=== PATIENT | female | born 1980 | race Caucasian/White ===

== ENCOUNTER 2017-03-31 16:13 | Inpatient (IN) | payer MEDICAID ==
[~2017-03-31] VITALS: Ht 167.6 cm; Wt 108.4 kg
[~2017-03-31 16:13] MED LIST: ATEN25TA PO; BENZ2TAB10 PO; DOCU250C91 PO; GABA-533 PO; HYDR25TA PO; MULT1CAP32 PO; OLAN10TA3 PO; QUET50XR PO; RISP3 PO; SERT50TA12 PO; TRAZ-147 PO; VITAD1000 PO
[2017-03-31] MEDS ORDERED: ZOLPIDEM TARTRATE 10 MG TABLET PO PRN (21:15)
[2017-03-31] MEDS ORDERED: LORazepam 2 MG TABLET PO PRN (21:15)
[2017-03-31 21:52] VITALS: BP 128/73
[2017-04-01 06:20] VITALS: BP 143/75
[2017-04-01 08:33] LABS: BASOPHILS % (AUTO) 0.4 % (0.0-2.0); EOSINOPHILS % (AUTO) 6.4 % (1.0-6.0); HEMATOCRIT 39.1 % (36-46); HEMOGLOBIN 13.3 g/dL (12.0-16.0); LYMPHOCYTES # (AUTO) 1.4 K/uL (1.0-4.8); LYMPHOCYTES % (AUTO) 28.3 % (22.0-44.0); MEAN CORPUSCULAR HEMOGLOBIN 29.4 pg (26.0-34.0); MEAN CORPUSCULAR HGB CONC 34.1 G/dL (31.0-37.0); MEAN CORPUSCULAR VOLUME 86 fL (80-100); MONOCYTES # (AUTO) 0.7 K/uL (0.1-1.0); MONOCYTES % (AUTO) 14.9 % (2.0-9.0); NEUTROPHILS # (AUTO) 2.5 K/uL (1.8-7.7); PLATELET COUNT (AUTO) 269 K/uL (150-450); RED BLOOD CELL COUNT(AUTO) 4.52 MIL/uL (4.00-5.20); RED CELL DISTRIBUTION WIDTH 13.2 % (11.5-14.5)
[2017-04-01 08:46] VITALS: BP 146/91
[2017-04-01 09:02] LABS: ALANINE AMINOTRANSFERASE 26 U/L (12-78); ALBUMIN 2.6 g/dL (3.4-5.0); ANION GAP 8 mmol/L (8-16); ASPARTATE AMINOTRANSFERASE 14 U/L (15-37); BILIRUBIN,TOTAL 0.1 mg/dL (0.1-1.0); CALCIUM, TOTAL 8.4 mg/dL (8.8-10.5); CARBON DIOXIDE 24 mmol/L (22-29); CHLORIDE 110 mmol/L (98-107); CHOL/HDL RATIO 2.5 (3.9-5.7); CREATININE 0.63 mg/dL (0.60-1.30); GLOMERULAR FILTR. RATE CALC > 60 mL/min (>60); SODIUM SERUM 142 mmol/L (136-145); TOTAL PROTEIN, SERUM 6.1 g/dL (6.4-8.2); UREA NITROGEN, BLOOD 10 mg/dL (7-18)
[2017-04-01] MEDS: DOCUSATE SODIUM 250 MG CAPSULE PO SCH ×2 (09:38→16:40)
[2017-04-01] MEDS: MULTIVITAMINS, THERAPEUTIC TABLET PO SCH (09:38)
[2017-04-01] MEDS: ATENOLOL 25 MG TABLET PO SCH (09:38)
[2017-04-01] MEDS: HYDROCHLOROTHIAZIDE 25 MG TABLET PO SCH (09:38)
[2017-04-01] MEDS: CHOLECALCIFEROL (VIT D3) 1,000 UNITS TABLET PO SCH (09:38)
[2017-04-01] MEDS: NICOTINE 21 MG/24 HOUR PATCH TD SCH (09:42)
[2017-04-01 09:44] LABS: THYROID STIMULATING HORMONE < 0.01 uIU/mL (0.36-3.74)
[2017-04-01 16:00] VITALS: BP 121/72
[2017-04-01] MEDS: DIVALPROEX SODIUM 500 MG ER TABLET PO SCH (16:41)
[2017-04-01] MEDS: BENZTROPINE MESYLATE 2 MG TABLET PO SCH (16:41)
[2017-04-01] MEDS: GABAPENTIN 300 MG CAPSULE PO SCH (16:41)
[2017-04-01] MEDS: RisperiDONE 3 MG TABLET PO SCH (16:41)
[2017-04-01] MEDS ORDERED: DOCUSATE SODIUM 250 MG CAPSULE PO SCH (17:00)
[2017-04-01] MEDS: TraZODone HCL 100 MG TABLET PO SCH (20:23)
[2017-04-01] MEDS ORDERED: DiphenhydrAMINE HCL 50 MG/ML VIAL ONE (20:28)
[2017-04-01] MEDS ORDERED: HALOPERIDOL LACTATE 5 MG/ML VIAL ONE (20:28)
[2017-04-01] MEDS ORDERED: LORazepam 2 MG/ML VIAL ONE (20:28)
[2017-04-01] MEDS ORDERED: LORazepam 2 MG/ML VIAL IM ONE (20:30)
[2017-04-01] MEDS ORDERED: DiphenhydrAMINE HCL 50 MG/ML VIAL IM ONE (20:30)
[2017-04-01] MEDS ORDERED: HALOPERIDOL LACTATE 5 MG/ML VIAL IM ONE (20:30)
[2017-04-02 05:47] VITALS: BP 112/73
[2017-04-02] MEDS: CHOLECALCIFEROL (VIT D3) 1,000 UNITS TABLET PO SCH (08:40)
[2017-04-02] MEDS: GABAPENTIN 300 MG CAPSULE PO SCH ×3 (08:40→16:40)
[2017-04-02] MEDS: BENZTROPINE MESYLATE 2 MG TABLET PO SCH ×2 (08:41→16:40)
[2017-04-02] MEDS: ATENOLOL 25 MG TABLET PO SCH (08:41)
[2017-04-02] MEDS: DIVALPROEX SODIUM 500 MG ER TABLET PO SCH ×2 (08:41→16:40)
[2017-04-02] MEDS: DOCUSATE SODIUM 250 MG CAPSULE PO SCH ×2 (08:41→16:40)
[2017-04-02] MEDS: HYDROCHLOROTHIAZIDE 25 MG TABLET PO SCH (08:41)
[2017-04-02] MEDS: MULTIVITAMINS, THERAPEUTIC TABLET PO SCH (08:41)
[2017-04-02] MEDS: RisperiDONE 3 MG TABLET PO SCH ×2 (08:41→16:40)
[2017-04-02] MEDS: NICOTINE 21 MG/24 HOUR PATCH TD SCH (08:42)
[2017-04-02] MEDS ORDERED: CHOLECALCIFEROL (VIT D3) 1,000 UNITS TABLET PO SCH (09:00)
[2017-04-02] MEDS ORDERED: HYDROCHLOROTHIAZIDE 25 MG TABLET PO SCH (09:00)
[2017-04-02 09:14] VITALS: BP 141/85
[2017-04-02 16:35] VITALS: BP 135/72
[2017-04-02] MEDS: LORazepam 2 MG TABLET PO PRN ×2 (16:40→20:41)
[2017-04-02] MEDS: TraZODone HCL 100 MG TABLET PO SCH (20:41)
[2017-04-02] MEDS: ZOLPIDEM TARTRATE 10 MG TABLET PO PRN (21:02)
[2017-04-03 06:48] VITALS: BP 139/78
[2017-04-03] MEDS: HYDROCHLOROTHIAZIDE 25 MG TABLET PO SCH (08:44)
[2017-04-03] MEDS: RisperiDONE 3 MG TABLET PO SCH ×2 (08:44→16:58)
[2017-04-03] MEDS: MULTIVITAMINS, THERAPEUTIC TABLET PO SCH (08:44)
[2017-04-03] MEDS: BENZTROPINE MESYLATE 2 MG TABLET PO SCH ×2 (08:44→16:58)
[2017-04-03] MEDS: GABAPENTIN 300 MG CAPSULE PO SCH ×3 (08:44→16:57)
[2017-04-03] MEDS: ATENOLOL 25 MG TABLET PO SCH (08:44)
[2017-04-03] MEDS: DIVALPROEX SODIUM 500 MG ER TABLET PO SCH ×2 (08:44→16:57)
[2017-04-03] MEDS: LORazepam 2 MG TABLET PO PRN ×3 (08:45→20:29)
[2017-04-03] MEDS: CHOLECALCIFEROL (VIT D3) 1,000 UNITS TABLET PO SCH (08:45)
[2017-04-03] MEDS: DOCUSATE SODIUM 250 MG CAPSULE PO SCH ×2 (08:45→16:57)
[2017-04-03 08:50] VITALS: BP 119/89
[2017-04-03] MEDS: NICOTINE 21 MG/24 HOUR PATCH TD SCH (09:00)
[2017-04-03] MEDS ORDERED: DiphenhydrAMINE HCL 50 MG/ML VIAL ONE (09:10)
[2017-04-03] MEDS ORDERED: HALOPERIDOL LACTATE 5 MG/ML VIAL ONE (09:10)
[2017-04-03] MEDS ORDERED: LORazepam 2 MG/ML VIAL ONE (09:10)
[2017-04-03] MEDS ORDERED: HALOPERIDOL LACTATE 5 MG/ML VIAL IM ONE (09:15)
[2017-04-03] MEDS ORDERED: DiphenhydrAMINE HCL 50 MG/ML VIAL IM ONE (09:15)
[2017-04-03] MEDS ORDERED: LORazepam 2 MG/ML VIAL IM ONE (09:15)
[2017-04-03 09:45] VITALS: BP 123/73
[2017-04-03 16:00] VITALS: BP 132/81
[2017-04-03] MEDS: TraZODone HCL 100 MG TABLET PO SCH (20:29)
[2017-04-03] MEDS: ZOLPIDEM TARTRATE 10 MG TABLET PO PRN (21:01)
[2017-04-04] MEDS ORDERED: -PHARMACY VACCINE NOTE- MISC ONE ×2 (00:45)
[2017-04-04 07:14] VITALS: BP 130/75
[2017-04-04 08:44] VITALS: BP 118/69
[2017-04-04] MEDS: GABAPENTIN 300 MG CAPSULE PO SCH ×3 (08:48→16:26)
[2017-04-04] MEDS: MULTIVITAMINS, THERAPEUTIC TABLET PO SCH (08:49)
[2017-04-04] MEDS: NICOTINE 21 MG/24 HOUR PATCH TD SCH (08:49)
[2017-04-04] MEDS: BENZTROPINE MESYLATE 2 MG TABLET PO SCH ×2 (08:49→16:26)
[2017-04-04] MEDS: HYDROCHLOROTHIAZIDE 25 MG TABLET PO SCH (08:49)
[2017-04-04] MEDS: CHOLECALCIFEROL (VIT D3) 1,000 UNITS TABLET PO SCH (08:49)
[2017-04-04] MEDS: RisperiDONE 3 MG TABLET PO SCH ×2 (08:49→16:26)
[2017-04-04] MEDS: ATENOLOL 25 MG TABLET PO SCH (08:49)
[2017-04-04] MEDS: DOCUSATE SODIUM 250 MG CAPSULE PO SCH ×2 (08:49→16:26)
[2017-04-04] MEDS: DIVALPROEX SODIUM 500 MG ER TABLET PO SCH ×2 (08:49→16:26)
[2017-04-04] MEDS: LORazepam 2 MG TABLET PO PRN ×2 (08:49→12:50)
[2017-04-04 16:22] VITALS: BP 143/78
[2017-04-04] MEDS ORDERED: DiphenhydrAMINE HCL 50 MG/ML VIAL IM ONE ×2 (16:30→18:15)
[2017-04-04] MEDS ORDERED: LORazepam 2 MG/ML VIAL IM ONE ×2 (16:30→18:15)
[2017-04-04] MEDS ORDERED: HALOPERIDOL LACTATE 5 MG/ML VIAL IM ONE (16:30)
[2017-04-04] MEDS ORDERED: ZIPRASIDONE MESYLATE 20 MG/VIAL IM ONE ×2 (18:06→18:15)
[2017-04-04 18:45] VITALS: BP 130/74
[2017-04-04] MEDS: TraZODone HCL 100 MG TABLET PO SCH (20:20)
[2017-04-05 06:08] VITALS: BP 119/66
[2017-04-05 06:55] LABS: BASOPHILS % (AUTO) 0.3 % (0.0-2.0); EOSINOPHILS % (AUTO) 2.6 % (1.0-6.0); HEMATOCRIT 43.1 % (36-46); HEMOGLOBIN 14.7 g/dL (12.0-16.0); LYMPHOCYTES # (AUTO) 1.5 K/uL (1.0-4.8); LYMPHOCYTES % (AUTO) 20.7 % (22.0-44.0); MEAN CORPUSCULAR HEMOGLOBIN 29.6 pg (26.0-34.0); MEAN CORPUSCULAR HGB CONC 34.1 G/dL (31.0-37.0); MEAN CORPUSCULAR VOLUME 87 fL (80-100); MONOCYTES # (AUTO) 0.7 K/uL (0.1-1.0); MONOCYTES % (AUTO) 9.8 % (2.0-9.0); NEUTROPHILS # (AUTO) 4.9 K/uL (1.8-7.7); NEUTROPHILS % (AUTO) 66.6 % (40.0-70.0); PLATELET COUNT (AUTO) 290 K/uL (150-450); RED BLOOD CELL COUNT(AUTO) 4.96 MIL/uL (4.00-5.20); RED CELL DISTRIBUTION WIDTH 13.3 % (11.5-14.5); WHITE BLOOD COUNT (AUTO) 7.4 K/uL (4.5-11.0)
[2017-04-05 07:16] LABS: ALANINE AMINOTRANSFERASE 33 U/L (12-78); ANION GAP 10 mmol/L (8-16); ASPARTATE AMINOTRANSFERASE 17 U/L (15-37); BILIRUBIN,TOTAL 0.2 mg/dL (0.1-1.0); CALCIUM, TOTAL 9.2 mg/dL (8.8-10.5); CARBON DIOXIDE 27 mmol/L (22-29); CHLORIDE 106 mmol/L (98-107); CREATININE 0.84 mg/dL (0.60-1.30); GLOMERULAR FILTR. RATE CALC > 60 mL/min (>60); POTASSIUM 3.6 mmol/L (3.5-5.1); SODIUM SERUM 143 mmol/L (136-145); TOTAL PROTEIN, SERUM 6.7 g/dL (6.4-8.2); UREA NITROGEN, BLOOD 11 mg/dL (7-18); VALPROIC ACID 42 mcg/mL (50-100)
[2017-04-05 08:28] VITALS: BP 137/86
[2017-04-05] MEDS: GABAPENTIN 300 MG CAPSULE PO SCH ×3 (08:53→16:31)
[2017-04-05] MEDS: BENZTROPINE MESYLATE 2 MG TABLET PO SCH ×2 (08:54→16:31)
[2017-04-05] MEDS: CHOLECALCIFEROL (VIT D3) 1,000 UNITS TABLET PO SCH (08:54)
[2017-04-05] MEDS: RisperiDONE 3 MG TABLET PO SCH ×2 (08:54→16:31)
[2017-04-05] MEDS: ATENOLOL 25 MG TABLET PO SCH (08:54)
[2017-04-05] MEDS: MULTIVITAMINS, THERAPEUTIC TABLET PO SCH (08:54)
[2017-04-05] MEDS: HYDROCHLOROTHIAZIDE 25 MG TABLET PO SCH (08:54)
[2017-04-05] MEDS: DOCUSATE SODIUM 250 MG CAPSULE PO SCH ×2 (08:54→16:31)
[2017-04-05] MEDS: DIVALPROEX SODIUM 500 MG ER TABLET PO SCH ×2 (08:55→16:31)
[2017-04-05] MEDS: LORazepam 2 MG TABLET PO PRN ×3 (08:55→21:07)
[2017-04-05] MEDS: NICOTINE 21 MG/24 HOUR PATCH TD SCH (08:55)
[2017-04-05] MEDS: BENZOCAINE/MENTHOL LOZENGE PO PRN ×3 (11:43→21:07)
[2017-04-05 16:33] VITALS: BP 137/86
[2017-04-05] MEDS ORDERED: HALOPERIDOL LACTATE 5 MG/ML VIAL ONE (20:00)
[2017-04-05] MEDS ORDERED: LORazepam 2 MG/ML VIAL IM ONE (20:00)
[2017-04-05] MEDS ORDERED: DiphenhydrAMINE HCL 50 MG/ML VIAL IM ONE (20:00)
[2017-04-05] MEDS ORDERED: DiphenhydrAMINE HCL 50 MG/ML VIAL ONE (20:00)
[2017-04-05] MEDS ORDERED: LORazepam 2 MG/ML VIAL ONE (20:00)
[2017-04-05] MEDS ORDERED: HALOPERIDOL LACTATE 5 MG/ML VIAL IM ONE (20:00)
[2017-04-05] MEDS: TraZODone HCL 100 MG TABLET PO SCH (20:45)
[2017-04-05] MEDS: ZOLPIDEM TARTRATE 10 MG TABLET PO PRN (21:06)
[2017-04-06 06:40] VITALS: BP 134/88
[2017-04-06] MEDS: NICOTINE 21 MG/24 HOUR PATCH TD SCH (09:00)
[2017-04-06 09:18] VITALS: BP 149/92
[2017-04-06] MEDS: BENZTROPINE MESYLATE 2 MG TABLET PO SCH ×2 (10:00→16:23)
[2017-04-06] MEDS: HYDROCHLOROTHIAZIDE 25 MG TABLET PO SCH (10:23)
[2017-04-06] MEDS: CHOLECALCIFEROL (VIT D3) 1,000 UNITS TABLET PO SCH (10:23)
[2017-04-06] MEDS: MULTIVITAMINS, THERAPEUTIC TABLET PO SCH (10:24)
[2017-04-06] MEDS: RisperiDONE 3 MG TABLET PO SCH ×2 (10:24→16:24)
[2017-04-06] MEDS: DOCUSATE SODIUM 250 MG CAPSULE PO SCH ×2 (10:24→16:23)
[2017-04-06] MEDS: GABAPENTIN 300 MG CAPSULE PO SCH ×3 (10:24→16:24)
[2017-04-06] MEDS: DIVALPROEX SODIUM 500 MG ER TABLET PO SCH ×2 (10:24→16:23)
[2017-04-06] MEDS: ATENOLOL 25 MG TABLET PO SCH (10:24)
[2017-04-06 16:22] VITALS: BP 118/80
[2017-04-06] MEDS: BENZOCAINE/MENTHOL LOZENGE PO PRN (18:27)
[2017-04-06] MEDS: TraZODone HCL 100 MG TABLET PO SCH (20:20)
[2017-04-06] MEDS: LORazepam 2 MG TABLET PO PRN (20:20)
[2017-04-06] MEDS: ZOLPIDEM TARTRATE 10 MG TABLET PO PRN (21:54)
[2017-04-07 07:08] VITALS: BP 114/75
[2017-04-07 08:29] VITALS: BP 125/81
[2017-04-07] MEDS: DOCUSATE SODIUM 250 MG CAPSULE PO SCH ×2 (08:48→17:05)
[2017-04-07] MEDS: DIVALPROEX SODIUM 500 MG ER TABLET PO SCH ×2 (08:48→17:05)
[2017-04-07] MEDS: RisperiDONE 3 MG TABLET PO SCH ×2 (08:49→17:15)
[2017-04-07] MEDS: HYDROCHLOROTHIAZIDE 25 MG TABLET PO SCH (08:49)
[2017-04-07] MEDS: GABAPENTIN 300 MG CAPSULE PO SCH ×3 (08:49→17:05)
[2017-04-07] MEDS: BENZTROPINE MESYLATE 2 MG TABLET PO SCH ×2 (08:50→17:05)
[2017-04-07] MEDS: CHOLECALCIFEROL (VIT D3) 1,000 UNITS TABLET PO SCH (08:51)
[2017-04-07] MEDS: NICOTINE 21 MG/24 HOUR PATCH TD SCH (08:54)
[2017-04-07] MEDS: ATENOLOL 25 MG TABLET PO SCH (09:23)
[2017-04-07] MEDS: MULTIVITAMINS, THERAPEUTIC TABLET PO SCH (09:23)
[2017-04-07] MEDS: BENZOCAINE/MENTHOL LOZENGE PO PRN ×2 (11:50→16:40)
[2017-04-07] MEDS: LORazepam 2 MG TABLET PO PRN ×2 (12:14→16:39)
[2017-04-07 16:17] VITALS: BP 115/74
[2017-04-07] MEDS ORDERED: LORazepam 2 MG/ML VIAL ONE (17:24)
[2017-04-07] MEDS ORDERED: LORazepam 2 MG/ML VIAL IM ONE (17:30)
[2017-04-07] MEDS: TraZODone HCL 100 MG TABLET PO SCH (20:34)
[2017-04-08] MEDS: BENZOCAINE/MENTHOL LOZENGE PO PRN ×2 (01:06→12:25)
[2017-04-08 06:40] VITALS: BP 124/71
[2017-04-08 08:58] VITALS: BP 139/73
[2017-04-08] MEDS: NICOTINE 21 MG/24 HOUR PATCH TD SCH (09:00)
[2017-04-08 09:30] VITALS: BP 139/73
[2017-04-08] MEDS: ATENOLOL 25 MG TABLET PO SCH (09:58)
[2017-04-08] MEDS: MULTIVITAMINS, THERAPEUTIC TABLET PO SCH (09:58)
[2017-04-08] MEDS: GABAPENTIN 300 MG CAPSULE PO SCH ×3 (09:58→16:49)
[2017-04-08] MEDS: CHOLECALCIFEROL (VIT D3) 1,000 UNITS TABLET PO SCH (09:58)
[2017-04-08] MEDS: LORazepam 2 MG TABLET PO PRN ×2 (09:58→16:13)
[2017-04-08] MEDS: BENZTROPINE MESYLATE 2 MG TABLET PO SCH ×2 (09:59→16:49)
[2017-04-08] MEDS: HYDROCHLOROTHIAZIDE 25 MG TABLET PO SCH (09:59)
[2017-04-08] MEDS: DOCUSATE SODIUM 250 MG CAPSULE PO SCH ×2 (09:59→16:49)
[2017-04-08] MEDS: DIVALPROEX SODIUM 500 MG ER TABLET PO SCH ×2 (09:59→16:49)
[2017-04-08] MEDS: RisperiDONE 3 MG TABLET PO SCH ×2 (09:59→16:49)
[2017-04-08 18:06] VITALS: BP 119/89
[2017-04-08] MEDS: TraZODone HCL 100 MG TABLET PO SCH (20:05)
[2017-04-09 06:43] VITALS: BP 121/85
[2017-04-09] MEDS: HYDROCHLOROTHIAZIDE 25 MG TABLET PO SCH (08:53)
[2017-04-09] MEDS: RisperiDONE 3 MG TABLET PO SCH (08:53)
[2017-04-09] MEDS: DIVALPROEX SODIUM 500 MG ER TABLET PO SCH (08:53)
[2017-04-09] MEDS: BENZTROPINE MESYLATE 2 MG TABLET PO SCH (08:54)
[2017-04-09] MEDS: ATENOLOL 25 MG TABLET PO SCH (08:54)
[2017-04-09] MEDS: DOCUSATE SODIUM 250 MG CAPSULE PO SCH (08:54)
[2017-04-09] MEDS: MULTIVITAMINS, THERAPEUTIC TABLET PO SCH (08:54)
[2017-04-09] MEDS: GABAPENTIN 300 MG CAPSULE PO SCH ×2 (08:54→12:57)
[2017-04-09] MEDS: CHOLECALCIFEROL (VIT D3) 1,000 UNITS TABLET PO SCH (08:54)
[2017-04-09] MEDS: NICOTINE 21 MG/24 HOUR PATCH TD SCH (09:00)
[2017-04-09 10:02] VITALS: BP 127/77
[2017-04-09] MEDS ORDERED: DIVA500T52 PO (10:05)
[2017-04-09] MEDS ORDERED: TRAZ-147 PO (10:06)
[2017-04-09] MEDS ORDERED: BENZ2TAB10 PO (10:06)
[2017-04-09] MEDS ORDERED: RISP3 PO (10:06)
[2017-04-09] MEDS ORDERED: GABA-531 PO (10:19)
== END 2017-04-09 14:25 | disposition home or self-care (01) | DRG 750 ==
LOC: B3A 21:36
PROVIDERS: ADMIT Psychiatry & Neurology Child & Adolescent Psychiatry; ATTEND Psychiatry & Neurology Child & Adolescent Psychiatry
DX: F25.0 Schizoaffective disorder, bipolar type (principal); F79 Unspecified intellectual disabilities; I10 Essential (primary) hypertension; E55.9 Vitamin D deficiency, unspecified; K59.00 Constipation, unspecified; Z91.5 Personal history of self-harm; R25.9 Unspecified abnormal involuntary movements; R45.4 Irritability and anger; F17.200 Nicotine dependence, unspecified, uncomplicated
CPT/HCPCS: 84439; 84443; 87081; J1200; J1630; J2060; J3230; J3486

== ENCOUNTER 2017-04-15 18:14 | Inpatient (IN) | payer MEDICAID ==
[~2017-04-15] VITALS: Ht 167.6 cm; Wt 98.4 kg
[~2017-04-15 18:14] MED LIST changes: +DIVA500T52 PO; +GABA-531 PO; -GABA-533 PO; -MULT1CAP32 PO; -OLAN10TA3 PO; -QUET50XR PO; -SERT50TA12 PO
[2017-04-15 19:00] VITALS: BP 156/81
[2017-04-15] MEDS ORDERED: HALOPERIDOL LACTATE 5 MG/ML VIAL ONE (19:00)
[2017-04-15] MEDS ORDERED: LORazepam 2 MG/ML VIAL ONE (19:00)
[2017-04-15] MEDS ORDERED: HALOPERIDOL LACTATE 5 MG/ML VIAL IM ONE (19:00)
[2017-04-15] MEDS ORDERED: DiphenhydrAMINE HCL 50 MG/ML VIAL ONE (19:00)
[2017-04-15] MEDS ORDERED: LORazepam 2 MG/ML VIAL IM ONE (19:00)
[2017-04-15] MEDS ORDERED: DiphenhydrAMINE HCL 50 MG/ML VIAL IM ONE (19:00)
[2017-04-15] MEDS ORDERED: INFLUENZA VIRUS VACCINE QVS 2017-18 (3YR+)/PF 60 MCG/0.5 ML SYRINGE IM ONE (19:30)
[2017-04-15 19:40] VITALS: BP 143/91
[2017-04-15] MEDS: ATENOLOL 25 MG TABLET PO SCH (20:00)
[2017-04-15] MEDS: HYDROCHLOROTHIAZIDE 25 MG TABLET PO SCH (20:46)
[2017-04-15] MEDS: ZOLPIDEM TARTRATE 10 MG TABLET PO PRN (20:46)
[2017-04-15] MEDS: DOCUSATE SODIUM 250 MG CAPSULE PO SCH (21:25)
[2017-04-16 06:41] VITALS: BP 140/89
[2017-04-16] MEDS: DOCUSATE SODIUM 250 MG CAPSULE PO SCH ×2 (08:15→16:10)
[2017-04-16] MEDS: ATENOLOL 25 MG TABLET PO SCH (08:15)
[2017-04-16] MEDS: CHOLECALCIFEROL (VIT D3) 1,000 UNITS TABLET PO SCH (08:15)
[2017-04-16] MEDS: HYDROCHLOROTHIAZIDE 25 MG TABLET PO SCH (08:15)
[2017-04-16 08:19] LABS: BASOPHILS % (AUTO) 0.3 % (0.0-2.0); HEMATOCRIT 41.4 % (36-46); HEMOGLOBIN 14.1 g/dL (12.0-16.0); LYMPHOCYTES # (AUTO) 1.3 K/uL (1.0-4.8); LYMPHOCYTES % (AUTO) 32.4 % (22.0-44.0); MEAN CORPUSCULAR HEMOGLOBIN 29.5 pg (26.0-34.0); MEAN CORPUSCULAR HGB CONC 34.1 G/dL (31.0-37.0); MEAN CORPUSCULAR VOLUME 86 fL (80-100); MONOCYTES # (AUTO) 0.8 K/uL (0.1-1.0); MONOCYTES % (AUTO) 19.9 % (2.0-9.0); NEUTROPHILS # (AUTO) 1.7 K/uL (1.8-7.7); NEUTROPHILS % (AUTO) 42.4 % (40.0-70.0); PLATELET COUNT (AUTO) 234 K/uL (150-450); RED BLOOD CELL COUNT(AUTO) 4.79 MIL/uL (4.00-5.20); RED CELL DISTRIBUTION WIDTH 12.7 % (11.5-14.5)
[2017-04-16 08:54] VITALS: BP 153/105
[2017-04-16 08:55] LABS: HEMOGLOBIN A1C 5.4 % (4.5-6.2)
[2017-04-16 09:00] LABS: ALANINE AMINOTRANSFERASE 38 U/L (12-78); ALBUMIN 2.7 g/dL (3.4-5.0); ALKALINE PHOSPHATASE 81 U/L (46-116); ANION GAP 7 mmol/L (8-16); ASPARTATE AMINOTRANSFERASE 21 U/L (15-37); BILIRUBIN,TOTAL 0.3 mg/dL (0.1-1.0); CALCIUM, TOTAL 8.8 mg/dL (8.8-10.5); CARBON DIOXIDE 29 mmol/L (22-29); CHLORIDE 105 mmol/L (98-107); CHOL/HDL RATIO 3.3 (3.9-5.7); CHOLESTEROL 124 mg/dL (131-200); CREATININE 0.67 mg/dL (0.60-1.30); GLOMERULAR FILTR. RATE CALC > 60 mL/min (>60); GLUCOSE,RANDOM 80 mg/dL (70-110); HCG,QUANTITATIVE < 1 mIU/mL (0-6); HDL CHOLESTEROL 38 mg/dL (40-60); LDL CHOL (CALC.) 63 mg/dL (0-130); POTASSIUM 3.3 mmol/L (3.5-5.1); SODIUM SERUM 141 mmol/L (136-145); TOTAL PROTEIN, SERUM 6.6 g/dL (6.4-8.2); TRIGLYCERIDES 117 mg/dL (15-150); UREA NITROGEN, BLOOD 12 mg/dL (7-18)
[2017-04-16 09:06] LABS: THYROID STIMULATING HORMONE < 0.01 uIU/mL (0.36-3.74)
[2017-04-16] MEDS ORDERED: CloNIDine HCL 0.1 MG TABLET PO PRN (11:30)
[2017-04-16] MEDS ORDERED: POTASSIUM CHLORIDE 20 MEQ ER TABLET PO ONE (13:15)
[2017-04-16] MEDS: GABAPENTIN 300 MG CAPSULE PO SCH ×2 (14:22→16:10)
[2017-04-16 16:02] VITALS: BP 114/74
[2017-04-16] MEDS: RisperiDONE 3 MG TABLET PO SCH (16:10)
[2017-04-16] MEDS: DIVALPROEX SODIUM 500 MG ER TABLET PO SCH (16:10)
[2017-04-16] MEDS: LORazepam 2 MG TABLET PO PRN (16:10)
[2017-04-16] MEDS: BENZTROPINE MESYLATE 2 MG TABLET PO SCH (16:10)
[2017-04-16] MEDS: ZOLPIDEM TARTRATE 10 MG TABLET PO PRN (20:28)
[2017-04-16] MEDS: TraZODone HCL 100 MG TABLET PO SCH (20:28)
[2017-04-17 06:27] VITALS: BP 137/70
[2017-04-17 08:24] VITALS: BP 139/60
[2017-04-17] MEDS: BENZTROPINE MESYLATE 2 MG TABLET PO SCH ×2 (10:12→16:10)
[2017-04-17] MEDS: HYDROCHLOROTHIAZIDE 25 MG TABLET PO SCH (10:12)
[2017-04-17] MEDS: CHOLECALCIFEROL (VIT D3) 1,000 UNITS TABLET PO SCH (10:12)
[2017-04-17] MEDS: GABAPENTIN 300 MG CAPSULE PO SCH ×3 (10:13→16:10)
[2017-04-17] MEDS: DIVALPROEX SODIUM 500 MG ER TABLET PO SCH ×2 (10:13→16:10)
[2017-04-17] MEDS: AmLODIPine BESYLATE 2.5 MG TABLET PO SCH (10:13)
[2017-04-17] MEDS: ATENOLOL 25 MG TABLET PO SCH (10:13)
[2017-04-17] MEDS: RisperiDONE 3 MG TABLET PO SCH ×2 (10:13→16:10)
[2017-04-17] MEDS: DOCUSATE SODIUM 250 MG CAPSULE PO SCH ×2 (10:22→16:10)
[2017-04-17] MEDS: LORazepam 2 MG TABLET PO PRN ×2 (14:06→22:17)
[2017-04-17 16:06] VITALS: BP 122/74
[2017-04-17] MEDS ORDERED: LORazepam 2 MG/ML VIAL ONE (18:23)
[2017-04-17] MEDS ORDERED: DiphenhydrAMINE HCL 50 MG/ML VIAL ONE (18:23)
[2017-04-17] MEDS ORDERED: HALOPERIDOL LACTATE 5 MG/ML VIAL ONE (18:23)
[2017-04-17] MEDS ORDERED: HALOPERIDOL LACTATE 5 MG/ML VIAL IM ONE (18:30)
[2017-04-17] MEDS ORDERED: LORazepam 2 MG/ML VIAL IM ONE (18:30)
[2017-04-17] MEDS ORDERED: DiphenhydrAMINE HCL 50 MG/ML VIAL IM ONE (18:30)
[2017-04-17] MEDS: TraZODone HCL 100 MG TABLET PO SCH (20:02)
[2017-04-17] MEDS: ZOLPIDEM TARTRATE 10 MG TABLET PO PRN (20:15)
[2017-04-18] MEDS: BENZTROPINE MESYLATE 2 MG TABLET PO SCH ×2 (08:59→16:08)
[2017-04-18] MEDS: CHOLECALCIFEROL (VIT D3) 1,000 UNITS TABLET PO SCH (08:59)
[2017-04-18] MEDS: DIVALPROEX SODIUM 500 MG ER TABLET PO SCH ×2 (09:00→16:08)
[2017-04-18] MEDS: DOCUSATE SODIUM 250 MG CAPSULE PO SCH ×2 (09:00→16:08)
[2017-04-18] MEDS: AmLODIPine BESYLATE 2.5 MG TABLET PO SCH (09:00)
[2017-04-18] MEDS: ATENOLOL 25 MG TABLET PO SCH (09:00)
[2017-04-18] MEDS: GABAPENTIN 300 MG CAPSULE PO SCH ×3 (09:00→16:07)
[2017-04-18] MEDS: RisperiDONE 3 MG TABLET PO SCH ×2 (09:00→16:08)
[2017-04-18] MEDS: HYDROCHLOROTHIAZIDE 25 MG TABLET PO SCH (09:00)
[2017-04-18 09:58] VITALS: BP 132/67
[2017-04-18] MEDS: LORazepam 2 MG TABLET PO PRN ×2 (16:08→20:08)
[2017-04-18 16:23] VITALS: BP 136/81
[2017-04-18] MEDS: ZOLPIDEM TARTRATE 10 MG TABLET PO PRN (20:08)
[2017-04-18] MEDS: TraZODone HCL 100 MG TABLET PO SCH (20:08)
[2017-04-19] MEDS ORDERED: HALOPERIDOL LACTATE 5 MG/ML VIAL IM ONE (00:15)
[2017-04-19] MEDS ORDERED: DiphenhydrAMINE HCL 50 MG/ML VIAL IM ONE (00:15)
[2017-04-19] MEDS ORDERED: LORazepam 2 MG/ML VIAL IM ONE (00:15)
[2017-04-19 08:11] VITALS: BP 132/81
[2017-04-19] MEDS: AmLODIPine BESYLATE 2.5 MG TABLET PO SCH (08:29)
[2017-04-19] MEDS: HYDROCHLOROTHIAZIDE 25 MG TABLET PO SCH (08:29)
[2017-04-19] MEDS: GABAPENTIN 300 MG CAPSULE PO SCH ×3 (08:29→16:01)
[2017-04-19] MEDS: DOCUSATE SODIUM 250 MG CAPSULE PO SCH ×2 (08:29→16:01)
[2017-04-19] MEDS: CHOLECALCIFEROL (VIT D3) 1,000 UNITS TABLET PO SCH (08:29)
[2017-04-19] MEDS: RisperiDONE 3 MG TABLET PO SCH ×2 (08:29→16:01)
[2017-04-19] MEDS: ATENOLOL 25 MG TABLET PO SCH (08:30)
[2017-04-19] MEDS: DIVALPROEX SODIUM 500 MG ER TABLET PO SCH ×2 (08:30→16:01)
[2017-04-19] MEDS: BENZTROPINE MESYLATE 2 MG TABLET PO SCH ×2 (08:30→16:01)
[2017-04-19] MEDS: LORazepam 2 MG TABLET PO PRN ×2 (16:01→20:12)
[2017-04-19 16:10] VITALS: BP 135/68
[2017-04-19] MEDS: TraZODone HCL 100 MG TABLET PO SCH (20:12)
[2017-04-19] MEDS: ZOLPIDEM TARTRATE 10 MG TABLET PO PRN (21:17)
[2017-04-20 00:15] VITALS: BP 131/72
[2017-04-20] MEDS: IBUPROFEN 600 MG TABLET PO PRN (00:15)
[2017-04-20] MEDS: LORazepam 2 MG TABLET PO PRN ×2 (00:15→16:20)
[2017-04-20 08:27] VITALS: BP 126/79
[2017-04-20] MEDS: BENZTROPINE MESYLATE 2 MG TABLET PO SCH ×2 (08:41→16:20)
[2017-04-20] MEDS: ATENOLOL 50 MG TABLET PO SCH (08:41)
[2017-04-20] MEDS: DOCUSATE SODIUM 250 MG CAPSULE PO SCH ×2 (08:43→16:20)
[2017-04-20] MEDS: HYDROCHLOROTHIAZIDE 25 MG TABLET PO SCH (08:43)
[2017-04-20] MEDS: CHOLECALCIFEROL (VIT D3) 1,000 UNITS TABLET PO SCH (08:43)
[2017-04-20] MEDS: AmLODIPine BESYLATE 2.5 MG TABLET PO SCH (08:43)
[2017-04-20] MEDS: RisperiDONE 3 MG TABLET PO SCH ×2 (08:44→16:20)
[2017-04-20] MEDS: GABAPENTIN 300 MG CAPSULE PO SCH ×3 (08:44→16:20)
[2017-04-20] MEDS: DIVALPROEX SODIUM 500 MG ER TABLET PO SCH ×2 (08:44→16:20)
[2017-04-20 15:57] VITALS: BP 146/77
[2017-04-20 16:22] VITALS: BP 111/68
[2017-04-20] MEDS: ACETAMINOPHEN 325 MG TABLET PO PRN (19:01)
[2017-04-20] MEDS ORDERED: DiphenhydrAMINE HCL 50 MG/ML VIAL IM ONE (20:15)
[2017-04-20] MEDS ORDERED: LORazepam 2 MG/ML VIAL IM ONE (20:15)
[2017-04-20] MEDS ORDERED: HALOPERIDOL LACTATE 5 MG/ML VIAL IM ONE (20:15)
[2017-04-20 20:45] VITALS: BP 132/63
[2017-04-20] MEDS: ZOLPIDEM TARTRATE 10 MG TABLET PO PRN (21:04)
[2017-04-20] MEDS: TraZODone HCL 100 MG TABLET PO SCH (21:04)
[2017-04-21 06:07] VITALS: BP 127/63
[2017-04-21 08:26] VITALS: BP 139/63
[2017-04-21] MEDS: GABAPENTIN 300 MG CAPSULE PO SCH ×3 (09:43→17:02)
[2017-04-21] MEDS: CHOLECALCIFEROL (VIT D3) 1,000 UNITS TABLET PO SCH (09:43)
[2017-04-21] MEDS: RisperiDONE 3 MG TABLET PO SCH ×2 (09:43→17:02)
[2017-04-21] MEDS: HYDROCHLOROTHIAZIDE 25 MG TABLET PO SCH (09:43)
[2017-04-21] MEDS: BENZTROPINE MESYLATE 2 MG TABLET PO SCH ×2 (09:43→17:02)
[2017-04-21] MEDS: DIVALPROEX SODIUM 500 MG ER TABLET PO SCH ×2 (09:43→17:02)
[2017-04-21] MEDS: AmLODIPine BESYLATE 2.5 MG TABLET PO SCH (09:43)
[2017-04-21] MEDS: ATENOLOL 50 MG TABLET PO SCH (09:43)
[2017-04-21] MEDS: DOCUSATE SODIUM 250 MG CAPSULE PO SCH ×2 (09:44→16:22)
[2017-04-21 16:10] VITALS: BP 128/75
[2017-04-21] MEDS: LORazepam 2 MG TABLET PO PRN (16:21)
[2017-04-21] MEDS: TraZODone HCL 100 MG TABLET PO SCH (20:06)
[2017-04-21] MEDS: ZOLPIDEM TARTRATE 10 MG TABLET PO PRN (21:19)
[2017-04-22 02:20] VITALS: BP 122/70
[2017-04-22] MEDS: IBUPROFEN 600 MG TABLET PO PRN (02:24)
[2017-04-22] MEDS: LORazepam 2 MG TABLET PO PRN ×3 (02:24→20:07)
[2017-04-22 08:16] VITALS: BP 126/71
[2017-04-22] MEDS: HYDROCHLOROTHIAZIDE 25 MG TABLET PO SCH (09:04)
[2017-04-22] MEDS: RisperiDONE 3 MG TABLET PO SCH ×2 (09:04→16:52)
[2017-04-22] MEDS: GABAPENTIN 300 MG CAPSULE PO SCH ×3 (09:04→16:05)
[2017-04-22] MEDS: CHOLECALCIFEROL (VIT D3) 1,000 UNITS TABLET PO SCH (09:04)
[2017-04-22] MEDS: BENZTROPINE MESYLATE 2 MG TABLET PO SCH ×2 (09:05→16:04)
[2017-04-22] MEDS: DIVALPROEX SODIUM 500 MG ER TABLET PO SCH ×2 (09:05→16:05)
[2017-04-22] MEDS: DOCUSATE SODIUM 250 MG CAPSULE PO SCH ×2 (09:05→16:04)
[2017-04-22] MEDS: ATENOLOL 50 MG TABLET PO SCH (11:43)
[2017-04-22] MEDS: AmLODIPine BESYLATE 2.5 MG TABLET PO SCH (11:43)
[2017-04-22 16:20] VITALS: BP 116/65
[2017-04-22] MEDS: TraZODone HCL 100 MG TABLET PO SCH (20:07)
[2017-04-22] MEDS: ZOLPIDEM TARTRATE 10 MG TABLET PO PRN (21:00)
[2017-04-23 00:46] VITALS: BP 132/80
[2017-04-23] MEDS: GABAPENTIN 300 MG CAPSULE PO SCH ×3 (09:25→16:09)
[2017-04-23] MEDS: DOCUSATE SODIUM 250 MG CAPSULE PO SCH ×2 (09:25→16:09)
[2017-04-23] MEDS: RisperiDONE 3 MG TABLET PO SCH ×2 (09:25→16:09)
[2017-04-23] MEDS: HYDROCHLOROTHIAZIDE 25 MG TABLET PO SCH (09:25)
[2017-04-23] MEDS: ATENOLOL 50 MG TABLET PO SCH (09:26)
[2017-04-23] MEDS: AmLODIPine BESYLATE 2.5 MG TABLET PO SCH (09:26)
[2017-04-23] MEDS: BENZTROPINE MESYLATE 2 MG TABLET PO SCH ×2 (09:26→16:09)
[2017-04-23] MEDS: CHOLECALCIFEROL (VIT D3) 1,000 UNITS TABLET PO SCH (09:26)
[2017-04-23] MEDS: DIVALPROEX SODIUM 500 MG ER TABLET PO SCH ×2 (09:26→16:09)
[2017-04-23] MEDS: LORazepam 2 MG TABLET PO PRN ×2 (14:53→20:15)
[2017-04-23 16:13] VITALS: BP 128/79
[2017-04-23] MEDS: TraZODone HCL 100 MG TABLET PO SCH (20:15)
[2017-04-23] MEDS: ZOLPIDEM TARTRATE 10 MG TABLET PO PRN (20:15)
[2017-04-24 05:49] VITALS: BP 122/72
[2017-04-24] MEDS: ATENOLOL 50 MG TABLET PO SCH (08:02)
[2017-04-24] MEDS: BENZTROPINE MESYLATE 2 MG TABLET PO SCH ×2 (08:02→16:01)
[2017-04-24] MEDS: RisperiDONE 3 MG TABLET PO SCH ×2 (08:02→16:01)
[2017-04-24] MEDS: LORazepam 2 MG TABLET PO PRN ×2 (08:02→16:01)
[2017-04-24] MEDS: CHOLECALCIFEROL (VIT D3) 1,000 UNITS TABLET PO SCH (08:02)
[2017-04-24] MEDS: HYDROCHLOROTHIAZIDE 25 MG TABLET PO SCH (08:02)
[2017-04-24] MEDS: AmLODIPine BESYLATE 2.5 MG TABLET PO SCH (08:02)
[2017-04-24] MEDS: GABAPENTIN 300 MG CAPSULE PO SCH ×3 (08:02→16:01)
[2017-04-24] MEDS: DIVALPROEX SODIUM 500 MG ER TABLET PO SCH ×2 (08:02→16:01)
[2017-04-24] MEDS: DOCUSATE SODIUM 250 MG CAPSULE PO SCH ×2 (08:02→16:01)
[2017-04-24 08:24] VITALS: BP 121/64
[2017-04-24 16:05] VITALS: BP 128/68
[2017-04-24 16:06] VITALS: BP_SYST 103; BP_SYST 128; BP_DIAS 62; BP_DIAS 68
[2017-04-24] MEDS: TraZODone HCL 100 MG TABLET PO SCH (20:03)
[2017-04-24] MEDS: ZOLPIDEM TARTRATE 10 MG TABLET PO PRN (20:03)
[2017-04-25 02:57] VITALS: BP 130/67
[2017-04-25] MEDS: IBUPROFEN 600 MG TABLET PO PRN (02:58)
[2017-04-25] MEDS: LORazepam 2 MG TABLET PO PRN ×2 (02:59→16:31)
[2017-04-25] MEDS: ACETAMINOPHEN 325 MG TABLET PO PRN (03:54)
[2017-04-25] MEDS: ATENOLOL 50 MG TABLET PO SCH (07:59)
[2017-04-25] MEDS: GABAPENTIN 300 MG CAPSULE PO SCH ×3 (07:59→16:31)
[2017-04-25] MEDS: DIVALPROEX SODIUM 500 MG ER TABLET PO SCH ×2 (07:59→16:30)
[2017-04-25] MEDS: AmLODIPine BESYLATE 2.5 MG TABLET PO SCH (08:00)
[2017-04-25] MEDS: HYDROCHLOROTHIAZIDE 25 MG TABLET PO SCH (08:00)
[2017-04-25] MEDS: CHOLECALCIFEROL (VIT D3) 1,000 UNITS TABLET PO SCH (08:00)
[2017-04-25] MEDS: DOCUSATE SODIUM 250 MG CAPSULE PO SCH ×2 (08:00→16:30)
[2017-04-25] MEDS: RisperiDONE 3 MG TABLET PO SCH ×2 (08:00→16:31)
[2017-04-25 08:15] VITALS: BP 132/112
[2017-04-25 08:19] LABS: AMPHET/METH SCREEN,URINE NEGATIVE (NEGATIVE); BARBITURATE SCREEN, URINE NEGATIVE (NEGATIVE); BENZODIAZEPINES SCREEN,URINE NEGATIVE (NEGATIVE); CANNABINOID SCREEN,URINE NEGATIVE (NEGATIVE); COCAINE SCREEN,URINE NEGATIVE (NEGATIVE); METHADONE SCREEN, URINE NEGATIVE (NEGATIVE); OPIATE SCREEN,URINE NEGATIVE (NEGATIVE)
[2017-04-25 08:20] LABS: PHENCYCLIDINE SCREEN,URINE NEGATIVE (NEGATIVE)
[2017-04-25 08:36] LABS: APPEARANCE,URINE CLEAR (CLEAR); BILIRUBIN,URINE NEGATIVE (NEGATIVE); GLUCOSE, URINE (UA) NEGATIVE (NEGATIVE); KETONES,URINE NEGATIVE (NEGATIVE); LEUKOCYTE ESTERASE ,URINE NEGATIVE (NEGATIVE); NITRATE,URINE NEGATIVE (NEGATIVE); OCCULT BLOOD,URINE NEGATIVE (NEGATIVE); PROTEIN,URINE NEGATIVE (NEGATIVE); UROBILINOGEN,URINE 0.2 mg/dL (<=1.0)
[2017-04-25] MEDS: BENZTROPINE MESYLATE 2 MG TABLET PO SCH ×2 (09:21→17:01)
[2017-04-25 16:08] VITALS: BP 128/65
[2017-04-25] MEDS: TraZODone HCL 100 MG TABLET PO SCH (20:41)
[2017-04-25] MEDS: ZOLPIDEM TARTRATE 10 MG TABLET PO PRN (20:41)
[2017-04-25] MEDS ORDERED: AMLO2.5T2 PO (21:31)
[2017-04-26 06:48] VITALS: BP 120/74
[2017-04-26] MEDS: DIVALPROEX SODIUM 500 MG ER TABLET PO SCH ×2 (08:18→16:09)
[2017-04-26] MEDS: LORazepam 2 MG TABLET PO PRN ×2 (08:18→16:09)
[2017-04-26] MEDS: RisperiDONE 3 MG TABLET PO SCH ×2 (08:18→16:09)
[2017-04-26 08:19] VITALS: BP 118/66
[2017-04-26] MEDS: GABAPENTIN 300 MG CAPSULE PO SCH ×3 (08:19→16:08)
[2017-04-26] MEDS: ATENOLOL 50 MG TABLET PO SCH (08:19)
[2017-04-26] MEDS: HYDROCHLOROTHIAZIDE 25 MG TABLET PO SCH (08:19)
[2017-04-26] MEDS: AmLODIPine BESYLATE 2.5 MG TABLET PO SCH (08:19)
[2017-04-26] MEDS: CHOLECALCIFEROL (VIT D3) 1,000 UNITS TABLET PO SCH (08:19)
[2017-04-26] MEDS: DOCUSATE SODIUM 250 MG CAPSULE PO SCH ×2 (08:19→16:08)
[2017-04-26] MEDS: BENZTROPINE MESYLATE 2 MG TABLET PO SCH ×2 (08:19→16:09)
[2017-04-26 16:35] VITALS: BP 111/63
[2017-04-26] MEDS: ZOLPIDEM TARTRATE 10 MG TABLET PO PRN (20:27)
[2017-04-26] MEDS: TraZODone HCL 100 MG TABLET PO SCH (20:27)
[2017-04-27 00:24] VITALS: BP 138/64
[2017-04-27 08:05] VITALS: BP 135/72
[2017-04-27] MEDS: ATENOLOL 50 MG TABLET PO SCH (08:43)
[2017-04-27] MEDS: BENZTROPINE MESYLATE 2 MG TABLET PO SCH ×2 (08:43→16:04)
[2017-04-27] MEDS: DIVALPROEX SODIUM 500 MG ER TABLET PO SCH ×2 (08:43→16:04)
[2017-04-27] MEDS: GABAPENTIN 300 MG CAPSULE PO SCH ×3 (08:43→16:04)
[2017-04-27] MEDS: RisperiDONE 3 MG TABLET PO SCH ×2 (08:43→16:04)
[2017-04-27] MEDS: DOCUSATE SODIUM 250 MG CAPSULE PO SCH ×2 (08:43→16:04)
[2017-04-27] MEDS: CHOLECALCIFEROL (VIT D3) 1,000 UNITS TABLET PO SCH (08:43)
[2017-04-27] MEDS: AmLODIPine BESYLATE 2.5 MG TABLET PO SCH (08:43)
[2017-04-27] MEDS: LORazepam 2 MG TABLET PO PRN ×3 (08:47→20:12)
[2017-04-27] MEDS: HYDROCHLOROTHIAZIDE 25 MG TABLET PO SCH (08:51)
[2017-04-27 16:09] VITALS: BP 110/68
[2017-04-27] MEDS: TraZODone HCL 100 MG TABLET PO SCH (20:12)
[2017-04-27] MEDS: ZOLPIDEM TARTRATE 10 MG TABLET PO PRN (20:12)
[2017-04-28 08:00] VITALS: BP 121/72
[2017-04-28] MEDS: DOCUSATE SODIUM 250 MG CAPSULE PO SCH ×2 (08:42→17:36)
[2017-04-28] MEDS: GABAPENTIN 300 MG CAPSULE PO SCH ×3 (08:42→17:36)
[2017-04-28] MEDS: CHOLECALCIFEROL (VIT D3) 1,000 UNITS TABLET PO SCH (08:42)
[2017-04-28] MEDS: HYDROCHLOROTHIAZIDE 25 MG TABLET PO SCH (08:42)
[2017-04-28] MEDS: ATENOLOL 50 MG TABLET PO SCH (08:42)
[2017-04-28] MEDS: DIVALPROEX SODIUM 500 MG ER TABLET PO SCH ×2 (08:43→17:36)
[2017-04-28] MEDS: BENZTROPINE MESYLATE 2 MG TABLET PO SCH ×2 (08:43→17:36)
[2017-04-28] MEDS: RisperiDONE 3 MG TABLET PO SCH ×2 (08:43→17:35)
[2017-04-28] MEDS: AmLODIPine BESYLATE 2.5 MG TABLET PO SCH (08:43)
[2017-04-28] MEDS: NICOTINE 21 MG/24 HOUR PATCH TD SCH (12:43)
[2017-04-28 16:19] VITALS: BP 117/69
[2017-04-28] MEDS: LORazepam 2 MG TABLET PO PRN (17:36)
[2017-04-28] MEDS: ZOLPIDEM TARTRATE 10 MG TABLET PO PRN (20:24)
[2017-04-28] MEDS: TraZODone HCL 100 MG TABLET PO SCH (20:24)
[2017-04-28] MEDS ORDERED: HALOPERIDOL LACTATE 5 MG/ML VIAL ONE (22:59)
[2017-04-28] MEDS ORDERED: LORazepam 2 MG/ML VIAL ONE (22:59)
[2017-04-28] MEDS ORDERED: DiphenhydrAMINE HCL 50 MG/ML VIAL ONE (22:59)
[2017-04-28] MEDS ORDERED: LORazepam 2 MG/ML VIAL IM ONE (23:00)
[2017-04-28] MEDS ORDERED: HALOPERIDOL LACTATE 5 MG/ML VIAL IM ONE (23:00)
[2017-04-28] MEDS ORDERED: DiphenhydrAMINE HCL 50 MG/ML VIAL IM ONE (23:00)
[2017-04-28 23:25] VITALS: BP 111/62
[2017-04-29] MEDS: DOCUSATE SODIUM 250 MG CAPSULE PO SCH ×2 (10:22→16:44)
[2017-04-29] MEDS: ATENOLOL 50 MG TABLET PO SCH (10:22)
[2017-04-29] MEDS: AmLODIPine BESYLATE 2.5 MG TABLET PO SCH (10:22)
[2017-04-29] MEDS: RisperiDONE 3 MG TABLET PO SCH ×2 (10:22→16:44)
[2017-04-29] MEDS: CHOLECALCIFEROL (VIT D3) 1,000 UNITS TABLET PO SCH (10:22)
[2017-04-29] MEDS: DIVALPROEX SODIUM 500 MG ER TABLET PO SCH ×2 (10:22→16:44)
[2017-04-29] MEDS: BENZTROPINE MESYLATE 2 MG TABLET PO SCH ×2 (10:22→16:56)
[2017-04-29] MEDS: GABAPENTIN 300 MG CAPSULE PO SCH ×3 (10:22→16:44)
[2017-04-29] MEDS: HYDROCHLOROTHIAZIDE 25 MG TABLET PO SCH (10:22)
[2017-04-29] MEDS: NICOTINE 21 MG/24 HOUR PATCH TD SCH (10:26)
[2017-04-29] MEDS: LORazepam 2 MG TABLET PO PRN ×3 (10:27→19:02)
[2017-04-29 10:28] VITALS: BP 131/78
[2017-04-29 16:00] VITALS: BP 139/85
[2017-04-29] MEDS: TraZODone HCL 100 MG TABLET PO SCH (20:36)
[2017-04-30 02:30] VITALS: BP 116/75
[2017-04-30] MEDS: ZOLPIDEM TARTRATE 10 MG TABLET PO PRN ×2 (02:34→21:39)
[2017-04-30] MEDS: GABAPENTIN 300 MG CAPSULE PO SCH ×3 (08:10→17:42)
[2017-04-30] MEDS: BENZTROPINE MESYLATE 2 MG TABLET PO SCH ×2 (08:10→17:50)
[2017-04-30] MEDS: RisperiDONE 3 MG TABLET PO SCH ×2 (08:10→17:50)
[2017-04-30] MEDS: DIVALPROEX SODIUM 500 MG ER TABLET PO SCH ×2 (08:10→17:50)
[2017-04-30] MEDS: ATENOLOL 50 MG TABLET PO SCH (08:10)
[2017-04-30] MEDS: CHOLECALCIFEROL (VIT D3) 1,000 UNITS TABLET PO SCH (08:10)
[2017-04-30] MEDS: DOCUSATE SODIUM 250 MG CAPSULE PO SCH ×2 (08:10→17:50)
[2017-04-30] MEDS: HYDROCHLOROTHIAZIDE 25 MG TABLET PO SCH (08:10)
[2017-04-30] MEDS: NICOTINE 21 MG/24 HOUR PATCH TD SCH (08:11)
[2017-04-30] MEDS: AmLODIPine BESYLATE 2.5 MG TABLET PO SCH (08:11)
[2017-04-30] MEDS: LORazepam 2 MG TABLET PO PRN ×3 (08:29→21:39)
[2017-04-30 08:43] VITALS: BP 157/97
[2017-04-30 18:09] VITALS: BP 151/95
[2017-04-30] MEDS: TraZODone HCL 100 MG TABLET PO SCH (21:39)
[2017-05-01 03:34] VITALS: BP 128/78
[2017-05-01 08:21] VITALS: BP 149/90
[2017-05-01] MEDS: RisperiDONE 3 MG TABLET PO SCH ×2 (08:29→17:02)
[2017-05-01] MEDS: DOCUSATE SODIUM 250 MG CAPSULE PO SCH ×2 (08:29→17:02)
[2017-05-01] MEDS: DIVALPROEX SODIUM 500 MG ER TABLET PO SCH ×2 (08:29→17:02)
[2017-05-01] MEDS: HYDROCHLOROTHIAZIDE 25 MG TABLET PO SCH (08:29)
[2017-05-01] MEDS: BENZTROPINE MESYLATE 2 MG TABLET PO SCH ×2 (08:29→17:02)
[2017-05-01] MEDS: ATENOLOL 50 MG TABLET PO SCH (08:29)
[2017-05-01] MEDS: GABAPENTIN 300 MG CAPSULE PO SCH ×3 (08:29→17:02)
[2017-05-01] MEDS: CHOLECALCIFEROL (VIT D3) 1,000 UNITS TABLET PO SCH (08:30)
[2017-05-01] MEDS: AmLODIPine BESYLATE 2.5 MG TABLET PO SCH (08:30)
[2017-05-01] MEDS: NICOTINE 21 MG/24 HOUR PATCH TD SCH (08:30)
[2017-05-01] MEDS: LORazepam 2 MG TABLET PO PRN ×2 (08:41→20:08)
[2017-05-01] MEDS ORDERED: DiphenhydrAMINE HCL 50 MG/ML VIAL ONE (09:53)
[2017-05-01] MEDS ORDERED: HALOPERIDOL LACTATE 5 MG/ML VIAL ONE (09:53)
[2017-05-01] MEDS ORDERED: LORazepam 2 MG/ML VIAL ONE (09:53)
[2017-05-01] MEDS ORDERED: LORazepam 2 MG/ML VIAL IM ONE ×2 (13:00→16:30)
[2017-05-01] MEDS ORDERED: DiphenhydrAMINE HCL 50 MG/ML VIAL IM ONE ×2 (13:00→16:30)
[2017-05-01] MEDS ORDERED: HALOPERIDOL LACTATE 5 MG/ML VIAL IM ONE (13:00)
[2017-05-01] MEDS: TraZODone HCL 100 MG TABLET PO SCH (20:08)
[2017-05-01] MEDS: ZOLPIDEM TARTRATE 10 MG TABLET PO PRN (20:30)
[2017-05-02] MEDS: BENZTROPINE MESYLATE 2 MG TABLET PO SCH ×2 (10:04→17:08)
[2017-05-02] MEDS: CHOLECALCIFEROL (VIT D3) 1,000 UNITS TABLET PO SCH (10:04)
[2017-05-02] MEDS: AmLODIPine BESYLATE 2.5 MG TABLET PO SCH (10:04)
[2017-05-02] MEDS: GABAPENTIN 300 MG CAPSULE PO SCH ×3 (10:04→17:07)
[2017-05-02] MEDS: DOCUSATE SODIUM 250 MG CAPSULE PO SCH ×2 (10:04→17:07)
[2017-05-02] MEDS: DIVALPROEX SODIUM 500 MG ER TABLET PO SCH ×2 (10:04→17:07)
[2017-05-02] MEDS: ATENOLOL 50 MG TABLET PO SCH (10:04)
[2017-05-02] MEDS: HYDROCHLOROTHIAZIDE 25 MG TABLET PO SCH (10:04)
[2017-05-02] MEDS: RisperiDONE 3 MG TABLET PO SCH ×2 (10:04→17:08)
[2017-05-02] MEDS: NICOTINE 21 MG/24 HOUR PATCH TD SCH (10:05)
[2017-05-02 10:13] VITALS: BP 135/79
[2017-05-02 16:03] VITALS: BP 124/80
[2017-05-02] MEDS: LORazepam 2 MG TABLET PO PRN ×2 (17:08→20:09)
[2017-05-02] MEDS: ZOLPIDEM TARTRATE 10 MG TABLET PO PRN (20:09)
[2017-05-02] MEDS: TraZODone HCL 100 MG TABLET PO SCH (20:09)
[2017-05-03] MEDS: LORazepam 2 MG TABLET PO PRN ×3 (00:47→20:39)
[2017-05-03 04:35] VITALS: BP 126/78
[2017-05-03 08:04] VITALS: BP 124/76
[2017-05-03] MEDS: HYDROCHLOROTHIAZIDE 25 MG TABLET PO SCH (08:50)
[2017-05-03] MEDS: CHOLECALCIFEROL (VIT D3) 1,000 UNITS TABLET PO SCH (08:50)
[2017-05-03] MEDS: RisperiDONE 3 MG TABLET PO SCH ×2 (08:50→16:25)
[2017-05-03] MEDS: DOCUSATE SODIUM 250 MG CAPSULE PO SCH ×2 (08:50→16:25)
[2017-05-03] MEDS: ATENOLOL 50 MG TABLET PO SCH (08:50)
[2017-05-03] MEDS: BENZTROPINE MESYLATE 2 MG TABLET PO SCH ×2 (08:50→16:25)
[2017-05-03] MEDS: DIVALPROEX SODIUM 500 MG ER TABLET PO SCH ×2 (08:50→16:25)
[2017-05-03] MEDS: GABAPENTIN 300 MG CAPSULE PO SCH ×3 (08:50→16:25)
[2017-05-03] MEDS: AmLODIPine BESYLATE 2.5 MG TABLET PO SCH (08:50)
[2017-05-03] MEDS: NICOTINE 21 MG/24 HOUR PATCH TD SCH (08:51)
[2017-05-03 16:09] VITALS: BP 134/72
[2017-05-03] MEDS ORDERED: HALOPERIDOL LACTATE 5 MG/ML VIAL ONE (16:22)
[2017-05-03] MEDS ORDERED: LORazepam 2 MG/ML VIAL IM ONE (16:30)
[2017-05-03] MEDS ORDERED: HALOPERIDOL LACTATE 5 MG/ML VIAL IM ONE (16:30)
[2017-05-03] MEDS ORDERED: DiphenhydrAMINE HCL 50 MG/ML VIAL IM ONE (16:30)
[2017-05-03] MEDS: TraZODone HCL 100 MG TABLET PO SCH (20:13)
[2017-05-03] MEDS: ZOLPIDEM TARTRATE 10 MG TABLET PO PRN (20:39)
[2017-05-04] MEDS: LORazepam 2 MG TABLET PO PRN ×2 (01:12→17:16)
[2017-05-04 02:34] VITALS: BP 129/77
[2017-05-04 08:23] VITALS: BP 124/82
[2017-05-04] MEDS: ATENOLOL 50 MG TABLET PO SCH (09:35)
[2017-05-04] MEDS: AmLODIPine BESYLATE 2.5 MG TABLET PO SCH (09:35)
[2017-05-04] MEDS: DOCUSATE SODIUM 250 MG CAPSULE PO SCH ×2 (09:35→17:17)
[2017-05-04] MEDS: DIVALPROEX SODIUM 500 MG ER TABLET PO SCH ×2 (09:35→17:17)
[2017-05-04] MEDS: HYDROCHLOROTHIAZIDE 25 MG TABLET PO SCH (09:35)
[2017-05-04] MEDS: GABAPENTIN 300 MG CAPSULE PO SCH ×3 (09:35→17:17)
[2017-05-04] MEDS: NICOTINE 21 MG/24 HOUR PATCH TD SCH (09:35)
[2017-05-04] MEDS: RisperiDONE 3 MG TABLET PO SCH ×2 (09:36→17:16)
[2017-05-04] MEDS: CHOLECALCIFEROL (VIT D3) 1,000 UNITS TABLET PO SCH (09:36)
[2017-05-04] MEDS: BENZTROPINE MESYLATE 2 MG TABLET PO SCH ×2 (10:47→17:17)
[2017-05-04 16:42] VITALS: BP 125/81
[2017-05-04] MEDS ORDERED: ZIPRASIDONE MESYLATE 20 MG/VIAL IM ONE ×2 (17:37→17:45)
[2017-05-04] MEDS ORDERED: DiphenhydrAMINE HCL 50 MG/ML VIAL ONE (17:38)
[2017-05-04] MEDS ORDERED: DiphenhydrAMINE HCL 50 MG/ML VIAL IM ONE (17:45)
[2017-05-04] MEDS: ZOLPIDEM TARTRATE 10 MG TABLET PO PRN (20:42)
[2017-05-04] MEDS: TraZODone HCL 100 MG TABLET PO SCH (20:42)
[2017-05-05 06:30] VITALS: BP 118/77
[2017-05-05 08:39] VITALS: BP 121/87
[2017-05-05] MEDS: BENZTROPINE MESYLATE 2 MG TABLET PO SCH ×2 (08:49→16:20)
[2017-05-05] MEDS: ATENOLOL 50 MG TABLET PO SCH (08:49)
[2017-05-05] MEDS: CHOLECALCIFEROL (VIT D3) 1,000 UNITS TABLET PO SCH (08:49)
[2017-05-05] MEDS: GABAPENTIN 300 MG CAPSULE PO SCH ×3 (08:49→16:21)
[2017-05-05] MEDS: AmLODIPine BESYLATE 2.5 MG TABLET PO SCH (08:49)
[2017-05-05] MEDS: DIVALPROEX SODIUM 500 MG ER TABLET PO SCH ×2 (08:49→16:20)
[2017-05-05] MEDS: DOCUSATE SODIUM 250 MG CAPSULE PO SCH ×2 (08:49→16:22)
[2017-05-05] MEDS: RisperiDONE 3 MG TABLET PO SCH ×2 (08:49→16:20)
[2017-05-05] MEDS: HYDROCHLOROTHIAZIDE 25 MG TABLET PO SCH (08:49)
[2017-05-05] MEDS: NICOTINE 21 MG/24 HOUR PATCH TD SCH (08:50)
[2017-05-05] MEDS: LORazepam 2 MG TABLET PO PRN ×2 (16:10→22:02)
[2017-05-05 16:13] VITALS: BP 135/71
[2017-05-05] MEDS: TraZODone HCL 100 MG TABLET PO SCH (20:09)
[2017-05-05] MEDS: ZOLPIDEM TARTRATE 10 MG TABLET PO PRN (21:07)
[2017-05-06 08:48] VITALS: BP 162/59
[2017-05-06] MEDS: NICOTINE 21 MG/24 HOUR PATCH TD SCH (09:11)
[2017-05-06] MEDS: DIVALPROEX SODIUM 500 MG ER TABLET PO SCH ×2 (09:12→16:17)
[2017-05-06] MEDS: AmLODIPine BESYLATE 2.5 MG TABLET PO SCH (09:12)
[2017-05-06] MEDS: GABAPENTIN 300 MG CAPSULE PO SCH ×3 (09:12→16:18)
[2017-05-06] MEDS: ATENOLOL 50 MG TABLET PO SCH (09:12)
[2017-05-06] MEDS: HYDROCHLOROTHIAZIDE 25 MG TABLET PO SCH (09:12)
[2017-05-06] MEDS: DOCUSATE SODIUM 250 MG CAPSULE PO SCH ×2 (09:12→16:18)
[2017-05-06] MEDS: CHOLECALCIFEROL (VIT D3) 1,000 UNITS TABLET PO SCH (09:13)
[2017-05-06] MEDS: BENZTROPINE MESYLATE 2 MG TABLET PO SCH ×2 (09:13→16:18)
[2017-05-06] MEDS: RisperiDONE 3 MG TABLET PO SCH ×2 (09:13→16:17)
[2017-05-06] MEDS ORDERED: TUBERCULIN, PURIFIED PROTEIN DERIVATIVE 5 TU/0.1 ML SYG ID ONE (12:30)
[2017-05-06 16:07] VITALS: BP 122/73
[2017-05-06] MEDS: LORazepam 2 MG TABLET PO PRN ×2 (16:18→20:18)
[2017-05-06] MEDS: TraZODone HCL 100 MG TABLET PO SCH (20:15)
[2017-05-06] MEDS: ZOLPIDEM TARTRATE 10 MG TABLET PO PRN (21:00)
[2017-05-07 06:03] VITALS: BP 132/79
[2017-05-07 08:00] VITALS: BP 118/68
[2017-05-07] MEDS: BENZTROPINE MESYLATE 2 MG TABLET PO SCH ×2 (09:37→16:15)
[2017-05-07] MEDS: CHOLECALCIFEROL (VIT D3) 1,000 UNITS TABLET PO SCH (09:37)
[2017-05-07] MEDS: RisperiDONE 3 MG TABLET PO SCH ×2 (09:38→16:15)
[2017-05-07] MEDS: DIVALPROEX SODIUM 500 MG ER TABLET PO SCH ×2 (09:38→16:15)
[2017-05-07] MEDS: DOCUSATE SODIUM 250 MG CAPSULE PO SCH ×2 (09:38→16:55)
[2017-05-07] MEDS: GABAPENTIN 300 MG CAPSULE PO SCH ×3 (09:38→16:15)
[2017-05-07] MEDS: AmLODIPine BESYLATE 2.5 MG TABLET PO SCH (09:38)
[2017-05-07] MEDS: HYDROCHLOROTHIAZIDE 25 MG TABLET PO SCH (09:38)
[2017-05-07] MEDS: ATENOLOL 50 MG TABLET PO SCH (09:39)
[2017-05-07] MEDS: NICOTINE 21 MG/24 HOUR PATCH TD SCH (09:45)
[2017-05-07] MEDS: LORazepam 2 MG TABLET PO PRN ×2 (16:15→20:22)
[2017-05-07 16:33] VITALS: BP 135/87
[2017-05-07] MEDS: TraZODone HCL 100 MG TABLET PO SCH (20:22)
[2017-05-07] MEDS: ZOLPIDEM TARTRATE 10 MG TABLET PO PRN (21:02)
[2017-05-08 03:58] VITALS: BP 145/88
[2017-05-08 08:00] VITALS: BP 139/77
[2017-05-08] MEDS: CHOLECALCIFEROL (VIT D3) 1,000 UNITS TABLET PO SCH (08:28)
[2017-05-08] MEDS: NICOTINE 21 MG/24 HOUR PATCH TD SCH (08:28)
[2017-05-08] MEDS: GABAPENTIN 300 MG CAPSULE PO SCH ×3 (08:28→16:53)
[2017-05-08] MEDS: DIVALPROEX SODIUM 500 MG ER TABLET PO SCH ×2 (08:29→16:53)
[2017-05-08] MEDS: RisperiDONE 3 MG TABLET PO SCH ×2 (08:29→16:53)
[2017-05-08] MEDS: BENZTROPINE MESYLATE 2 MG TABLET PO SCH ×2 (08:29→16:53)
[2017-05-08] MEDS: DOCUSATE SODIUM 250 MG CAPSULE PO SCH ×2 (08:29→16:53)
[2017-05-08] MEDS: HYDROCHLOROTHIAZIDE 25 MG TABLET PO SCH (08:32)
[2017-05-08] MEDS: AmLODIPine BESYLATE 2.5 MG TABLET PO SCH (08:32)
[2017-05-08] MEDS: ATENOLOL 50 MG TABLET PO SCH (08:32)
[2017-05-08] MEDS ORDERED: LORazepam 2 MG/ML VIAL ONE (14:49)
[2017-05-08] MEDS ORDERED: DiphenhydrAMINE HCL 50 MG/ML VIAL ONE (14:49)
[2017-05-08] MEDS ORDERED: HALOPERIDOL LACTATE 5 MG/ML VIAL ONE (14:49)
[2017-05-08] MEDS ORDERED: DiphenhydrAMINE HCL 50 MG/ML VIAL IM ONE (15:00)
[2017-05-08] MEDS ORDERED: LORazepam 2 MG/ML VIAL IM ONE (15:00)
[2017-05-08] MEDS ORDERED: HALOPERIDOL LACTATE 5 MG/ML VIAL IM ONE (15:00)
[2017-05-08 16:28] VITALS: BP 130/73
[2017-05-08] MEDS: LORazepam 2 MG TABLET PO PRN (20:27)
[2017-05-08] MEDS: ZOLPIDEM TARTRATE 10 MG TABLET PO PRN (21:22)
[2017-05-08] MEDS: TraZODone HCL 100 MG TABLET PO SCH (21:22)
[2017-05-09 07:26] VITALS: BP 120/65
[2017-05-09 08:18] VITALS: BP 130/68
[2017-05-09] MEDS: GABAPENTIN 300 MG CAPSULE PO SCH ×3 (08:54→16:26)
[2017-05-09] MEDS: RisperiDONE 3 MG TABLET PO SCH ×2 (08:54→16:26)
[2017-05-09] MEDS: HYDROCHLOROTHIAZIDE 25 MG TABLET PO SCH (08:55)
[2017-05-09] MEDS: BENZTROPINE MESYLATE 2 MG TABLET PO SCH ×2 (08:55→16:26)
[2017-05-09] MEDS: DOCUSATE SODIUM 250 MG CAPSULE PO SCH ×2 (08:55→16:26)
[2017-05-09] MEDS: CHOLECALCIFEROL (VIT D3) 1,000 UNITS TABLET PO SCH (08:55)
[2017-05-09] MEDS: ATENOLOL 50 MG TABLET PO SCH (08:55)
[2017-05-09] MEDS: DIVALPROEX SODIUM 500 MG ER TABLET PO SCH ×2 (08:55→16:26)
[2017-05-09] MEDS: AmLODIPine BESYLATE 2.5 MG TABLET PO SCH (08:55)
[2017-05-09] MEDS: NICOTINE 21 MG/24 HOUR PATCH TD SCH (08:56)
[2017-05-09] MEDS: LORazepam 2 MG TABLET PO PRN ×2 (16:26→20:27)
[2017-05-09 16:37] VITALS: BP 133/65
[2017-05-09] MEDS: TraZODone HCL 100 MG TABLET PO SCH (20:27)
[2017-05-09] MEDS: ZOLPIDEM TARTRATE 10 MG TABLET PO PRN (21:01)
[2017-05-10 06:30] VITALS: BP 138/68
[2017-05-10 06:51] VITALS: BP 138/68
[2017-05-10] MEDS: BENZTROPINE MESYLATE 2 MG TABLET PO SCH ×2 (08:20→16:49)
[2017-05-10] MEDS: AmLODIPine BESYLATE 2.5 MG TABLET PO SCH (08:20)
[2017-05-10] MEDS: CHOLECALCIFEROL (VIT D3) 1,000 UNITS TABLET PO SCH (08:20)
[2017-05-10] MEDS: GABAPENTIN 300 MG CAPSULE PO SCH ×3 (08:20→16:49)
[2017-05-10] MEDS: ATENOLOL 50 MG TABLET PO SCH (08:20)
[2017-05-10] MEDS: DOCUSATE SODIUM 250 MG CAPSULE PO SCH ×2 (08:20→16:49)
[2017-05-10] MEDS: RisperiDONE 3 MG TABLET PO SCH ×2 (08:20→16:49)
[2017-05-10] MEDS: HYDROCHLOROTHIAZIDE 25 MG TABLET PO SCH (08:20)
[2017-05-10] MEDS: DIVALPROEX SODIUM 500 MG ER TABLET PO SCH ×2 (08:20→16:49)
[2017-05-10] MEDS: NICOTINE 21 MG/24 HOUR PATCH TD SCH (08:21)
[2017-05-10 08:26] VITALS: BP 136/70
[2017-05-10] MEDS: LORazepam 2 MG TABLET PO PRN ×2 (10:07→20:38)
[2017-05-10] MEDS ORDERED: LORazepam 2 MG/ML VIAL ONE (15:34)
[2017-05-10] MEDS ORDERED: ZIPRASIDONE MESYLATE 20 MG/VIAL IM ONE ×2 (15:35→15:45)
[2017-05-10] MEDS ORDERED: LORazepam 2 MG/ML VIAL IM ONE (15:45)
[2017-05-10 16:22] VITALS: BP 137/71
[2017-05-10 16:41] VITALS: BP 139/82
[2017-05-10] MEDS: TraZODone HCL 100 MG TABLET PO SCH (20:38)
[2017-05-10] MEDS: ZOLPIDEM TARTRATE 10 MG TABLET PO PRN (21:00)
[2017-05-11 06:37] VITALS: BP 131/74
[2017-05-11 08:22] VITALS: BP 129/77
[2017-05-11] MEDS: RisperiDONE 3 MG TABLET PO SCH ×2 (09:07→16:06)
[2017-05-11] MEDS: DIVALPROEX SODIUM 500 MG ER TABLET PO SCH ×2 (09:07→16:06)
[2017-05-11] MEDS: GABAPENTIN 300 MG CAPSULE PO SCH ×3 (09:07→16:06)
[2017-05-11] MEDS: CHOLECALCIFEROL (VIT D3) 1,000 UNITS TABLET PO SCH (09:07)
[2017-05-11] MEDS: HYDROCHLOROTHIAZIDE 25 MG TABLET PO SCH (09:07)
[2017-05-11] MEDS: DOCUSATE SODIUM 250 MG CAPSULE PO SCH ×2 (09:07→16:06)
[2017-05-11] MEDS: AmLODIPine BESYLATE 2.5 MG TABLET PO SCH (09:08)
[2017-05-11] MEDS: ATENOLOL 50 MG TABLET PO SCH (09:08)
[2017-05-11] MEDS: NICOTINE 21 MG/24 HOUR PATCH TD SCH (09:13)
[2017-05-11] MEDS: BENZTROPINE MESYLATE 2 MG TABLET PO SCH ×2 (09:13→16:07)
[2017-05-11] MEDS: LORazepam 2 MG TABLET PO PRN ×2 (10:03→16:07)
[2017-05-11 16:19] VITALS: BP 116/79
[2017-05-11] MEDS: ZOLPIDEM TARTRATE 10 MG TABLET PO PRN (20:16)
[2017-05-11] MEDS: TraZODone HCL 100 MG TABLET PO SCH (20:16)
[2017-05-12 00:56] VITALS: BP 121/66
[2017-05-12] MEDS: CHOLECALCIFEROL (VIT D3) 1,000 UNITS TABLET PO SCH (08:31)
[2017-05-12] MEDS: RisperiDONE 3 MG TABLET PO SCH ×2 (08:31→16:14)
[2017-05-12] MEDS: HYDROCHLOROTHIAZIDE 25 MG TABLET PO SCH (08:31)
[2017-05-12] MEDS: DIVALPROEX SODIUM 500 MG ER TABLET PO SCH ×2 (08:31→16:13)
[2017-05-12] MEDS: GABAPENTIN 300 MG CAPSULE PO SCH ×3 (08:31→16:14)
[2017-05-12] MEDS: DOCUSATE SODIUM 250 MG CAPSULE PO SCH ×2 (08:31→16:13)
[2017-05-12] MEDS: AmLODIPine BESYLATE 2.5 MG TABLET PO SCH (08:32)
[2017-05-12] MEDS: ATENOLOL 50 MG TABLET PO SCH (08:32)
[2017-05-12] MEDS: NICOTINE 21 MG/24 HOUR PATCH TD SCH (08:32)
[2017-05-12] MEDS: BENZTROPINE MESYLATE 2 MG TABLET PO SCH ×2 (08:32→16:13)
[2017-05-12 09:10] VITALS: BP 117/56
[2017-05-12 11:33] VITALS: BP 122/68
[2017-05-12] MEDS: ACETAMINOPHEN 325 MG TABLET PO PRN (11:33)
[2017-05-12] MEDS: LORazepam 2 MG TABLET PO PRN ×2 (13:05→17:46)
[2017-05-12] MEDS: MAG HYDROX/AL HYDROX/SIMETH 30 ML SUSP UDCUP PO PRN (15:00)
[2017-05-12 16:42] VITALS: BP 130/79
[2017-05-12] MEDS: ZOLPIDEM TARTRATE 10 MG TABLET PO PRN (20:11)
[2017-05-12] MEDS: TraZODone HCL 100 MG TABLET PO SCH (20:11)
[2017-05-13 05:19] VITALS: BP 132/73
[2017-05-13 08:27] VITALS: BP 121/69
[2017-05-13] MEDS: DOCUSATE SODIUM 250 MG CAPSULE PO SCH ×2 (08:42→16:03)
[2017-05-13] MEDS: BENZTROPINE MESYLATE 2 MG TABLET PO SCH ×2 (08:42→16:03)
[2017-05-13] MEDS: DIVALPROEX SODIUM 500 MG ER TABLET PO SCH ×2 (08:42→16:03)
[2017-05-13] MEDS: GABAPENTIN 300 MG CAPSULE PO SCH ×3 (08:42→16:03)
[2017-05-13] MEDS: AmLODIPine BESYLATE 2.5 MG TABLET PO SCH (08:42)
[2017-05-13] MEDS: ATENOLOL 50 MG TABLET PO SCH (08:42)
[2017-05-13] MEDS: HYDROCHLOROTHIAZIDE 25 MG TABLET PO SCH (08:42)
[2017-05-13] MEDS: RisperiDONE 3 MG TABLET PO SCH ×2 (08:42→16:03)
[2017-05-13] MEDS: CHOLECALCIFEROL (VIT D3) 1,000 UNITS TABLET PO SCH (08:43)
[2017-05-13] MEDS: NICOTINE 21 MG/24 HOUR PATCH TD SCH (08:43)
[2017-05-13] MEDS: LORazepam 2 MG TABLET PO PRN ×3 (10:42→20:07)
[2017-05-13 16:23] VITALS: BP 129/81
[2017-05-13] MEDS: ZOLPIDEM TARTRATE 10 MG TABLET PO PRN (20:07)
[2017-05-13] MEDS: TraZODone HCL 100 MG TABLET PO SCH (20:07)
[2017-05-14] MEDS: GABAPENTIN 300 MG CAPSULE PO SCH ×3 (08:18→16:06)
[2017-05-14] MEDS: DOCUSATE SODIUM 250 MG CAPSULE PO SCH ×2 (08:18→16:07)
[2017-05-14] MEDS: ATENOLOL 50 MG TABLET PO SCH (08:18)
[2017-05-14] MEDS: AmLODIPine BESYLATE 2.5 MG TABLET PO SCH (08:18)
[2017-05-14] MEDS: DIVALPROEX SODIUM 500 MG ER TABLET PO SCH ×2 (08:18→16:07)
[2017-05-14] MEDS: LORazepam 2 MG TABLET PO PRN ×3 (08:18→20:16)
[2017-05-14] MEDS: HYDROCHLOROTHIAZIDE 25 MG TABLET PO SCH (08:18)
[2017-05-14] MEDS: BENZTROPINE MESYLATE 2 MG TABLET PO SCH ×2 (08:18→16:07)
[2017-05-14] MEDS: CHOLECALCIFEROL (VIT D3) 1,000 UNITS TABLET PO SCH (08:19)
[2017-05-14] MEDS: NICOTINE 21 MG/24 HOUR PATCH TD SCH (08:19)
[2017-05-14] MEDS: RisperiDONE 3 MG TABLET PO SCH ×2 (08:19→16:07)
[2017-05-14 08:25] VITALS: BP 122/71
[2017-05-14 16:06] VITALS: BP 129/75
[2017-05-14] MEDS: MAG HYDROX/AL HYDROX/SIMETH 30 ML SUSP UDCUP PO PRN (16:10)
[2017-05-14] MEDS: TraZODone HCL 100 MG TABLET PO SCH (20:16)
[2017-05-14] MEDS: ZOLPIDEM TARTRATE 10 MG TABLET PO PRN (20:16)
[2017-05-15 03:44] VITALS: BP 126/74
[2017-05-15 08:16] VITALS: BP 141/69
[2017-05-15] MEDS: DIVALPROEX SODIUM 500 MG ER TABLET PO SCH ×2 (09:28→17:02)
[2017-05-15] MEDS: GABAPENTIN 300 MG CAPSULE PO SCH ×3 (09:28→17:02)
[2017-05-15] MEDS: RisperiDONE 3 MG TABLET PO SCH ×2 (09:29→17:02)
[2017-05-15] MEDS: CHOLECALCIFEROL (VIT D3) 1,000 UNITS TABLET PO SCH (09:29)
[2017-05-15] MEDS: AmLODIPine BESYLATE 2.5 MG TABLET PO SCH (09:29)
[2017-05-15] MEDS: HYDROCHLOROTHIAZIDE 25 MG TABLET PO SCH (09:29)
[2017-05-15] MEDS: DOCUSATE SODIUM 250 MG CAPSULE PO SCH ×2 (09:29→17:02)
[2017-05-15] MEDS: BENZTROPINE MESYLATE 2 MG TABLET PO SCH ×2 (09:29→17:02)
[2017-05-15] MEDS: ATENOLOL 50 MG TABLET PO SCH (09:30)
[2017-05-15] MEDS: NICOTINE 21 MG/24 HOUR PATCH TD SCH (09:31)
[2017-05-15 16:30] VITALS: BP 138/70
[2017-05-15] MEDS: LORazepam 2 MG TABLET PO PRN (17:02)
[2017-05-15] MEDS: TraZODone HCL 100 MG TABLET PO SCH (20:41)
[2017-05-15] MEDS: ZOLPIDEM TARTRATE 10 MG TABLET PO PRN (21:00)
[2017-05-16 04:20] VITALS: BP 133/67
[2017-05-16] MEDS: IBUPROFEN 600 MG TABLET PO PRN ×2 (05:48→17:10)
[2017-05-16] MEDS: HYDROCHLOROTHIAZIDE 25 MG TABLET PO SCH (08:04)
[2017-05-16] MEDS: DOCUSATE SODIUM 250 MG CAPSULE PO SCH ×2 (08:04→16:14)
[2017-05-16] MEDS: NICOTINE 21 MG/24 HOUR PATCH TD SCH (08:04)
[2017-05-16] MEDS: LORazepam 2 MG TABLET PO PRN ×2 (08:04→16:17)
[2017-05-16] MEDS: DIVALPROEX SODIUM 500 MG ER TABLET PO SCH ×2 (08:04→16:14)
[2017-05-16] MEDS: CHOLECALCIFEROL (VIT D3) 1,000 UNITS TABLET PO SCH (08:04)
[2017-05-16] MEDS: GABAPENTIN 300 MG CAPSULE PO SCH ×3 (08:04→16:14)
[2017-05-16] MEDS: ATENOLOL 50 MG TABLET PO SCH (08:04)
[2017-05-16] MEDS: AmLODIPine BESYLATE 2.5 MG TABLET PO SCH (08:04)
[2017-05-16] MEDS: RisperiDONE 3 MG TABLET PO SCH ×2 (08:04→16:14)
[2017-05-16] MEDS: BENZTROPINE MESYLATE 2 MG TABLET PO SCH ×2 (08:09→16:14)
[2017-05-16 08:52] VITALS: BP 134/74
[2017-05-16 16:00] VITALS: BP 128/69
[2017-05-16] MEDS: ACETAMINOPHEN 325 MG TABLET PO PRN (16:34)
[2017-05-16 17:00] VITALS: BP 126/78
[2017-05-16] MEDS ORDERED: AMOXICILLIN TRIHYDRATE 500 MG CAPSULE PO SCH (17:00)
[2017-05-16] MEDS: TraZODone HCL 100 MG TABLET PO SCH (20:44)
[2017-05-17 01:00] VITALS: BP 133/65
[2017-05-17] MEDS: ACETAMINOPHEN 325 MG TABLET PO PRN (01:12)
[2017-05-17] MEDS: LORazepam 2 MG TABLET PO PRN ×3 (01:22→20:13)
[2017-05-17] MEDS: BENZOCAINE 10% 7 GM GEL TP PRN (01:22)
[2017-05-17] MEDS: IBUPROFEN 600 MG TABLET PO PRN ×2 (02:24→12:10)
[2017-05-17] MEDS: DOCUSATE SODIUM 250 MG CAPSULE PO SCH ×2 (08:31→16:10)
[2017-05-17] MEDS: AmLODIPine BESYLATE 2.5 MG TABLET PO SCH (08:31)
[2017-05-17] MEDS: AMOXICILLIN TRIHYDRATE 500 MG CAPSULE PO SCH ×3 (08:31→16:10)
[2017-05-17] MEDS: ATENOLOL 50 MG TABLET PO SCH (08:31)
[2017-05-17] MEDS: HYDROCHLOROTHIAZIDE 25 MG TABLET PO SCH (08:32)
[2017-05-17] MEDS: DIVALPROEX SODIUM 500 MG ER TABLET PO SCH ×2 (08:32→16:10)
[2017-05-17] MEDS: BENZTROPINE MESYLATE 2 MG TABLET PO SCH ×2 (08:32→16:10)
[2017-05-17] MEDS: CHOLECALCIFEROL (VIT D3) 1,000 UNITS TABLET PO SCH (08:32)
[2017-05-17] MEDS: GABAPENTIN 300 MG CAPSULE PO SCH ×3 (08:32→16:10)
[2017-05-17] MEDS: RisperiDONE 3 MG TABLET PO SCH ×2 (08:32→16:10)
[2017-05-17] MEDS: NICOTINE 21 MG/24 HOUR PATCH TD SCH (08:32)
[2017-05-17 09:30] VITALS: BP 126/77
[2017-05-17 16:38] VITALS: BP 127/60
[2017-05-17] MEDS: TraZODone HCL 100 MG TABLET PO SCH (20:02)
[2017-05-17] MEDS: ZOLPIDEM TARTRATE 10 MG TABLET PO PRN (21:01)
[2017-05-18 06:24] VITALS: BP 130/70
[2017-05-18 08:49] VITALS: BP 122/66
[2017-05-18] MEDS: BENZTROPINE MESYLATE 2 MG TABLET PO SCH ×2 (08:58→16:37)
[2017-05-18] MEDS: DIVALPROEX SODIUM 500 MG ER TABLET PO SCH ×2 (08:58→16:37)
[2017-05-18] MEDS: DOCUSATE SODIUM 250 MG CAPSULE PO SCH ×2 (08:58→16:37)
[2017-05-18] MEDS: AMOXICILLIN TRIHYDRATE 500 MG CAPSULE PO SCH ×3 (08:59→16:37)
[2017-05-18] MEDS: GABAPENTIN 300 MG CAPSULE PO SCH ×3 (08:59→16:37)
[2017-05-18] MEDS: AmLODIPine BESYLATE 2.5 MG TABLET PO SCH (08:59)
[2017-05-18] MEDS: HYDROCHLOROTHIAZIDE 25 MG TABLET PO SCH (08:59)
[2017-05-18] MEDS: CHOLECALCIFEROL (VIT D3) 1,000 UNITS TABLET PO SCH (09:00)
[2017-05-18] MEDS: ATENOLOL 50 MG TABLET PO SCH (09:00)
[2017-05-18] MEDS: RisperiDONE 3 MG TABLET PO SCH ×2 (09:00→16:37)
[2017-05-18] MEDS: NICOTINE 21 MG/24 HOUR PATCH TD SCH (09:01)
[2017-05-18] MEDS: LORazepam 2 MG TABLET PO PRN (16:11)
[2017-05-18 16:27] VITALS: BP 128/81
[2017-05-18] MEDS: TraZODone HCL 100 MG TABLET PO SCH (20:39)
[2017-05-18] MEDS: ZOLPIDEM TARTRATE 10 MG TABLET PO PRN (21:11)
[2017-05-19 06:32] VITALS: BP 126/80
[2017-05-19] MEDS: NICOTINE 21 MG/24 HOUR PATCH TD SCH (08:19)
[2017-05-19] MEDS: RisperiDONE 3 MG TABLET PO SCH ×2 (08:19→17:29)
[2017-05-19] MEDS: AMOXICILLIN TRIHYDRATE 500 MG CAPSULE PO SCH ×3 (08:19→17:29)
[2017-05-19] MEDS: DOCUSATE SODIUM 250 MG CAPSULE PO SCH ×2 (08:20→17:29)
[2017-05-19] MEDS: DIVALPROEX SODIUM 500 MG ER TABLET PO SCH ×2 (08:20→17:29)
[2017-05-19] MEDS: BENZTROPINE MESYLATE 2 MG TABLET PO SCH ×2 (08:20→17:29)
[2017-05-19] MEDS: HYDROCHLOROTHIAZIDE 25 MG TABLET PO SCH (08:20)
[2017-05-19] MEDS: AmLODIPine BESYLATE 2.5 MG TABLET PO SCH (08:20)
[2017-05-19] MEDS: ATENOLOL 50 MG TABLET PO SCH (08:20)
[2017-05-19] MEDS: GABAPENTIN 300 MG CAPSULE PO SCH ×3 (08:20→17:29)
[2017-05-19] MEDS: CHOLECALCIFEROL (VIT D3) 1,000 UNITS TABLET PO SCH (08:21)
[2017-05-19 08:22] VITALS: BP 139/66
[2017-05-19] MEDS: LORazepam 2 MG TABLET PO PRN ×2 (15:05→21:28)
[2017-05-19] MEDS ORDERED: HALOPERIDOL LACTATE 5 MG/ML VIAL IM ONE (15:15)
[2017-05-19] MEDS ORDERED: DiphenhydrAMINE HCL 50 MG/ML VIAL IM ONE (15:15)
[2017-05-19] MEDS ORDERED: LORazepam 2 MG/ML VIAL IM ONE (15:15)
[2017-05-19] MEDS ORDERED: HALOPERIDOL LACTATE 5 MG/ML VIAL ONE (15:18)
[2017-05-19] MEDS ORDERED: DiphenhydrAMINE HCL 50 MG/ML VIAL ONE (15:19)
[2017-05-19 18:01] VITALS: BP 103/65
[2017-05-19] MEDS: TraZODone HCL 100 MG TABLET PO SCH (21:28)
[2017-05-19] MEDS: ZOLPIDEM TARTRATE 10 MG TABLET PO PRN (21:28)
[2017-05-20 03:35] VITALS: BP 114/63
[2017-05-20 08:21] VITALS: BP 135/71
[2017-05-20] MEDS: ATENOLOL 50 MG TABLET PO SCH (09:24)
[2017-05-20] MEDS: DOCUSATE SODIUM 250 MG CAPSULE PO SCH ×2 (09:24→16:38)
[2017-05-20] MEDS: CHOLECALCIFEROL (VIT D3) 1,000 UNITS TABLET PO SCH (09:24)
[2017-05-20] MEDS: AMOXICILLIN TRIHYDRATE 500 MG CAPSULE PO SCH ×3 (09:25→16:38)
[2017-05-20] MEDS: DIVALPROEX SODIUM 500 MG ER TABLET PO SCH ×2 (09:25→16:38)
[2017-05-20] MEDS: AmLODIPine BESYLATE 2.5 MG TABLET PO SCH (09:25)
[2017-05-20] MEDS: HYDROCHLOROTHIAZIDE 25 MG TABLET PO SCH (09:25)
[2017-05-20] MEDS: BENZTROPINE MESYLATE 2 MG TABLET PO SCH ×2 (09:25→16:38)
[2017-05-20] MEDS: RisperiDONE 3 MG TABLET PO SCH ×2 (09:25→16:38)
[2017-05-20] MEDS: GABAPENTIN 300 MG CAPSULE PO SCH ×3 (09:25→16:38)
[2017-05-20] MEDS: NICOTINE 21 MG/24 HOUR PATCH TD SCH (09:26)
[2017-05-20 16:30] VITALS: BP 112/87
[2017-05-20] MEDS: LORazepam 2 MG TABLET PO PRN ×2 (16:38→20:43)
[2017-05-20 19:58] VITALS: BP 128/86
[2017-05-20] MEDS: ACETAMINOPHEN 325 MG TABLET PO PRN (19:58)
[2017-05-20] MEDS: TraZODone HCL 100 MG TABLET PO SCH (20:24)
[2017-05-20] MEDS: ZOLPIDEM TARTRATE 10 MG TABLET PO PRN (21:04)
[2017-05-21 09:40] VITALS: BP 135/72
[2017-05-21] MEDS: GABAPENTIN 300 MG CAPSULE PO SCH ×3 (09:42→16:06)
[2017-05-21] MEDS: DOCUSATE SODIUM 250 MG CAPSULE PO SCH ×2 (09:42→16:06)
[2017-05-21] MEDS: BENZTROPINE MESYLATE 2 MG TABLET PO SCH ×2 (09:42→16:07)
[2017-05-21] MEDS: RisperiDONE 3 MG TABLET PO SCH ×2 (09:42→16:07)
[2017-05-21] MEDS: CHOLECALCIFEROL (VIT D3) 1,000 UNITS TABLET PO SCH (09:42)
[2017-05-21] MEDS: DIVALPROEX SODIUM 500 MG ER TABLET PO SCH ×2 (09:43→16:07)
[2017-05-21] MEDS: AmLODIPine BESYLATE 2.5 MG TABLET PO SCH (09:43)
[2017-05-21] MEDS: AMOXICILLIN TRIHYDRATE 500 MG CAPSULE PO SCH ×3 (09:43→16:06)
[2017-05-21] MEDS: NICOTINE 21 MG/24 HOUR PATCH TD SCH (09:43)
[2017-05-21] MEDS: HYDROCHLOROTHIAZIDE 25 MG TABLET PO SCH (09:43)
[2017-05-21] MEDS: ATENOLOL 50 MG TABLET PO SCH (09:43)
[2017-05-21] MEDS: LORazepam 2 MG TABLET PO PRN ×3 (10:21→20:06)
[2017-05-21 16:21] VITALS: BP 125/72
[2017-05-21] MEDS: IBUPROFEN 600 MG TABLET PO PRN (20:06)
[2017-05-21] MEDS: TraZODone HCL 100 MG TABLET PO SCH (20:06)
[2017-05-21] MEDS: ZOLPIDEM TARTRATE 10 MG TABLET PO PRN (20:06)
[2017-05-22 05:51] VITALS: BP 128/75
[2017-05-22] MEDS: BENZTROPINE MESYLATE 2 MG TABLET PO SCH ×2 (09:09→16:15)
[2017-05-22] MEDS: CHOLECALCIFEROL (VIT D3) 1,000 UNITS TABLET PO SCH (09:09)
[2017-05-22] MEDS: RisperiDONE 3 MG TABLET PO SCH ×2 (09:09→16:15)
[2017-05-22] MEDS: GABAPENTIN 300 MG CAPSULE PO SCH ×3 (09:09→16:15)
[2017-05-22] MEDS: DOCUSATE SODIUM 250 MG CAPSULE PO SCH ×2 (09:09→16:15)
[2017-05-22 09:10] VITALS: BP 126/89
[2017-05-22] MEDS: AmLODIPine BESYLATE 2.5 MG TABLET PO SCH (09:10)
[2017-05-22] MEDS: DIVALPROEX SODIUM 500 MG ER TABLET PO SCH ×2 (09:10→16:15)
[2017-05-22] MEDS: ATENOLOL 50 MG TABLET PO SCH (09:10)
[2017-05-22] MEDS: AMOXICILLIN TRIHYDRATE 500 MG CAPSULE PO SCH ×3 (09:10→16:15)
[2017-05-22] MEDS: NICOTINE 21 MG/24 HOUR PATCH TD SCH (09:11)
[2017-05-22] MEDS: HYDROCHLOROTHIAZIDE 25 MG TABLET PO SCH (09:11)
[2017-05-22 16:09] VITALS: BP 140/71
[2017-05-22] MEDS: LORazepam 2 MG TABLET PO PRN ×2 (16:15→20:30)
[2017-05-22] MEDS: IBUPROFEN 600 MG TABLET PO PRN (19:53)
[2017-05-22] MEDS: TraZODone HCL 100 MG TABLET PO SCH (20:10)
[2017-05-22] MEDS: ZOLPIDEM TARTRATE 10 MG TABLET PO PRN (20:30)
[2017-05-22] MEDS ORDERED: DiphenhydrAMINE HCL 50 MG/ML VIAL ONE (20:53)
[2017-05-22] MEDS ORDERED: ZIPRASIDONE MESYLATE 20 MG/VIAL IM ONE ×2 (20:53→21:00)
[2017-05-22] MEDS ORDERED: DiphenhydrAMINE HCL 50 MG/ML VIAL IM ONE (21:00)
[2017-05-23 06:36] VITALS: BP 140/94
[2017-05-23 08:35] VITALS: BP 109/71
[2017-05-23] MEDS: DIVALPROEX SODIUM 500 MG ER TABLET PO SCH ×2 (08:59→16:02)
[2017-05-23] MEDS: RisperiDONE 3 MG TABLET PO SCH ×2 (08:59→16:02)
[2017-05-23] MEDS: AmLODIPine BESYLATE 2.5 MG TABLET PO SCH (09:00)
[2017-05-23] MEDS: CHOLECALCIFEROL (VIT D3) 1,000 UNITS TABLET PO SCH (09:00)
[2017-05-23] MEDS: AMOXICILLIN TRIHYDRATE 500 MG CAPSULE PO SCH ×3 (09:00→16:02)
[2017-05-23] MEDS: DOCUSATE SODIUM 250 MG CAPSULE PO SCH ×2 (09:00→16:02)
[2017-05-23] MEDS: BENZTROPINE MESYLATE 2 MG TABLET PO SCH ×2 (09:00→16:01)
[2017-05-23] MEDS: ATENOLOL 50 MG TABLET PO SCH (09:00)
[2017-05-23] MEDS: HYDROCHLOROTHIAZIDE 25 MG TABLET PO SCH (09:00)
[2017-05-23] MEDS: GABAPENTIN 300 MG CAPSULE PO SCH ×3 (09:00→16:02)
[2017-05-23] MEDS: NICOTINE 21 MG/24 HOUR PATCH TD SCH (09:01)
[2017-05-23] MEDS: LORazepam 2 MG TABLET PO PRN ×3 (10:38→20:16)
[2017-05-23 16:15] VITALS: BP 142/102
[2017-05-23] MEDS: TraZODone HCL 100 MG TABLET PO SCH (20:16)
[2017-05-23] MEDS: ZOLPIDEM TARTRATE 10 MG TABLET PO PRN (20:16)
[2017-05-23 21:55] VITALS: BP 138/85
[2017-05-23] MEDS: IBUPROFEN 600 MG TABLET PO PRN (21:55)
[2017-05-24] MEDS: GABAPENTIN 300 MG CAPSULE PO SCH ×3 (09:25→16:13)
[2017-05-24] MEDS: BENZTROPINE MESYLATE 2 MG TABLET PO SCH ×2 (09:28→16:13)
[2017-05-24] MEDS: CHOLECALCIFEROL (VIT D3) 1,000 UNITS TABLET PO SCH (09:28)
[2017-05-24] MEDS: RisperiDONE 3 MG TABLET PO SCH ×2 (09:28→16:13)
[2017-05-24] MEDS: AMOXICILLIN TRIHYDRATE 500 MG CAPSULE PO SCH ×3 (09:28→16:13)
[2017-05-24] MEDS: AmLODIPine BESYLATE 2.5 MG TABLET PO SCH (09:28)
[2017-05-24] MEDS: DOCUSATE SODIUM 250 MG CAPSULE PO SCH ×2 (09:29→16:13)
[2017-05-24] MEDS: DIVALPROEX SODIUM 500 MG ER TABLET PO SCH ×3 (09:29→16:13)
[2017-05-24] MEDS: HYDROCHLOROTHIAZIDE 25 MG TABLET PO SCH (09:29)
[2017-05-24] MEDS: NICOTINE 21 MG/24 HOUR PATCH TD SCH (09:29)
[2017-05-24] MEDS: ATENOLOL 50 MG TABLET PO SCH (09:29)
[2017-05-24 09:30] VITALS: BP 122/79
[2017-05-24] MEDS: LORazepam 2 MG TABLET PO PRN ×2 (10:46→15:56)
[2017-05-24 16:09] VITALS: BP 120/73
[2017-05-24] MEDS: TraZODone HCL 100 MG TABLET PO SCH (20:08)
[2017-05-24] MEDS: ZOLPIDEM TARTRATE 10 MG TABLET PO PRN (21:09)
[2017-05-25 00:05] VITALS: BP 141/73
[2017-05-25] MEDS: LORazepam 2 MG TABLET PO PRN ×3 (00:07→16:11)
[2017-05-25] MEDS: ACETAMINOPHEN 325 MG TABLET PO PRN ×2 (00:07→06:09)
[2017-05-25 08:07] VITALS: BP 119/76
[2017-05-25] MEDS: CHOLECALCIFEROL (VIT D3) 1,000 UNITS TABLET PO SCH (08:11)
[2017-05-25] MEDS: BENZTROPINE MESYLATE 2 MG TABLET PO SCH ×2 (08:11→16:11)
[2017-05-25] MEDS: DIVALPROEX SODIUM 500 MG ER TABLET PO SCH ×3 (08:11→16:11)
[2017-05-25] MEDS: GABAPENTIN 300 MG CAPSULE PO SCH ×3 (08:11→16:11)
[2017-05-25] MEDS: AmLODIPine BESYLATE 2.5 MG TABLET PO SCH (08:11)
[2017-05-25] MEDS: AMOXICILLIN TRIHYDRATE 500 MG CAPSULE PO SCH ×3 (08:11→16:11)
[2017-05-25] MEDS: HYDROCHLOROTHIAZIDE 25 MG TABLET PO SCH (08:11)
[2017-05-25] MEDS: ATENOLOL 50 MG TABLET PO SCH (08:11)
[2017-05-25] MEDS: RisperiDONE 3 MG TABLET PO SCH ×2 (08:11→16:11)
[2017-05-25] MEDS: DOCUSATE SODIUM 250 MG CAPSULE PO SCH ×2 (08:11→16:11)
[2017-05-25] MEDS: NICOTINE 21 MG/24 HOUR PATCH TD SCH (08:12)
[2017-05-25 16:12] VITALS: BP 131/62
[2017-05-25] MEDS: TraZODone HCL 100 MG TABLET PO SCH (20:21)
[2017-05-25] MEDS: ZOLPIDEM TARTRATE 10 MG TABLET PO PRN (20:21)
[2017-05-26 08:30] VITALS: BP 126/67
[2017-05-26] MEDS: DIVALPROEX SODIUM 500 MG ER TABLET PO SCH ×3 (09:34→16:47)
[2017-05-26] MEDS: HYDROCHLOROTHIAZIDE 25 MG TABLET PO SCH (09:34)
[2017-05-26] MEDS: RisperiDONE 3 MG TABLET PO SCH ×2 (09:34→16:47)
[2017-05-26] MEDS: NICOTINE 21 MG/24 HOUR PATCH TD SCH (09:34)
[2017-05-26] MEDS: AmLODIPine BESYLATE 2.5 MG TABLET PO SCH (09:35)
[2017-05-26] MEDS: DOCUSATE SODIUM 250 MG CAPSULE PO SCH ×2 (09:35→16:46)
[2017-05-26] MEDS: ATENOLOL 50 MG TABLET PO SCH (09:35)
[2017-05-26] MEDS: AMOXICILLIN TRIHYDRATE 500 MG CAPSULE PO SCH ×3 (09:36→16:47)
[2017-05-26] MEDS: BENZTROPINE MESYLATE 2 MG TABLET PO SCH ×2 (09:36→16:46)
[2017-05-26] MEDS: GABAPENTIN 300 MG CAPSULE PO SCH ×3 (09:37→16:47)
[2017-05-26] MEDS: CHOLECALCIFEROL (VIT D3) 1,000 UNITS TABLET PO SCH (09:37)
[2017-05-26] MEDS: LORazepam 2 MG TABLET PO PRN ×2 (13:03→17:20)
[2017-05-26 16:10] VITALS: BP 132/81
[2017-05-26] MEDS: TraZODone HCL 100 MG TABLET PO SCH (20:36)
[2017-05-26] MEDS: ZOLPIDEM TARTRATE 10 MG TABLET PO PRN (21:52)
[2017-05-27 05:17] VITALS: BP 120/63
[2017-05-27] MEDS: RisperiDONE 3 MG TABLET PO SCH ×2 (08:36→16:44)
[2017-05-27] MEDS: DIVALPROEX SODIUM 500 MG ER TABLET PO SCH ×3 (08:38→16:44)
[2017-05-27] MEDS: HYDROCHLOROTHIAZIDE 25 MG TABLET PO SCH (08:38)
[2017-05-27] MEDS: DOCUSATE SODIUM 250 MG CAPSULE PO SCH ×2 (08:38→16:44)
[2017-05-27] MEDS: GABAPENTIN 300 MG CAPSULE PO SCH ×3 (08:38→16:43)
[2017-05-27] MEDS: CHOLECALCIFEROL (VIT D3) 1,000 UNITS TABLET PO SCH (08:38)
[2017-05-27] MEDS: BENZTROPINE MESYLATE 2 MG TABLET PO SCH ×2 (08:38→16:44)
[2017-05-27] MEDS: AmLODIPine BESYLATE 2.5 MG TABLET PO SCH (08:39)
[2017-05-27] MEDS: AMOXICILLIN TRIHYDRATE 500 MG CAPSULE PO SCH ×3 (08:39→16:44)
[2017-05-27] MEDS: NICOTINE 21 MG/24 HOUR PATCH TD SCH (08:39)
[2017-05-27] MEDS: ATENOLOL 50 MG TABLET PO SCH (08:39)
[2017-05-27 08:44] VITALS: BP 145/78
[2017-05-27] MEDS: LORazepam 2 MG TABLET PO PRN ×2 (09:19→15:53)
[2017-05-27 16:02] VITALS: BP 125/79
[2017-05-27] MEDS: ACETAMINOPHEN 325 MG TABLET PO PRN (16:05)
[2017-05-27] MEDS ORDERED: DiphenhydrAMINE HCL 50 MG/ML VIAL IM ONE (17:00)
[2017-05-27] MEDS ORDERED: ZIPRASIDONE MESYLATE 20 MG/VIAL IM ONE (17:00)
[2017-05-27 17:05] VITALS: BP 118/80
[2017-05-27] MEDS: TraZODone HCL 100 MG TABLET PO SCH (20:41)
[2017-05-28 06:15] VITALS: BP 121/69
[2017-05-28 09:00] VITALS: BP 120/70
[2017-05-28] MEDS: HYDROCHLOROTHIAZIDE 25 MG TABLET PO SCH (09:20)
[2017-05-28] MEDS: GABAPENTIN 300 MG CAPSULE PO SCH ×3 (09:20→16:12)
[2017-05-28] MEDS: DIVALPROEX SODIUM 500 MG ER TABLET PO SCH ×3 (09:20→16:13)
[2017-05-28] MEDS: BENZTROPINE MESYLATE 2 MG TABLET PO SCH ×2 (09:20→16:13)
[2017-05-28] MEDS: DOCUSATE SODIUM 250 MG CAPSULE PO SCH ×2 (09:20→16:12)
[2017-05-28] MEDS: CHOLECALCIFEROL (VIT D3) 1,000 UNITS TABLET PO SCH (09:20)
[2017-05-28] MEDS: AmLODIPine BESYLATE 2.5 MG TABLET PO SCH (09:21)
[2017-05-28] MEDS: RisperiDONE 3 MG TABLET PO SCH ×2 (09:21→16:13)
[2017-05-28] MEDS: AMOXICILLIN TRIHYDRATE 500 MG CAPSULE PO SCH ×3 (09:21→21:30)
[2017-05-28] MEDS: ATENOLOL 50 MG TABLET PO SCH (09:21)
[2017-05-28] MEDS: NICOTINE 21 MG/24 HOUR PATCH TD SCH (09:23)
[2017-05-28] MEDS: LORazepam 2 MG TABLET PO PRN ×3 (10:05→20:19)
[2017-05-28 16:31] VITALS: BP 136/68
[2017-05-28] MEDS: TraZODone HCL 100 MG TABLET PO SCH (20:11)
[2017-05-28] MEDS: ZOLPIDEM TARTRATE 10 MG TABLET PO PRN (20:19)
[2017-05-29 03:44] VITALS: BP 120/70
[2017-05-29 08:46] VITALS: BP 130/62
[2017-05-29] MEDS: GABAPENTIN 300 MG CAPSULE PO SCH ×3 (09:31→16:19)
[2017-05-29] MEDS: BENZTROPINE MESYLATE 2 MG TABLET PO SCH ×2 (09:31→16:19)
[2017-05-29] MEDS: DOCUSATE SODIUM 250 MG CAPSULE PO SCH ×2 (09:31→16:19)
[2017-05-29] MEDS: NICOTINE 21 MG/24 HOUR PATCH TD SCH (09:31)
[2017-05-29] MEDS: HYDROCHLOROTHIAZIDE 25 MG TABLET PO SCH (09:31)
[2017-05-29] MEDS: RisperiDONE 3 MG TABLET PO SCH ×2 (09:31→16:19)
[2017-05-29] MEDS: DIVALPROEX SODIUM 500 MG ER TABLET PO SCH ×3 (09:31→16:19)
[2017-05-29] MEDS: ATENOLOL 50 MG TABLET PO SCH (09:32)
[2017-05-29] MEDS: AmLODIPine BESYLATE 2.5 MG TABLET PO SCH (09:32)
[2017-05-29] MEDS: AMOXICILLIN TRIHYDRATE 500 MG CAPSULE PO SCH ×3 (09:32→16:20)
[2017-05-29] MEDS: CHOLECALCIFEROL (VIT D3) 1,000 UNITS TABLET PO SCH (09:33)
[2017-05-29] MEDS: LORazepam 2 MG TABLET PO PRN ×3 (12:23→20:49)
[2017-05-29] MEDS: ACETAMINOPHEN 325 MG TABLET PO PRN ×2 (13:16→20:50)
[2017-05-29 16:00] VITALS: BP 123/68
[2017-05-29] MEDS: TraZODone HCL 100 MG TABLET PO SCH (20:49)
[2017-05-29] MEDS: ZOLPIDEM TARTRATE 10 MG TABLET PO PRN (20:49)
[2017-05-30 05:40] VITALS: BP 121/60
[2017-05-30 08:06] VITALS: BP 130/91
[2017-05-30] MEDS: BENZTROPINE MESYLATE 2 MG TABLET PO SCH ×2 (08:45→16:35)
[2017-05-30] MEDS: ATENOLOL 50 MG TABLET PO SCH (08:45)
[2017-05-30] MEDS: GABAPENTIN 300 MG CAPSULE PO SCH ×3 (08:45→16:35)
[2017-05-30] MEDS: RisperiDONE 3 MG TABLET PO SCH ×2 (08:45→16:35)
[2017-05-30] MEDS: AmLODIPine BESYLATE 2.5 MG TABLET PO SCH (08:45)
[2017-05-30] MEDS: CHOLECALCIFEROL (VIT D3) 1,000 UNITS TABLET PO SCH (08:45)
[2017-05-30] MEDS: AMOXICILLIN TRIHYDRATE 500 MG CAPSULE PO SCH ×3 (08:45→16:35)
[2017-05-30] MEDS: DOCUSATE SODIUM 250 MG CAPSULE PO SCH ×2 (08:45→16:35)
[2017-05-30] MEDS: DIVALPROEX SODIUM 500 MG ER TABLET PO SCH ×3 (08:45→16:35)
[2017-05-30] MEDS: HYDROCHLOROTHIAZIDE 25 MG TABLET PO SCH (08:45)
[2017-05-30] MEDS: NICOTINE 21 MG/24 HOUR PATCH TD SCH (08:46)
[2017-05-30] MEDS: LORazepam 2 MG TABLET PO PRN (16:36)
[2017-05-30 16:37] VITALS: BP 125/69
[2017-05-30] MEDS: ACETAMINOPHEN 325 MG TABLET PO PRN (16:42)
[2017-05-30] MEDS: TraZODone HCL 100 MG TABLET PO SCH (20:17)
[2017-05-30 20:23] VITALS: BP 130/91
[2017-05-30] MEDS: IBUPROFEN 600 MG TABLET PO PRN (20:23)
[2017-05-30] MEDS: ZOLPIDEM TARTRATE 10 MG TABLET PO PRN (21:08)
[2017-05-31] MEDS: ATENOLOL 50 MG TABLET PO SCH (09:38)
[2017-05-31] MEDS: DIVALPROEX SODIUM 500 MG ER TABLET PO SCH ×3 (09:38→16:21)
[2017-05-31] MEDS: BENZTROPINE MESYLATE 2 MG TABLET PO SCH ×2 (09:38→16:21)
[2017-05-31] MEDS: CHOLECALCIFEROL (VIT D3) 1,000 UNITS TABLET PO SCH (09:38)
[2017-05-31] MEDS: RisperiDONE 3 MG TABLET PO SCH ×2 (09:38→16:21)
[2017-05-31] MEDS: DOCUSATE SODIUM 250 MG CAPSULE PO SCH ×2 (09:38→16:21)
[2017-05-31] MEDS: HYDROCHLOROTHIAZIDE 25 MG TABLET PO SCH (09:38)
[2017-05-31] MEDS: GABAPENTIN 300 MG CAPSULE PO SCH ×3 (09:39→16:21)
[2017-05-31] MEDS: AmLODIPine BESYLATE 2.5 MG TABLET PO SCH (09:39)
[2017-05-31] MEDS: NICOTINE 21 MG/24 HOUR PATCH TD SCH (09:39)
[2017-05-31] MEDS: AMOXICILLIN TRIHYDRATE 500 MG CAPSULE PO SCH ×3 (09:39→16:21)
[2017-05-31 09:52] VITALS: BP 133/84
[2017-05-31] MEDS: LORazepam 2 MG TABLET PO PRN ×2 (15:23→20:37)
[2017-05-31 16:33] VITALS: BP 127/100
[2017-05-31] MEDS: TraZODone HCL 100 MG TABLET PO SCH (20:24)
[2017-05-31] MEDS: ZOLPIDEM TARTRATE 10 MG TABLET PO PRN (21:09)
[2017-06-01 08:47] VITALS: BP 136/88
[2017-06-01] MEDS: DOCUSATE SODIUM 250 MG CAPSULE PO SCH ×2 (09:45→16:28)
[2017-06-01] MEDS: RisperiDONE 3 MG TABLET PO SCH ×2 (09:45→16:28)
[2017-06-01] MEDS: CHOLECALCIFEROL (VIT D3) 1,000 UNITS TABLET PO SCH (09:45)
[2017-06-01] MEDS: ATENOLOL 50 MG TABLET PO SCH (09:45)
[2017-06-01] MEDS: DIVALPROEX SODIUM 500 MG ER TABLET PO SCH ×3 (09:45→16:28)
[2017-06-01] MEDS: AMOXICILLIN TRIHYDRATE 500 MG CAPSULE PO SCH ×3 (09:45→16:28)
[2017-06-01] MEDS: HYDROCHLOROTHIAZIDE 25 MG TABLET PO SCH (09:45)
[2017-06-01] MEDS: AmLODIPine BESYLATE 2.5 MG TABLET PO SCH (09:45)
[2017-06-01] MEDS: NICOTINE 21 MG/24 HOUR PATCH TD SCH (09:46)
[2017-06-01] MEDS: GABAPENTIN 300 MG CAPSULE PO SCH ×3 (09:46→16:28)
[2017-06-01] MEDS: BENZTROPINE MESYLATE 2 MG TABLET PO SCH ×2 (09:46→16:28)
[2017-06-01] MEDS: LORazepam 2 MG TABLET PO PRN ×3 (10:55→21:26)
[2017-06-01 12:50] VITALS: BP 134/90
[2017-06-01] MEDS: ACETAMINOPHEN 325 MG TABLET PO PRN (12:54)
[2017-06-01 16:06] VITALS: BP 129/83
[2017-06-01] MEDS: TraZODone HCL 100 MG TABLET PO SCH (20:43)
[2017-06-01] MEDS: ZOLPIDEM TARTRATE 10 MG TABLET PO PRN (22:01)
[2017-06-02 07:21] VITALS: BP 125/78
[2017-06-02 08:12] VITALS: BP 127/95
[2017-06-02] MEDS: NICOTINE 21 MG/24 HOUR PATCH TD SCH (08:15)
[2017-06-02] MEDS: BENZTROPINE MESYLATE 2 MG TABLET PO SCH ×2 (08:15→16:59)
[2017-06-02] MEDS: GABAPENTIN 300 MG CAPSULE PO SCH ×3 (08:16→16:58)
[2017-06-02] MEDS: DIVALPROEX SODIUM 500 MG ER TABLET PO SCH ×3 (08:16→16:59)
[2017-06-02] MEDS: AmLODIPine BESYLATE 2.5 MG TABLET PO SCH (08:16)
[2017-06-02] MEDS: RisperiDONE 3 MG TABLET PO SCH ×2 (08:16→16:59)
[2017-06-02] MEDS: ATENOLOL 50 MG TABLET PO SCH (08:16)
[2017-06-02] MEDS: DOCUSATE SODIUM 250 MG CAPSULE PO SCH ×2 (08:16→16:59)
[2017-06-02] MEDS: CHOLECALCIFEROL (VIT D3) 1,000 UNITS TABLET PO SCH (08:16)
[2017-06-02] MEDS: HYDROCHLOROTHIAZIDE 25 MG TABLET PO SCH (08:16)
[2017-06-02 16:09] VITALS: BP 127/74
[2017-06-02] MEDS: LORazepam 2 MG TABLET PO PRN (16:24)
[2017-06-02] MEDS: TraZODone HCL 100 MG TABLET PO SCH (20:37)
[2017-06-02] MEDS: ZOLPIDEM TARTRATE 10 MG TABLET PO PRN (21:22)
[2017-06-02] MEDS ORDERED: LORazepam 2 MG/ML VIAL ONE (22:37)
[2017-06-02] MEDS ORDERED: DiphenhydrAMINE HCL 50 MG/ML VIAL ONE (22:37)
[2017-06-02] MEDS ORDERED: HALOPERIDOL LACTATE 5 MG/ML VIAL ONE (22:37)
[2017-06-02] MEDS ORDERED: DiphenhydrAMINE HCL 50 MG/ML VIAL IM ONE (22:45)
[2017-06-02] MEDS ORDERED: HALOPERIDOL LACTATE 5 MG/ML VIAL IM ONE (22:45)
[2017-06-02] MEDS ORDERED: LORazepam 2 MG/ML VIAL IM ONE (22:45)
[2017-06-03 06:05] VITALS: BP 131/67
[2017-06-03 08:39] VITALS: BP 121/63
[2017-06-03] MEDS: DOCUSATE SODIUM 250 MG CAPSULE PO SCH ×2 (09:47→16:16)
[2017-06-03] MEDS: DIVALPROEX SODIUM 500 MG ER TABLET PO SCH ×3 (09:48→16:16)
[2017-06-03] MEDS: GABAPENTIN 300 MG CAPSULE PO SCH ×3 (09:48→16:16)
[2017-06-03] MEDS: HYDROCHLOROTHIAZIDE 25 MG TABLET PO SCH (09:48)
[2017-06-03] MEDS: RisperiDONE 3 MG TABLET PO SCH ×2 (09:48→16:16)
[2017-06-03] MEDS: CHOLECALCIFEROL (VIT D3) 1,000 UNITS TABLET PO SCH (09:49)
[2017-06-03] MEDS: BENZTROPINE MESYLATE 2 MG TABLET PO SCH ×2 (11:21→16:16)
[2017-06-03] MEDS: ATENOLOL 50 MG TABLET PO SCH (11:28)
[2017-06-03] MEDS: NICOTINE 21 MG/24 HOUR PATCH TD SCH (11:28)
[2017-06-03] MEDS: AmLODIPine BESYLATE 2.5 MG TABLET PO SCH (11:28)
[2017-06-03] MEDS: LORazepam 2 MG TABLET PO PRN ×2 (16:16→20:17)
[2017-06-03 16:37] VITALS: BP 120/64
[2017-06-03] MEDS: TraZODone HCL 100 MG TABLET PO SCH (20:13)
[2017-06-03] MEDS: ZOLPIDEM TARTRATE 10 MG TABLET PO PRN (20:17)
[2017-06-04 02:58] VITALS: BP 127/67
[2017-06-04 08:24] VITALS: BP 121/68
[2017-06-04] MEDS: DIVALPROEX SODIUM 500 MG ER TABLET PO SCH ×3 (08:45→16:22)
[2017-06-04] MEDS: HYDROCHLOROTHIAZIDE 25 MG TABLET PO SCH (08:45)
[2017-06-04] MEDS: GABAPENTIN 300 MG CAPSULE PO SCH ×3 (08:46→16:22)
[2017-06-04] MEDS: CHOLECALCIFEROL (VIT D3) 1,000 UNITS TABLET PO SCH (08:46)
[2017-06-04] MEDS: RisperiDONE 3 MG TABLET PO SCH ×2 (08:46→16:22)
[2017-06-04] MEDS: ATENOLOL 50 MG TABLET PO SCH (08:46)
[2017-06-04] MEDS: DOCUSATE SODIUM 250 MG CAPSULE PO SCH ×2 (08:46→16:22)
[2017-06-04] MEDS: AmLODIPine BESYLATE 2.5 MG TABLET PO SCH (08:46)
[2017-06-04] MEDS: BENZTROPINE MESYLATE 2 MG TABLET PO SCH ×2 (08:46→16:22)
[2017-06-04] MEDS: NICOTINE 21 MG/24 HOUR PATCH TD SCH (08:47)
[2017-06-04 16:07] VITALS: BP 127/74
[2017-06-04] MEDS: LORazepam 2 MG TABLET PO PRN ×2 (16:22→20:52)
[2017-06-04] MEDS: TraZODone HCL 100 MG TABLET PO SCH (20:47)
[2017-06-04] MEDS: ZOLPIDEM TARTRATE 10 MG TABLET PO PRN (21:36)
[2017-06-05 06:25] VITALS: BP 128/69
[2017-06-05] MEDS: AmLODIPine BESYLATE 2.5 MG TABLET PO SCH (08:16)
[2017-06-05] MEDS: DOCUSATE SODIUM 250 MG CAPSULE PO SCH ×2 (08:16→16:07)
[2017-06-05] MEDS: GABAPENTIN 300 MG CAPSULE PO SCH ×3 (08:16→16:06)
[2017-06-05] MEDS: RisperiDONE 3 MG TABLET PO SCH ×2 (08:17→16:06)
[2017-06-05] MEDS: BENZTROPINE MESYLATE 2 MG TABLET PO SCH ×2 (08:17→16:06)
[2017-06-05] MEDS: CHOLECALCIFEROL (VIT D3) 1,000 UNITS TABLET PO SCH (08:17)
[2017-06-05] MEDS: NICOTINE 21 MG/24 HOUR PATCH TD SCH (08:17)
[2017-06-05] MEDS: ATENOLOL 50 MG TABLET PO SCH (08:17)
[2017-06-05] MEDS: DIVALPROEX SODIUM 500 MG ER TABLET PO SCH ×3 (08:20→16:06)
[2017-06-05] MEDS: HYDROCHLOROTHIAZIDE 25 MG TABLET PO SCH (08:21)
[2017-06-05 09:22] VITALS: BP 128/70
[2017-06-05] MEDS: LORazepam 2 MG TABLET PO PRN ×2 (15:48→20:09)
[2017-06-05 16:00] VITALS: BP 118/67
[2017-06-05] MEDS: IBUPROFEN 600 MG TABLET PO PRN (17:25)
[2017-06-05] MEDS: TraZODone HCL 100 MG TABLET PO SCH (20:09)
[2017-06-05] MEDS: ZOLPIDEM TARTRATE 10 MG TABLET PO PRN (20:09)
[2017-06-06 01:11] VITALS: BP 129/67
[2017-06-06] MEDS: GABAPENTIN 300 MG CAPSULE PO SCH ×3 (08:12→16:07)
[2017-06-06] MEDS: CHOLECALCIFEROL (VIT D3) 1,000 UNITS TABLET PO SCH (08:12)
[2017-06-06] MEDS: DIVALPROEX SODIUM 500 MG ER TABLET PO SCH ×3 (08:12→16:07)
[2017-06-06] MEDS: DOCUSATE SODIUM 250 MG CAPSULE PO SCH ×2 (08:12→16:07)
[2017-06-06] MEDS: HYDROCHLOROTHIAZIDE 25 MG TABLET PO SCH (08:12)
[2017-06-06] MEDS: RisperiDONE 3 MG TABLET PO SCH ×2 (08:12→16:08)
[2017-06-06] MEDS: NICOTINE 21 MG/24 HOUR PATCH TD SCH (08:13)
[2017-06-06] MEDS: BENZTROPINE MESYLATE 2 MG TABLET PO SCH ×2 (08:13→16:08)
[2017-06-06] MEDS: AmLODIPine BESYLATE 2.5 MG TABLET PO SCH (08:13)
[2017-06-06] MEDS: ATENOLOL 50 MG TABLET PO SCH (08:13)
[2017-06-06] MEDS: LORazepam 2 MG TABLET PO PRN ×3 (08:38→17:12)
[2017-06-06 08:46] VITALS: BP 129/65
[2017-06-06 16:13] VITALS: BP 135/72
[2017-06-06] MEDS: TraZODone HCL 100 MG TABLET PO SCH (20:35)
[2017-06-06] MEDS: ZOLPIDEM TARTRATE 10 MG TABLET PO PRN (21:06)
[2017-06-07 06:37] VITALS: BP 132/75
[2017-06-07] MEDS: DOCUSATE SODIUM 250 MG CAPSULE PO SCH ×2 (09:03→16:11)
[2017-06-07] MEDS: BENZTROPINE MESYLATE 2 MG TABLET PO SCH ×2 (09:03→16:10)
[2017-06-07] MEDS: GABAPENTIN 300 MG CAPSULE PO SCH ×3 (09:03→16:10)
[2017-06-07] MEDS: HYDROCHLOROTHIAZIDE 25 MG TABLET PO SCH (09:03)
[2017-06-07] MEDS: DIVALPROEX SODIUM 500 MG ER TABLET PO SCH ×3 (09:04→16:11)
[2017-06-07] MEDS: CHOLECALCIFEROL (VIT D3) 1,000 UNITS TABLET PO SCH (09:04)
[2017-06-07] MEDS: ATENOLOL 50 MG TABLET PO SCH (09:04)
[2017-06-07] MEDS: AmLODIPine BESYLATE 2.5 MG TABLET PO SCH (09:04)
[2017-06-07] MEDS: NICOTINE 21 MG/24 HOUR PATCH TD SCH (09:04)
[2017-06-07] MEDS: RisperiDONE 3 MG TABLET PO SCH ×2 (09:04→16:11)
[2017-06-07 09:12] VITALS: BP 130/62
[2017-06-07] MEDS: LORazepam 2 MG TABLET PO PRN ×2 (10:49→15:29)
[2017-06-07] MEDS: ACETAMINOPHEN 325 MG TABLET PO PRN ×2 (11:53→21:47)
[2017-06-07 16:00] VITALS: BP 124/81
[2017-06-07] MEDS ORDERED: HALOPERIDOL LACTATE 5 MG/ML VIAL IM ONE (16:15)
[2017-06-07] MEDS ORDERED: DiphenhydrAMINE HCL 50 MG/ML VIAL IM ONE (16:15)
[2017-06-07 16:40] VITALS: BP 115/70
[2017-06-07 17:09] VITALS: BP 124/81
[2017-06-07] MEDS: ZOLPIDEM TARTRATE 10 MG TABLET PO PRN (20:28)
[2017-06-07] MEDS: TraZODone HCL 100 MG TABLET PO SCH (20:28)
[2017-06-07 23:57] VITALS: BP 132/67
[2017-06-08 08:42] VITALS: BP 123/61
[2017-06-08] MEDS: RisperiDONE 3 MG TABLET PO SCH ×2 (09:49→16:29)
[2017-06-08] MEDS: DIVALPROEX SODIUM 500 MG ER TABLET PO SCH ×3 (09:49→16:29)
[2017-06-08] MEDS: GABAPENTIN 300 MG CAPSULE PO SCH ×3 (09:49→16:29)
[2017-06-08] MEDS: HYDROCHLOROTHIAZIDE 25 MG TABLET PO SCH (09:49)
[2017-06-08] MEDS: DOCUSATE SODIUM 250 MG CAPSULE PO SCH ×2 (09:49→16:29)
[2017-06-08] MEDS: BENZTROPINE MESYLATE 2 MG TABLET PO SCH ×2 (09:49→16:29)
[2017-06-08] MEDS: CHOLECALCIFEROL (VIT D3) 1,000 UNITS TABLET PO SCH (09:49)
[2017-06-08] MEDS: AmLODIPine BESYLATE 2.5 MG TABLET PO SCH (09:50)
[2017-06-08] MEDS: ATENOLOL 50 MG TABLET PO SCH (09:50)
[2017-06-08] MEDS: NICOTINE 21 MG/24 HOUR PATCH TD SCH (09:51)
[2017-06-08] MEDS: LORazepam 2 MG TABLET PO PRN ×3 (12:19→16:29)
[2017-06-08 16:47] VITALS: BP 131/76
[2017-06-08] MEDS: IBUPROFEN 600 MG TABLET PO PRN ×2 (17:01)
[2017-06-08] MEDS: ZOLPIDEM TARTRATE 10 MG TABLET PO PRN (20:25)
[2017-06-08] MEDS: TraZODone HCL 100 MG TABLET PO SCH (20:26)
[2017-06-09 06:56] VITALS: BP 130/74
[2017-06-09] MEDS: GABAPENTIN 300 MG CAPSULE PO SCH ×3 (09:06→16:05)
[2017-06-09] MEDS: RisperiDONE 3 MG TABLET PO SCH ×2 (09:07→16:05)
[2017-06-09] MEDS: DIVALPROEX SODIUM 500 MG ER TABLET PO SCH ×3 (09:07→16:05)
[2017-06-09] MEDS: ATENOLOL 50 MG TABLET PO SCH (09:07)
[2017-06-09] MEDS: AmLODIPine BESYLATE 2.5 MG TABLET PO SCH (09:07)
[2017-06-09] MEDS: DOCUSATE SODIUM 250 MG CAPSULE PO SCH ×2 (09:07→16:05)
[2017-06-09] MEDS: BENZTROPINE MESYLATE 2 MG TABLET PO SCH ×2 (09:07→16:06)
[2017-06-09] MEDS: NICOTINE 21 MG/24 HOUR PATCH TD SCH (09:08)
[2017-06-09] MEDS: CHOLECALCIFEROL (VIT D3) 1,000 UNITS TABLET PO SCH (09:08)
[2017-06-09] MEDS: HYDROCHLOROTHIAZIDE 25 MG TABLET PO SCH (09:08)
[2017-06-09] MEDS: LORazepam 2 MG TABLET PO PRN ×3 (12:10→21:31)
[2017-06-09] MEDS: IBUPROFEN 600 MG TABLET PO PRN (12:21)
[2017-06-09 12:30] VITALS: BP 128/76
[2017-06-09] MEDS ORDERED: DiphenhydrAMINE HCL 50 MG/ML VIAL ONE (13:30)
[2017-06-09] MEDS ORDERED: LORazepam 2 MG/ML VIAL ONE (13:30)
[2017-06-09] MEDS ORDERED: HALOPERIDOL LACTATE 5 MG/ML VIAL ONE (13:30)
[2017-06-09] MEDS ORDERED: DiphenhydrAMINE HCL 50 MG/ML VIAL IM ONE (13:45)
[2017-06-09] MEDS ORDERED: LORazepam 2 MG/ML VIAL IM ONE (13:45)
[2017-06-09] MEDS ORDERED: HALOPERIDOL LACTATE 5 MG/ML VIAL IM ONE (13:45)
[2017-06-09 16:05] VITALS: BP 130/73
[2017-06-09] MEDS: TraZODone HCL 100 MG TABLET PO SCH (20:05)
[2017-06-09] MEDS: ZOLPIDEM TARTRATE 10 MG TABLET PO PRN (21:31)
[2017-06-10] MEDS: BENZTROPINE MESYLATE 2 MG TABLET PO SCH ×2 (08:33→16:14)
[2017-06-10] MEDS: CHOLECALCIFEROL (VIT D3) 1,000 UNITS TABLET PO SCH (08:33)
[2017-06-10] MEDS: GABAPENTIN 300 MG CAPSULE PO SCH ×3 (08:33→16:14)
[2017-06-10] MEDS: ATENOLOL 50 MG TABLET PO SCH (08:33)
[2017-06-10] MEDS: DOCUSATE SODIUM 250 MG CAPSULE PO SCH ×2 (08:33→16:14)
[2017-06-10] MEDS: HYDROCHLOROTHIAZIDE 25 MG TABLET PO SCH (08:33)
[2017-06-10] MEDS: RisperiDONE 3 MG TABLET PO SCH ×2 (08:33→16:14)
[2017-06-10] MEDS: AmLODIPine BESYLATE 2.5 MG TABLET PO SCH (08:33)
[2017-06-10] MEDS: DIVALPROEX SODIUM 500 MG ER TABLET PO SCH ×3 (08:33→16:14)
[2017-06-10] MEDS: NICOTINE 21 MG/24 HOUR PATCH TD SCH (08:34)
[2017-06-10 08:38] VITALS: BP 156/90
[2017-06-10] MEDS: LORazepam 2 MG TABLET PO PRN ×3 (09:29→20:15)
[2017-06-10 10:30] VITALS: BP 134/88
[2017-06-10 16:00] VITALS: BP 143/76
[2017-06-10] MEDS: TraZODone HCL 100 MG TABLET PO SCH (20:15)
[2017-06-10] MEDS: ZOLPIDEM TARTRATE 10 MG TABLET PO PRN (20:15)
[2017-06-11 06:19] VITALS: BP 135/78
[2017-06-11 08:26] VITALS: BP 142/56
[2017-06-11] MEDS: DIVALPROEX SODIUM 500 MG ER TABLET PO SCH ×3 (08:51→17:21)
[2017-06-11] MEDS: GABAPENTIN 300 MG CAPSULE PO SCH ×3 (08:51→17:21)
[2017-06-11] MEDS: NICOTINE 21 MG/24 HOUR PATCH TD SCH (08:52)
[2017-06-11] MEDS: HYDROCHLOROTHIAZIDE 25 MG TABLET PO SCH (08:52)
[2017-06-11] MEDS: AmLODIPine BESYLATE 2.5 MG TABLET PO SCH (08:52)
[2017-06-11] MEDS: RisperiDONE 3 MG TABLET PO SCH ×2 (08:52→17:21)
[2017-06-11] MEDS: ATENOLOL 50 MG TABLET PO SCH (08:52)
[2017-06-11] MEDS: DOCUSATE SODIUM 250 MG CAPSULE PO SCH ×2 (08:52→17:21)
[2017-06-11] MEDS: CHOLECALCIFEROL (VIT D3) 1,000 UNITS TABLET PO SCH (08:52)
[2017-06-11] MEDS: BENZTROPINE MESYLATE 2 MG TABLET PO SCH ×2 (08:52→17:21)
[2017-06-11 10:00] VITALS: BP 130/68
[2017-06-11] MEDS: LORazepam 2 MG TABLET PO PRN ×4 (10:52→20:19)
[2017-06-11 16:06] VITALS: BP 124/62
[2017-06-11] MEDS: TraZODone HCL 100 MG TABLET PO SCH (20:19)
[2017-06-11] MEDS: ZOLPIDEM TARTRATE 10 MG TABLET PO PRN (21:00)
[2017-06-12 08:05] VITALS: BP 139/57
[2017-06-12] MEDS: NICOTINE 21 MG/24 HOUR PATCH TD SCH (08:06)
[2017-06-12] MEDS: CHOLECALCIFEROL (VIT D3) 1,000 UNITS TABLET PO SCH (08:07)
[2017-06-12] MEDS: BENZTROPINE MESYLATE 2 MG TABLET PO SCH ×2 (08:07→16:04)
[2017-06-12] MEDS: HYDROCHLOROTHIAZIDE 25 MG TABLET PO SCH (08:07)
[2017-06-12] MEDS: DIVALPROEX SODIUM 500 MG ER TABLET PO SCH ×3 (08:07→16:04)
[2017-06-12] MEDS: DOCUSATE SODIUM 250 MG CAPSULE PO SCH ×2 (08:07→16:04)
[2017-06-12] MEDS: GABAPENTIN 300 MG CAPSULE PO SCH ×3 (08:07→16:04)
[2017-06-12] MEDS: AmLODIPine BESYLATE 2.5 MG TABLET PO SCH (08:07)
[2017-06-12] MEDS: RisperiDONE 3 MG TABLET PO SCH ×2 (08:07→16:04)
[2017-06-12] MEDS: ATENOLOL 50 MG TABLET PO SCH (08:07)
[2017-06-12] MEDS: LORazepam 2 MG TABLET PO PRN ×3 (08:30→20:27)
[2017-06-12 16:14] VITALS: BP 131/76
[2017-06-12] MEDS: TraZODone HCL 100 MG TABLET PO SCH (20:27)
[2017-06-13] MEDS: NICOTINE 21 MG/24 HOUR PATCH TD SCH ×2 (09:00→09:35)
[2017-06-13 09:01] VITALS: BP 144/74
[2017-06-13] MEDS: RisperiDONE 3 MG TABLET PO SCH ×2 (09:35→16:43)
[2017-06-13] MEDS: GABAPENTIN 300 MG CAPSULE PO SCH ×3 (09:35→16:43)
[2017-06-13] MEDS: HYDROCHLOROTHIAZIDE 25 MG TABLET PO SCH (09:36)
[2017-06-13] MEDS: DOCUSATE SODIUM 250 MG CAPSULE PO SCH ×2 (09:36→16:43)
[2017-06-13] MEDS: DIVALPROEX SODIUM 500 MG ER TABLET PO SCH ×3 (09:36→16:43)
[2017-06-13] MEDS: CHOLECALCIFEROL (VIT D3) 1,000 UNITS TABLET PO SCH (09:36)
[2017-06-13] MEDS: BENZTROPINE MESYLATE 2 MG TABLET PO SCH ×2 (09:36→16:42)
[2017-06-13] MEDS: AmLODIPine BESYLATE 2.5 MG TABLET PO SCH (09:36)
[2017-06-13] MEDS: ATENOLOL 50 MG TABLET PO SCH (09:37)
[2017-06-13] MEDS: TraZODone HCL 100 MG TABLET PO SCH (20:38)
[2017-06-14 00:54] VITALS: BP 132/68
[2017-06-14] MEDS: ZOLPIDEM TARTRATE 10 MG TABLET PO PRN ×2 (02:26→21:44)
[2017-06-14] MEDS: AmLODIPine BESYLATE 2.5 MG TABLET PO SCH (08:11)
[2017-06-14] MEDS: DOCUSATE SODIUM 250 MG CAPSULE PO SCH ×2 (08:13→17:14)
[2017-06-14] MEDS: ATENOLOL 50 MG TABLET PO SCH (08:13)
[2017-06-14] MEDS: RisperiDONE 3 MG TABLET PO SCH ×2 (08:13→17:14)
[2017-06-14] MEDS: CHOLECALCIFEROL (VIT D3) 1,000 UNITS TABLET PO SCH (08:13)
[2017-06-14] MEDS: DIVALPROEX SODIUM 500 MG ER TABLET PO SCH ×3 (08:13→17:14)
[2017-06-14] MEDS: BENZTROPINE MESYLATE 2 MG TABLET PO SCH ×2 (08:13→17:14)
[2017-06-14] MEDS: GABAPENTIN 300 MG CAPSULE PO SCH ×3 (08:13→17:14)
[2017-06-14] MEDS: HYDROCHLOROTHIAZIDE 25 MG TABLET PO SCH (08:13)
[2017-06-14] MEDS: NICOTINE 21 MG/24 HOUR PATCH TD SCH (08:14)
[2017-06-14 08:30] VITALS: BP 143/60
[2017-06-14 11:25] VITALS: BP 136/78
[2017-06-14] MEDS: ACETAMINOPHEN 325 MG TABLET PO PRN ×2 (11:27→18:56)
[2017-06-14 12:30] VITALS: BP 138/74
[2017-06-14] MEDS: IBUPROFEN 600 MG TABLET PO PRN (12:49)
[2017-06-14] MEDS: LORazepam 2 MG TABLET PO PRN (12:50)
[2017-06-14 16:25] VITALS: BP 142/90
[2017-06-14 18:57] VITALS: BP 140/87
[2017-06-14] MEDS ORDERED: HALOPERIDOL LACTATE 5 MG/ML VIAL ONE (18:58)
[2017-06-14] MEDS ORDERED: LORazepam 2 MG/ML VIAL ONE (18:58)
[2017-06-14] MEDS ORDERED: DiphenhydrAMINE HCL 50 MG/ML VIAL ONE (18:58)
[2017-06-14] MEDS ORDERED: DiphenhydrAMINE HCL 50 MG/ML VIAL IM ONE (19:00)
[2017-06-14] MEDS ORDERED: HALOPERIDOL LACTATE 5 MG/ML VIAL IM ONE (19:00)
[2017-06-14] MEDS ORDERED: LORazepam 2 MG/ML VIAL IM ONE (19:00)
[2017-06-14] MEDS: TraZODone HCL 100 MG TABLET PO SCH (21:44)
[2017-06-15 08:33] VITALS: BP 132/63
[2017-06-15] MEDS: GABAPENTIN 300 MG CAPSULE PO SCH ×3 (09:55→16:31)
[2017-06-15] MEDS: DIVALPROEX SODIUM 500 MG ER TABLET PO SCH ×3 (09:56→16:31)
[2017-06-15] MEDS: RisperiDONE 3 MG TABLET PO SCH ×2 (09:56→16:31)
[2017-06-15] MEDS: BENZTROPINE MESYLATE 2 MG TABLET PO SCH ×2 (09:56→16:31)
[2017-06-15] MEDS: CHOLECALCIFEROL (VIT D3) 1,000 UNITS TABLET PO SCH (09:56)
[2017-06-15] MEDS: AmLODIPine BESYLATE 2.5 MG TABLET PO SCH (09:57)
[2017-06-15] MEDS: ATENOLOL 50 MG TABLET PO SCH (09:57)
[2017-06-15] MEDS: DOCUSATE SODIUM 250 MG CAPSULE PO SCH ×2 (09:57→16:31)
[2017-06-15] MEDS: HYDROCHLOROTHIAZIDE 25 MG TABLET PO SCH (09:57)
[2017-06-15] MEDS: NICOTINE 21 MG/24 HOUR PATCH TD SCH (09:58)
[2017-06-15] MEDS: LORazepam 2 MG TABLET PO PRN (13:08)
[2017-06-15 16:38] VITALS: BP 122/78
[2017-06-15 17:55] VITALS: BP 118/80
[2017-06-15] MEDS: ACETAMINOPHEN 325 MG TABLET PO PRN (17:57)
[2017-06-15 18:57] VITALS: BP 115/78
[2017-06-15] MEDS: TraZODone HCL 100 MG TABLET PO SCH (20:35)
[2017-06-15] MEDS: ZOLPIDEM TARTRATE 10 MG TABLET PO PRN (21:16)
[2017-06-16 03:25] VITALS: BP 116/82
[2017-06-16] MEDS: GABAPENTIN 300 MG CAPSULE PO SCH ×3 (10:13→17:15)
[2017-06-16] MEDS: HYDROCHLOROTHIAZIDE 25 MG TABLET PO SCH (10:13)
[2017-06-16] MEDS: DIVALPROEX SODIUM 500 MG ER TABLET PO SCH ×2 (10:13→17:15)
[2017-06-16] MEDS: RisperiDONE 3 MG TABLET PO SCH ×2 (10:13→17:15)
[2017-06-16] MEDS: DOCUSATE SODIUM 250 MG CAPSULE PO SCH ×2 (10:13→17:15)
[2017-06-16] MEDS: ATENOLOL 50 MG TABLET PO SCH (10:13)
[2017-06-16] MEDS: CHOLECALCIFEROL (VIT D3) 1,000 UNITS TABLET PO SCH (10:13)
[2017-06-16] MEDS: NICOTINE 21 MG/24 HOUR PATCH TD SCH (10:13)
[2017-06-16] MEDS: BENZTROPINE MESYLATE 2 MG TABLET PO SCH ×2 (10:14→17:15)
[2017-06-16] MEDS: AmLODIPine BESYLATE 2.5 MG TABLET PO SCH (10:14)
[2017-06-16] MEDS: LORazepam 2 MG TABLET PO PRN ×2 (11:52→17:15)
[2017-06-16 11:53] VITALS: BP 120/78
[2017-06-16] MEDS: ACETAMINOPHEN 325 MG TABLET PO PRN (11:53)
[2017-06-16 16:17] VITALS: BP 121/63
[2017-06-16] MEDS: IBUPROFEN 600 MG TABLET PO PRN (17:16)
[2017-06-16] MEDS: TraZODone HCL 100 MG TABLET PO SCH (20:35)
[2017-06-17] MEDS: DIVALPROEX SODIUM 500 MG ER TABLET PO SCH ×2 (08:06→16:05)
[2017-06-17] MEDS: HYDROCHLOROTHIAZIDE 25 MG TABLET PO SCH (08:07)
[2017-06-17] MEDS: GABAPENTIN 300 MG CAPSULE PO SCH ×3 (08:07→16:05)
[2017-06-17] MEDS: NICOTINE 21 MG/24 HOUR PATCH TD SCH (08:07)
[2017-06-17] MEDS: AmLODIPine BESYLATE 2.5 MG TABLET PO SCH (08:07)
[2017-06-17] MEDS: DOCUSATE SODIUM 250 MG CAPSULE PO SCH ×2 (08:07→16:05)
[2017-06-17] MEDS: CHOLECALCIFEROL (VIT D3) 1,000 UNITS TABLET PO SCH (08:07)
[2017-06-17] MEDS: ATENOLOL 50 MG TABLET PO SCH (08:07)
[2017-06-17] MEDS: BENZTROPINE MESYLATE 2 MG TABLET PO SCH ×2 (08:08→16:06)
[2017-06-17] MEDS: RisperiDONE 3 MG TABLET PO SCH ×2 (08:08→16:05)
[2017-06-17] MEDS: LORazepam 2 MG TABLET PO PRN ×3 (08:21→19:37)
[2017-06-17 08:55] VITALS: BP 145/89
[2017-06-17] MEDS: CALCIUM CARBONATE 500 MG CHEWABLE TABLET CHEW PRN ×2 (09:07→17:59)
[2017-06-17] MEDS: IBUPROFEN 600 MG TABLET PO PRN ×2 (09:32→19:36)
[2017-06-17 14:20] VITALS: BP 113/66
[2017-06-17 14:35] VITALS: BP 121/62
[2017-06-17 14:40] VITALS: BP 124/74
[2017-06-17 16:04] VITALS: BP 116/68
[2017-06-17] MEDS: TraZODone HCL 100 MG TABLET PO SCH (20:10)
[2017-06-17] MEDS: ZOLPIDEM TARTRATE 10 MG TABLET PO PRN (20:10)
[2017-06-18 00:20] VITALS: BP 118/70
[2017-06-18 08:30] VITALS: BP 118/87
[2017-06-18] MEDS: GABAPENTIN 300 MG CAPSULE PO SCH ×3 (09:44→16:08)
[2017-06-18] MEDS: RisperiDONE 3 MG TABLET PO SCH ×2 (09:45→16:08)
[2017-06-18] MEDS: AmLODIPine BESYLATE 2.5 MG TABLET PO SCH (09:45)
[2017-06-18] MEDS: DOCUSATE SODIUM 250 MG CAPSULE PO SCH ×2 (09:45→16:08)
[2017-06-18] MEDS: CHOLECALCIFEROL (VIT D3) 1,000 UNITS TABLET PO SCH (09:45)
[2017-06-18] MEDS: DIVALPROEX SODIUM 500 MG ER TABLET PO SCH ×2 (09:45→16:08)
[2017-06-18] MEDS: BENZTROPINE MESYLATE 2 MG TABLET PO SCH ×2 (09:45→16:08)
[2017-06-18] MEDS: ATENOLOL 50 MG TABLET PO SCH (09:46)
[2017-06-18] MEDS: NICOTINE 21 MG/24 HOUR PATCH TD SCH (09:46)
[2017-06-18] MEDS: HYDROCHLOROTHIAZIDE 25 MG TABLET PO SCH (09:46)
[2017-06-18] MEDS: ACETAMINOPHEN 325 MG TABLET PO PRN (10:56)
[2017-06-18] MEDS: LORazepam 2 MG TABLET PO PRN ×2 (10:56→17:01)
[2017-06-18] MEDS ORDERED: DiphenhydrAMINE HCL 50 MG/ML VIAL ONE (15:52)
[2017-06-18] MEDS ORDERED: HALOPERIDOL LACTATE 5 MG/ML VIAL ONE (15:52)
[2017-06-18] MEDS ORDERED: LORazepam 2 MG/ML VIAL ONE (15:52)
[2017-06-18] MEDS ORDERED: DiphenhydrAMINE HCL 50 MG/ML VIAL IM ONE (16:00)
[2017-06-18] MEDS ORDERED: LORazepam 2 MG/ML VIAL IM ONE (16:00)
[2017-06-18] MEDS ORDERED: HALOPERIDOL LACTATE 5 MG/ML VIAL IM ONE (16:00)
[2017-06-18 16:15] VITALS: BP 122/78
[2017-06-18] MEDS: TraZODone HCL 100 MG TABLET PO SCH (20:08)
[2017-06-18] MEDS: ZOLPIDEM TARTRATE 10 MG TABLET PO PRN (20:08)
[2017-06-18] MEDS ORDERED: MICONAZOLE NITRATE 100 MG VG PRN (22:30)
[2017-06-19 08:49] VITALS: BP 136/89
[2017-06-19] MEDS: BENZTROPINE MESYLATE 2 MG TABLET PO SCH ×2 (08:53→16:03)
[2017-06-19] MEDS: DIVALPROEX SODIUM 500 MG ER TABLET PO SCH ×2 (08:53→16:03)
[2017-06-19] MEDS: HYDROCHLOROTHIAZIDE 25 MG TABLET PO SCH (08:53)
[2017-06-19] MEDS: DOCUSATE SODIUM 250 MG CAPSULE PO SCH ×2 (08:53→16:03)
[2017-06-19] MEDS: GABAPENTIN 300 MG CAPSULE PO SCH ×3 (08:53→16:03)
[2017-06-19] MEDS: CHOLECALCIFEROL (VIT D3) 1,000 UNITS TABLET PO SCH (08:53)
[2017-06-19] MEDS: LORazepam 2 MG TABLET PO PRN ×3 (08:54→20:14)
[2017-06-19] MEDS: RisperiDONE 3 MG TABLET PO SCH ×2 (08:54→16:03)
[2017-06-19] MEDS: AmLODIPine BESYLATE 2.5 MG TABLET PO SCH (08:54)
[2017-06-19] MEDS: ATENOLOL 50 MG TABLET PO SCH (08:54)
[2017-06-19] MEDS: NICOTINE 21 MG/24 HOUR PATCH TD SCH (08:55)
[2017-06-19] MEDS ORDERED: FLUCONAZOLE 150 MG TABLET PO ONE (09:00)
[2017-06-19 10:35] VITALS: BP 115/70
[2017-06-19 16:07] VITALS: BP_SYST 115; BP_SYST 127; BP_DIAS 69; BP_DIAS 84
[2017-06-19] MEDS: ACETAMINOPHEN 325 MG TABLET PO PRN (16:42)
[2017-06-19] MEDS: ZOLPIDEM TARTRATE 10 MG TABLET PO PRN (20:14)
[2017-06-19] MEDS: TraZODone HCL 100 MG TABLET PO SCH (20:14)
[2017-06-20 06:28] VITALS: BP 119/75
[2017-06-20] MEDS: NICOTINE 21 MG/24 HOUR PATCH TD SCH (08:07)
[2017-06-20] MEDS: DIVALPROEX SODIUM 500 MG ER TABLET PO SCH ×2 (08:07→16:02)
[2017-06-20] MEDS: CHOLECALCIFEROL (VIT D3) 1,000 UNITS TABLET PO SCH (08:08)
[2017-06-20] MEDS: HYDROCHLOROTHIAZIDE 25 MG TABLET PO SCH (08:08)
[2017-06-20] MEDS: AmLODIPine BESYLATE 2.5 MG TABLET PO SCH (08:08)
[2017-06-20] MEDS: GABAPENTIN 300 MG CAPSULE PO SCH ×3 (08:08→16:03)
[2017-06-20] MEDS: ATENOLOL 50 MG TABLET PO SCH (08:08)
[2017-06-20] MEDS: RisperiDONE 3 MG TABLET PO SCH ×2 (08:08→16:03)
[2017-06-20] MEDS: DOCUSATE SODIUM 250 MG CAPSULE PO SCH ×2 (08:08→16:03)
[2017-06-20] MEDS: LORazepam 2 MG TABLET PO PRN ×2 (08:26→16:03)
[2017-06-20 08:59] VITALS: BP 130/92
[2017-06-20] MEDS: BENZTROPINE MESYLATE 2 MG TABLET PO SCH ×2 (09:02→16:03)
[2017-06-20] MEDS: ACETAMINOPHEN 325 MG TABLET PO PRN (11:42)
[2017-06-20 16:30] VITALS: BP 136/82
[2017-06-20] MEDS: TraZODone HCL 100 MG TABLET PO SCH (20:07)
[2017-06-20] MEDS: ZOLPIDEM TARTRATE 10 MG TABLET PO PRN (21:03)
[2017-06-21] MEDS: LORazepam 2 MG TABLET PO PRN ×4 (02:36→20:21)
[2017-06-21 08:29] VITALS: BP 118/72
[2017-06-21] MEDS: DIVALPROEX SODIUM 500 MG ER TABLET PO SCH ×2 (09:42→16:09)
[2017-06-21] MEDS: RisperiDONE 3 MG TABLET PO SCH ×2 (09:42→16:09)
[2017-06-21] MEDS: GABAPENTIN 300 MG CAPSULE PO SCH ×3 (09:43→16:09)
[2017-06-21] MEDS: AmLODIPine BESYLATE 2.5 MG TABLET PO SCH (09:43)
[2017-06-21] MEDS: CHOLECALCIFEROL (VIT D3) 1,000 UNITS TABLET PO SCH (09:43)
[2017-06-21] MEDS: ATENOLOL 50 MG TABLET PO SCH (09:43)
[2017-06-21] MEDS: HYDROCHLOROTHIAZIDE 25 MG TABLET PO SCH (09:43)
[2017-06-21] MEDS: DOCUSATE SODIUM 250 MG CAPSULE PO SCH ×2 (09:43→16:09)
[2017-06-21] MEDS: BENZTROPINE MESYLATE 2 MG TABLET PO SCH ×2 (09:44→16:09)
[2017-06-21] MEDS: NICOTINE 21 MG/24 HOUR PATCH TD SCH (09:44)
[2017-06-21] MEDS: ACETAMINOPHEN 325 MG TABLET PO PRN (12:37)
[2017-06-21 16:06] VITALS: BP 134/77
[2017-06-21] MEDS: TraZODone HCL 100 MG TABLET PO SCH (20:22)
[2017-06-21] MEDS: ZOLPIDEM TARTRATE 10 MG TABLET PO PRN (21:02)
[2017-06-22] MEDS: CHOLECALCIFEROL (VIT D3) 1,000 UNITS TABLET PO SCH (08:39)
[2017-06-22] MEDS: RisperiDONE 3 MG TABLET PO SCH ×2 (08:39→16:38)
[2017-06-22] MEDS: BENZTROPINE MESYLATE 2 MG TABLET PO SCH ×2 (08:39→16:39)
[2017-06-22] MEDS: HYDROCHLOROTHIAZIDE 25 MG TABLET PO SCH (08:39)
[2017-06-22] MEDS: GABAPENTIN 300 MG CAPSULE PO SCH ×3 (08:39→16:38)
[2017-06-22] MEDS: AmLODIPine BESYLATE 2.5 MG TABLET PO SCH (08:39)
[2017-06-22] MEDS: ATENOLOL 50 MG TABLET PO SCH (08:39)
[2017-06-22] MEDS: DOCUSATE SODIUM 250 MG CAPSULE PO SCH ×2 (08:39→16:38)
[2017-06-22] MEDS: DIVALPROEX SODIUM 500 MG ER TABLET PO SCH ×2 (08:39→16:38)
[2017-06-22] MEDS: NICOTINE 21 MG/24 HOUR PATCH TD SCH (08:40)
[2017-06-22 08:56] VITALS: BP 159/82
[2017-06-22] MEDS: IBUPROFEN 600 MG TABLET PO PRN (15:24)
[2017-06-22 16:30] VITALS: BP 133/81
[2017-06-22] MEDS: LORazepam 2 MG TABLET PO PRN (16:38)
[2017-06-22 19:45] VITALS: BP 141/79
[2017-06-22 19:50] VITALS: BP 141/79
[2017-06-22 20:00] VITALS: BP_SYST 135; BP_SYST 144; BP_DIAS 63; BP_DIAS 65
[2017-06-22] MEDS: ZOLPIDEM TARTRATE 10 MG TABLET PO PRN (20:14)
[2017-06-22] MEDS: TraZODone HCL 100 MG TABLET PO SCH (20:14)
[2017-06-22 20:15] VITALS: BP 135/63
[2017-06-23] MEDS: RisperiDONE 3 MG TABLET PO SCH ×2 (09:12→16:58)
[2017-06-23] MEDS: GABAPENTIN 300 MG CAPSULE PO SCH ×3 (09:12→16:58)
[2017-06-23] MEDS: CHOLECALCIFEROL (VIT D3) 1,000 UNITS TABLET PO SCH (09:12)
[2017-06-23] MEDS: NICOTINE 21 MG/24 HOUR PATCH TD SCH (09:12)
[2017-06-23] MEDS: BENZTROPINE MESYLATE 2 MG TABLET PO SCH ×2 (09:12→16:58)
[2017-06-23] MEDS: DIVALPROEX SODIUM 500 MG ER TABLET PO SCH ×2 (09:12→16:57)
[2017-06-23 09:13] VITALS: BP 150/58
[2017-06-23] MEDS: AmLODIPine BESYLATE 2.5 MG TABLET PO SCH (09:13)
[2017-06-23] MEDS: ATENOLOL 50 MG TABLET PO SCH (09:13)
[2017-06-23] MEDS: DOCUSATE SODIUM 250 MG CAPSULE PO SCH ×2 (09:13→16:58)
[2017-06-23] MEDS: HYDROCHLOROTHIAZIDE 25 MG TABLET PO SCH (09:13)
[2017-06-23] MEDS: LORazepam 2 MG TABLET PO PRN ×2 (16:58→20:19)
[2017-06-23 17:24] VITALS: BP 132/70
[2017-06-23] MEDS: TraZODone HCL 100 MG TABLET PO SCH (20:18)
[2017-06-23] MEDS: ZOLPIDEM TARTRATE 10 MG TABLET PO PRN (20:19)
[2017-06-24 08:39] VITALS: BP 129/65
[2017-06-24] MEDS: BENZTROPINE MESYLATE 2 MG TABLET PO SCH ×2 (08:45→18:02)
[2017-06-24] MEDS: ATENOLOL 50 MG TABLET PO SCH (08:45)
[2017-06-24] MEDS: AmLODIPine BESYLATE 2.5 MG TABLET PO SCH (08:45)
[2017-06-24] MEDS: CHOLECALCIFEROL (VIT D3) 1,000 UNITS TABLET PO SCH (08:49)
[2017-06-24] MEDS: GABAPENTIN 300 MG CAPSULE PO SCH ×3 (08:49→18:03)
[2017-06-24] MEDS: RisperiDONE 3 MG TABLET PO SCH ×2 (08:49→18:03)
[2017-06-24] MEDS: DOCUSATE SODIUM 250 MG CAPSULE PO SCH ×2 (08:49→18:02)
[2017-06-24] MEDS: DIVALPROEX SODIUM 500 MG ER TABLET PO SCH ×2 (08:51→18:03)
[2017-06-24] MEDS: NICOTINE 21 MG/24 HOUR PATCH TD SCH (08:52)
[2017-06-24] MEDS: HYDROCHLOROTHIAZIDE 25 MG TABLET PO SCH (08:56)
[2017-06-24 16:00] VITALS: BP 145/72
[2017-06-24] MEDS ORDERED: LORazepam 2 MG/ML VIAL ONE (17:09)
[2017-06-24] MEDS ORDERED: DiphenhydrAMINE HCL 50 MG/ML VIAL IM ONE (17:15)
[2017-06-24] MEDS ORDERED: LORazepam 2 MG/ML VIAL IM ONE (17:15)
[2017-06-24] MEDS ORDERED: HALOPERIDOL LACTATE 5 MG/ML VIAL IM ONE (17:15)
[2017-06-24 17:46] VITALS: BP 108/73
[2017-06-24] MEDS: TraZODone HCL 100 MG TABLET PO SCH ×2 (21:00→22:16)
[2017-06-25 06:23] VITALS: BP 136/82
[2017-06-25 08:46] VITALS: BP 128/91
[2017-06-25] MEDS: BENZTROPINE MESYLATE 2 MG TABLET PO SCH ×2 (09:33→16:18)
[2017-06-25] MEDS: HYDROCHLOROTHIAZIDE 25 MG TABLET PO SCH (09:33)
[2017-06-25] MEDS: DOCUSATE SODIUM 250 MG CAPSULE PO SCH ×2 (09:33→16:18)
[2017-06-25] MEDS: RisperiDONE 3 MG TABLET PO SCH ×2 (09:33→16:18)
[2017-06-25] MEDS: CHOLECALCIFEROL (VIT D3) 1,000 UNITS TABLET PO SCH (09:33)
[2017-06-25] MEDS: AmLODIPine BESYLATE 2.5 MG TABLET PO SCH (09:34)
[2017-06-25] MEDS: DIVALPROEX SODIUM 500 MG ER TABLET PO SCH ×2 (09:34→16:18)
[2017-06-25] MEDS: ATENOLOL 50 MG TABLET PO SCH (09:34)
[2017-06-25] MEDS: NICOTINE 21 MG/24 HOUR PATCH TD SCH (09:34)
[2017-06-25] MEDS: GABAPENTIN 300 MG CAPSULE PO SCH ×3 (09:34→16:18)
[2017-06-25] MEDS: LORazepam 2 MG TABLET PO PRN (16:18)
[2017-06-25 16:49] VITALS: BP 135/64
[2017-06-25] MEDS: TraZODone HCL 100 MG TABLET PO SCH (20:33)
[2017-06-25] MEDS: ZOLPIDEM TARTRATE 10 MG TABLET PO PRN (20:33)
[2017-06-26 08:18] VITALS: BP 134/67
[2017-06-26] MEDS: BENZTROPINE MESYLATE 2 MG TABLET PO SCH ×2 (09:01→16:26)
[2017-06-26] MEDS: CHOLECALCIFEROL (VIT D3) 1,000 UNITS TABLET PO SCH (09:01)
[2017-06-26] MEDS: HYDROCHLOROTHIAZIDE 25 MG TABLET PO SCH (09:01)
[2017-06-26] MEDS: DIVALPROEX SODIUM 500 MG ER TABLET PO SCH ×2 (09:01→16:26)
[2017-06-26] MEDS: ATENOLOL 50 MG TABLET PO SCH (09:01)
[2017-06-26] MEDS: RisperiDONE 3 MG TABLET PO SCH ×2 (09:01→16:26)
[2017-06-26] MEDS: DOCUSATE SODIUM 250 MG CAPSULE PO SCH ×2 (09:01→16:26)
[2017-06-26] MEDS: GABAPENTIN 300 MG CAPSULE PO SCH ×3 (09:01→16:26)
[2017-06-26] MEDS: AmLODIPine BESYLATE 2.5 MG TABLET PO SCH (09:01)
[2017-06-26] MEDS: NICOTINE 21 MG/24 HOUR PATCH TD SCH (09:02)
[2017-06-26] MEDS: LORazepam 2 MG TABLET PO PRN ×2 (12:21→16:27)
[2017-06-26 17:29] VITALS: BP 133/86
[2017-06-26] MEDS: TraZODone HCL 100 MG TABLET PO SCH (20:14)
[2017-06-26] MEDS: ZOLPIDEM TARTRATE 10 MG TABLET PO PRN (20:14)
[2017-06-27 06:57] VITALS: BP 124/74
[2017-06-27] MEDS: ATENOLOL 50 MG TABLET PO SCH (08:25)
[2017-06-27] MEDS: NICOTINE 21 MG/24 HOUR PATCH TD SCH (08:25)
[2017-06-27] MEDS: AmLODIPine BESYLATE 2.5 MG TABLET PO SCH (08:25)
[2017-06-27] MEDS: GABAPENTIN 300 MG CAPSULE PO SCH ×3 (08:26→16:34)
[2017-06-27] MEDS: RisperiDONE 3 MG TABLET PO SCH ×2 (08:26→16:34)
[2017-06-27] MEDS: HYDROCHLOROTHIAZIDE 25 MG TABLET PO SCH (08:26)
[2017-06-27] MEDS: DIVALPROEX SODIUM 500 MG ER TABLET PO SCH ×2 (08:26→16:34)
[2017-06-27] MEDS: CHOLECALCIFEROL (VIT D3) 1,000 UNITS TABLET PO SCH (08:26)
[2017-06-27] MEDS: BENZTROPINE MESYLATE 2 MG TABLET PO SCH ×2 (08:26→16:34)
[2017-06-27] MEDS: DOCUSATE SODIUM 250 MG CAPSULE PO SCH ×2 (08:26→16:34)
[2017-06-27 08:30] VITALS: BP 149/68
[2017-06-27 17:56] VITALS: BP 127/77
[2017-06-27] MEDS: MAG HYDROX/AL HYDROX/SIMETH 30 ML SUSP UDCUP PO PRN (18:09)
[2017-06-27] MEDS: TraZODone HCL 100 MG TABLET PO SCH (20:21)
[2017-06-27] MEDS: LORazepam 2 MG TABLET PO PRN (20:21)
[2017-06-27] MEDS: ZOLPIDEM TARTRATE 10 MG TABLET PO PRN (21:01)
[2017-06-28 06:54] VITALS: BP 139/64
[2017-06-28] MEDS: HYDROCHLOROTHIAZIDE 25 MG TABLET PO SCH (08:24)
[2017-06-28] MEDS: GABAPENTIN 300 MG CAPSULE PO SCH ×3 (08:24→16:48)
[2017-06-28] MEDS: AmLODIPine BESYLATE 2.5 MG TABLET PO SCH (08:24)
[2017-06-28] MEDS: ATENOLOL 50 MG TABLET PO SCH (08:24)
[2017-06-28] MEDS: NICOTINE 21 MG/24 HOUR PATCH TD SCH (08:24)
[2017-06-28] MEDS: DOCUSATE SODIUM 250 MG CAPSULE PO SCH ×2 (08:24→16:48)
[2017-06-28] MEDS: RisperiDONE 3 MG TABLET PO SCH ×2 (08:24→16:48)
[2017-06-28] MEDS: CHOLECALCIFEROL (VIT D3) 1,000 UNITS TABLET PO SCH (08:24)
[2017-06-28] MEDS: DIVALPROEX SODIUM 500 MG ER TABLET PO SCH ×2 (08:25→16:48)
[2017-06-28] MEDS: BENZTROPINE MESYLATE 2 MG TABLET PO SCH ×2 (08:25→16:48)
[2017-06-28 08:28] VITALS: BP 119/86
[2017-06-28 16:05] VITALS: BP 129/72
[2017-06-28] MEDS: LORazepam 2 MG TABLET PO PRN ×2 (16:49→21:11)
[2017-06-28 18:25] VITALS: BP 128/76
[2017-06-28] MEDS: ACETAMINOPHEN 325 MG TABLET PO PRN (18:29)
[2017-06-28] MEDS: ZOLPIDEM TARTRATE 10 MG TABLET PO PRN (20:09)
[2017-06-28] MEDS: TraZODone HCL 100 MG TABLET PO SCH (20:09)
[2017-06-29 06:15] VITALS: BP 130/70
[2017-06-29] MEDS: NICOTINE 21 MG/24 HOUR PATCH TD SCH (08:17)
[2017-06-29] MEDS: DOCUSATE SODIUM 250 MG CAPSULE PO SCH ×2 (08:18→17:22)
[2017-06-29] MEDS: DIVALPROEX SODIUM 500 MG ER TABLET PO SCH ×2 (08:18→17:22)
[2017-06-29] MEDS: CHOLECALCIFEROL (VIT D3) 1,000 UNITS TABLET PO SCH (08:18)
[2017-06-29] MEDS: ATENOLOL 50 MG TABLET PO SCH (08:18)
[2017-06-29] MEDS: BENZTROPINE MESYLATE 2 MG TABLET PO SCH ×2 (08:18→17:22)
[2017-06-29] MEDS: AmLODIPine BESYLATE 2.5 MG TABLET PO SCH (08:19)
[2017-06-29] MEDS: RisperiDONE 3 MG TABLET PO SCH ×2 (08:19→17:22)
[2017-06-29] MEDS: HYDROCHLOROTHIAZIDE 25 MG TABLET PO SCH (08:19)
[2017-06-29] MEDS: GABAPENTIN 300 MG CAPSULE PO SCH ×3 (08:19→17:22)
[2017-06-29] MEDS: ACETAMINOPHEN 325 MG TABLET PO PRN ×2 (10:26→17:23)
[2017-06-29 16:08] VITALS: BP 124/73
[2017-06-29] MEDS: LORazepam 2 MG TABLET PO PRN (17:22)
[2017-06-29] MEDS: IBUPROFEN 600 MG TABLET PO PRN (18:09)
[2017-06-29] MEDS: ZOLPIDEM TARTRATE 10 MG TABLET PO PRN (21:20)
[2017-06-29] MEDS: TraZODone HCL 100 MG TABLET PO SCH (21:20)
[2017-06-30 06:59] VITALS: BP 112/63
[2017-06-30] MEDS: HYDROCHLOROTHIAZIDE 25 MG TABLET PO SCH (08:25)
[2017-06-30] MEDS: GABAPENTIN 300 MG CAPSULE PO SCH ×3 (08:25→16:54)
[2017-06-30] MEDS: CHOLECALCIFEROL (VIT D3) 1,000 UNITS TABLET PO SCH (08:25)
[2017-06-30] MEDS: DOCUSATE SODIUM 250 MG CAPSULE PO SCH ×2 (08:25→16:54)
[2017-06-30] MEDS: RisperiDONE 3 MG TABLET PO SCH ×2 (08:25→16:54)
[2017-06-30] MEDS: DIVALPROEX SODIUM 500 MG ER TABLET PO SCH ×2 (08:25→16:54)
[2017-06-30] MEDS: ATENOLOL 50 MG TABLET PO SCH (08:26)
[2017-06-30] MEDS: NICOTINE 21 MG/24 HOUR PATCH TD SCH (08:26)
[2017-06-30] MEDS: BENZTROPINE MESYLATE 2 MG TABLET PO SCH ×2 (08:26→16:55)
[2017-06-30 08:56] VITALS: BP 142/72
[2017-06-30] MEDS: LORazepam 2 MG TABLET PO PRN ×2 (09:14→16:13)
[2017-06-30] MEDS: AmLODIPine BESYLATE 2.5 MG TABLET PO SCH (11:48)
[2017-06-30] MEDS ORDERED: LORazepam 2 MG/ML VIAL IM ONE (13:45)
[2017-06-30] MEDS ORDERED: HALOPERIDOL LACTATE 5 MG/ML VIAL IM ONE (13:45)
[2017-06-30] MEDS ORDERED: DiphenhydrAMINE HCL 50 MG/ML VIAL IM ONE (13:45)
[2017-06-30 14:55] VITALS: BP 123/58
[2017-06-30 16:05] VITALS: BP 138/98
[2017-06-30] MEDS: TraZODone HCL 100 MG TABLET PO SCH (20:08)
[2017-06-30] MEDS: ZOLPIDEM TARTRATE 10 MG TABLET PO PRN (21:25)
[2017-07-01 06:34] VITALS: BP 127/81
[2017-07-01] MEDS: AmLODIPine BESYLATE 2.5 MG TABLET PO SCH (09:01)
[2017-07-01] MEDS: NICOTINE 21 MG/24 HOUR PATCH TD SCH (09:01)
[2017-07-01] MEDS: DOCUSATE SODIUM 250 MG CAPSULE PO SCH ×2 (09:01→16:09)
[2017-07-01] MEDS: HYDROCHLOROTHIAZIDE 25 MG TABLET PO SCH (09:01)
[2017-07-01] MEDS: RisperiDONE 3 MG TABLET PO SCH ×2 (09:01→16:09)
[2017-07-01] MEDS: ATENOLOL 50 MG TABLET PO SCH (09:01)
[2017-07-01] MEDS: BENZTROPINE MESYLATE 2 MG TABLET PO SCH ×2 (09:01→16:09)
[2017-07-01] MEDS: DIVALPROEX SODIUM 500 MG ER TABLET PO SCH ×2 (09:01→16:09)
[2017-07-01] MEDS: GABAPENTIN 300 MG CAPSULE PO SCH ×3 (09:01→16:09)
[2017-07-01] MEDS: CHOLECALCIFEROL (VIT D3) 1,000 UNITS TABLET PO SCH (09:01)
[2017-07-01] MEDS: LORazepam 2 MG TABLET PO PRN ×3 (09:13→17:51)
[2017-07-01 16:13] VITALS: BP 136/66
[2017-07-01] MEDS: TraZODone HCL 100 MG TABLET PO SCH (20:42)
[2017-07-01] MEDS: ZOLPIDEM TARTRATE 10 MG TABLET PO PRN (21:46)
[2017-07-02] MEDS: DIVALPROEX SODIUM 500 MG ER TABLET PO SCH ×2 (09:35→16:09)
[2017-07-02] MEDS: HYDROCHLOROTHIAZIDE 25 MG TABLET PO SCH (09:35)
[2017-07-02] MEDS: CHOLECALCIFEROL (VIT D3) 1,000 UNITS TABLET PO SCH (09:36)
[2017-07-02] MEDS: DOCUSATE SODIUM 250 MG CAPSULE PO SCH ×2 (09:36→16:09)
[2017-07-02] MEDS: RisperiDONE 3 MG TABLET PO SCH ×2 (09:36→16:09)
[2017-07-02] MEDS: GABAPENTIN 300 MG CAPSULE PO SCH ×3 (09:36→16:09)
[2017-07-02] MEDS: ATENOLOL 50 MG TABLET PO SCH (09:38)
[2017-07-02] MEDS: AmLODIPine BESYLATE 2.5 MG TABLET PO SCH (09:38)
[2017-07-02] MEDS: NICOTINE 21 MG/24 HOUR PATCH TD SCH (09:39)
[2017-07-02] MEDS: BENZTROPINE MESYLATE 2 MG TABLET PO SCH ×2 (10:21→16:09)
[2017-07-02] MEDS: LORazepam 2 MG TABLET PO PRN ×2 (16:10→20:11)
[2017-07-02 16:18] VITALS: BP 135/71
[2017-07-02] MEDS: TraZODone HCL 100 MG TABLET PO SCH (20:11)
[2017-07-02] MEDS: ZOLPIDEM TARTRATE 10 MG TABLET PO PRN (20:11)
[2017-07-03] MEDS: DIVALPROEX SODIUM 500 MG ER TABLET PO SCH ×2 (08:15→16:14)
[2017-07-03] MEDS: ATENOLOL 50 MG TABLET PO SCH (08:15)
[2017-07-03] MEDS: AmLODIPine BESYLATE 2.5 MG TABLET PO SCH (08:15)
[2017-07-03] MEDS: DOCUSATE SODIUM 250 MG CAPSULE PO SCH ×2 (08:15→16:14)
[2017-07-03] MEDS: GABAPENTIN 300 MG CAPSULE PO SCH ×3 (08:15→16:14)
[2017-07-03] MEDS: CHOLECALCIFEROL (VIT D3) 1,000 UNITS TABLET PO SCH (08:16)
[2017-07-03] MEDS: LORazepam 2 MG TABLET PO PRN ×3 (08:16→20:14)
[2017-07-03] MEDS: NICOTINE 21 MG/24 HOUR PATCH TD SCH (08:16)
[2017-07-03] MEDS: RisperiDONE 3 MG TABLET PO SCH ×2 (08:16→16:14)
[2017-07-03] MEDS: BENZTROPINE MESYLATE 2 MG TABLET PO SCH ×2 (08:16→16:14)
[2017-07-03] MEDS: HYDROCHLOROTHIAZIDE 25 MG TABLET PO SCH (08:23)
[2017-07-03 16:08] VITALS: BP 136/62
[2017-07-03] MEDS: TraZODone HCL 100 MG TABLET PO SCH (20:14)
[2017-07-03] MEDS: ZOLPIDEM TARTRATE 10 MG TABLET PO PRN (20:46)
[2017-07-04 06:21] VITALS: BP 138/75
[2017-07-04 08:53] VITALS: BP 125/71
[2017-07-04] MEDS: BENZTROPINE MESYLATE 2 MG TABLET PO SCH ×2 (09:41→17:03)
[2017-07-04] MEDS: CHOLECALCIFEROL (VIT D3) 1,000 UNITS TABLET PO SCH (09:42)
[2017-07-04] MEDS: AmLODIPine BESYLATE 2.5 MG TABLET PO SCH (09:42)
[2017-07-04] MEDS: ATENOLOL 50 MG TABLET PO SCH (09:42)
[2017-07-04] MEDS: HYDROCHLOROTHIAZIDE 25 MG TABLET PO SCH (09:42)
[2017-07-04] MEDS: DOCUSATE SODIUM 250 MG CAPSULE PO SCH ×2 (09:42→16:11)
[2017-07-04] MEDS: DIVALPROEX SODIUM 500 MG ER TABLET PO SCH ×2 (09:42→16:11)
[2017-07-04] MEDS: RisperiDONE 3 MG TABLET PO SCH ×2 (09:42→16:11)
[2017-07-04] MEDS: GABAPENTIN 300 MG CAPSULE PO SCH ×3 (09:42→16:11)
[2017-07-04] MEDS: NICOTINE 21 MG/24 HOUR PATCH TD SCH (09:43)
[2017-07-04] MEDS: LORazepam 2 MG TABLET PO PRN ×3 (10:18→21:04)
[2017-07-04] MEDS: IBUPROFEN 600 MG TABLET PO PRN (11:45)
[2017-07-04 16:38] VITALS: BP 124/78
[2017-07-04] MEDS: ACETAMINOPHEN 325 MG TABLET PO PRN (17:04)
[2017-07-04] MEDS: TraZODone HCL 100 MG TABLET PO SCH (20:34)
[2017-07-04] MEDS: ZOLPIDEM TARTRATE 10 MG TABLET PO PRN (20:34)
[2017-07-05 06:06] VITALS: BP 130/63
[2017-07-05 08:14] VITALS: BP 153/79
[2017-07-05] MEDS: NICOTINE 21 MG/24 HOUR PATCH TD SCH (10:10)
[2017-07-05] MEDS: CHOLECALCIFEROL (VIT D3) 1,000 UNITS TABLET PO SCH (10:11)
[2017-07-05] MEDS: HYDROCHLOROTHIAZIDE 25 MG TABLET PO SCH (10:11)
[2017-07-05] MEDS: GABAPENTIN 300 MG CAPSULE PO SCH ×3 (10:11→16:00)
[2017-07-05] MEDS: ATENOLOL 50 MG TABLET PO SCH (10:11)
[2017-07-05] MEDS: DOCUSATE SODIUM 250 MG CAPSULE PO SCH ×2 (10:11→16:00)
[2017-07-05] MEDS: BENZTROPINE MESYLATE 2 MG TABLET PO SCH ×2 (10:12→16:00)
[2017-07-05] MEDS: RisperiDONE 3 MG TABLET PO SCH ×2 (10:12→16:00)
[2017-07-05] MEDS: AmLODIPine BESYLATE 2.5 MG TABLET PO SCH (10:12)
[2017-07-05] MEDS: DIVALPROEX SODIUM 500 MG ER TABLET PO SCH ×2 (10:12→16:00)
[2017-07-05] MEDS: LORazepam 2 MG TABLET PO PRN ×2 (10:44→15:08)
[2017-07-05 11:32] VITALS: BP 133/88
[2017-07-05 13:03] VITALS: BP 115/79
[2017-07-05 16:09] VITALS: BP_SYST 115; BP_SYST 141; BP_DIAS 71; BP_DIAS 72
[2017-07-05] MEDS: TraZODone HCL 100 MG TABLET PO SCH (20:07)
[2017-07-05] MEDS: ZOLPIDEM TARTRATE 10 MG TABLET PO PRN (20:34)
[2017-07-06] MEDS: AmLODIPine BESYLATE 2.5 MG TABLET PO SCH (08:01)
[2017-07-06 08:04] VITALS: BP 135/66
[2017-07-06] MEDS: BENZTROPINE MESYLATE 2 MG TABLET PO SCH ×2 (08:04→16:08)
[2017-07-06] MEDS: HYDROCHLOROTHIAZIDE 25 MG TABLET PO SCH (08:04)
[2017-07-06] MEDS: ATENOLOL 50 MG TABLET PO SCH (08:04)
[2017-07-06] MEDS: CHOLECALCIFEROL (VIT D3) 1,000 UNITS TABLET PO SCH (08:04)
[2017-07-06] MEDS: DOCUSATE SODIUM 250 MG CAPSULE PO SCH ×2 (08:05→16:08)
[2017-07-06] MEDS: DIVALPROEX SODIUM 500 MG ER TABLET PO SCH ×2 (08:05→16:07)
[2017-07-06] MEDS: NICOTINE 21 MG/24 HOUR PATCH TD SCH (08:05)
[2017-07-06] MEDS: RisperiDONE 3 MG TABLET PO SCH ×2 (08:05→16:07)
[2017-07-06] MEDS: GABAPENTIN 300 MG CAPSULE PO SCH ×3 (08:05→16:08)
[2017-07-06] MEDS: LORazepam 2 MG TABLET PO PRN ×2 (08:22→16:08)
[2017-07-06 16:00] VITALS: BP 136/66
[2017-07-06] MEDS: ZOLPIDEM TARTRATE 10 MG TABLET PO PRN (20:08)
[2017-07-06] MEDS: TraZODone HCL 100 MG TABLET PO SCH (20:08)
[2017-07-07 06:41] VITALS: BP 127/63
[2017-07-07] MEDS: CHOLECALCIFEROL (VIT D3) 1,000 UNITS TABLET PO SCH (08:13)
[2017-07-07] MEDS: LORazepam 2 MG TABLET PO PRN ×3 (08:13→20:22)
[2017-07-07] MEDS: AmLODIPine BESYLATE 2.5 MG TABLET PO SCH (08:13)
[2017-07-07] MEDS: HYDROCHLOROTHIAZIDE 25 MG TABLET PO SCH (08:13)
[2017-07-07] MEDS: GABAPENTIN 300 MG CAPSULE PO SCH ×3 (08:13→16:17)
[2017-07-07] MEDS: RisperiDONE 3 MG TABLET PO SCH ×2 (08:13→16:17)
[2017-07-07] MEDS: DIVALPROEX SODIUM 500 MG ER TABLET PO SCH ×2 (08:13→16:17)
[2017-07-07] MEDS: DOCUSATE SODIUM 250 MG CAPSULE PO SCH ×2 (08:13→16:17)
[2017-07-07] MEDS: ATENOLOL 50 MG TABLET PO SCH (08:13)
[2017-07-07] MEDS: BENZTROPINE MESYLATE 2 MG TABLET PO SCH ×2 (08:13→16:17)
[2017-07-07] MEDS: NICOTINE 21 MG/24 HOUR PATCH TD SCH (08:21)
[2017-07-07 09:17] VITALS: BP 121/70
[2017-07-07 16:05] VITALS: BP 132/66
[2017-07-07 16:06] VITALS: BP 137/91
[2017-07-07] MEDS: TraZODone HCL 100 MG TABLET PO SCH (20:13)
[2017-07-07] MEDS: ZOLPIDEM TARTRATE 10 MG TABLET PO PRN (20:22)
[2017-07-08 04:42] VITALS: BP 128/74
[2017-07-08 07:08] VITALS: BP 132/77
[2017-07-08] MEDS: DIVALPROEX SODIUM 500 MG ER TABLET PO SCH ×2 (09:37→17:18)
[2017-07-08] MEDS: RisperiDONE 3 MG TABLET PO SCH ×2 (09:37→17:18)
[2017-07-08] MEDS: DOCUSATE SODIUM 250 MG CAPSULE PO SCH ×2 (09:37→17:18)
[2017-07-08] MEDS: CHOLECALCIFEROL (VIT D3) 1,000 UNITS TABLET PO SCH (09:38)
[2017-07-08] MEDS: AmLODIPine BESYLATE 2.5 MG TABLET PO SCH (09:38)
[2017-07-08] MEDS: HYDROCHLOROTHIAZIDE 25 MG TABLET PO SCH (09:38)
[2017-07-08] MEDS: NICOTINE 21 MG/24 HOUR PATCH TD SCH (09:38)
[2017-07-08] MEDS: GABAPENTIN 300 MG CAPSULE PO SCH ×3 (09:38→17:18)
[2017-07-08] MEDS: ATENOLOL 50 MG TABLET PO SCH (09:38)
[2017-07-08] MEDS: BENZTROPINE MESYLATE 2 MG TABLET PO SCH ×2 (09:38→17:18)
[2017-07-08] MEDS: LORazepam 2 MG TABLET PO PRN ×2 (09:49→16:27)
[2017-07-08 09:54] VITALS: BP 141/75
[2017-07-08] MEDS: ACETAMINOPHEN 325 MG TABLET PO PRN (14:32)
[2017-07-08 16:06] VITALS: BP 138/70
[2017-07-08] MEDS: TraZODone HCL 100 MG TABLET PO SCH (20:33)
[2017-07-08] MEDS: ZOLPIDEM TARTRATE 10 MG TABLET PO PRN (21:20)
[2017-07-09] MEDS: GABAPENTIN 300 MG CAPSULE PO SCH ×3 (08:01→16:13)
[2017-07-09] MEDS: BENZTROPINE MESYLATE 2 MG TABLET PO SCH ×2 (08:01→16:13)
[2017-07-09] MEDS: CHOLECALCIFEROL (VIT D3) 1,000 UNITS TABLET PO SCH (08:02)
[2017-07-09] MEDS: DOCUSATE SODIUM 250 MG CAPSULE PO SCH ×2 (08:02→16:14)
[2017-07-09] MEDS: DIVALPROEX SODIUM 500 MG ER TABLET PO SCH ×2 (08:02→16:13)
[2017-07-09] MEDS: RisperiDONE 3 MG TABLET PO SCH ×2 (08:02→16:13)
[2017-07-09] MEDS: HYDROCHLOROTHIAZIDE 25 MG TABLET PO SCH (08:02)
[2017-07-09] MEDS: AmLODIPine BESYLATE 2.5 MG TABLET PO SCH (08:02)
[2017-07-09] MEDS: ATENOLOL 50 MG TABLET PO SCH (08:02)
[2017-07-09] MEDS: NICOTINE 21 MG/24 HOUR PATCH TD SCH (08:02)
[2017-07-09 08:23] VITALS: BP 156/88
[2017-07-09 16:11] VITALS: BP 125/70
[2017-07-09] MEDS: LORazepam 2 MG TABLET PO PRN ×2 (16:13→20:15)
[2017-07-09] MEDS: TraZODone HCL 100 MG TABLET PO SCH (20:08)
[2017-07-09] MEDS: ZOLPIDEM TARTRATE 10 MG TABLET PO PRN (20:15)
[2017-07-10] MEDS: RisperiDONE 3 MG TABLET PO SCH ×2 (08:30→16:53)
[2017-07-10] MEDS: LORazepam 2 MG TABLET PO PRN ×2 (08:31→16:53)
[2017-07-10] MEDS: NICOTINE 21 MG/24 HOUR PATCH TD SCH (08:31)
[2017-07-10] MEDS: BENZTROPINE MESYLATE 2 MG TABLET PO SCH ×2 (08:31→16:53)
[2017-07-10] MEDS: CHOLECALCIFEROL (VIT D3) 1,000 UNITS TABLET PO SCH (08:31)
[2017-07-10] MEDS: GABAPENTIN 300 MG CAPSULE PO SCH ×3 (08:31→16:53)
[2017-07-10] MEDS: DIVALPROEX SODIUM 500 MG ER TABLET PO SCH ×2 (08:32→16:53)
[2017-07-10] MEDS: DOCUSATE SODIUM 250 MG CAPSULE PO SCH ×2 (08:32→16:53)
[2017-07-10] MEDS: HYDROCHLOROTHIAZIDE 25 MG TABLET PO SCH (08:32)
[2017-07-10 08:50] VITALS: BP 145/91
[2017-07-10] MEDS: ATENOLOL 50 MG TABLET PO SCH (09:08)
[2017-07-10] MEDS: AmLODIPine BESYLATE 2.5 MG TABLET PO SCH (09:08)
[2017-07-10 17:24] VITALS: BP 138/68
[2017-07-10] MEDS: TraZODone HCL 100 MG TABLET PO SCH (20:08)
[2017-07-10] MEDS: ZOLPIDEM TARTRATE 10 MG TABLET PO PRN (20:08)
[2017-07-11 07:09] VITALS: BP 128/72
[2017-07-11 08:35] VITALS: BP 129/64
[2017-07-11 08:36] VITALS: BP 129/82
[2017-07-11] MEDS: AmLODIPine BESYLATE 2.5 MG TABLET PO SCH (09:01)
[2017-07-11] MEDS: ATENOLOL 100 MG TABLET PO SCH (09:01)
[2017-07-11] MEDS: DOCUSATE SODIUM 250 MG CAPSULE PO SCH ×2 (09:02→16:03)
[2017-07-11] MEDS: CHOLECALCIFEROL (VIT D3) 1,000 UNITS TABLET PO SCH (09:02)
[2017-07-11] MEDS: HYDROCHLOROTHIAZIDE 25 MG TABLET PO SCH (09:02)
[2017-07-11] MEDS: DIVALPROEX SODIUM 500 MG ER TABLET PO SCH ×2 (09:02→16:10)
[2017-07-11] MEDS: GABAPENTIN 300 MG CAPSULE PO SCH ×3 (09:02→16:03)
[2017-07-11] MEDS: BENZTROPINE MESYLATE 2 MG TABLET PO SCH ×2 (09:02→16:03)
[2017-07-11] MEDS: RisperiDONE 3 MG TABLET PO SCH ×2 (09:02→16:03)
[2017-07-11] MEDS: NICOTINE 21 MG/24 HOUR PATCH TD SCH (09:03)
[2017-07-11] MEDS: LORazepam 2 MG TABLET PO PRN (16:03)
[2017-07-11] MEDS: GuaiFENesin/D-METHORPHAN [SUGAR-FREE] 200-20MG/10 ML SYRUP UDCUP PO PRN (16:11)
[2017-07-11 16:22] VITALS: BP 139/73
[2017-07-11] MEDS: BENZOCAINE/MENTHOL LOZENGE PO PRN (19:35)
[2017-07-11] MEDS: TraZODone HCL 100 MG TABLET PO SCH (20:09)
[2017-07-12 04:47] VITALS: BP 129/82
[2017-07-12] MEDS: HYDROCHLOROTHIAZIDE 25 MG TABLET PO SCH (08:04)
[2017-07-12] MEDS: DIVALPROEX SODIUM 500 MG ER TABLET PO SCH ×2 (08:04→16:26)
[2017-07-12] MEDS: CHOLECALCIFEROL (VIT D3) 1,000 UNITS TABLET PO SCH (08:04)
[2017-07-12] MEDS: AmLODIPine BESYLATE 2.5 MG TABLET PO SCH (08:04)
[2017-07-12] MEDS: DOCUSATE SODIUM 250 MG CAPSULE PO SCH ×2 (08:04→16:26)
[2017-07-12] MEDS: ATENOLOL 100 MG TABLET PO SCH (08:04)
[2017-07-12] MEDS: GABAPENTIN 300 MG CAPSULE PO SCH ×3 (08:04→16:26)
[2017-07-12] MEDS: BENZTROPINE MESYLATE 2 MG TABLET PO SCH ×2 (08:04→16:26)
[2017-07-12] MEDS: RisperiDONE 3 MG TABLET PO SCH ×2 (08:05→16:27)
[2017-07-12] MEDS: NICOTINE 21 MG/24 HOUR PATCH TD SCH (08:05)
[2017-07-12 09:55] VITALS: BP 137/71
[2017-07-12] MEDS: GuaiFENesin/D-METHORPHAN [SUGAR-FREE] 200-20MG/10 ML SYRUP UDCUP PO PRN (10:21)
[2017-07-12] MEDS: BENZOCAINE/MENTHOL LOZENGE PO PRN (10:21)
[2017-07-12] MEDS: LORazepam 2 MG TABLET PO PRN (16:26)
[2017-07-12] MEDS: ACETAMINOPHEN 325 MG TABLET PO PRN (16:27)
[2017-07-12] MEDS: ZOLPIDEM TARTRATE 10 MG TABLET PO PRN (20:05)
[2017-07-12] MEDS: TraZODone HCL 100 MG TABLET PO SCH (20:06)
[2017-07-13] MEDS: AmLODIPine BESYLATE 2.5 MG TABLET PO SCH (08:09)
[2017-07-13] MEDS: GABAPENTIN 300 MG CAPSULE PO SCH ×3 (08:09→16:42)
[2017-07-13] MEDS: DIVALPROEX SODIUM 500 MG ER TABLET PO SCH ×2 (08:09→16:42)
[2017-07-13] MEDS: ATENOLOL 100 MG TABLET PO SCH (08:09)
[2017-07-13] MEDS: NICOTINE 21 MG/24 HOUR PATCH TD SCH (08:10)
[2017-07-13] MEDS: DOCUSATE SODIUM 250 MG CAPSULE PO SCH ×2 (08:10→16:42)
[2017-07-13] MEDS: BENZTROPINE MESYLATE 2 MG TABLET PO SCH ×2 (08:10→16:42)
[2017-07-13] MEDS: CHOLECALCIFEROL (VIT D3) 1,000 UNITS TABLET PO SCH (08:10)
[2017-07-13] MEDS: RisperiDONE 3 MG TABLET PO SCH ×2 (08:10→16:42)
[2017-07-13 08:48] VITALS: BP 140/77
[2017-07-13] MEDS: HYDROCHLOROTHIAZIDE 25 MG TABLET PO SCH (09:28)
[2017-07-13 16:21] VITALS: BP 109/74
[2017-07-13] MEDS: LORazepam 2 MG TABLET PO PRN (16:42)
[2017-07-13] MEDS: TraZODone HCL 100 MG TABLET PO SCH (20:04)
[2017-07-13] MEDS: ZOLPIDEM TARTRATE 10 MG TABLET PO PRN (20:04)
[2017-07-14 06:55] VITALS: BP 117/63
[2017-07-14 08:31] VITALS: BP 126/81
[2017-07-14] MEDS: RisperiDONE 3 MG TABLET PO SCH ×2 (08:56→17:06)
[2017-07-14] MEDS: CHOLECALCIFEROL (VIT D3) 1,000 UNITS TABLET PO SCH (08:56)
[2017-07-14] MEDS: DOCUSATE SODIUM 250 MG CAPSULE PO SCH ×2 (08:56→17:06)
[2017-07-14] MEDS: GABAPENTIN 300 MG CAPSULE PO SCH ×3 (08:56→17:06)
[2017-07-14] MEDS: NICOTINE 21 MG/24 HOUR PATCH TD SCH (08:56)
[2017-07-14] MEDS: DIVALPROEX SODIUM 500 MG ER TABLET PO SCH ×2 (08:56→17:06)
[2017-07-14] MEDS: HYDROCHLOROTHIAZIDE 25 MG TABLET PO SCH (08:56)
[2017-07-14] MEDS: BENZTROPINE MESYLATE 2 MG TABLET PO SCH ×2 (08:56→17:07)
[2017-07-14] MEDS: AmLODIPine BESYLATE 2.5 MG TABLET PO SCH (08:57)
[2017-07-14] MEDS: ATENOLOL 100 MG TABLET PO SCH (08:58)
[2017-07-14 16:00] VITALS: BP 132/92
[2017-07-14] MEDS: ACETAMINOPHEN 325 MG TABLET PO PRN (16:30)
[2017-07-14] MEDS: LORazepam 2 MG TABLET PO PRN (17:17)
[2017-07-14 17:30] VITALS: BP 128/88
[2017-07-14] MEDS: MAG HYDROX/AL HYDROX/SIMETH 30 ML SUSP UDCUP PO PRN (19:07)
[2017-07-14] MEDS: TraZODone HCL 100 MG TABLET PO SCH (21:09)
[2017-07-14] MEDS: BENZOCAINE 10% 7 GM GEL TP PRN (21:13)
[2017-07-14] MEDS: ZOLPIDEM TARTRATE 10 MG TABLET PO PRN (21:50)
[2017-07-15 06:48] VITALS: BP 138/78
[2017-07-15 08:28] VITALS: BP 158/99
[2017-07-15] MEDS: CHOLECALCIFEROL (VIT D3) 1,000 UNITS TABLET PO SCH (08:41)
[2017-07-15] MEDS: RisperiDONE 3 MG TABLET PO SCH ×2 (08:41→16:31)
[2017-07-15] MEDS: DOCUSATE SODIUM 250 MG CAPSULE PO SCH ×2 (08:41→16:30)
[2017-07-15] MEDS: HYDROCHLOROTHIAZIDE 25 MG TABLET PO SCH (08:41)
[2017-07-15] MEDS: GABAPENTIN 300 MG CAPSULE PO SCH ×3 (08:41→16:31)
[2017-07-15] MEDS: NICOTINE 21 MG/24 HOUR PATCH TD SCH (08:42)
[2017-07-15] MEDS: ATENOLOL 100 MG TABLET PO SCH (08:42)
[2017-07-15] MEDS: DIVALPROEX SODIUM 500 MG ER TABLET PO SCH ×2 (08:42→16:30)
[2017-07-15] MEDS: AmLODIPine BESYLATE 2.5 MG TABLET PO SCH (08:42)
[2017-07-15] MEDS: BENZTROPINE MESYLATE 2 MG TABLET PO SCH ×2 (08:47→16:30)
[2017-07-15] MEDS: LORazepam 2 MG TABLET PO PRN ×2 (12:54→16:33)
[2017-07-15] MEDS: IBUPROFEN 600 MG TABLET PO PRN (13:09)
[2017-07-15 13:10] VITALS: BP 124/64
[2017-07-15 16:00] VITALS: BP 136/67
[2017-07-15] MEDS: ZOLPIDEM TARTRATE 10 MG TABLET PO PRN (20:19)
[2017-07-15] MEDS: TraZODone HCL 100 MG TABLET PO SCH (20:19)
[2017-07-16 08:13] VITALS: BP 141/85
[2017-07-16] MEDS: AmLODIPine BESYLATE 2.5 MG TABLET PO SCH (08:18)
[2017-07-16] MEDS: HYDROCHLOROTHIAZIDE 25 MG TABLET PO SCH (08:18)
[2017-07-16] MEDS: CHOLECALCIFEROL (VIT D3) 1,000 UNITS TABLET PO SCH (08:18)
[2017-07-16] MEDS: RisperiDONE 3 MG TABLET PO SCH ×2 (08:18→16:14)
[2017-07-16] MEDS: GABAPENTIN 300 MG CAPSULE PO SCH ×3 (08:18→16:14)
[2017-07-16] MEDS: DIVALPROEX SODIUM 500 MG ER TABLET PO SCH ×2 (08:18→16:14)
[2017-07-16] MEDS: ATENOLOL 100 MG TABLET PO SCH (08:18)
[2017-07-16] MEDS: NICOTINE 21 MG/24 HOUR PATCH TD SCH (08:18)
[2017-07-16] MEDS: DOCUSATE SODIUM 250 MG CAPSULE PO SCH ×2 (08:18→16:14)
[2017-07-16] MEDS: BENZTROPINE MESYLATE 2 MG TABLET PO SCH ×2 (08:19→16:14)
[2017-07-16] MEDS: LORazepam 2 MG TABLET PO PRN ×2 (15:47→20:03)
[2017-07-16 16:19] VITALS: BP 124/68
[2017-07-16] MEDS: TraZODone HCL 100 MG TABLET PO SCH (20:03)
[2017-07-16] MEDS: ZOLPIDEM TARTRATE 10 MG TABLET PO PRN (20:26)
[2017-07-17 06:58] VITALS: BP 134/62
[2017-07-17 08:22] VITALS: BP 155/89
[2017-07-17 08:45] VITALS: BP 135/76
[2017-07-17] MEDS: BENZTROPINE MESYLATE 2 MG TABLET PO SCH ×2 (10:02→16:11)
[2017-07-17] MEDS: NICOTINE 21 MG/24 HOUR PATCH TD SCH (10:02)
[2017-07-17] MEDS: CHOLECALCIFEROL (VIT D3) 1,000 UNITS TABLET PO SCH (10:02)
[2017-07-17] MEDS: AmLODIPine BESYLATE 2.5 MG TABLET PO SCH (10:03)
[2017-07-17] MEDS: DIVALPROEX SODIUM 500 MG ER TABLET PO SCH ×2 (10:03→16:11)
[2017-07-17] MEDS: GABAPENTIN 300 MG CAPSULE PO SCH ×3 (10:03→16:11)
[2017-07-17] MEDS: DOCUSATE SODIUM 250 MG CAPSULE PO SCH ×2 (10:03→16:11)
[2017-07-17] MEDS: RisperiDONE 3 MG TABLET PO SCH ×2 (10:03→16:11)
[2017-07-17] MEDS: HYDROCHLOROTHIAZIDE 25 MG TABLET PO SCH (10:03)
[2017-07-17] MEDS: ATENOLOL 100 MG TABLET PO SCH (10:04)
[2017-07-17] MEDS: LORazepam 2 MG TABLET PO PRN ×3 (10:04→20:14)
[2017-07-17] MEDS: TraZODone HCL 100 MG TABLET PO SCH (20:05)
[2017-07-17] MEDS: ZOLPIDEM TARTRATE 10 MG TABLET PO PRN (20:14)
[2017-07-18 08:45] VITALS: BP 122/69
[2017-07-18] MEDS: CHOLECALCIFEROL (VIT D3) 1,000 UNITS TABLET PO SCH (09:32)
[2017-07-18] MEDS: DIVALPROEX SODIUM 500 MG ER TABLET PO SCH ×2 (09:32→17:08)
[2017-07-18] MEDS: DOCUSATE SODIUM 250 MG CAPSULE PO SCH ×2 (09:33→17:07)
[2017-07-18] MEDS: GABAPENTIN 300 MG CAPSULE PO SCH ×3 (09:33→17:07)
[2017-07-18] MEDS: AmLODIPine BESYLATE 2.5 MG TABLET PO SCH (09:33)
[2017-07-18] MEDS: ATENOLOL 100 MG TABLET PO SCH (09:33)
[2017-07-18] MEDS: BENZTROPINE MESYLATE 2 MG TABLET PO SCH ×2 (09:33→17:08)
[2017-07-18] MEDS: RisperiDONE 3 MG TABLET PO SCH ×2 (09:33→17:08)
[2017-07-18] MEDS: HYDROCHLOROTHIAZIDE 25 MG TABLET PO SCH (09:33)
[2017-07-18] MEDS: NICOTINE 21 MG/24 HOUR PATCH TD SCH (09:34)
[2017-07-18] MEDS: LORazepam 2 MG TABLET PO PRN ×2 (10:15→17:08)
[2017-07-18 16:38] VITALS: BP 140/62
[2017-07-18] MEDS: MAG HYDROX/AL HYDROX/SIMETH 30 ML SUSP UDCUP PO PRN (17:20)
[2017-07-18] MEDS ORDERED: DiphenhydrAMINE HCL 50 MG/ML VIAL ONE (18:54)
[2017-07-18] MEDS ORDERED: LORazepam 2 MG/ML VIAL ONE (18:54)
[2017-07-18] MEDS ORDERED: HALOPERIDOL LACTATE 5 MG/ML VIAL ONE (18:54)
[2017-07-18] MEDS ORDERED: HALOPERIDOL LACTATE 5 MG/ML VIAL IM ONE (19:00)
[2017-07-18] MEDS ORDERED: LORazepam 2 MG/ML VIAL IM ONE (19:00)
[2017-07-18] MEDS ORDERED: DiphenhydrAMINE HCL 50 MG/ML VIAL IM ONE (19:00)
[2017-07-18] MEDS: TraZODone HCL 100 MG TABLET PO SCH ×2 (20:21→21:00)
[2017-07-18] MEDS: ZOLPIDEM TARTRATE 10 MG TABLET PO PRN (20:21)
[2017-07-19] MEDS: CHOLECALCIFEROL (VIT D3) 1,000 UNITS TABLET PO SCH (09:22)
[2017-07-19] MEDS: BENZTROPINE MESYLATE 2 MG TABLET PO SCH ×2 (09:22→16:10)
[2017-07-19] MEDS: AmLODIPine BESYLATE 2.5 MG TABLET PO SCH (09:23)
[2017-07-19] MEDS: GABAPENTIN 300 MG CAPSULE PO SCH ×3 (09:23→16:10)
[2017-07-19] MEDS: NICOTINE 21 MG/24 HOUR PATCH TD SCH (09:24)
[2017-07-19] MEDS: DIVALPROEX SODIUM 500 MG ER TABLET PO SCH ×2 (09:24→16:10)
[2017-07-19] MEDS: DOCUSATE SODIUM 250 MG CAPSULE PO SCH ×2 (09:24→16:10)
[2017-07-19] MEDS: ATENOLOL 100 MG TABLET PO SCH (09:24)
[2017-07-19] MEDS: HYDROCHLOROTHIAZIDE 25 MG TABLET PO SCH (09:24)
[2017-07-19] MEDS: RisperiDONE 3 MG TABLET PO SCH ×2 (09:24→16:10)
[2017-07-19 09:30] VITALS: BP 138/84
[2017-07-19] MEDS: LORazepam 2 MG TABLET PO PRN ×2 (10:04→17:19)
[2017-07-19] MEDS: ACETAMINOPHEN 325 MG TABLET PO PRN (12:36)
[2017-07-19 16:05] VITALS: BP 118/67
[2017-07-19] MEDS: TraZODone HCL 100 MG TABLET PO SCH (20:10)
[2017-07-19] MEDS: ZOLPIDEM TARTRATE 10 MG TABLET PO PRN (21:16)
[2017-07-20 00:25] VITALS: BP 135/65
[2017-07-20 08:58] VITALS: BP 142/82
[2017-07-20] MEDS: CHOLECALCIFEROL (VIT D3) 1,000 UNITS TABLET PO SCH (09:43)
[2017-07-20] MEDS: BENZTROPINE MESYLATE 2 MG TABLET PO SCH ×2 (09:43→16:16)
[2017-07-20] MEDS: RisperiDONE 3 MG TABLET PO SCH ×2 (09:43→16:16)
[2017-07-20] MEDS: DIVALPROEX SODIUM 500 MG ER TABLET PO SCH ×2 (09:43→16:16)
[2017-07-20] MEDS: GABAPENTIN 300 MG CAPSULE PO SCH ×3 (09:43→16:16)
[2017-07-20] MEDS: HYDROCHLOROTHIAZIDE 25 MG TABLET PO SCH (09:43)
[2017-07-20] MEDS: AmLODIPine BESYLATE 2.5 MG TABLET PO SCH (09:43)
[2017-07-20] MEDS: DOCUSATE SODIUM 250 MG CAPSULE PO SCH ×2 (09:43→16:16)
[2017-07-20] MEDS: ATENOLOL 100 MG TABLET PO SCH (09:43)
[2017-07-20] MEDS: NICOTINE 21 MG/24 HOUR PATCH TD SCH (09:44)
[2017-07-20] MEDS: LORazepam 2 MG TABLET PO PRN ×2 (11:10→16:16)
[2017-07-20 16:19] VITALS: BP 121/77
[2017-07-20] MEDS: MAG HYDROX/AL HYDROX/SIMETH 30 ML SUSP UDCUP PO PRN (18:27)
[2017-07-20] MEDS: TraZODone HCL 100 MG TABLET PO SCH (20:14)
[2017-07-20] MEDS: ZOLPIDEM TARTRATE 10 MG TABLET PO PRN (20:14)
[2017-07-21 06:31] VITALS: BP 133/74
[2017-07-21] MEDS: BENZTROPINE MESYLATE 2 MG TABLET PO SCH ×2 (09:19→16:23)
[2017-07-21] MEDS: GABAPENTIN 300 MG CAPSULE PO SCH ×3 (09:19→16:23)
[2017-07-21] MEDS: DOCUSATE SODIUM 250 MG CAPSULE PO SCH ×2 (09:19→16:23)
[2017-07-21] MEDS: DIVALPROEX SODIUM 500 MG ER TABLET PO SCH ×2 (09:19→16:23)
[2017-07-21] MEDS: AmLODIPine BESYLATE 2.5 MG TABLET PO SCH (09:20)
[2017-07-21] MEDS: ATENOLOL 100 MG TABLET PO SCH (09:20)
[2017-07-21] MEDS: NICOTINE 21 MG/24 HOUR PATCH TD SCH (09:20)
[2017-07-21] MEDS: HYDROCHLOROTHIAZIDE 25 MG TABLET PO SCH (09:20)
[2017-07-21] MEDS: RisperiDONE 3 MG TABLET PO SCH ×2 (09:20→16:23)
[2017-07-21] MEDS: CHOLECALCIFEROL (VIT D3) 1,000 UNITS TABLET PO SCH (09:20)
[2017-07-21 09:43] VITALS: BP 151/83
[2017-07-21] MEDS: LORazepam 2 MG TABLET PO PRN ×2 (12:12→16:23)
[2017-07-21 16:46] VITALS: BP 125/73
[2017-07-21] MEDS: MAG HYDROX/AL HYDROX/SIMETH 30 ML SUSP UDCUP PO PRN (19:56)
[2017-07-21] MEDS: TraZODone HCL 100 MG TABLET PO SCH (20:13)
[2017-07-21] MEDS: ZOLPIDEM TARTRATE 10 MG TABLET PO PRN (20:13)
[2017-07-22 08:34] VITALS: BP 140/72
[2017-07-22] MEDS: CHOLECALCIFEROL (VIT D3) 1,000 UNITS TABLET PO SCH (08:50)
[2017-07-22] MEDS: DIVALPROEX SODIUM 500 MG ER TABLET PO SCH ×2 (08:50→16:09)
[2017-07-22] MEDS: DOCUSATE SODIUM 250 MG CAPSULE PO SCH ×2 (08:50→16:09)
[2017-07-22] MEDS: GABAPENTIN 300 MG CAPSULE PO SCH ×3 (08:51→16:09)
[2017-07-22] MEDS: BENZTROPINE MESYLATE 2 MG TABLET PO SCH ×2 (08:51→16:09)
[2017-07-22] MEDS: NICOTINE 21 MG/24 HOUR PATCH TD SCH (08:51)
[2017-07-22] MEDS: RisperiDONE 3 MG TABLET PO SCH ×2 (08:51→16:09)
[2017-07-22] MEDS: AmLODIPine BESYLATE 2.5 MG TABLET PO SCH (08:51)
[2017-07-22] MEDS: HYDROCHLOROTHIAZIDE 25 MG TABLET PO SCH (08:51)
[2017-07-22] MEDS: ATENOLOL 100 MG TABLET PO SCH (08:51)
[2017-07-22] MEDS: LORazepam 2 MG TABLET PO PRN ×3 (08:51→20:10)
[2017-07-22 16:09] VITALS: BP 134/63
[2017-07-22 17:14] VITALS: BP 134/63
[2017-07-22] MEDS: TraZODone HCL 100 MG TABLET PO SCH (20:07)
[2017-07-22] MEDS: ZOLPIDEM TARTRATE 10 MG TABLET PO PRN (20:10)
[2017-07-23 06:54] VITALS: BP 145/72
[2017-07-23] MEDS: GABAPENTIN 300 MG CAPSULE PO SCH ×3 (10:10→17:09)
[2017-07-23] MEDS: HYDROCHLOROTHIAZIDE 25 MG TABLET PO SCH (10:11)
[2017-07-23] MEDS: BENZTROPINE MESYLATE 2 MG TABLET PO SCH ×2 (10:11→17:10)
[2017-07-23] MEDS: CHOLECALCIFEROL (VIT D3) 1,000 UNITS TABLET PO SCH (10:11)
[2017-07-23] MEDS: DOCUSATE SODIUM 250 MG CAPSULE PO SCH ×2 (10:11→17:10)
[2017-07-23] MEDS: AmLODIPine BESYLATE 2.5 MG TABLET PO SCH (10:12)
[2017-07-23] MEDS: DIVALPROEX SODIUM 500 MG ER TABLET PO SCH ×2 (10:12→17:10)
[2017-07-23] MEDS: ATENOLOL 100 MG TABLET PO SCH (10:15)
[2017-07-23] MEDS: NICOTINE 21 MG/24 HOUR PATCH TD SCH (10:25)
[2017-07-23] MEDS: RisperiDONE 3 MG TABLET PO SCH ×2 (11:01→17:10)
[2017-07-23 12:32] VITALS: BP 135/70
[2017-07-23 14:20] VITALS: BP 122/78
[2017-07-23] MEDS: ACETAMINOPHEN 325 MG TABLET PO PRN (14:25)
[2017-07-23 16:16] VITALS: BP 137/73
[2017-07-23] MEDS: LORazepam 2 MG TABLET PO PRN (16:26)
[2017-07-23] MEDS: TraZODone HCL 100 MG TABLET PO SCH (21:16)
[2017-07-23] MEDS: ZOLPIDEM TARTRATE 10 MG TABLET PO PRN (21:45)
[2017-07-24 05:15] VITALS: BP 132/82
[2017-07-24 08:28] VITALS: BP 128/63
[2017-07-24] MEDS: AmLODIPine BESYLATE 2.5 MG TABLET PO SCH (08:35)
[2017-07-24] MEDS: ATENOLOL 100 MG TABLET PO SCH (08:36)
[2017-07-24] MEDS: DOCUSATE SODIUM 250 MG CAPSULE PO SCH ×2 (08:36→16:37)
[2017-07-24] MEDS: GABAPENTIN 300 MG CAPSULE PO SCH ×3 (08:36→16:37)
[2017-07-24] MEDS: CHOLECALCIFEROL (VIT D3) 1,000 UNITS TABLET PO SCH (08:37)
[2017-07-24] MEDS: BENZTROPINE MESYLATE 2 MG TABLET PO SCH ×2 (08:37→16:37)
[2017-07-24] MEDS: NICOTINE 21 MG/24 HOUR PATCH TD SCH (08:37)
[2017-07-24] MEDS: DIVALPROEX SODIUM 500 MG ER TABLET PO SCH ×2 (08:37→16:37)
[2017-07-24] MEDS: HYDROCHLOROTHIAZIDE 25 MG TABLET PO SCH (08:37)
[2017-07-24] MEDS: RisperiDONE 3 MG TABLET PO SCH ×2 (08:37→16:37)
[2017-07-24] MEDS: LORazepam 2 MG TABLET PO PRN ×2 (08:37→16:37)
[2017-07-24 16:04] VITALS: BP 139/74
[2017-07-24] MEDS: MAG HYDROX/AL HYDROX/SIMETH 30 ML SUSP UDCUP PO PRN (16:37)
[2017-07-24] MEDS: ACETAMINOPHEN 325 MG TABLET PO PRN (16:38)
[2017-07-24] MEDS: TraZODone HCL 100 MG TABLET PO SCH (20:53)
[2017-07-24] MEDS: ZOLPIDEM TARTRATE 10 MG TABLET PO PRN (20:53)
[2017-07-25 07:22] VITALS: BP 128/72
[2017-07-25 08:26] VITALS: BP 122/79
[2017-07-25] MEDS: RisperiDONE 3 MG TABLET PO SCH ×2 (09:06→16:29)
[2017-07-25] MEDS: HYDROCHLOROTHIAZIDE 25 MG TABLET PO SCH (09:06)
[2017-07-25] MEDS: DOCUSATE SODIUM 250 MG CAPSULE PO SCH ×2 (09:06→16:29)
[2017-07-25] MEDS: CHOLECALCIFEROL (VIT D3) 1,000 UNITS TABLET PO SCH (09:07)
[2017-07-25] MEDS: DIVALPROEX SODIUM 500 MG ER TABLET PO SCH ×2 (09:07→16:29)
[2017-07-25] MEDS: AmLODIPine BESYLATE 2.5 MG TABLET PO SCH (09:07)
[2017-07-25] MEDS: BENZTROPINE MESYLATE 2 MG TABLET PO SCH ×2 (09:07→16:29)
[2017-07-25] MEDS: ATENOLOL 100 MG TABLET PO SCH (09:07)
[2017-07-25] MEDS: NICOTINE 21 MG/24 HOUR PATCH TD SCH (09:08)
[2017-07-25] MEDS: GABAPENTIN 300 MG CAPSULE PO SCH ×3 (09:08→16:29)
[2017-07-25] MEDS: LORazepam 2 MG TABLET PO PRN (16:29)
[2017-07-25 16:34] VITALS: BP 129/60
[2017-07-25] MEDS: TraZODone HCL 100 MG TABLET PO SCH (20:29)
[2017-07-25] MEDS: ZOLPIDEM TARTRATE 10 MG TABLET PO PRN (21:01)
[2017-07-26 06:02] VITALS: BP 130/77
[2017-07-26 08:37] VITALS: BP 136/72
[2017-07-26] MEDS: ATENOLOL 100 MG TABLET PO SCH (09:40)
[2017-07-26] MEDS: BENZTROPINE MESYLATE 2 MG TABLET PO SCH ×2 (09:40→16:32)
[2017-07-26] MEDS: GABAPENTIN 300 MG CAPSULE PO SCH ×3 (09:40→16:32)
[2017-07-26] MEDS: CHOLECALCIFEROL (VIT D3) 1,000 UNITS TABLET PO SCH (09:40)
[2017-07-26] MEDS: DIVALPROEX SODIUM 500 MG ER TABLET PO SCH ×2 (09:41→16:33)
[2017-07-26] MEDS: RisperiDONE 3 MG TABLET PO SCH ×2 (09:41→16:33)
[2017-07-26] MEDS: AmLODIPine BESYLATE 2.5 MG TABLET PO SCH (09:41)
[2017-07-26] MEDS: DOCUSATE SODIUM 250 MG CAPSULE PO SCH ×2 (09:41→16:33)
[2017-07-26] MEDS: HYDROCHLOROTHIAZIDE 25 MG TABLET PO SCH (09:41)
[2017-07-26] MEDS: NICOTINE 21 MG/24 HOUR PATCH TD SCH (09:41)
[2017-07-26] MEDS: LORazepam 2 MG TABLET PO PRN ×2 (12:25→16:33)
[2017-07-26 16:35] VITALS: BP 137/71
[2017-07-26] MEDS: TraZODone HCL 100 MG TABLET PO SCH (20:04)
[2017-07-26] MEDS: ZOLPIDEM TARTRATE 10 MG TABLET PO PRN (21:02)
[2017-07-27 04:38] VITALS: BP 130/70
[2017-07-27 08:43] VITALS: BP 123/69
[2017-07-27] MEDS: DOCUSATE SODIUM 250 MG CAPSULE PO SCH ×2 (09:38→16:05)
[2017-07-27] MEDS: CHOLECALCIFEROL (VIT D3) 1,000 UNITS TABLET PO SCH (09:38)
[2017-07-27] MEDS: BENZTROPINE MESYLATE 2 MG TABLET PO SCH ×2 (09:38→16:05)
[2017-07-27] MEDS: GABAPENTIN 300 MG CAPSULE PO SCH ×3 (09:38→16:05)
[2017-07-27] MEDS: DIVALPROEX SODIUM 500 MG ER TABLET PO SCH ×2 (09:38→16:05)
[2017-07-27] MEDS: RisperiDONE 3 MG TABLET PO SCH ×2 (09:38→16:05)
[2017-07-27] MEDS: HYDROCHLOROTHIAZIDE 25 MG TABLET PO SCH (09:38)
[2017-07-27] MEDS: ATENOLOL 100 MG TABLET PO SCH (09:41)
[2017-07-27] MEDS: AmLODIPine BESYLATE 2.5 MG TABLET PO SCH (09:42)
[2017-07-27] MEDS: NICOTINE 21 MG/24 HOUR PATCH TD SCH (09:43)
[2017-07-27 11:15] VITALS: BP 130/82
[2017-07-27] MEDS: ACETAMINOPHEN 325 MG TABLET PO PRN (11:15)
[2017-07-27] MEDS: MAG HYDROX/AL HYDROX/SIMETH 30 ML SUSP UDCUP PO PRN (11:18)
[2017-07-27] MEDS: LORazepam 2 MG TABLET PO PRN (14:43)
[2017-07-27] MEDS: IBUPROFEN 600 MG TABLET PO PRN (14:44)
[2017-07-27 14:45] VITALS: BP 136/74
[2017-07-27 16:17] VITALS: BP 134/66
[2017-07-27] MEDS: TraZODone HCL 100 MG TABLET PO SCH (20:22)
[2017-07-27] MEDS: ZOLPIDEM TARTRATE 10 MG TABLET PO PRN (21:07)
[2017-07-28 08:22] VITALS: BP 135/58
[2017-07-28] MEDS: DIVALPROEX SODIUM 500 MG ER TABLET PO SCH ×2 (08:47→17:07)
[2017-07-28] MEDS: RisperiDONE 3 MG TABLET PO SCH ×2 (08:47→17:07)
[2017-07-28] MEDS: CHOLECALCIFEROL (VIT D3) 1,000 UNITS TABLET PO SCH (08:47)
[2017-07-28] MEDS: AmLODIPine BESYLATE 2.5 MG TABLET PO SCH (08:48)
[2017-07-28] MEDS: ATENOLOL 100 MG TABLET PO SCH (08:48)
[2017-07-28] MEDS: BENZTROPINE MESYLATE 2 MG TABLET PO SCH ×2 (08:48→17:07)
[2017-07-28] MEDS: GABAPENTIN 300 MG CAPSULE PO SCH ×3 (08:48→17:07)
[2017-07-28] MEDS: HYDROCHLOROTHIAZIDE 25 MG TABLET PO SCH (08:48)
[2017-07-28] MEDS: DOCUSATE SODIUM 250 MG CAPSULE PO SCH ×2 (08:48→17:08)
[2017-07-28] MEDS: NICOTINE 21 MG/24 HOUR PATCH TD SCH (08:51)
[2017-07-28] MEDS: LORazepam 2 MG TABLET PO PRN ×2 (08:58→16:07)
[2017-07-28 16:27] VITALS: BP 122/78
[2017-07-28] MEDS: TraZODone HCL 100 MG TABLET PO SCH (20:33)
[2017-07-28] MEDS: ZOLPIDEM TARTRATE 10 MG TABLET PO PRN (21:09)
[2017-07-29 04:45] VITALS: BP 127/69
[2017-07-29 09:16] VITALS: BP 125/70
[2017-07-29] MEDS: ATENOLOL 100 MG TABLET PO SCH (09:45)
[2017-07-29] MEDS: BENZTROPINE MESYLATE 2 MG TABLET PO SCH ×2 (09:45→16:28)
[2017-07-29] MEDS: CHOLECALCIFEROL (VIT D3) 1,000 UNITS TABLET PO SCH (09:45)
[2017-07-29] MEDS: HYDROCHLOROTHIAZIDE 25 MG TABLET PO SCH (09:45)
[2017-07-29] MEDS: GABAPENTIN 300 MG CAPSULE PO SCH ×3 (09:45→16:28)
[2017-07-29] MEDS: AmLODIPine BESYLATE 2.5 MG TABLET PO SCH (09:45)
[2017-07-29] MEDS: DIVALPROEX SODIUM 500 MG ER TABLET PO SCH ×2 (09:45→16:28)
[2017-07-29] MEDS: DOCUSATE SODIUM 250 MG CAPSULE PO SCH ×2 (09:45→16:28)
[2017-07-29] MEDS: NICOTINE 21 MG/24 HOUR PATCH TD SCH (09:46)
[2017-07-29] MEDS: RisperiDONE 3 MG TABLET PO SCH ×2 (09:46→16:28)
[2017-07-29] MEDS: LORazepam 2 MG TABLET PO PRN ×2 (10:18→16:29)
[2017-07-29 16:02] VITALS: BP 136/66
[2017-07-29] MEDS: ACETAMINOPHEN 325 MG TABLET PO PRN (16:29)
[2017-07-29] MEDS: TraZODone HCL 100 MG TABLET PO SCH (20:18)
[2017-07-29] MEDS: ZOLPIDEM TARTRATE 10 MG TABLET PO PRN (21:00)
[2017-07-30] MEDS: RisperiDONE 3 MG TABLET PO SCH ×2 (08:25→16:19)
[2017-07-30] MEDS: DIVALPROEX SODIUM 500 MG ER TABLET PO SCH ×2 (08:25→16:19)
[2017-07-30] MEDS: NICOTINE 21 MG/24 HOUR PATCH TD SCH (08:25)
[2017-07-30] MEDS: DOCUSATE SODIUM 250 MG CAPSULE PO SCH ×2 (08:25→16:19)
[2017-07-30] MEDS: HYDROCHLOROTHIAZIDE 25 MG TABLET PO SCH (08:25)
[2017-07-30] MEDS: GABAPENTIN 300 MG CAPSULE PO SCH ×3 (08:25→16:19)
[2017-07-30] MEDS: BENZTROPINE MESYLATE 2 MG TABLET PO SCH ×2 (08:26→16:19)
[2017-07-30] MEDS: CHOLECALCIFEROL (VIT D3) 1,000 UNITS TABLET PO SCH (08:26)
[2017-07-30] MEDS: AmLODIPine BESYLATE 2.5 MG TABLET PO SCH (08:26)
[2017-07-30] MEDS: LORazepam 2 MG TABLET PO PRN ×3 (08:27→16:52)
[2017-07-30] MEDS: ATENOLOL 100 MG TABLET PO SCH (08:28)
[2017-07-30 08:34] VITALS: BP 134/86
[2017-07-30] MEDS: MUPIROCIN CALCIUM 2% 22 GM OINTMENT NASAL SCH ×2 (12:38→16:18)
[2017-07-30 16:05] VITALS: BP 134/69
[2017-07-30] MEDS: TraZODone HCL 100 MG TABLET PO SCH (20:04)
[2017-07-30] MEDS: ZOLPIDEM TARTRATE 10 MG TABLET PO PRN (21:01)
[2017-07-31 08:12] VITALS: BP 138/84
[2017-07-31] MEDS: CHOLECALCIFEROL (VIT D3) 1,000 UNITS TABLET PO SCH (09:08)
[2017-07-31] MEDS: DIVALPROEX SODIUM 500 MG ER TABLET PO SCH ×2 (09:08→16:11)
[2017-07-31] MEDS: HYDROCHLOROTHIAZIDE 25 MG TABLET PO SCH (09:08)
[2017-07-31] MEDS: BENZTROPINE MESYLATE 2 MG TABLET PO SCH ×2 (09:08→16:11)
[2017-07-31] MEDS: DOCUSATE SODIUM 250 MG CAPSULE PO SCH ×2 (09:08→16:11)
[2017-07-31] MEDS: GABAPENTIN 300 MG CAPSULE PO SCH ×3 (09:08→16:10)
[2017-07-31] MEDS: ATENOLOL 100 MG TABLET PO SCH (09:09)
[2017-07-31] MEDS: AmLODIPine BESYLATE 2.5 MG TABLET PO SCH (09:09)
[2017-07-31] MEDS: RisperiDONE 3 MG TABLET PO SCH ×2 (09:10→16:11)
[2017-07-31] MEDS: NICOTINE 21 MG/24 HOUR PATCH TD SCH (09:10)
[2017-07-31] MEDS: MUPIROCIN CALCIUM 2% 22 GM OINTMENT NASAL SCH ×2 (09:10→16:10)
[2017-07-31] MEDS: LORazepam 2 MG TABLET PO PRN ×3 (10:59→20:18)
[2017-07-31 16:27] VITALS: BP 143/62
[2017-07-31] MEDS: ZOLPIDEM TARTRATE 10 MG TABLET PO PRN (20:18)
[2017-07-31] MEDS: TraZODone HCL 100 MG TABLET PO SCH (20:18)
[2017-08-01 05:00] VITALS: BP 134/74
[2017-08-01 08:32] VITALS: BP 123/69
[2017-08-01] MEDS: MUPIROCIN CALCIUM 2% 22 GM OINTMENT NASAL SCH ×2 (08:59→17:12)
[2017-08-01] MEDS: CHOLECALCIFEROL (VIT D3) 1,000 UNITS TABLET PO SCH (08:59)
[2017-08-01] MEDS: BENZTROPINE MESYLATE 2 MG TABLET PO SCH ×2 (08:59→17:12)
[2017-08-01] MEDS: NICOTINE 21 MG/24 HOUR PATCH TD SCH (08:59)
[2017-08-01] MEDS: AmLODIPine BESYLATE 2.5 MG TABLET PO SCH (08:59)
[2017-08-01] MEDS: HYDROCHLOROTHIAZIDE 25 MG TABLET PO SCH (09:00)
[2017-08-01] MEDS: DIVALPROEX SODIUM 500 MG ER TABLET PO SCH ×2 (09:00→17:12)
[2017-08-01] MEDS: DOCUSATE SODIUM 250 MG CAPSULE PO SCH ×2 (09:00→17:12)
[2017-08-01] MEDS: GABAPENTIN 300 MG CAPSULE PO SCH ×3 (09:00→17:12)
[2017-08-01] MEDS: ATENOLOL 100 MG TABLET PO SCH (09:00)
[2017-08-01] MEDS: RisperiDONE 3 MG TABLET PO SCH ×2 (09:00→17:12)
[2017-08-01] MEDS: LORazepam 2 MG TABLET PO PRN ×2 (09:33→17:12)
[2017-08-01 16:16] VITALS: BP 140/75
[2017-08-01] MEDS ORDERED: DiphenhydrAMINE HCL 50 MG/ML VIAL IM ONE (18:15)
[2017-08-01] MEDS ORDERED: LORazepam 2 MG/ML VIAL IM ONE (18:15)
[2017-08-01] MEDS ORDERED: HALOPERIDOL LACTATE 5 MG/ML VIAL IM ONE (18:15)
[2017-08-01] MEDS: TraZODone HCL 100 MG TABLET PO SCH (21:00)
[2017-08-02 08:31] VITALS: BP 128/74
[2017-08-02] MEDS: DIVALPROEX SODIUM 500 MG ER TABLET PO SCH ×2 (08:56→17:12)
[2017-08-02] MEDS: CHOLECALCIFEROL (VIT D3) 1,000 UNITS TABLET PO SCH (08:56)
[2017-08-02] MEDS: DOCUSATE SODIUM 250 MG CAPSULE PO SCH ×2 (08:56→17:12)
[2017-08-02] MEDS: MUPIROCIN CALCIUM 2% 22 GM OINTMENT NASAL SCH ×2 (08:56→16:15)
[2017-08-02] MEDS: HYDROCHLOROTHIAZIDE 25 MG TABLET PO SCH (08:56)
[2017-08-02] MEDS: GABAPENTIN 300 MG CAPSULE PO SCH ×3 (08:56→17:12)
[2017-08-02] MEDS: BENZTROPINE MESYLATE 2 MG TABLET PO SCH ×2 (08:56→17:11)
[2017-08-02] MEDS: ATENOLOL 100 MG TABLET PO SCH (08:56)
[2017-08-02] MEDS: NICOTINE 21 MG/24 HOUR PATCH TD SCH (08:56)
[2017-08-02] MEDS: AmLODIPine BESYLATE 2.5 MG TABLET PO SCH (08:56)
[2017-08-02] MEDS: RisperiDONE 3 MG TABLET PO SCH ×2 (08:56→17:12)
[2017-08-02] MEDS: LORazepam 2 MG TABLET PO PRN ×2 (09:25→16:06)
[2017-08-02 16:11] VITALS: BP 127/70
[2017-08-02] MEDS: TraZODone HCL 100 MG TABLET PO SCH (20:26)
[2017-08-02] MEDS: ZOLPIDEM TARTRATE 10 MG TABLET PO PRN (21:18)
[2017-08-02 21:30] VITALS: BP 125/75
[2017-08-02] MEDS: ACETAMINOPHEN 325 MG TABLET PO PRN (21:32)
[2017-08-03 08:51] VITALS: BP 124/69
[2017-08-03] MEDS: GABAPENTIN 300 MG CAPSULE PO SCH ×3 (09:21→16:09)
[2017-08-03] MEDS: BENZTROPINE MESYLATE 2 MG TABLET PO SCH ×2 (09:21→16:09)
[2017-08-03] MEDS: AmLODIPine BESYLATE 2.5 MG TABLET PO SCH (09:21)
[2017-08-03] MEDS: ATENOLOL 100 MG TABLET PO SCH (09:21)
[2017-08-03] MEDS: DIVALPROEX SODIUM 500 MG ER TABLET PO SCH ×2 (09:21→16:09)
[2017-08-03] MEDS: RisperiDONE 3 MG TABLET PO SCH ×2 (09:22→16:09)
[2017-08-03] MEDS: DOCUSATE SODIUM 250 MG CAPSULE PO SCH ×2 (09:22→16:09)
[2017-08-03] MEDS: LORazepam 2 MG TABLET PO PRN ×2 (09:22→16:09)
[2017-08-03] MEDS: MUPIROCIN CALCIUM 2% 22 GM OINTMENT NASAL SCH ×2 (09:22→16:13)
[2017-08-03] MEDS: HYDROCHLOROTHIAZIDE 25 MG TABLET PO SCH (09:22)
[2017-08-03] MEDS: CHOLECALCIFEROL (VIT D3) 1,000 UNITS TABLET PO SCH (09:22)
[2017-08-03] MEDS: NICOTINE 21 MG/24 HOUR PATCH TD SCH (09:23)
[2017-08-03] MEDS: ACETAMINOPHEN 325 MG TABLET PO PRN ×2 (16:12→22:16)
[2017-08-03 16:16] VITALS: BP 140/89
[2017-08-03] MEDS: ZOLPIDEM TARTRATE 10 MG TABLET PO PRN (20:52)
[2017-08-03] MEDS: TraZODone HCL 100 MG TABLET PO SCH (20:52)
[2017-08-03 22:16] VITALS: BP 132/80
[2017-08-04 08:41] VITALS: BP 126/71
[2017-08-04] MEDS: CHOLECALCIFEROL (VIT D3) 1,000 UNITS TABLET PO SCH (09:45)
[2017-08-04] MEDS: GABAPENTIN 300 MG CAPSULE PO SCH ×3 (09:45→16:41)
[2017-08-04] MEDS: AmLODIPine BESYLATE 2.5 MG TABLET PO SCH (09:46)
[2017-08-04] MEDS: MUPIROCIN CALCIUM 2% 22 GM OINTMENT NASAL SCH (09:46)
[2017-08-04] MEDS: BENZTROPINE MESYLATE 2 MG TABLET PO SCH ×2 (09:46→16:40)
[2017-08-04] MEDS: HYDROCHLOROTHIAZIDE 25 MG TABLET PO SCH (09:46)
[2017-08-04] MEDS: DIVALPROEX SODIUM 500 MG ER TABLET PO SCH ×2 (09:46→16:40)
[2017-08-04] MEDS: RisperiDONE 3 MG TABLET PO SCH ×2 (09:46→16:41)
[2017-08-04] MEDS: DOCUSATE SODIUM 250 MG CAPSULE PO SCH ×2 (09:46→16:40)
[2017-08-04] MEDS: ATENOLOL 25 MG TABLET PO SCH (09:47)
[2017-08-04] MEDS: NICOTINE 21 MG/24 HOUR PATCH TD SCH (09:48)
[2017-08-04] MEDS: LORazepam 2 MG TABLET PO PRN ×2 (09:48→16:45)
[2017-08-04 17:54] VITALS: BP 124/81
[2017-08-04] MEDS: TraZODone HCL 100 MG TABLET PO SCH (20:20)
[2017-08-04 20:35] VITALS: BP 128/75
[2017-08-04] MEDS: ACETAMINOPHEN 325 MG TABLET PO PRN (20:37)
[2017-08-04] MEDS: ZOLPIDEM TARTRATE 10 MG TABLET PO PRN (21:37)
[2017-08-04] MEDS: CALCIUM CARBONATE 500 MG CHEWABLE TABLET CHEW PRN (21:37)
[2017-08-05 06:15] VITALS: BP 130/77
[2017-08-05] MEDS: ATENOLOL 25 MG TABLET PO SCH (08:21)
[2017-08-05] MEDS: LORazepam 2 MG TABLET PO PRN ×2 (08:21→17:14)
[2017-08-05] MEDS: HYDROCHLOROTHIAZIDE 25 MG TABLET PO SCH (08:21)
[2017-08-05] MEDS: AmLODIPine BESYLATE 2.5 MG TABLET PO SCH (08:21)
[2017-08-05] MEDS: GABAPENTIN 300 MG CAPSULE PO SCH ×3 (08:21→18:02)
[2017-08-05] MEDS: DIVALPROEX SODIUM 500 MG ER TABLET PO SCH ×2 (08:21→18:02)
[2017-08-05] MEDS: BENZTROPINE MESYLATE 2 MG TABLET PO SCH ×2 (08:21→17:13)
[2017-08-05] MEDS: DOCUSATE SODIUM 250 MG CAPSULE PO SCH ×2 (08:21→17:14)
[2017-08-05] MEDS: CHOLECALCIFEROL (VIT D3) 1,000 UNITS TABLET PO SCH (08:21)
[2017-08-05] MEDS: RisperiDONE 3 MG TABLET PO SCH ×2 (08:21→18:02)
[2017-08-05] MEDS: NICOTINE 21 MG/24 HOUR PATCH TD SCH (08:22)
[2017-08-05 08:23] VITALS: BP 112/66
[2017-08-05] MEDS: CALCIUM CARBONATE 500 MG CHEWABLE TABLET CHEW PRN ×2 (13:18→18:57)
[2017-08-05 16:32] VITALS: BP 133/80
[2017-08-05] MEDS: TraZODone HCL 100 MG TABLET PO SCH (21:03)
[2017-08-05] MEDS: ZOLPIDEM TARTRATE 10 MG TABLET PO PRN (21:14)
[2017-08-06 06:19] VITALS: BP 125/82
[2017-08-06] MEDS: ATENOLOL 25 MG TABLET PO SCH (08:19)
[2017-08-06] MEDS: DOCUSATE SODIUM 250 MG CAPSULE PO SCH ×2 (08:19→17:03)
[2017-08-06] MEDS: DIVALPROEX SODIUM 500 MG ER TABLET PO SCH ×2 (08:19→17:03)
[2017-08-06] MEDS: AmLODIPine BESYLATE 2.5 MG TABLET PO SCH (08:19)
[2017-08-06] MEDS: BACITRACIN 28.4 GM OINTMENT TP SCH ×2 (08:20→17:04)
[2017-08-06] MEDS: HYDROCHLOROTHIAZIDE 25 MG TABLET PO SCH (08:20)
[2017-08-06] MEDS: RisperiDONE 3 MG TABLET PO SCH ×2 (08:20→17:03)
[2017-08-06] MEDS: NICOTINE 21 MG/24 HOUR PATCH TD SCH (08:20)
[2017-08-06] MEDS: GABAPENTIN 300 MG CAPSULE PO SCH ×3 (08:20→17:03)
[2017-08-06] MEDS: CHOLECALCIFEROL (VIT D3) 1,000 UNITS TABLET PO SCH (08:20)
[2017-08-06] MEDS: BENZTROPINE MESYLATE 2 MG TABLET PO SCH ×2 (08:24→17:03)
[2017-08-06 08:39] VITALS: BP 128/80
[2017-08-06 16:14] VITALS: BP 146/66
[2017-08-06] MEDS: LORazepam 2 MG TABLET PO PRN (16:26)
[2017-08-06] MEDS: TraZODone HCL 100 MG TABLET PO SCH (21:01)
[2017-08-06] MEDS: ZOLPIDEM TARTRATE 10 MG TABLET PO PRN (21:30)
[2017-08-07 08:19] VITALS: BP 143/87
[2017-08-07] MEDS: DIVALPROEX SODIUM 500 MG ER TABLET PO SCH ×2 (08:47→16:19)
[2017-08-07] MEDS: DOCUSATE SODIUM 250 MG CAPSULE PO SCH ×2 (08:47→16:19)
[2017-08-07] MEDS: LORazepam 2 MG TABLET PO PRN ×3 (08:47→20:19)
[2017-08-07] MEDS: HYDROCHLOROTHIAZIDE 25 MG TABLET PO SCH (08:47)
[2017-08-07] MEDS: ATENOLOL 25 MG TABLET PO SCH (08:47)
[2017-08-07] MEDS: GABAPENTIN 300 MG CAPSULE PO SCH ×3 (08:47→16:19)
[2017-08-07] MEDS: AmLODIPine BESYLATE 2.5 MG TABLET PO SCH (08:47)
[2017-08-07] MEDS: RisperiDONE 3 MG TABLET PO SCH ×2 (08:47→16:19)
[2017-08-07] MEDS: BENZTROPINE MESYLATE 2 MG TABLET PO SCH ×2 (08:48→16:19)
[2017-08-07] MEDS: NICOTINE 21 MG/24 HOUR PATCH TD SCH (08:48)
[2017-08-07] MEDS: CHOLECALCIFEROL (VIT D3) 1,000 UNITS TABLET PO SCH (08:49)
[2017-08-07] MEDS: BACITRACIN 28.4 GM OINTMENT TP SCH ×2 (09:28→16:20)
[2017-08-07 16:06] VITALS: BP 130/80
[2017-08-07] MEDS: TraZODone HCL 100 MG TABLET PO SCH (20:19)
[2017-08-07] MEDS: ZOLPIDEM TARTRATE 10 MG TABLET PO PRN (20:19)
[2017-08-08 08:59] VITALS: BP 139/75
[2017-08-08] MEDS: NICOTINE 21 MG/24 HOUR PATCH TD SCH (09:15)
[2017-08-08] MEDS: GABAPENTIN 300 MG CAPSULE PO SCH ×3 (09:16→16:28)
[2017-08-08] MEDS: DOCUSATE SODIUM 250 MG CAPSULE PO SCH ×2 (09:16→16:28)
[2017-08-08] MEDS: ATENOLOL 25 MG TABLET PO SCH (09:16)
[2017-08-08] MEDS: HYDROCHLOROTHIAZIDE 25 MG TABLET PO SCH (09:16)
[2017-08-08] MEDS: AmLODIPine BESYLATE 2.5 MG TABLET PO SCH (09:16)
[2017-08-08] MEDS: RisperiDONE 3 MG TABLET PO SCH ×2 (09:16→16:28)
[2017-08-08] MEDS: CHOLECALCIFEROL (VIT D3) 1,000 UNITS TABLET PO SCH (09:16)
[2017-08-08] MEDS: DIVALPROEX SODIUM 500 MG ER TABLET PO SCH ×2 (09:17→16:28)
[2017-08-08] MEDS: BENZTROPINE MESYLATE 2 MG TABLET PO SCH ×2 (09:18→16:28)
[2017-08-08] MEDS: BACITRACIN 28.4 GM OINTMENT TP SCH ×2 (09:19→16:34)
[2017-08-08 16:30] VITALS: BP 127/78
[2017-08-08] MEDS: ACETAMINOPHEN 325 MG TABLET PO PRN (16:30)
[2017-08-08 16:49] VITALS: BP 135/73
[2017-08-08] MEDS: TraZODone HCL 100 MG TABLET PO SCH (19:59)
[2017-08-09] MEDS: BENZTROPINE MESYLATE 2 MG TABLET PO SCH ×2 (08:39→16:17)
[2017-08-09] MEDS: GABAPENTIN 300 MG CAPSULE PO SCH ×3 (08:39→16:17)
[2017-08-09] MEDS: ATENOLOL 25 MG TABLET PO SCH (08:39)
[2017-08-09] MEDS: RisperiDONE 3 MG TABLET PO SCH ×2 (08:39→16:17)
[2017-08-09] MEDS: HYDROCHLOROTHIAZIDE 25 MG TABLET PO SCH (08:39)
[2017-08-09] MEDS: CHOLECALCIFEROL (VIT D3) 1,000 UNITS TABLET PO SCH (08:39)
[2017-08-09] MEDS: DIVALPROEX SODIUM 500 MG ER TABLET PO SCH ×2 (08:39→16:17)
[2017-08-09] MEDS: DOCUSATE SODIUM 250 MG CAPSULE PO SCH ×2 (08:39→16:17)
[2017-08-09] MEDS: AmLODIPine BESYLATE 2.5 MG TABLET PO SCH (08:39)
[2017-08-09] MEDS: NICOTINE 21 MG/24 HOUR PATCH TD SCH (08:40)
[2017-08-09] MEDS: BACITRACIN 28.4 GM OINTMENT TP SCH ×2 (08:40→16:17)
[2017-08-09 08:54] VITALS: BP 118/91
[2017-08-09 16:12] VITALS: BP 143/72
[2017-08-09] MEDS: LORazepam 2 MG TABLET PO PRN (16:17)
[2017-08-09] MEDS: TraZODone HCL 100 MG TABLET PO SCH (20:16)
[2017-08-09] MEDS: ZOLPIDEM TARTRATE 10 MG TABLET PO PRN (20:16)
[2017-08-10 08:31] VITALS: BP 146/120
[2017-08-10] MEDS: DOCUSATE SODIUM 250 MG CAPSULE PO SCH ×2 (08:38→16:08)
[2017-08-10] MEDS: ATENOLOL 25 MG TABLET PO SCH (08:38)
[2017-08-10] MEDS: BENZTROPINE MESYLATE 2 MG TABLET PO SCH ×2 (08:38→16:08)
[2017-08-10] MEDS: HYDROCHLOROTHIAZIDE 25 MG TABLET PO SCH (08:38)
[2017-08-10] MEDS: DIVALPROEX SODIUM 500 MG ER TABLET PO SCH ×2 (08:38→16:09)
[2017-08-10] MEDS: NICOTINE 21 MG/24 HOUR PATCH TD SCH (08:38)
[2017-08-10] MEDS: GABAPENTIN 300 MG CAPSULE PO SCH ×3 (08:38→16:09)
[2017-08-10] MEDS: CHOLECALCIFEROL (VIT D3) 1,000 UNITS TABLET PO SCH (08:38)
[2017-08-10] MEDS: AmLODIPine BESYLATE 2.5 MG TABLET PO SCH (08:39)
[2017-08-10] MEDS: BACITRACIN 28.4 GM OINTMENT TP SCH ×2 (08:42→16:27)
[2017-08-10] MEDS: RisperiDONE 3 MG TABLET PO SCH ×2 (09:18→16:09)
[2017-08-10 12:48] VITALS: BP 114/57
[2017-08-10] MEDS: LORazepam 2 MG TABLET PO PRN (16:09)
[2017-08-10 16:12] VITALS: BP 147/78
[2017-08-10] MEDS: TraZODone HCL 100 MG TABLET PO SCH (20:36)
[2017-08-10] MEDS: ZOLPIDEM TARTRATE 10 MG TABLET PO PRN (20:36)
[2017-08-11] MEDS: BENZTROPINE MESYLATE 2 MG TABLET PO SCH ×2 (08:14→16:23)
[2017-08-11] MEDS: GABAPENTIN 300 MG CAPSULE PO SCH ×3 (08:14→16:23)
[2017-08-11] MEDS: AmLODIPine BESYLATE 2.5 MG TABLET PO SCH (08:14)
[2017-08-11] MEDS: DIVALPROEX SODIUM 500 MG ER TABLET PO SCH ×2 (08:14→16:23)
[2017-08-11] MEDS: ATENOLOL 25 MG TABLET PO SCH (08:14)
[2017-08-11] MEDS: CHOLECALCIFEROL (VIT D3) 1,000 UNITS TABLET PO SCH (08:14)
[2017-08-11] MEDS: DOCUSATE SODIUM 250 MG CAPSULE PO SCH ×2 (08:15→16:23)
[2017-08-11] MEDS: HYDROCHLOROTHIAZIDE 25 MG TABLET PO SCH (08:15)
[2017-08-11] MEDS: LORazepam 2 MG TABLET PO PRN ×2 (08:15→16:24)
[2017-08-11] MEDS: RisperiDONE 3 MG TABLET PO SCH ×2 (08:15→16:23)
[2017-08-11] MEDS: NICOTINE 21 MG/24 HOUR PATCH TD SCH (08:16)
[2017-08-11] MEDS: BACITRACIN 28.4 GM OINTMENT TP SCH ×2 (08:17→16:32)
[2017-08-11 08:30] VITALS: BP 136/75
[2017-08-11] MEDS: MAG HYDROX/AL HYDROX/SIMETH 30 ML SUSP UDCUP PO PRN (14:09)
[2017-08-11] MEDS: ACETAMINOPHEN 325 MG TABLET PO PRN (14:11)
[2017-08-11 16:26] VITALS: BP 110/72
[2017-08-11] MEDS: ZOLPIDEM TARTRATE 10 MG TABLET PO PRN (20:31)
[2017-08-11] MEDS: TraZODone HCL 100 MG TABLET PO SCH (20:31)
[2017-08-12 06:58] VITALS: BP 135/72
[2017-08-12 08:05] VITALS: BP 126/57
[2017-08-12] MEDS: CHOLECALCIFEROL (VIT D3) 1,000 UNITS TABLET PO SCH (08:47)
[2017-08-12] MEDS: DIVALPROEX SODIUM 500 MG ER TABLET PO SCH ×2 (08:47→16:17)
[2017-08-12] MEDS: GABAPENTIN 300 MG CAPSULE PO SCH ×3 (08:48→16:17)
[2017-08-12] MEDS: HYDROCHLOROTHIAZIDE 25 MG TABLET PO SCH (08:48)
[2017-08-12] MEDS: BENZTROPINE MESYLATE 2 MG TABLET PO SCH ×2 (08:48→16:17)
[2017-08-12] MEDS: DOCUSATE SODIUM 250 MG CAPSULE PO SCH ×2 (08:48→16:17)
[2017-08-12] MEDS: ATENOLOL 25 MG TABLET PO SCH (08:48)
[2017-08-12] MEDS: RisperiDONE 3 MG TABLET PO SCH ×2 (08:48→16:17)
[2017-08-12] MEDS: AmLODIPine BESYLATE 2.5 MG TABLET PO SCH (08:50)
[2017-08-12] MEDS: BACITRACIN 28.4 GM OINTMENT TP SCH ×2 (08:55→16:52)
[2017-08-12] MEDS: LORazepam 2 MG TABLET PO PRN ×3 (08:56→21:01)
[2017-08-12] MEDS: NICOTINE 21 MG/24 HOUR PATCH TD SCH (08:57)
[2017-08-12 16:07] VITALS: BP 122/82
[2017-08-12] MEDS: ZOLPIDEM TARTRATE 10 MG TABLET PO PRN (20:01)
[2017-08-12] MEDS: TraZODone HCL 100 MG TABLET PO SCH (20:01)
[2017-08-12] MEDS: MAG HYDROX/AL HYDROX/SIMETH 30 ML SUSP UDCUP PO PRN (20:27)
[2017-08-12 20:28] VITALS: BP 128/80
[2017-08-12] MEDS: ACETAMINOPHEN 325 MG TABLET PO PRN (20:28)
[2017-08-13 07:04] VITALS: BP 122/88
[2017-08-13 08:37] VITALS: BP 140/76
[2017-08-13] MEDS: DOCUSATE SODIUM 250 MG CAPSULE PO SCH ×2 (09:19→16:17)
[2017-08-13] MEDS: GABAPENTIN 300 MG CAPSULE PO SCH ×3 (09:19→16:16)
[2017-08-13] MEDS: DIVALPROEX SODIUM 500 MG ER TABLET PO SCH ×2 (09:19→16:17)
[2017-08-13] MEDS: CHOLECALCIFEROL (VIT D3) 1,000 UNITS TABLET PO SCH (09:19)
[2017-08-13] MEDS: ATENOLOL 25 MG TABLET PO SCH (09:19)
[2017-08-13] MEDS: BENZTROPINE MESYLATE 2 MG TABLET PO SCH ×2 (09:19→16:17)
[2017-08-13] MEDS: HYDROCHLOROTHIAZIDE 25 MG TABLET PO SCH (09:19)
[2017-08-13] MEDS: LORazepam 2 MG TABLET PO PRN ×3 (09:20→20:39)
[2017-08-13] MEDS: RisperiDONE 3 MG TABLET PO SCH ×2 (09:20→16:17)
[2017-08-13] MEDS: AmLODIPine BESYLATE 2.5 MG TABLET PO SCH (09:20)
[2017-08-13] MEDS: NICOTINE 21 MG/24 HOUR PATCH TD SCH (09:23)
[2017-08-13] MEDS: BACITRACIN 28.4 GM OINTMENT TP SCH ×2 (09:23→16:51)
[2017-08-13 16:04] VITALS: BP 151/76
[2017-08-13] MEDS: TraZODone HCL 100 MG TABLET PO SCH (20:04)
[2017-08-13] MEDS: ZOLPIDEM TARTRATE 10 MG TABLET PO PRN (21:02)
[2017-08-14 08:21] VITALS: BP 133/79
[2017-08-14] MEDS: DOCUSATE SODIUM 250 MG CAPSULE PO SCH ×2 (09:32→17:14)
[2017-08-14] MEDS: NICOTINE 21 MG/24 HOUR PATCH TD SCH (09:32)
[2017-08-14] MEDS: HYDROCHLOROTHIAZIDE 25 MG TABLET PO SCH (09:33)
[2017-08-14] MEDS: RisperiDONE 3 MG TABLET PO SCH ×2 (09:33→17:13)
[2017-08-14] MEDS: DIVALPROEX SODIUM 500 MG ER TABLET PO SCH ×2 (09:33→17:12)
[2017-08-14] MEDS: GABAPENTIN 300 MG CAPSULE PO SCH ×3 (09:33→17:13)
[2017-08-14] MEDS: CHOLECALCIFEROL (VIT D3) 1,000 UNITS TABLET PO SCH (09:33)
[2017-08-14] MEDS: BACITRACIN 28.4 GM OINTMENT TP SCH ×2 (09:34→17:14)
[2017-08-14] MEDS: ATENOLOL 25 MG TABLET PO SCH (09:39)
[2017-08-14] MEDS: AmLODIPine BESYLATE 2.5 MG TABLET PO SCH (09:39)
[2017-08-14] MEDS: BENZTROPINE MESYLATE 2 MG TABLET PO SCH ×2 (09:39→17:12)
[2017-08-14 16:05] VITALS: BP 132/79
[2017-08-14] MEDS: LORazepam 2 MG TABLET PO PRN (16:22)
[2017-08-14] MEDS: TraZODone HCL 100 MG TABLET PO SCH (20:16)
[2017-08-14] MEDS: ZOLPIDEM TARTRATE 10 MG TABLET PO PRN (21:29)
[2017-08-15 06:51] VITALS: BP 139/71
[2017-08-15 08:12] VITALS: BP 137/72
[2017-08-15] MEDS: GABAPENTIN 300 MG CAPSULE PO SCH ×3 (08:23→17:03)
[2017-08-15] MEDS: ATENOLOL 25 MG TABLET PO SCH (08:23)
[2017-08-15] MEDS: CHOLECALCIFEROL (VIT D3) 1,000 UNITS TABLET PO SCH (08:23)
[2017-08-15] MEDS: DIVALPROEX SODIUM 500 MG ER TABLET PO SCH ×2 (08:24→17:04)
[2017-08-15] MEDS: HYDROCHLOROTHIAZIDE 25 MG TABLET PO SCH (08:24)
[2017-08-15] MEDS: RisperiDONE 3 MG TABLET PO SCH ×2 (08:24→17:02)
[2017-08-15] MEDS: AmLODIPine BESYLATE 2.5 MG TABLET PO SCH (08:24)
[2017-08-15] MEDS: DOCUSATE SODIUM 250 MG CAPSULE PO SCH ×2 (08:24→17:04)
[2017-08-15] MEDS: NICOTINE 21 MG/24 HOUR PATCH TD SCH (08:25)
[2017-08-15] MEDS: BENZTROPINE MESYLATE 2 MG TABLET PO SCH ×2 (08:25→17:03)
[2017-08-15] MEDS: BACITRACIN 28.4 GM OINTMENT TP SCH ×2 (08:26→17:04)
[2017-08-15 16:00] VITALS: BP 117/67
[2017-08-15] MEDS: ACETAMINOPHEN 325 MG TABLET PO PRN (16:09)
[2017-08-15] MEDS: LORazepam 2 MG TABLET PO PRN (16:09)
[2017-08-15] MEDS: TraZODone HCL 100 MG TABLET PO SCH (20:15)
[2017-08-15] MEDS: ZOLPIDEM TARTRATE 10 MG TABLET PO PRN (21:18)
[2017-08-15] MEDS ORDERED: HALOPERIDOL LACTATE 5 MG/ML VIAL IM ONE (22:45)
[2017-08-15] MEDS ORDERED: LORazepam 2 MG/ML VIAL IM ONE (22:45)
[2017-08-16 05:46] VITALS: BP 114/65
[2017-08-16 08:18] VITALS: BP 136/91
[2017-08-16] MEDS: DOCUSATE SODIUM 250 MG CAPSULE PO SCH ×2 (09:00→16:42)
[2017-08-16] MEDS: RisperiDONE 3 MG TABLET PO SCH ×2 (09:00→16:42)
[2017-08-16] MEDS: BENZTROPINE MESYLATE 2 MG TABLET PO SCH ×2 (09:00→16:42)
[2017-08-16] MEDS: DIVALPROEX SODIUM 500 MG ER TABLET PO SCH ×2 (09:00→16:42)
[2017-08-16] MEDS: ATENOLOL 25 MG TABLET PO SCH (09:00)
[2017-08-16] MEDS: NICOTINE 21 MG/24 HOUR PATCH TD SCH (09:00)
[2017-08-16] MEDS: GABAPENTIN 300 MG CAPSULE PO SCH ×3 (09:00→16:42)
[2017-08-16] MEDS: HYDROCHLOROTHIAZIDE 25 MG TABLET PO SCH (09:01)
[2017-08-16] MEDS: CHOLECALCIFEROL (VIT D3) 1,000 UNITS TABLET PO SCH (09:01)
[2017-08-16] MEDS: AmLODIPine BESYLATE 2.5 MG TABLET PO SCH (09:01)
[2017-08-16] MEDS: BACITRACIN 28.4 GM OINTMENT TP SCH ×2 (09:10→16:43)
[2017-08-16] MEDS: LORazepam 2 MG TABLET PO PRN (15:57)
[2017-08-16 16:11] VITALS: BP 148/69
[2017-08-16] MEDS: TraZODone HCL 100 MG TABLET PO SCH (20:36)
[2017-08-16] MEDS: ZOLPIDEM TARTRATE 10 MG TABLET PO PRN (21:25)
[2017-08-17 05:16] VITALS: BP 135/75
[2017-08-17 08:27] VITALS: BP 140/72
[2017-08-17] MEDS: AmLODIPine BESYLATE 2.5 MG TABLET PO SCH (08:39)
[2017-08-17] MEDS: RisperiDONE 3 MG TABLET PO SCH ×2 (08:39→16:25)
[2017-08-17] MEDS: DOCUSATE SODIUM 250 MG CAPSULE PO SCH ×2 (08:39→16:25)
[2017-08-17] MEDS: CHOLECALCIFEROL (VIT D3) 1,000 UNITS TABLET PO SCH (08:39)
[2017-08-17] MEDS: DIVALPROEX SODIUM 500 MG ER TABLET PO SCH ×2 (08:39→16:25)
[2017-08-17] MEDS: LORazepam 2 MG TABLET PO PRN ×2 (08:39→16:25)
[2017-08-17] MEDS: BENZTROPINE MESYLATE 2 MG TABLET PO SCH ×2 (08:39→16:25)
[2017-08-17] MEDS: HYDROCHLOROTHIAZIDE 25 MG TABLET PO SCH (08:39)
[2017-08-17] MEDS: ATENOLOL 25 MG TABLET PO SCH (08:39)
[2017-08-17] MEDS: GABAPENTIN 300 MG CAPSULE PO SCH ×3 (08:39→16:26)
[2017-08-17] MEDS: NICOTINE 21 MG/24 HOUR PATCH TD SCH (08:40)
[2017-08-17] MEDS: BACITRACIN 28.4 GM OINTMENT TP SCH ×2 (09:46→16:26)
[2017-08-17] MEDS: ACETAMINOPHEN 325 MG TABLET PO PRN (15:04)
[2017-08-17 16:14] VITALS: BP 147/100
[2017-08-17] MEDS: TraZODone HCL 100 MG TABLET PO SCH (20:28)
[2017-08-17] MEDS: ZOLPIDEM TARTRATE 10 MG TABLET PO PRN (20:28)
[2017-08-18 06:31] VITALS: BP 138/88
[2017-08-18 08:04] VITALS: BP 128/66
[2017-08-18] MEDS: ATENOLOL 25 MG TABLET PO SCH (08:10)
[2017-08-18] MEDS: AmLODIPine BESYLATE 2.5 MG TABLET PO SCH (08:10)
[2017-08-18] MEDS: RisperiDONE 3 MG TABLET PO SCH ×2 (08:10→16:53)
[2017-08-18] MEDS: CHOLECALCIFEROL (VIT D3) 1,000 UNITS TABLET PO SCH (08:10)
[2017-08-18] MEDS: DOCUSATE SODIUM 250 MG CAPSULE PO SCH ×2 (08:11→16:52)
[2017-08-18] MEDS: DIVALPROEX SODIUM 500 MG ER TABLET PO SCH ×2 (08:11→16:52)
[2017-08-18] MEDS: GABAPENTIN 300 MG CAPSULE PO SCH ×3 (08:11→16:52)
[2017-08-18] MEDS: NICOTINE 21 MG/24 HOUR PATCH TD SCH (08:11)
[2017-08-18] MEDS: HYDROCHLOROTHIAZIDE 25 MG TABLET PO SCH (08:11)
[2017-08-18] MEDS: BENZTROPINE MESYLATE 2 MG TABLET PO SCH ×2 (08:12→16:52)
[2017-08-18] MEDS: BACITRACIN 28.4 GM OINTMENT TP SCH ×2 (08:12→16:54)
[2017-08-18] MEDS: LORazepam 2 MG TABLET PO PRN ×2 (10:59→16:53)
[2017-08-18 16:17] VITALS: BP 132/64
[2017-08-18 16:26] VITALS: BP 132/89
[2017-08-18] MEDS: IBUPROFEN 600 MG TABLET PO PRN (16:53)
[2017-08-18 17:53] VITALS: BP 125/79
[2017-08-18] MEDS: TraZODone HCL 100 MG TABLET PO SCH (20:59)
[2017-08-18] MEDS: ZOLPIDEM TARTRATE 10 MG TABLET PO PRN (20:59)
[2017-08-19 07:12] VITALS: BP 130/78
[2017-08-19 08:27] VITALS: BP 124/71
[2017-08-19] MEDS: DOCUSATE SODIUM 250 MG CAPSULE PO SCH ×2 (09:39→15:59)
[2017-08-19] MEDS: HYDROCHLOROTHIAZIDE 25 MG TABLET PO SCH (09:39)
[2017-08-19] MEDS: BENZTROPINE MESYLATE 2 MG TABLET PO SCH ×2 (09:39→15:59)
[2017-08-19] MEDS: DIVALPROEX SODIUM 500 MG ER TABLET PO SCH ×2 (09:39→15:59)
[2017-08-19] MEDS: GABAPENTIN 300 MG CAPSULE PO SCH ×3 (09:39→16:00)
[2017-08-19] MEDS: RisperiDONE 3 MG TABLET PO SCH ×2 (09:39→16:00)
[2017-08-19] MEDS: CHOLECALCIFEROL (VIT D3) 1,000 UNITS TABLET PO SCH (09:39)
[2017-08-19] MEDS: AmLODIPine BESYLATE 2.5 MG TABLET PO SCH (09:40)
[2017-08-19] MEDS: NICOTINE 21 MG/24 HOUR PATCH TD SCH (09:40)
[2017-08-19] MEDS: ATENOLOL 25 MG TABLET PO SCH (09:40)
[2017-08-19] MEDS: BACITRACIN 28.4 GM OINTMENT TP SCH ×2 (09:41→16:02)
[2017-08-19] MEDS: LORazepam 2 MG TABLET PO PRN ×2 (09:41→16:54)
[2017-08-19 16:55] VITALS: BP 146/74
[2017-08-19] MEDS: TraZODone HCL 100 MG TABLET PO SCH (20:33)
[2017-08-20 07:06] VITALS: BP 140/72
[2017-08-20 08:26] VITALS: BP 123/69
[2017-08-20] MEDS: BENZTROPINE MESYLATE 2 MG TABLET PO SCH ×2 (09:57→16:54)
[2017-08-20] MEDS: NICOTINE 21 MG/24 HOUR PATCH TD SCH (09:57)
[2017-08-20] MEDS: BACITRACIN 28.4 GM OINTMENT TP SCH ×2 (09:57→16:55)
[2017-08-20] MEDS: CHOLECALCIFEROL (VIT D3) 1,000 UNITS TABLET PO SCH (09:57)
[2017-08-20] MEDS: DIVALPROEX SODIUM 500 MG ER TABLET PO SCH ×2 (09:58→16:54)
[2017-08-20] MEDS: ATENOLOL 25 MG TABLET PO SCH (09:58)
[2017-08-20] MEDS: AmLODIPine BESYLATE 2.5 MG TABLET PO SCH (09:58)
[2017-08-20] MEDS: GABAPENTIN 300 MG CAPSULE PO SCH ×3 (09:58→16:54)
[2017-08-20] MEDS: RisperiDONE 3 MG TABLET PO SCH ×2 (09:58→16:54)
[2017-08-20] MEDS: HYDROCHLOROTHIAZIDE 25 MG TABLET PO SCH (09:58)
[2017-08-20] MEDS: DOCUSATE SODIUM 250 MG CAPSULE PO SCH ×2 (09:58→16:54)
[2017-08-20] MEDS: LORazepam 2 MG TABLET PO PRN ×2 (10:46→16:10)
[2017-08-20 16:07] VITALS: BP 128/82
[2017-08-20] MEDS: TraZODone HCL 100 MG TABLET PO SCH (20:41)
[2017-08-21 06:40] VITALS: BP 122/78
[2017-08-21 09:20] VITALS: BP 120/70
[2017-08-21] MEDS: RisperiDONE 3 MG TABLET PO SCH ×2 (09:26→16:50)
[2017-08-21] MEDS: DOCUSATE SODIUM 250 MG CAPSULE PO SCH ×2 (09:26→16:49)
[2017-08-21] MEDS: CHOLECALCIFEROL (VIT D3) 1,000 UNITS TABLET PO SCH (09:26)
[2017-08-21] MEDS: GABAPENTIN 300 MG CAPSULE PO SCH ×3 (09:26→16:50)
[2017-08-21] MEDS: DIVALPROEX SODIUM 500 MG ER TABLET PO SCH ×2 (09:26→16:50)
[2017-08-21] MEDS: BACITRACIN 28.4 GM OINTMENT TP SCH ×2 (09:27→16:50)
[2017-08-21] MEDS: HYDROCHLOROTHIAZIDE 25 MG TABLET PO SCH (09:27)
[2017-08-21] MEDS: AmLODIPine BESYLATE 2.5 MG TABLET PO SCH (09:27)
[2017-08-21] MEDS: ATENOLOL 25 MG TABLET PO SCH (09:27)
[2017-08-21] MEDS: LORazepam 2 MG TABLET PO PRN ×2 (09:27→16:08)
[2017-08-21] MEDS: NICOTINE 21 MG/24 HOUR PATCH TD SCH (09:27)
[2017-08-21] MEDS: BENZTROPINE MESYLATE 2 MG TABLET PO SCH ×2 (09:28→16:50)
[2017-08-21] MEDS: ACETAMINOPHEN 325 MG TABLET PO PRN (14:48)
[2017-08-21 16:09] VITALS: BP 122/93
[2017-08-21] MEDS: TraZODone HCL 100 MG TABLET PO SCH (20:33)
[2017-08-22 05:28] VITALS: BP 126/82
[2017-08-22 08:31] VITALS: BP 136/53
[2017-08-22] MEDS: CHOLECALCIFEROL (VIT D3) 1,000 UNITS TABLET PO SCH (09:54)
[2017-08-22] MEDS: HYDROCHLOROTHIAZIDE 25 MG TABLET PO SCH (09:54)
[2017-08-22] MEDS: DOCUSATE SODIUM 250 MG CAPSULE PO SCH ×2 (09:54→16:23)
[2017-08-22] MEDS: GABAPENTIN 300 MG CAPSULE PO SCH ×3 (09:54→16:24)
[2017-08-22] MEDS: DIVALPROEX SODIUM 500 MG ER TABLET PO SCH ×2 (09:54→16:23)
[2017-08-22] MEDS: BENZTROPINE MESYLATE 2 MG TABLET PO SCH ×2 (09:55→16:24)
[2017-08-22] MEDS: RisperiDONE 3 MG TABLET PO SCH ×2 (09:55→16:24)
[2017-08-22] MEDS: NICOTINE 21 MG/24 HOUR PATCH TD SCH (09:55)
[2017-08-22] MEDS: ATENOLOL 25 MG TABLET PO SCH (09:56)
[2017-08-22] MEDS: BACITRACIN 28.4 GM OINTMENT TP SCH ×2 (09:56→16:28)
[2017-08-22] MEDS: AmLODIPine BESYLATE 2.5 MG TABLET PO SCH (09:56)
[2017-08-22] MEDS: LORazepam 2 MG TABLET PO PRN (16:24)
[2017-08-22 18:02] VITALS: BP 118/68
[2017-08-22] MEDS: TraZODone HCL 100 MG TABLET PO SCH (20:07)
[2017-08-22] MEDS: ZOLPIDEM TARTRATE 10 MG TABLET PO PRN (20:37)
[2017-08-23 07:05] VITALS: BP 135/72
[2017-08-23] MEDS: AmLODIPine BESYLATE 2.5 MG TABLET PO SCH (08:19)
[2017-08-23] MEDS: ATENOLOL 25 MG TABLET PO SCH (08:19)
[2017-08-23] MEDS: CHOLECALCIFEROL (VIT D3) 1,000 UNITS TABLET PO SCH (08:20)
[2017-08-23] MEDS: RisperiDONE 3 MG TABLET PO SCH ×2 (08:20→16:24)
[2017-08-23] MEDS: BENZTROPINE MESYLATE 2 MG TABLET PO SCH ×2 (08:20→16:25)
[2017-08-23] MEDS: DOCUSATE SODIUM 250 MG CAPSULE PO SCH ×2 (08:20→16:24)
[2017-08-23] MEDS: GABAPENTIN 300 MG CAPSULE PO SCH ×3 (08:20→16:24)
[2017-08-23] MEDS: DIVALPROEX SODIUM 500 MG ER TABLET PO SCH ×2 (08:20→16:24)
[2017-08-23] MEDS: LORazepam 2 MG TABLET PO PRN ×2 (08:20→16:25)
[2017-08-23] MEDS: HYDROCHLOROTHIAZIDE 25 MG TABLET PO SCH (08:21)
[2017-08-23] MEDS: BACITRACIN 28.4 GM OINTMENT TP SCH ×2 (08:21→16:30)
[2017-08-23] MEDS: NICOTINE 21 MG/24 HOUR PATCH TD SCH (08:21)
[2017-08-23 08:34] VITALS: BP 116/67
[2017-08-23 16:04] VITALS: BP 138/81
[2017-08-23] MEDS: TraZODone HCL 100 MG TABLET PO SCH (20:33)
[2017-08-24] MEDS: DIVALPROEX SODIUM 500 MG ER TABLET PO SCH ×2 (08:02→17:16)
[2017-08-24] MEDS: CHOLECALCIFEROL (VIT D3) 1,000 UNITS TABLET PO SCH (08:02)
[2017-08-24] MEDS: RisperiDONE 3 MG TABLET PO SCH ×2 (08:03→17:16)
[2017-08-24] MEDS: GABAPENTIN 300 MG CAPSULE PO SCH ×3 (08:03→17:16)
[2017-08-24] MEDS: AmLODIPine BESYLATE 2.5 MG TABLET PO SCH (08:03)
[2017-08-24] MEDS: HYDROCHLOROTHIAZIDE 25 MG TABLET PO SCH (08:03)
[2017-08-24] MEDS: ATENOLOL 25 MG TABLET PO SCH (08:03)
[2017-08-24] MEDS: DOCUSATE SODIUM 250 MG CAPSULE PO SCH ×2 (08:04→17:16)
[2017-08-24] MEDS: BENZTROPINE MESYLATE 2 MG TABLET PO SCH ×2 (08:04→17:16)
[2017-08-24] MEDS: NICOTINE 21 MG/24 HOUR PATCH TD SCH (08:05)
[2017-08-24] MEDS: BACITRACIN 28.4 GM OINTMENT TP SCH ×2 (08:05→17:16)
[2017-08-24 08:34] VITALS: BP 152/70
[2017-08-24 15:11] VITALS: BP 145/79
[2017-08-24] MEDS: ACETAMINOPHEN 325 MG TABLET PO PRN (15:13)
[2017-08-24] MEDS: LORazepam 2 MG TABLET PO PRN (17:17)
[2017-08-24 17:35] VITALS: BP 136/78
[2017-08-24] MEDS: TraZODone HCL 100 MG TABLET PO SCH (21:13)
[2017-08-24] MEDS: IBUPROFEN 600 MG TABLET PO PRN (21:13)
[2017-08-25 06:44] VITALS: BP 139/74
[2017-08-25 08:30] VITALS: BP 128/78
[2017-08-25] MEDS: AmLODIPine BESYLATE 2.5 MG TABLET PO SCH (09:07)
[2017-08-25] MEDS: HYDROCHLOROTHIAZIDE 25 MG TABLET PO SCH (09:07)
[2017-08-25] MEDS: RisperiDONE 3 MG TABLET PO SCH ×2 (09:07→17:04)
[2017-08-25] MEDS: GABAPENTIN 300 MG CAPSULE PO SCH ×3 (09:07→17:05)
[2017-08-25] MEDS: ATENOLOL 25 MG TABLET PO SCH (09:07)
[2017-08-25] MEDS: NICOTINE 21 MG/24 HOUR PATCH TD SCH (09:07)
[2017-08-25] MEDS: LORazepam 2 MG TABLET PO PRN ×2 (09:07→16:18)
[2017-08-25] MEDS: BENZTROPINE MESYLATE 2 MG TABLET PO SCH ×2 (09:07→17:05)
[2017-08-25] MEDS: CHOLECALCIFEROL (VIT D3) 1,000 UNITS TABLET PO SCH (09:07)
[2017-08-25] MEDS: DIVALPROEX SODIUM 500 MG ER TABLET PO SCH ×2 (09:07→17:04)
[2017-08-25] MEDS: DOCUSATE SODIUM 250 MG CAPSULE PO SCH ×2 (09:07→17:05)
[2017-08-25] MEDS: BACITRACIN 28.4 GM OINTMENT TP SCH ×2 (09:08→17:05)
[2017-08-25 16:39] VITALS: BP 109/84
[2017-08-25] MEDS: TraZODone HCL 100 MG TABLET PO SCH (20:46)
[2017-08-26 05:12] VITALS: BP 140/77
[2017-08-26] MEDS ORDERED: LORazepam 2 MG/ML VIAL IM ONE (07:00)
[2017-08-26] MEDS ORDERED: HALOPERIDOL LACTATE 5 MG/ML VIAL IM ONE (07:00)
[2017-08-26] MEDS ORDERED: DiphenhydrAMINE HCL 50 MG/ML VIAL IM ONE (07:00)
[2017-08-26] MEDS: CHOLECALCIFEROL (VIT D3) 1,000 UNITS TABLET PO SCH (09:48)
[2017-08-26] MEDS: BENZTROPINE MESYLATE 2 MG TABLET PO SCH ×2 (09:49→17:14)
[2017-08-26] MEDS: ATENOLOL 25 MG TABLET PO SCH (09:49)
[2017-08-26] MEDS: HYDROCHLOROTHIAZIDE 25 MG TABLET PO SCH (09:49)
[2017-08-26] MEDS: RisperiDONE 3 MG TABLET PO SCH ×2 (09:49→17:15)
[2017-08-26] MEDS: DIVALPROEX SODIUM 500 MG ER TABLET PO SCH ×2 (09:49→17:14)
[2017-08-26] MEDS: GABAPENTIN 300 MG CAPSULE PO SCH ×3 (09:49→17:14)
[2017-08-26] MEDS: DOCUSATE SODIUM 250 MG CAPSULE PO SCH ×2 (09:49→17:15)
[2017-08-26] MEDS: BACITRACIN 28.4 GM OINTMENT TP SCH ×2 (09:50→17:14)
[2017-08-26] MEDS: NICOTINE 21 MG/24 HOUR PATCH TD SCH (09:50)
[2017-08-26] MEDS: AmLODIPine BESYLATE 2.5 MG TABLET PO SCH (13:10)
[2017-08-26 16:19] VITALS: BP 139/80
[2017-08-26] MEDS: LORazepam 2 MG TABLET PO PRN (17:15)
[2017-08-26] MEDS: TraZODone HCL 100 MG TABLET PO SCH (20:55)
[2017-08-27 08:11] VITALS: BP 139/70
[2017-08-27] MEDS: DOCUSATE SODIUM 250 MG CAPSULE PO SCH ×2 (08:40→16:06)
[2017-08-27] MEDS: HYDROCHLOROTHIAZIDE 25 MG TABLET PO SCH (08:40)
[2017-08-27] MEDS: CHOLECALCIFEROL (VIT D3) 1,000 UNITS TABLET PO SCH (08:40)
[2017-08-27] MEDS: BENZTROPINE MESYLATE 2 MG TABLET PO SCH ×2 (08:40→16:06)
[2017-08-27] MEDS: DIVALPROEX SODIUM 500 MG ER TABLET PO SCH ×2 (08:40→16:06)
[2017-08-27] MEDS: ATENOLOL 25 MG TABLET PO SCH (08:41)
[2017-08-27] MEDS: AmLODIPine BESYLATE 2.5 MG TABLET PO SCH (08:41)
[2017-08-27] MEDS: GABAPENTIN 300 MG CAPSULE PO SCH ×3 (08:41→16:06)
[2017-08-27] MEDS: RisperiDONE 3 MG TABLET PO SCH ×2 (08:41→16:06)
[2017-08-27] MEDS: NICOTINE 21 MG/24 HOUR PATCH TD SCH (08:42)
[2017-08-27] MEDS: BACITRACIN 28.4 GM OINTMENT TP SCH ×2 (08:45→16:11)
[2017-08-27] MEDS: LORazepam 2 MG TABLET PO PRN ×2 (09:57→16:06)
[2017-08-27 16:11] VITALS: BP 139/98
[2017-08-27] MEDS: TraZODone HCL 100 MG TABLET PO SCH (20:22)
[2017-08-28 06:37] VITALS: BP 132/78
[2017-08-28 08:49] VITALS: BP 150/80
[2017-08-28] MEDS: GABAPENTIN 300 MG CAPSULE PO SCH ×3 (08:55→16:32)
[2017-08-28] MEDS: CHOLECALCIFEROL (VIT D3) 1,000 UNITS TABLET PO SCH (08:56)
[2017-08-28] MEDS: DOCUSATE SODIUM 250 MG CAPSULE PO SCH ×2 (08:56→16:32)
[2017-08-28] MEDS: HYDROCHLOROTHIAZIDE 25 MG TABLET PO SCH (08:56)
[2017-08-28] MEDS: LORazepam 2 MG TABLET PO PRN ×2 (08:56→13:04)
[2017-08-28] MEDS: BENZTROPINE MESYLATE 2 MG TABLET PO SCH ×2 (08:56→16:32)
[2017-08-28] MEDS: DIVALPROEX SODIUM 500 MG ER TABLET PO SCH ×2 (08:56→16:32)
[2017-08-28] MEDS: AmLODIPine BESYLATE 2.5 MG TABLET PO SCH (08:56)
[2017-08-28] MEDS: NICOTINE 21 MG/24 HOUR PATCH TD SCH (08:56)
[2017-08-28] MEDS: RisperiDONE 3 MG TABLET PO SCH ×2 (08:56→16:32)
[2017-08-28] MEDS: ATENOLOL 25 MG TABLET PO SCH (08:56)
[2017-08-28] MEDS: BACITRACIN 28.4 GM OINTMENT TP SCH ×2 (09:19→16:33)
[2017-08-28 16:25] VITALS: BP 138/83
[2017-08-28] MEDS: TraZODone HCL 100 MG TABLET PO SCH (20:32)
[2017-08-29 06:58] VITALS: BP 134/80
[2017-08-29 08:29] VITALS: BP 130/73
[2017-08-29] MEDS ORDERED: LORazepam 2 MG/ML VIAL IM ONE (08:30)
[2017-08-29] MEDS ORDERED: DiphenhydrAMINE HCL 50 MG/ML VIAL IM ONE (08:30)
[2017-08-29] MEDS ORDERED: HALOPERIDOL LACTATE 5 MG/ML VIAL IM ONE (08:30)
[2017-08-29] MEDS: AmLODIPine BESYLATE 2.5 MG TABLET PO SCH (08:31)
[2017-08-29] MEDS: BENZTROPINE MESYLATE 2 MG TABLET PO SCH ×2 (08:31→16:06)
[2017-08-29] MEDS: CHOLECALCIFEROL (VIT D3) 1,000 UNITS TABLET PO SCH (08:31)
[2017-08-29] MEDS: DIVALPROEX SODIUM 500 MG ER TABLET PO SCH ×2 (08:31→16:06)
[2017-08-29] MEDS: HYDROCHLOROTHIAZIDE 25 MG TABLET PO SCH (08:31)
[2017-08-29] MEDS: ATENOLOL 25 MG TABLET PO SCH (08:31)
[2017-08-29] MEDS: RisperiDONE 3 MG TABLET PO SCH ×2 (08:31→16:06)
[2017-08-29] MEDS: NICOTINE 21 MG/24 HOUR PATCH TD SCH (08:31)
[2017-08-29] MEDS: GABAPENTIN 300 MG CAPSULE PO SCH ×3 (08:32→16:06)
[2017-08-29] MEDS: BACITRACIN 28.4 GM OINTMENT TP SCH ×2 (08:32→16:06)
[2017-08-29] MEDS: DOCUSATE SODIUM 250 MG CAPSULE PO SCH ×2 (08:32→16:06)
[2017-08-29] MEDS: LORazepam 2 MG TABLET PO PRN (16:06)
[2017-08-29 16:19] VITALS: BP 124/74
[2017-08-29] MEDS: TraZODone HCL 100 MG TABLET PO SCH (20:18)
[2017-08-29] MEDS: ACETAMINOPHEN 325 MG TABLET PO PRN (20:21)
[2017-08-30 04:41] VITALS: BP 146/64
[2017-08-30] MEDS: BENZTROPINE MESYLATE 2 MG TABLET PO SCH ×2 (08:11→16:15)
[2017-08-30] MEDS: DOCUSATE SODIUM 250 MG CAPSULE PO SCH ×2 (08:11→16:16)
[2017-08-30] MEDS: DIVALPROEX SODIUM 500 MG ER TABLET PO SCH ×2 (08:11→16:16)
[2017-08-30] MEDS: CHOLECALCIFEROL (VIT D3) 1,000 UNITS TABLET PO SCH (08:11)
[2017-08-30] MEDS: HYDROCHLOROTHIAZIDE 25 MG TABLET PO SCH (08:11)
[2017-08-30] MEDS: ATENOLOL 25 MG TABLET PO SCH (08:11)
[2017-08-30] MEDS: NICOTINE 21 MG/24 HOUR PATCH TD SCH (08:11)
[2017-08-30] MEDS: LORazepam 2 MG TABLET PO PRN ×2 (08:12→16:16)
[2017-08-30] MEDS: GABAPENTIN 300 MG CAPSULE PO SCH ×3 (08:12→16:16)
[2017-08-30] MEDS: RisperiDONE 3 MG TABLET PO SCH ×2 (08:12→16:16)
[2017-08-30] MEDS: AmLODIPine BESYLATE 2.5 MG TABLET PO SCH (08:13)
[2017-08-30 08:31] VITALS: BP 121/70
[2017-08-30] MEDS: BACITRACIN 28.4 GM OINTMENT TP SCH (10:20)
[2017-08-30 16:29] VITALS: BP 124/73
[2017-08-30] MEDS: TraZODone HCL 100 MG TABLET PO SCH (21:04)
[2017-08-31 06:38] VITALS: BP 124/71
[2017-08-31] MEDS: NICOTINE 21 MG/24 HOUR PATCH TD SCH (08:27)
[2017-08-31] MEDS: RisperiDONE 3 MG TABLET PO SCH ×2 (08:28→16:19)
[2017-08-31] MEDS: GABAPENTIN 300 MG CAPSULE PO SCH ×3 (08:28→16:18)
[2017-08-31] MEDS: DIVALPROEX SODIUM 500 MG ER TABLET PO SCH ×2 (08:28→16:18)
[2017-08-31] MEDS: HYDROCHLOROTHIAZIDE 25 MG TABLET PO SCH (08:28)
[2017-08-31] MEDS: CHOLECALCIFEROL (VIT D3) 1,000 UNITS TABLET PO SCH (08:28)
[2017-08-31] MEDS: BENZTROPINE MESYLATE 2 MG TABLET PO SCH ×2 (08:28→16:18)
[2017-08-31] MEDS: DOCUSATE SODIUM 250 MG CAPSULE PO SCH ×2 (08:28→16:18)
[2017-08-31] MEDS: ATENOLOL 25 MG TABLET PO SCH (08:29)
[2017-08-31] MEDS: AmLODIPine BESYLATE 2.5 MG TABLET PO SCH (08:29)
[2017-08-31 09:09] VITALS: BP 112/78
[2017-08-31] MEDS: LORazepam 2 MG TABLET PO PRN ×2 (12:32→19:34)
[2017-08-31 16:07] VITALS: BP 115/70
[2017-08-31 19:34] VITALS: BP 130/61
[2017-08-31] MEDS: ACETAMINOPHEN 325 MG TABLET PO PRN (19:35)
[2017-08-31] MEDS: TraZODone HCL 100 MG TABLET PO SCH (20:11)
[2017-09-01 06:27] VITALS: BP 122/71
[2017-09-01] MEDS: DIVALPROEX SODIUM 500 MG ER TABLET PO SCH ×2 (08:25→16:39)
[2017-09-01] MEDS: NICOTINE 21 MG/24 HOUR PATCH TD SCH (08:25)
[2017-09-01] MEDS: LORazepam 2 MG TABLET PO PRN ×2 (08:26→16:39)
[2017-09-01] MEDS: CHOLECALCIFEROL (VIT D3) 1,000 UNITS TABLET PO SCH (08:26)
[2017-09-01] MEDS: AmLODIPine BESYLATE 2.5 MG TABLET PO SCH (08:26)
[2017-09-01] MEDS: BENZTROPINE MESYLATE 2 MG TABLET PO SCH ×2 (08:26→16:39)
[2017-09-01] MEDS: HYDROCHLOROTHIAZIDE 25 MG TABLET PO SCH (08:26)
[2017-09-01] MEDS: ATENOLOL 25 MG TABLET PO SCH (08:26)
[2017-09-01] MEDS: RisperiDONE 3 MG TABLET PO SCH ×2 (08:26→16:40)
[2017-09-01] MEDS: GABAPENTIN 300 MG CAPSULE PO SCH ×3 (08:26→16:39)
[2017-09-01] MEDS: DOCUSATE SODIUM 250 MG CAPSULE PO SCH ×2 (08:26→16:39)
[2017-09-01 08:34] VITALS: BP 123/78
[2017-09-01 16:21] VITALS: BP 119/67
[2017-09-01] MEDS: TraZODone HCL 100 MG TABLET PO SCH (20:44)
[2017-09-02 07:02] VITALS: BP 115/64
[2017-09-02] MEDS: BENZTROPINE MESYLATE 2 MG TABLET PO SCH ×2 (08:23→16:45)
[2017-09-02] MEDS: DOCUSATE SODIUM 250 MG CAPSULE PO SCH ×2 (08:23→16:45)
[2017-09-02] MEDS: DIVALPROEX SODIUM 500 MG ER TABLET PO SCH ×2 (08:23→16:45)
[2017-09-02] MEDS: HYDROCHLOROTHIAZIDE 25 MG TABLET PO SCH (08:24)
[2017-09-02] MEDS: AmLODIPine BESYLATE 2.5 MG TABLET PO SCH (08:24)
[2017-09-02] MEDS: RisperiDONE 3 MG TABLET PO SCH ×2 (08:24→16:46)
[2017-09-02] MEDS: GABAPENTIN 300 MG CAPSULE PO SCH ×3 (08:24→16:45)
[2017-09-02] MEDS: ATENOLOL 25 MG TABLET PO SCH (08:24)
[2017-09-02] MEDS: CHOLECALCIFEROL (VIT D3) 1,000 UNITS TABLET PO SCH (08:25)
[2017-09-02] MEDS: NICOTINE 21 MG/24 HOUR PATCH TD SCH (08:25)
[2017-09-02 08:48] VITALS: BP 121/81
[2017-09-02 10:14] VITALS: BP 121/70
[2017-09-02] MEDS: ACETAMINOPHEN 325 MG TABLET PO PRN (10:16)
[2017-09-02] MEDS ORDERED: LORazepam 2 MG/ML VIAL ONE (13:18)
[2017-09-02] MEDS ORDERED: HALOPERIDOL LACTATE 5 MG/ML VIAL IM ONE (13:30)
[2017-09-02] MEDS ORDERED: LORazepam 2 MG/ML VIAL IM ONE (13:30)
[2017-09-02] MEDS ORDERED: DiphenhydrAMINE HCL 50 MG/ML VIAL IM ONE (13:30)
[2017-09-02] MEDS: HALOPERIDOL 5 MG TABLET PO PRN (15:32)
[2017-09-02] MEDS: LORazepam 2 MG TABLET PO PRN (16:38)
[2017-09-02 16:46] VITALS: BP 147/83
[2017-09-02] MEDS: TraZODone HCL 100 MG TABLET PO SCH (21:36)
[2017-09-03 06:24] VITALS: BP 130/74
[2017-09-03 08:00] VITALS: BP 136/72
[2017-09-03] MEDS: BENZTROPINE MESYLATE 2 MG TABLET PO SCH ×2 (09:20→17:39)
[2017-09-03] MEDS: AmLODIPine BESYLATE 2.5 MG TABLET PO SCH (09:20)
[2017-09-03] MEDS: ATENOLOL 25 MG TABLET PO SCH (09:20)
[2017-09-03] MEDS: DOCUSATE SODIUM 250 MG CAPSULE PO SCH ×2 (09:21→17:39)
[2017-09-03] MEDS: DIVALPROEX SODIUM 500 MG ER TABLET PO SCH ×2 (09:21→17:39)
[2017-09-03] MEDS: CHOLECALCIFEROL (VIT D3) 1,000 UNITS TABLET PO SCH (09:21)
[2017-09-03] MEDS: GABAPENTIN 300 MG CAPSULE PO SCH ×3 (09:21→17:39)
[2017-09-03] MEDS: HYDROCHLOROTHIAZIDE 25 MG TABLET PO SCH (09:21)
[2017-09-03] MEDS: LORazepam 2 MG TABLET PO PRN ×2 (09:21→15:50)
[2017-09-03] MEDS: RisperiDONE 3 MG TABLET PO SCH ×2 (09:21→17:39)
[2017-09-03] MEDS: NICOTINE 21 MG/24 HOUR PATCH TD SCH (09:23)
[2017-09-03] MEDS: HALOPERIDOL 5 MG TABLET PO PRN (10:06)
[2017-09-03] MEDS ORDERED: TUBERCULIN, PURIFIED PROTEIN DERIVATIVE 5 TU/0.1 ML SYG ID ONE ×2 (12:15→14:45)
[2017-09-03 16:16] VITALS: BP 135/79
[2017-09-03] MEDS: TraZODone HCL 100 MG TABLET PO SCH (20:16)
[2017-09-04 01:32] VITALS: BP 140/82
[2017-09-04] MEDS: BENZTROPINE MESYLATE 2 MG TABLET PO SCH ×2 (08:40→17:01)
[2017-09-04] MEDS: ATENOLOL 25 MG TABLET PO SCH (08:40)
[2017-09-04] MEDS: DIVALPROEX SODIUM 500 MG ER TABLET PO SCH ×2 (08:40→17:00)
[2017-09-04] MEDS: HYDROCHLOROTHIAZIDE 25 MG TABLET PO SCH (08:40)
[2017-09-04] MEDS: RisperiDONE 3 MG TABLET PO SCH ×2 (08:40→17:00)
[2017-09-04] MEDS: DOCUSATE SODIUM 250 MG CAPSULE PO SCH ×2 (08:40→17:01)
[2017-09-04] MEDS: GABAPENTIN 300 MG CAPSULE PO SCH ×3 (08:40→17:00)
[2017-09-04] MEDS: CHOLECALCIFEROL (VIT D3) 1,000 UNITS TABLET PO SCH (08:40)
[2017-09-04] MEDS: AmLODIPine BESYLATE 2.5 MG TABLET PO SCH (08:40)
[2017-09-04] MEDS: NICOTINE 21 MG/24 HOUR PATCH TD SCH (08:40)
[2017-09-04 08:44] VITALS: BP 135/69
[2017-09-04] MEDS: LORazepam 2 MG TABLET PO PRN ×2 (12:34→17:01)
[2017-09-04] MEDS: HALOPERIDOL 5 MG TABLET PO PRN (12:34)
[2017-09-04 16:24] VITALS: BP 150/69
[2017-09-04] MEDS: TraZODone HCL 100 MG TABLET PO SCH (20:33)
[2017-09-05] VITALS (7 sets, daily range): BP systolic 118–155; BP diastolic 66–85
[2017-09-05 08:05] LABS: BASOPHILS % (AUTO) 0.2 % (0.0-2.0); EOSINOPHILS % (AUTO) 1.9 % (1.0-6.0); HEMATOCRIT 37.4 % (36-46); HEMOGLOBIN 13.4 g/dL (12.0-16.0); LYMPHOCYTES # (AUTO) 1.5 K/uL (1.0-4.8); LYMPHOCYTES % (AUTO) 42.3 % (22.0-44.0); MEAN CORPUSCULAR HEMOGLOBIN 29.2 pg (26.0-34.0); MEAN CORPUSCULAR HGB CONC 35.9 G/dL (31.0-37.0); MEAN CORPUSCULAR VOLUME 81 fL (80-100); MONOCYTES # (AUTO) 0.6 K/uL (0.1-1.0); MONOCYTES % (AUTO) 17.6 % (2.0-9.0); NEUTROPHILS # (AUTO) 1.3 K/uL (1.8-7.7); PLATELET COUNT (AUTO) 212 K/uL (150-450); RED CELL DISTRIBUTION WIDTH 13.3 % (11.5-14.5)
[2017-09-05 08:40] LABS: ALANINE AMINOTRANSFERASE 37 U/L (12-78); ALKALINE PHOSPHATASE 161 U/L (46-116); ANION GAP 9 mmol/L (8-16); ASPARTATE AMINOTRANSFERASE 20 U/L (15-37); BILIRUBIN,TOTAL 0.5 mg/dL (0.1-1.0); CALCIUM, TOTAL 9.7 mg/dL (8.8-10.5); CARBON DIOXIDE 29 mmol/L (22-29); CHLORIDE 105 mmol/L (98-107); CREATININE 0.52 mg/dL (0.60-1.30); GLOMERULAR FILTR. RATE CALC > 60 mL/min (>60); GLUCOSE,RANDOM 81 mg/dL (70-110); POTASSIUM 3.9 mmol/L (3.5-5.1); SODIUM SERUM 143 mmol/L (136-145); TOTAL PROTEIN, SERUM 6.4 g/dL (6.4-8.2); UREA NITROGEN, BLOOD 17 mg/dL (7-18); VALPROIC ACID 55 mcg/mL (50-100)
[2017-09-05] MEDS: CHOLECALCIFEROL (VIT D3) 1,000 UNITS TABLET PO SCH (10:14)
[2017-09-05] MEDS: GABAPENTIN 300 MG CAPSULE PO SCH ×3 (10:14→16:39)
[2017-09-05] MEDS: ATENOLOL 25 MG TABLET PO SCH (10:14)
[2017-09-05] MEDS: RisperiDONE 3 MG TABLET PO SCH ×2 (10:15→16:39)
[2017-09-05] MEDS: BENZTROPINE MESYLATE 2 MG TABLET PO SCH ×2 (10:15→16:39)
[2017-09-05] MEDS: HYDROCHLOROTHIAZIDE 25 MG TABLET PO SCH (10:15)
[2017-09-05] MEDS: AmLODIPine BESYLATE 2.5 MG TABLET PO SCH (10:15)
[2017-09-05] MEDS: DIVALPROEX SODIUM 500 MG ER TABLET PO SCH ×2 (10:15→16:39)
[2017-09-05] MEDS: DOCUSATE SODIUM 250 MG CAPSULE PO SCH ×2 (10:15→16:39)
[2017-09-05] MEDS: LORazepam 2 MG TABLET PO PRN ×2 (10:16→17:27)
[2017-09-05] MEDS: HALOPERIDOL 5 MG TABLET PO PRN (10:16)
[2017-09-05] MEDS: NICOTINE 21 MG/24 HOUR PATCH TD SCH (10:16)
[2017-09-05] MEDS: IBUPROFEN 600 MG TABLET PO PRN (13:17)
[2017-09-05] MEDS: TraZODone HCL 100 MG TABLET PO SCH (20:54)
[2017-09-06 00:30] VITALS: BP 128/70
[2017-09-06 08:45] VITALS: BP 120/64
[2017-09-06] MEDS: AmLODIPine BESYLATE 2.5 MG TABLET PO SCH (09:05)
[2017-09-06] MEDS: NICOTINE 21 MG/24 HOUR PATCH TD SCH (09:05)
[2017-09-06] MEDS: GABAPENTIN 300 MG CAPSULE PO SCH ×3 (09:07→17:08)
[2017-09-06] MEDS: ATENOLOL 25 MG TABLET PO SCH (09:07)
[2017-09-06] MEDS: DIVALPROEX SODIUM 500 MG ER TABLET PO SCH ×2 (09:07→17:09)
[2017-09-06] MEDS: CHOLECALCIFEROL (VIT D3) 1,000 UNITS TABLET PO SCH (09:07)
[2017-09-06] MEDS: BENZTROPINE MESYLATE 2 MG TABLET PO SCH ×2 (09:07→17:09)
[2017-09-06] MEDS: DOCUSATE SODIUM 250 MG CAPSULE PO SCH ×2 (09:08→17:08)
[2017-09-06] MEDS: RisperiDONE 3 MG TABLET PO SCH ×2 (09:08→17:10)
[2017-09-06] MEDS: HYDROCHLOROTHIAZIDE 25 MG TABLET PO SCH (09:12)
[2017-09-06] MEDS: HALOPERIDOL 5 MG TABLET PO PRN (09:47)
[2017-09-06] MEDS: LORazepam 2 MG TABLET PO PRN ×2 (09:47→17:29)
[2017-09-06] MEDS: ACETAMINOPHEN 325 MG TABLET PO PRN (16:10)
[2017-09-06 16:20] VITALS: BP 139/82
[2017-09-06] MEDS ORDERED: TUBERCULIN, PURIFIED PROTEIN DERIVATIVE 5 TU/0.1 ML SYG ID ONE (20:15)
[2017-09-06] MEDS: TraZODone HCL 100 MG TABLET PO SCH (21:02)
[2017-09-07 03:49] VITALS: BP 124/79
[2017-09-07 08:31] VITALS: BP 128/72
[2017-09-07] MEDS: RisperiDONE 3 MG TABLET PO SCH ×2 (08:39→16:28)
[2017-09-07] MEDS: GABAPENTIN 300 MG CAPSULE PO SCH ×3 (08:39→16:28)
[2017-09-07] MEDS: DOCUSATE SODIUM 250 MG CAPSULE PO SCH ×2 (08:39→16:28)
[2017-09-07] MEDS: DIVALPROEX SODIUM 500 MG ER TABLET PO SCH ×2 (08:39→16:28)
[2017-09-07] MEDS: AmLODIPine BESYLATE 2.5 MG TABLET PO SCH (08:40)
[2017-09-07] MEDS: NICOTINE 21 MG/24 HOUR PATCH TD SCH (08:40)
[2017-09-07] MEDS: ATENOLOL 25 MG TABLET PO SCH (08:40)
[2017-09-07] MEDS: CHOLECALCIFEROL (VIT D3) 1,000 UNITS TABLET PO SCH (08:40)
[2017-09-07] MEDS: HYDROCHLOROTHIAZIDE 25 MG TABLET PO SCH (08:40)
[2017-09-07] MEDS: BENZTROPINE MESYLATE 2 MG TABLET PO SCH ×2 (08:40→16:28)
[2017-09-07] MEDS: LORazepam 2 MG TABLET PO PRN ×2 (09:06→16:29)
[2017-09-07] MEDS: HALOPERIDOL 5 MG TABLET PO PRN (09:07)
[2017-09-07 16:23] VITALS: BP 131/71
[2017-09-07] MEDS: TraZODone HCL 100 MG TABLET PO SCH (20:31)
[2017-09-08 07:10] VITALS: BP 133/82
[2017-09-08] MEDS: BENZTROPINE MESYLATE 2 MG TABLET PO SCH ×2 (08:26→17:12)
[2017-09-08] MEDS: GABAPENTIN 300 MG CAPSULE PO SCH ×3 (08:26→17:12)
[2017-09-08] MEDS: RisperiDONE 3 MG TABLET PO SCH ×2 (08:26→17:12)
[2017-09-08] MEDS: HYDROCHLOROTHIAZIDE 25 MG TABLET PO SCH (08:26)
[2017-09-08] MEDS: CHOLECALCIFEROL (VIT D3) 1,000 UNITS TABLET PO SCH (08:26)
[2017-09-08] MEDS: AmLODIPine BESYLATE 2.5 MG TABLET PO SCH (08:27)
[2017-09-08] MEDS: NICOTINE 21 MG/24 HOUR PATCH TD SCH (08:27)
[2017-09-08] MEDS: ATENOLOL 25 MG TABLET PO SCH (08:27)
[2017-09-08] MEDS: DIVALPROEX SODIUM 500 MG ER TABLET PO SCH ×2 (08:27→17:12)
[2017-09-08] MEDS: DOCUSATE SODIUM 250 MG CAPSULE PO SCH ×2 (08:27→17:12)
[2017-09-08] MEDS: LORazepam 2 MG TABLET PO PRN ×2 (08:27→16:17)
[2017-09-08 08:47] VITALS: BP 126/71
[2017-09-08] MEDS: HALOPERIDOL 5 MG TABLET PO PRN ×2 (09:20→16:17)
[2017-09-08 16:09] VITALS: BP 139/89
[2017-09-08] MEDS: TraZODone HCL 100 MG TABLET PO SCH (20:12)
[2017-09-09 06:59] VITALS: BP 132/82
[2017-09-09 08:50] VITALS: BP 123/82
[2017-09-09] MEDS: BENZTROPINE MESYLATE 2 MG TABLET PO SCH (09:41)
[2017-09-09] MEDS: GABAPENTIN 300 MG CAPSULE PO SCH ×2 (09:42→12:20)
[2017-09-09] MEDS: DOCUSATE SODIUM 250 MG CAPSULE PO SCH (09:42)
[2017-09-09] MEDS: CHOLECALCIFEROL (VIT D3) 1,000 UNITS TABLET PO SCH (09:42)
[2017-09-09] MEDS: RisperiDONE 3 MG TABLET PO SCH (09:42)
[2017-09-09] MEDS: DIVALPROEX SODIUM 500 MG ER TABLET PO SCH (09:42)
[2017-09-09] MEDS: HYDROCHLOROTHIAZIDE 25 MG TABLET PO SCH (09:42)
[2017-09-09] MEDS: AmLODIPine BESYLATE 2.5 MG TABLET PO SCH (09:42)
[2017-09-09] MEDS: ATENOLOL 25 MG TABLET PO SCH (09:42)
[2017-09-09] MEDS: NICOTINE 21 MG/24 HOUR PATCH TD SCH (09:43)
[2017-09-09] MEDS ORDERED: DIVA500T52 PO (11:26)
[2017-09-09] MEDS: ACETAMINOPHEN 325 MG TABLET PO PRN (11:50)
== END 2017-09-09 13:00 | DRG 750 ==
LOC: B3A 19:00 → EDSTATUS 19:44 → B3A 04-20 20:28 → B2S 08-29 09:06 → B3A 09-02 13:49
PROVIDERS: ADMIT Psychiatry & Neurology Child & Adolescent Psychiatry; ATTEND Psychiatry & Neurology Child & Adolescent Psychiatry
DX: F20.0 Paranoid schizophrenia (principal); F79 Unspecified intellectual disabilities; I10 Essential (primary) hypertension; K59.00 Constipation, unspecified; E55.9 Vitamin D deficiency, unspecified; Z79.899 Other long term (current) drug therapy
CPT/HCPCS: 83036; 84132; 84439; 84443; 87081; 90471; J1200; J1630; J2060; J3230; J3486

== ENCOUNTER 2017-06-17 10:49 | Emergency (ER) | payer MEDICAID, OTHER ==
[~2017-06-17] VITALS: Ht 170.2 cm; Wt 100.0 kg
[~2017-06-17 10:49] MED LIST changes: +AMLO2.5T2 PO
[2017-06-17 12:26] VITALS: BP 111/89
== END 2017-06-17 13:05 | disposition home or self-care (01) ==
LOC: EMS 10:50
DX: M25.561 Pain in right knee (principal); W06.XXXA Fall from bed, initial encounter; Y93.39 Activity, other involving climbing, rappelling and jumping off; Y92.89 Other specified places as the place of occurrence of the external cause; Y99.8 Other external cause status
CPT/HCPCS: 72170; 82962; 99284

== ENCOUNTER 2017-06-22 21:11 | Emergency (ER) | payer OTHER ==
[~2017-06-22] VITALS: Ht 195.6 cm; Wt 99.0 kg
[2017-06-22 23:07] LABS: BASOPHILS # (AUTO) 0.01 K/uL (0.00-0.20); BASOPHILS % (AUTO) 0.3 % (0.0-2.0); EOSINOPHILS # (AUTO) 0.08 K/uL (0.00-0.70); EOSINOPHILS % (AUTO) 1.98 % (1.0-6.0); HEMATOCRIT 37.3 % (36-46); HEMOGLOBIN 12.5 g/dL (12.0-16.0); LYMPHOCYTES # (AUTO) 1.9 K/uL (1.0-4.8); LYMPHOCYTES % (AUTO) 46.4 % (22.0-44.0); MEAN CORPUSCULAR HEMOGLOBIN 28.6 pg (26.0-34.0); MEAN CORPUSCULAR HGB CONC 33.6 G/dL (31.0-37.0); MEAN CORPUSCULAR VOLUME 85 fL (80-100); MONOCYTES # (AUTO) 0.7 K/uL (0.1-1.0); MONOCYTES % (AUTO) 17.9 % (2.0-9.0); NEUTROPHILS # (AUTO) 1.4 K/uL (1.8-7.7); NEUTROPHILS % (AUTO) 33.5 % (40.0-70.0); PLATELET COUNT (AUTO) 227 K/uL (150-450); RED BLOOD CELL COUNT(AUTO) 4.38 MIL/uL (4.00-5.20); RED CELL DISTRIBUTION WIDTH 13.4 % (11.5-14.5)
[2017-06-22 23:18] LABS: ANION GAP 8 mmol/L (8-16); CARBON DIOXIDE 31 mmol/L (22-29); CHLORIDE 103 mmol/L (98-107); GLOMERULAR FILTR. RATE CALC > 60 mL/min (>60); POTASSIUM 3.2 mmol/L (3.5-5.1); SODIUM SERUM 142 mmol/L (136-145); UREA NITROGEN, BLOOD 15 mg/dL (7-18)
[2017-06-22 23:26] LABS: ALANINE AMINOTRANSFERASE 39 U/L (12-78); ALBUMIN 2.8 g/dL (3.4-5.0); ASPARTATE AMINOTRANSFERASE 15 U/L (15-37); BILIRUBIN,TOTAL 0.3 mg/dL (0.1-1.0); CALCIUM, TOTAL 8.9 mg/dL (8.8-10.5); TOTAL PROTEIN, SERUM 6.4 g/dL (6.4-8.2); VALPROIC ACID 52 mcg/mL (50-100)
[2017-06-23] MEDS ORDERED: POTASSIUM CHLORIDE 20 MEQ ER TABLET PO ONE (01:15)
[2017-06-23] MEDS ORDERED: HALOPERIDOL LACTATE 5 MG/ML VIAL IM ONE (01:30)
[2017-06-23] MEDS ORDERED: LORazepam 2 MG/ML VIAL IM ONE (01:30)
[2017-06-23] MEDS ORDERED: DiphenhydrAMINE HCL 50 MG/ML VIAL IM ONE (01:30)
[2017-06-23 07:23] VITALS: BP 127/66
== END 2017-06-23 08:45 | disposition home or self-care (01) ==
LOC: EMS 21:12
DX: S09.90XA Unspecified injury of head, initial encounter (principal); F20.9 Schizophrenia, unspecified; I10 Essential (primary) hypertension; F17.210 Nicotine dependence, cigarettes, uncomplicated; W01.0XXA Fall on same level from slipping, tripping and stumbling without subsequent striking against object, initial encounter; Y93.89 Activity, other specified; Y92.89 Other specified places as the place of occurrence of the external cause; Y99.8 Other external cause status
CPT/HCPCS: 36415; 70450; 72125; 80053; 80164; 80307; 84703; 85025; 96372; 99285; G0480; J1200; J1630; J2060

== ENCOUNTER 2018-08-22 22:51 | Emergency (ER) | payer OTHER ==
[~2018-08-22] VITALS: Ht 175.3 cm; Wt 68.2 kg
[~2018-08-22 22:51] MED LIST changes: -TRAZ-147 PO; +TRAZ-220 PO
[2018-08-22] MEDS ORDERED: DIPH25 PO (23:15)
[2018-08-22] MEDS ORDERED: HALO5TAB2 PO (23:15)
[2018-08-22] MEDS ORDERED: LACT30L PO (23:15)
[2018-08-22] MEDS ORDERED: GABA-531 PO (23:15)
[2018-08-22] MEDS ORDERED: HALO5I IM (23:15)
[2018-08-22] MEDS ORDERED: DIPH50 PO (23:15)
[2018-08-23] MEDS ORDERED: LORazepam 2 MG TABLET PO ONE (00:30)
[2018-08-23] MEDS ORDERED: HALOPERIDOL 5 MG TABLET PO ONE (00:30)
[2018-08-23] MEDS ORDERED: ACETAMINOPHEN 500 MG TABLET PO ONE (00:30)
[2018-08-23 00:50] LABS: BASOPHILS % (AUTO) 0.3 % (0.0-2.0); EOSINOPHILS % (AUTO) 0.7 % (1.0-6.0); HEMATOCRIT 36.3 % (36-46); HEMOGLOBIN 12.4 g/dL (12.0-16.0); LYMPHOCYTES # (AUTO) 2.6 K/uL (1.0-4.8); LYMPHOCYTES % (AUTO) 52.7 % (22.0-44.0); MEAN CORPUSCULAR HEMOGLOBIN 28.7 pg (26.0-34.0); MEAN CORPUSCULAR HGB CONC 34.2 G/dL (31.0-37.0); MEAN CORPUSCULAR VOLUME 84 fL (80-100); MONOCYTES # (AUTO) 0.6 K/uL (0.1-1.0); NEUTROPHILS # (AUTO) 1.6 K/uL (1.8-7.7); NEUTROPHILS % (AUTO) 33.3 % (40.0-70.0); PLATELET COUNT (AUTO) 200 K/uL (150-450); RED BLOOD CELL COUNT(AUTO) 4.33 MIL/uL (4.00-5.20); RED CELL DISTRIBUTION WIDTH 13.2 % (11.5-14.5)
[2018-08-23 01:01] LABS: ANION GAP 8 mmol/L (8-16); CARBON DIOXIDE 30 mmol/L (22-29); CHLORIDE 101 mmol/L (98-107); GLOMERULAR FILTR. RATE CALC > 60 mL/min (>60); GLUCOSE,RANDOM 116 mg/dL (70-110); POTASSIUM 3.5 mmol/L (3.5-5.1); SODIUM SERUM 139 mmol/L (136-145); UREA NITROGEN, BLOOD 15 mg/dL (7-18)
[2018-08-23 01:13] LABS: ALANINE AMINOTRANSFERASE 39 U/L (12-78); ALBUMIN 2.9 g/dL (3.4-5.0); ALKALINE PHOSPHATASE 191 U/L (46-116); ASPARTATE AMINOTRANSFERASE 19 U/L (15-37); BILIRUBIN,TOTAL 0.4 mg/dL (0.1-1.0); HCG,QUANTITATIVE 2 mIU/mL (0-6); TOTAL PROTEIN, SERUM 6.7 g/dL (6.4-8.2)
[2018-08-23 01:45] VITALS: BP 144/87
== END 2018-08-23 01:52 | disposition home or self-care (01) ==
LOC: EMS 22:52
DX: S00.83XA Contusion of other part of head, initial encounter (principal); F20.0 Paranoid schizophrenia; F69 Unspecified disorder of adult personality and behavior; I10 Essential (primary) hypertension; F20.9 Schizophrenia, unspecified; F17.210 Nicotine dependence, cigarettes, uncomplicated; W22.01XA Walked into wall, initial encounter; Y93.89 Activity, other specified; Y92.89 Other specified places as the place of occurrence of the external cause; Y99.8 Other external cause status
CPT/HCPCS: 36415; 80053; 84702; 85025; 99284; G0480

== ENCOUNTER 2018-08-27 11:21 | Inpatient (IN) | payer MEDICAID, OTHER ==
[~2018-08-27] VITALS: Ht 167.6 cm; Wt 73.5 kg
[~2018-08-27 11:21] MED LIST changes: +ACET-2247 PO; -BENZ2TAB10 PO; +DIPH25 PO; +DIPH50 PO; +FLEET RC; +HALO5I IM; +HALO5TAB2 PO; +IBUP-2070 PO; +LACT30L PO; +LORA2TAB2 PO; +MOM30 PO; +SIMETHICONE PO
[2018-08-27] MEDS ORDERED: DiphenhydrAMINE HCL 25 MG CAPSULE PO ONE ×2 (12:45→15:30)
[2018-08-27] MEDS ORDERED: LORazepam 2 MG TABLET PO ONE ×2 (12:45→15:30)
[2018-08-27] MEDS ORDERED: HALOPERIDOL 5 MG TABLET PO ONE ×2 (12:45→15:30)
[2018-08-27] MEDS ORDERED: FE PR (12:59)
[2018-08-27] MEDS ORDERED: SIME80 PO (12:59)
[2018-08-27 14:02] LABS: BASOPHILS % (AUTO) 0.2 % (0.0-2.0); EOSINOPHILS % (AUTO) 0.6 % (1.0-6.0); HEMATOCRIT 34.5 % (36-46); HEMOGLOBIN 11.8 g/dL (12.0-16.0); LYMPHOCYTES # (AUTO) 1.5 K/uL (1.0-4.8); LYMPHOCYTES % (AUTO) 24.7 % (22.0-44.0); MEAN CORPUSCULAR HEMOGLOBIN 28.9 pg (26.0-34.0); MEAN CORPUSCULAR HGB CONC 34.2 G/dL (31.0-37.0); MEAN CORPUSCULAR VOLUME 84 fL (80-100); MONOCYTES # (AUTO) 0.9 K/uL (0.1-1.0); MONOCYTES % (AUTO) 14.6 % (2.0-9.0); NEUTROPHILS # (AUTO) 3.5 K/uL (1.8-7.7); NEUTROPHILS % (AUTO) 59.9 % (40.0-70.0); PLATELET COUNT (AUTO) 191 K/uL (150-450); RED BLOOD CELL COUNT(AUTO) 4.09 MIL/uL (4.00-5.20); RED CELL DISTRIBUTION WIDTH 13.6 % (11.5-14.5)
[2018-08-27 14:25] LABS: ANION GAP 8 mmol/L (8-16); CALCIUM, TOTAL 8.6 mg/dL (8.8-10.5); CARBON DIOXIDE 31 mmol/L (22-29); CHLORIDE 105 mmol/L (98-107); GLOMERULAR FILTR. RATE CALC > 60 mL/min (>60); GLUCOSE,RANDOM 110 mg/dL (70-110); SODIUM SERUM 144 mmol/L (136-145); UREA NITROGEN, BLOOD 10 mg/dL (7-18)
[2018-08-27 14:27] LABS: ALANINE AMINOTRANSFERASE 32 U/L (12-78); ALBUMIN 2.6 g/dL (3.4-5.0); ALKALINE PHOSPHATASE 178 U/L (46-116); ASPARTATE AMINOTRANSFERASE 15 U/L (15-37); BILIRUBIN,TOTAL 0.5 mg/dL (0.1-1.0); TOTAL PROTEIN, SERUM 6.4 g/dL (6.4-8.2)
[2018-08-27] MEDS ORDERED: HALOPERIDOL 5 MG TABLET PO PRN (16:30)
[2018-08-28] MEDS: LORazepam 2 MG TABLET PO PRN ×2 (00:20→09:31)
[2018-08-28] MEDS: ZOLPIDEM TARTRATE 10 MG TABLET PO PRN (00:20)
[2018-08-28 00:53] VITALS: BP 148/77
[2018-08-28] MEDS ORDERED: -PHARMACY VACCINE NOTE- MISC ONE (01:00)
[2018-08-28] MEDS ORDERED: LOPERAMIDE HCL 2 MG CAPSULE PO PRN (06:30)
[2018-08-28] MEDS ORDERED: NICOTINE 14 MG/24 HOUR PATCH TD PRN (06:30)
[2018-08-28] MEDS ORDERED: MAG HYDROX/AL HYDROX/SIMETH ES 30 ML SUSPENSION UDCUP PO PRN (06:30)
[2018-08-28] MEDS ORDERED: DOCUSATE SODIUM 100 MG CAPSULE PO PRN (06:30)
[2018-08-28] MEDS ORDERED: ALBUTEROL SULFATE HFA 90 MCG/PUFF 8 GM INHALER IH PRN (06:30)
[2018-08-28] MEDS ORDERED: MAGNESIUM HYDROXIDE SUSPENSION 30 ML UDCUP PO PRN (06:30)
[2018-08-28] MEDS ORDERED: PETROLATUM,WHITE 71 GM JELLY TP PRN (06:30)
[2018-08-28] MEDS ORDERED: CloNIDine HCL 0.1 MG TABLET PO PRN (06:30)
[2018-08-28] MEDS ORDERED: ONDANSETRON HCL 4 MG TABLET PO PRN (06:30)
[2018-08-28] MEDS ORDERED: IBUPROFEN 400 MG TABLET PO PRN (06:30)
[2018-08-28] MEDS ORDERED: GuaiFENesin/D-METHORPHAN [SUGAR-FREE] 200-20MG/10 ML SYRUP UDCUP PO PRN (06:30)
[2018-08-28 11:05] VITALS: BP 146/83
[2018-08-28 15:43] LABS: APPEARANCE,URINE CLEAR (CLEAR); BILIRUBIN,URINE NEGATIVE (NEGATIVE); GLUCOSE, URINE (UA) NEGATIVE (NEGATIVE); KETONES,URINE NEGATIVE (NEGATIVE); LEUKOCYTE ESTERASE ,URINE TRACE (NEGATIVE); NITRATE,URINE NEGATIVE (NEGATIVE); OCCULT BLOOD,URINE MODERATE (NEGATIVE); PH,URINE 5.5 (5.0-8.0); PROTEIN,URINE NEGATIVE (NEGATIVE); UROBILINOGEN,URINE 0.2 mg/dL (<=1.0)
[2018-08-28 15:47] LABS: AMPHET/METH SCREEN,URINE NEGATIVE (NEGATIVE); BARBITURATE SCREEN, URINE NEGATIVE (NEGATIVE); BENZODIAZEPINES SCREEN,URINE NEGATIVE (NEGATIVE); CANNABINOID SCREEN,URINE NEGATIVE (NEGATIVE); COCAINE SCREEN,URINE NEGATIVE (NEGATIVE); METHADONE SCREEN, URINE NEGATIVE (NEGATIVE); OPIATE SCREEN,URINE NEGATIVE (NEGATIVE)
[2018-08-28 15:48] LABS: PHENCYCLIDINE SCREEN,URINE NEGATIVE (NEGATIVE)
[2018-08-28] MEDS ORDERED: LACTULOSE 20 GM/30 ML SOLUTION UDCUP PO PRN (16:00)
[2018-08-28 16:01] LABS: BACTERIA,URINE Rare /HPF (None Seen); SQUAMOUS EPITHELIAL CELL,UR Few /LPF (None Seen)
[2018-08-28] MEDS: RisperiDONE 3 MG TABLET PO SCH (16:18)
[2018-08-28] MEDS: DIVALPROEX SODIUM 500 MG ER TABLET PO SCH (17:13)
[2018-08-28 17:17] VITALS: BP 116/87
[2018-08-28] MEDS: TraZODone HCL 100 MG TABLET PO SCH (20:19)
[2018-08-28 22:44] VITALS: BP 112/68
[2018-08-28] MEDS: ACETAMINOPHEN 325 MG TABLET PO PRN (22:44)
[2018-08-29] MEDS: LORazepam 2 MG TABLET PO PRN ×2 (00:58→15:20)
[2018-08-29] MEDS: ZOLPIDEM TARTRATE 10 MG TABLET PO PRN (00:58)
[2018-08-29 06:22] LABS: BASOPHILS % (AUTO) 0.3 % (0.0-2.0); EOSINOPHILS % (AUTO) 1.2 % (1.0-6.0); HEMATOCRIT 34.5 % (36-46); HEMOGLOBIN 11.7 g/dL (12.0-16.0); LYMPHOCYTES % (AUTO) 42.4 % (22.0-44.0); MEAN CORPUSCULAR HEMOGLOBIN 28.8 pg (26.0-34.0); MEAN CORPUSCULAR VOLUME 85 fL (80-100); MONOCYTES % (AUTO) 20.9 % (2.0-9.0); NEUTROPHILS # (AUTO) 1.7 K/uL (1.8-7.7); NEUTROPHILS % (AUTO) 35.2 % (40.0-70.0); PLATELET COUNT (AUTO) 197 K/uL (150-450); RED BLOOD CELL COUNT(AUTO) 4.07 MIL/uL (4.00-5.20); RED CELL DISTRIBUTION WIDTH 13.7 % (11.5-14.5)
[2018-08-29 06:56] LABS: HEMOGLOBIN A1C 4.7 % (4.5-6.2)
[2018-08-29 07:17] LABS: ALANINE AMINOTRANSFERASE 33 U/L (12-78); ALBUMIN 2.7 g/dL (3.4-5.0); ALKALINE PHOSPHATASE 165 U/L (46-116); ANION GAP 8 mmol/L (8-16); ASPARTATE AMINOTRANSFERASE 18 U/L (15-37); BILIRUBIN,TOTAL 0.5 mg/dL (0.1-1.0); CALCIUM, TOTAL 8.5 mg/dL (8.8-10.5); CARBON DIOXIDE 27 mmol/L (22-29); CHLORIDE 108 mmol/L (98-107); CHOLESTEROL 114 mg/dL (131-200); CREATININE 0.43 mg/dL (0.60-1.30); GLOMERULAR FILTR. RATE CALC > 60 mL/min (>60); GLUCOSE,RANDOM 82 mg/dL (70-110); HDL CHOLESTEROL 56 mg/dL (40-60); LDL CHOL (CALC.) 47 mg/dL (0-130); SODIUM SERUM 143 mmol/L (136-145); THYROID STIMULATING HORMONE 0.01 uIU/mL (0.36-3.74); TOTAL PROTEIN, SERUM 6.2 g/dL (6.4-8.2); TRIGLYCERIDES 56 mg/dL (15-150); UREA NITROGEN, BLOOD 14 mg/dL (7-18)
[2018-08-29 08:05] VITALS: BP 142/79
[2018-08-29] MEDS: HYDROCHLOROTHIAZIDE 25 MG TABLET PO SCH (08:09)
[2018-08-29] MEDS: DIVALPROEX SODIUM 500 MG ER TABLET PO SCH ×2 (08:09→16:39)
[2018-08-29] MEDS: CHOLECALCIFEROL (VIT D3) 1,000 UNITS TABLET PO SCH (08:09)
[2018-08-29] MEDS: AmLODIPine BESYLATE 2.5 MG TABLET PO SCH (08:09)
[2018-08-29] MEDS: RisperiDONE 3 MG TABLET PO SCH ×3 (08:09→16:39)
[2018-08-29] MEDS: ATENOLOL 25 MG TABLET PO SCH (08:09)
[2018-08-29 17:46] VITALS: BP 139/79
[2018-08-29] MEDS: TraZODone HCL 100 MG TABLET PO SCH (20:11)
[2018-08-30] MEDS: ZOLPIDEM TARTRATE 10 MG TABLET PO PRN (00:02)
[2018-08-30 00:05] VITALS: BP 142/98
[2018-08-30 07:03] LABS: % IRON SATURATION 38.8 % (22-44)
[2018-08-30 08:39] VITALS: BP 129/69
[2018-08-30] MEDS: CEPHALEXIN MONOHYDRATE 250 MG CAPSULE PO SCH ×2 (09:19→16:29)
[2018-08-30] MEDS: ATENOLOL 25 MG TABLET PO SCH (09:20)
[2018-08-30] MEDS: DIVALPROEX SODIUM 500 MG ER TABLET PO SCH ×2 (09:20→16:28)
[2018-08-30] MEDS: AmLODIPine BESYLATE 2.5 MG TABLET PO SCH (09:20)
[2018-08-30] MEDS: CHOLECALCIFEROL (VIT D3) 1,000 UNITS TABLET PO SCH (09:20)
[2018-08-30] MEDS: HYDROCHLOROTHIAZIDE 25 MG TABLET PO SCH (09:20)
[2018-08-30] MEDS: RisperiDONE 3 MG TABLET PO SCH ×3 (09:20→16:29)
[2018-08-30] MEDS: GABAPENTIN 300 MG CAPSULE PO SCH (16:28)
[2018-08-30] MEDS: DiphenhydrAMINE HCL 25 MG CAPSULE PO SCH (16:29)
[2018-08-30 16:31] VITALS: BP 142/72
[2018-08-30] MEDS: ACETAMINOPHEN 325 MG TABLET PO PRN (16:43)
[2018-08-30] MEDS: TraZODone HCL 100 MG TABLET PO SCH (20:28)
[2018-08-31 08:27] VITALS: BP 148/91
[2018-08-31] MEDS: CHOLECALCIFEROL (VIT D3) 1,000 UNITS TABLET PO SCH (08:45)
[2018-08-31] MEDS: DiphenhydrAMINE HCL 25 MG CAPSULE PO SCH ×3 (08:46→16:40)
[2018-08-31] MEDS: AmLODIPine BESYLATE 2.5 MG TABLET PO SCH (08:46)
[2018-08-31] MEDS: HYDROCHLOROTHIAZIDE 25 MG TABLET PO SCH (08:46)
[2018-08-31] MEDS: CEPHALEXIN MONOHYDRATE 250 MG CAPSULE PO SCH ×2 (08:46→16:40)
[2018-08-31] MEDS: GABAPENTIN 300 MG CAPSULE PO SCH ×3 (08:46→16:40)
[2018-08-31] MEDS: ATENOLOL 25 MG TABLET PO SCH (08:46)
[2018-08-31] MEDS: DIVALPROEX SODIUM 500 MG ER TABLET PO SCH ×2 (08:46→16:40)
[2018-08-31] MEDS: RisperiDONE 3 MG TABLET PO SCH ×3 (08:46→16:40)
[2018-08-31] MEDS: TraZODone HCL 100 MG TABLET PO SCH (20:12)
[2018-09-01 08:00] VITALS: BP 141/81
[2018-09-01] MEDS: RisperiDONE 3 MG TABLET PO SCH ×2 (08:15→12:11)
[2018-09-01] MEDS: AmLODIPine BESYLATE 2.5 MG TABLET PO SCH (08:15)
[2018-09-01] MEDS: HYDROCHLOROTHIAZIDE 25 MG TABLET PO SCH (08:15)
[2018-09-01] MEDS: CHOLECALCIFEROL (VIT D3) 1,000 UNITS TABLET PO SCH (08:15)
[2018-09-01] MEDS: CEPHALEXIN MONOHYDRATE 250 MG CAPSULE PO SCH (08:15)
[2018-09-01] MEDS: GABAPENTIN 300 MG CAPSULE PO SCH ×2 (08:15→12:11)
[2018-09-01] MEDS: ATENOLOL 25 MG TABLET PO SCH (08:16)
[2018-09-01] MEDS: DiphenhydrAMINE HCL 25 MG CAPSULE PO SCH ×2 (08:16→12:10)
[2018-09-01] MEDS: DIVALPROEX SODIUM 500 MG ER TABLET PO SCH (08:16)
[2018-09-01] MEDS ORDERED: CEPH250 PO (12:08)
== END 2018-09-01 13:30 | DRG 750 ==
LOC: EMS 11:22 → 3EC 22:26
DX: F20.0 Paranoid schizophrenia (principal); F79 Unspecified intellectual disabilities; D64.9 Anemia, unspecified; E55.9 Vitamin D deficiency, unspecified; I10 Essential (primary) hypertension; K59.09 Other constipation; R45.1 Restlessness and agitation; G40.909 Epilepsy, unspecified, not intractable, without status epilepticus; Z91.5 Personal history of self-harm; Z79.899 Other long term (current) drug therapy; Z87.891 Personal history of nicotine dependence
CPT/HCPCS: 80307; 82728; 83036; 83540; 83550; 84443; 87081; 87086; G0480

== ENCOUNTER 2018-09-05 00:53 | Inpatient (IN) | payer MEDICAID, OTHER ==
[~2018-09-05] VITALS: Ht 170.2 cm; Wt 74.9 kg
[~2018-09-05 00:53] MED LIST changes: -ACET-2247 PO; +CEPH250 PO; -DIPH50 PO; -DOCU250C91 PO; -FLEET RC; -HALO5I IM; -IBUP-2070 PO; -LACT30L PO; -MOM30 PO; -SIMETHICONE PO
[2018-09-05 02:32] LABS: BASOPHILS % (AUTO) 0.3 % (0.0-2.0); EOSINOPHILS % (AUTO) 0.8 % (1.0-6.0); HEMATOCRIT 32.9 % (36-46); HEMOGLOBIN 11.6 g/dL (12.0-16.0); LYMPHOCYTES # (AUTO) 2.1 K/uL (1.0-4.8); LYMPHOCYTES % (AUTO) 47.5 % (22.0-44.0); MEAN CORPUSCULAR HEMOGLOBIN 29.3 pg (26.0-34.0); MEAN CORPUSCULAR HGB CONC 35.3 G/dL (31.0-37.0); MEAN CORPUSCULAR VOLUME 83 fL (80-100); MONOCYTES # (AUTO) 0.6 K/uL (0.1-1.0); MONOCYTES % (AUTO) 12.8 % (2.0-9.0); NEUTROPHILS # (AUTO) 1.7 K/uL (1.8-7.7); NEUTROPHILS % (AUTO) 38.6 % (40.0-70.0); PLATELET COUNT (AUTO) 220 K/uL (150-450); RED BLOOD CELL COUNT(AUTO) 3.96 MIL/uL (4.00-5.20); RED CELL DISTRIBUTION WIDTH 13.6 % (11.5-14.5)
[2018-09-05 03:06] LABS: ANION GAP 7 mmol/L (8-16); CALCIUM, TOTAL 9.2 mg/dL (8.8-10.5); CARBON DIOXIDE 31 mmol/L (22-29); CHLORIDE 105 mmol/L (98-107); CREATININE 0.68 mg/dL (0.60-1.30); GLOMERULAR FILTR. RATE CALC > 60 mL/min (>60); GLUCOSE,RANDOM 114 mg/dL (70-110); POTASSIUM 3.7 mmol/L (3.5-5.1); SODIUM SERUM 143 mmol/L (136-145); UREA NITROGEN, BLOOD 13 mg/dL (7-18)
[2018-09-05 03:12] LABS: ALANINE AMINOTRANSFERASE 43 U/L (12-78); ALBUMIN 2.7 g/dL (3.4-5.0); ALKALINE PHOSPHATASE 195 U/L (46-116); ASPARTATE AMINOTRANSFERASE 21 U/L (15-37); BILIRUBIN,TOTAL 0.3 mg/dL (0.1-1.0); TOTAL PROTEIN, SERUM 6.4 g/dL (6.4-8.2)
[2018-09-05 03:29] LABS: HCG,QUANTITATIVE 1 mIU/mL (0-6)
[2018-09-05 06:11] LABS: APPEARANCE,URINE CLEAR (CLEAR); BILIRUBIN,URINE NEGATIVE (NEGATIVE); GLUCOSE, URINE (UA) NEGATIVE (NEGATIVE); KETONES,URINE NEGATIVE (NEGATIVE); LEUKOCYTE ESTERASE ,URINE TRACE (NEGATIVE); NITRATE,URINE NEGATIVE (NEGATIVE); OCCULT BLOOD,URINE MODERATE (NEGATIVE); PH,URINE 5.5 (5.0-8.0); PROTEIN,URINE NEGATIVE (NEGATIVE); UROBILINOGEN,URINE 0.2 mg/dL (<=1.0)
[2018-09-05 06:33] LABS: AMPHET/METH SCREEN,URINE NEGATIVE (NEGATIVE); BARBITURATE SCREEN, URINE NEGATIVE (NEGATIVE); BENZODIAZEPINES SCREEN,URINE NEGATIVE (NEGATIVE); CANNABINOID SCREEN,URINE NEGATIVE (NEGATIVE); COCAINE SCREEN,URINE NEGATIVE (NEGATIVE); METHADONE SCREEN, URINE NEGATIVE (NEGATIVE); OPIATE SCREEN,URINE NEGATIVE (NEGATIVE)
[2018-09-05 06:39] LABS: BACTERIA,URINE Rare /HPF (None Seen); RBC,URINE 0-2 /HPF (0-2); SQUAMOUS EPITHELIAL CELL,UR Few /LPF (None Seen)
[2018-09-05] MEDS ORDERED: RisperiDONE 1 MG TABLET PO ONE (06:45)
[2018-09-05] MEDS ORDERED: DIVALPROEX SODIUM 500 MG ER TABLET PO ONE (06:45)
[2018-09-05] MEDS ORDERED: DiphenhydrAMINE HCL 25 MG CAPSULE PO ONE (06:45)
[2018-09-05] MEDS ORDERED: LORazepam 1 MG TABLET PO ONE (06:45)
[2018-09-05 06:46] LABS: PHENCYCLIDINE SCREEN,URINE NEGATIVE (NEGATIVE)
[2018-09-05 07:15] LABS: VALPROIC ACID 53 mcg/mL (50-100)
[2018-09-05] MEDS: LORazepam 2 MG TABLET PO PRN ×2 (10:50→17:30)
[2018-09-05] MEDS: ESCITALOPRAM OXALATE 10 MG TABLET PO SCH (10:50)
[2018-09-05] MEDS: DIVALPROEX SODIUM 500 MG ER TABLET PO SCH ×2 (10:50→17:30)
[2018-09-05] MEDS: HALOPERIDOL 5 MG TABLET PO PRN ×2 (10:50→17:30)
[2018-09-05] MEDS ORDERED: MAGNESIUM HYDROXIDE SUSPENSION 30 ML UDCUP PO PRN (11:00)
[2018-09-05] MEDS ORDERED: DOCUSATE SODIUM 100 MG CAPSULE PO PRN (11:00)
[2018-09-05] MEDS ORDERED: MAG HYDROX/AL HYDROX/SIMETH ES 30 ML SUSPENSION UDCUP PO PRN (11:00)
[2018-09-05] MEDS ORDERED: CloNIDine HCL 0.1 MG TABLET PO PRN (11:00)
[2018-09-05] MEDS ORDERED: ALBUTEROL SULFATE HFA 90 MCG/PUFF 8 GM INHALER IH PRN (11:00)
[2018-09-05] MEDS ORDERED: GuaiFENesin/D-METHORPHAN [SUGAR-FREE] 200-20MG/10 ML SYRUP UDCUP PO PRN (11:00)
[2018-09-05] MEDS ORDERED: IBUPROFEN 400 MG TABLET PO PRN (11:00)
[2018-09-05] MEDS ORDERED: LOPERAMIDE HCL 2 MG CAPSULE PO PRN (11:00)
[2018-09-05] MEDS ORDERED: PETROLATUM,WHITE 71 GM JELLY TP PRN (11:00)
[2018-09-05] MEDS ORDERED: NICOTINE 14 MG/24 HOUR PATCH TD PRN (11:00)
[2018-09-05] MEDS ORDERED: ONDANSETRON HCL 4 MG TABLET PO PRN (11:00)
[2018-09-05] MEDS ORDERED: ACETAMINOPHEN 325 MG TABLET PO PRN (11:00)
[2018-09-05 11:18] VITALS: BP 143/80
[2018-09-05] MEDS: DiphenhydrAMINE HCL 25 MG CAPSULE PO SCH ×2 (12:14→17:30)
[2018-09-05] MEDS ORDERED: -PHARMACY VACCINE NOTE- MISC ONE (12:15)
[2018-09-05] MEDS: GABAPENTIN 300 MG CAPSULE PO SCH ×2 (12:18→17:30)
[2018-09-05] MEDS: RisperiDONE 3 MG TABLET PO SCH ×2 (12:21→17:31)
[2018-09-05] MEDS ORDERED: GABAPENTIN 300 MG CAPSULE PO SCH (13:00)
[2018-09-05 16:06] VITALS: BP 122/89
[2018-09-05] MEDS: TraZODone HCL 100 MG TABLET PO SCH (20:09)
[2018-09-06 06:49] VITALS: BP 140/97
[2018-09-06 07:26] LABS: BASOPHILS % (AUTO) 0.2 % (0.0-2.0); EOSINOPHILS % (AUTO) 0.8 % (1.0-6.0); HEMATOCRIT 34.1 % (36-46); LYMPHOCYTES # (AUTO) 1.7 K/uL (1.0-4.8); LYMPHOCYTES % (AUTO) 40.4 % (22.0-44.0); MEAN CORPUSCULAR HEMOGLOBIN 29.5 pg (26.0-34.0); MEAN CORPUSCULAR HGB CONC 35.1 G/dL (31.0-37.0); MEAN CORPUSCULAR VOLUME 84 fL (80-100); MONOCYTES # (AUTO) 0.6 K/uL (0.1-1.0); MONOCYTES % (AUTO) 13.6 % (2.0-9.0); NEUTROPHILS # (AUTO) 1.9 K/uL (1.8-7.7); PLATELET COUNT (AUTO) 203 K/uL (150-450); RED BLOOD CELL COUNT(AUTO) 4.06 MIL/uL (4.00-5.20); RED CELL DISTRIBUTION WIDTH 13.6 % (11.5-14.5)
[2018-09-06 07:51] LABS: ALANINE AMINOTRANSFERASE 51 U/L (12-78); ALBUMIN 2.6 g/dL (3.4-5.0); ALKALINE PHOSPHATASE 185 U/L (46-116); ANION GAP 7 mmol/L (8-16); ASPARTATE AMINOTRANSFERASE 24 U/L (15-37); BILIRUBIN,TOTAL 0.4 mg/dL (0.1-1.0); CALCIUM, TOTAL 9.4 mg/dL (8.8-10.5); CARBON DIOXIDE 29 mmol/L (22-29); CHLORIDE 109 mmol/L (98-107); CHOL/HDL RATIO 2.1 (3.9-5.7); CHOLESTEROL 110 mg/dL (131-200); CREATININE 0.51 mg/dL (0.60-1.30); GLOMERULAR FILTR. RATE CALC > 60 mL/min (>60); GLUCOSE,RANDOM 71 mg/dL (70-110); HDL CHOLESTEROL 52 mg/dL (40-60); HEMOGLOBIN A1C 4.6 % (4.5-6.2); LDL CHOL (CALC.) 49 mg/dL (0-130); POTASSIUM 3.9 mmol/L (3.5-5.1); SODIUM SERUM 145 mmol/L (136-145); TOTAL PROTEIN, SERUM 6.6 g/dL (6.4-8.2); TRIGLYCERIDES 43 mg/dL (15-150); UREA NITROGEN, BLOOD 15 mg/dL (7-18)
[2018-09-06 07:54] LABS: THYROID STIMULATING HORMONE < 0.01 uIU/mL (0.36-3.74)
[2018-09-06] MEDS: DiphenhydrAMINE HCL 25 MG CAPSULE PO SCH ×3 (09:02→16:21)
[2018-09-06] MEDS: GABAPENTIN 300 MG CAPSULE PO SCH ×3 (09:02→16:21)
[2018-09-06] MEDS: DIVALPROEX SODIUM 500 MG ER TABLET PO SCH ×2 (09:02→16:21)
[2018-09-06] MEDS: ESCITALOPRAM OXALATE 10 MG TABLET PO SCH (09:03)
[2018-09-06] MEDS: HYDROCHLOROTHIAZIDE 25 MG TABLET PO SCH (09:03)
[2018-09-06] MEDS: RisperiDONE 3 MG TABLET PO SCH ×3 (09:03→16:21)
[2018-09-06] MEDS: CHOLECALCIFEROL (VIT D3) 1,000 UNITS TABLET PO SCH (09:03)
[2018-09-06] MEDS: ATENOLOL 25 MG TABLET PO SCH (09:03)
[2018-09-06 13:51] VITALS: BP 125/67
[2018-09-06 16:12] VITALS: BP 139/77
[2018-09-06] MEDS: HALOPERIDOL 5 MG TABLET PO PRN (17:20)
[2018-09-06] MEDS: LORazepam 2 MG TABLET PO PRN (17:20)
[2018-09-06] MEDS: TraZODone HCL 100 MG TABLET PO SCH (20:21)
[2018-09-06] MEDS: ZOLPIDEM TARTRATE 10 MG TABLET PO PRN (20:21)
[2018-09-07 07:01] VITALS: BP 130/74
[2018-09-07] MEDS: DiphenhydrAMINE HCL 25 MG CAPSULE PO SCH ×3 (08:09→17:07)
[2018-09-07] MEDS: ESCITALOPRAM OXALATE 10 MG TABLET PO SCH (08:09)
[2018-09-07] MEDS: DIVALPROEX SODIUM 500 MG ER TABLET PO SCH ×2 (08:09→17:07)
[2018-09-07] MEDS: CHOLECALCIFEROL (VIT D3) 1,000 UNITS TABLET PO SCH (08:09)
[2018-09-07] MEDS: GABAPENTIN 300 MG CAPSULE PO SCH ×3 (08:09→17:07)
[2018-09-07] MEDS: ATENOLOL 25 MG TABLET PO SCH (08:09)
[2018-09-07] MEDS: RisperiDONE 3 MG TABLET PO SCH ×3 (08:09→17:07)
[2018-09-07] MEDS: HYDROCHLOROTHIAZIDE 25 MG TABLET PO SCH (08:09)
[2018-09-07 08:14] VITALS: BP 145/102
[2018-09-07] MEDS: HALOPERIDOL 5 MG TABLET PO PRN (16:15)
[2018-09-07] MEDS: LORazepam 2 MG TABLET PO PRN (16:15)
[2018-09-07 16:26] VITALS: BP 120/62
[2018-09-07] MEDS: TraZODone HCL 100 MG TABLET PO SCH (20:42)
[2018-09-08 06:35] VITALS: BP 127/69
[2018-09-08] MEDS: RisperiDONE 3 MG TABLET PO SCH ×3 (08:10→16:35)
[2018-09-08] MEDS: HYDROCHLOROTHIAZIDE 25 MG TABLET PO SCH (08:10)
[2018-09-08] MEDS: ATENOLOL 25 MG TABLET PO SCH (08:11)
[2018-09-08] MEDS: CHOLECALCIFEROL (VIT D3) 1,000 UNITS TABLET PO SCH (08:11)
[2018-09-08] MEDS: GABAPENTIN 300 MG CAPSULE PO SCH ×3 (08:11→16:34)
[2018-09-08] MEDS: DiphenhydrAMINE HCL 25 MG CAPSULE PO SCH ×3 (08:11→16:34)
[2018-09-08] MEDS: DIVALPROEX SODIUM 500 MG ER TABLET PO SCH ×2 (08:11→16:35)
[2018-09-08 08:13] VITALS: BP 145/99
[2018-09-08] MEDS: ESCITALOPRAM OXALATE 10 MG TABLET PO SCH (08:13)
[2018-09-08 16:08] VITALS: BP 141/67
[2018-09-08] MEDS: LORazepam 2 MG TABLET PO PRN (16:35)
[2018-09-08] MEDS: HALOPERIDOL 5 MG TABLET PO PRN (16:35)
[2018-09-08] MEDS: ZOLPIDEM TARTRATE 10 MG TABLET PO PRN (20:33)
[2018-09-08] MEDS: TraZODone HCL 100 MG TABLET PO SCH (20:33)
[2018-09-09 07:08] VITALS: BP 129/70
[2018-09-09 08:11] VITALS: BP 126/66
[2018-09-09] MEDS: ATENOLOL 25 MG TABLET PO SCH (08:13)
[2018-09-09] MEDS: DIVALPROEX SODIUM 500 MG ER TABLET PO SCH ×2 (08:13→16:33)
[2018-09-09] MEDS: ESCITALOPRAM OXALATE 10 MG TABLET PO SCH (08:13)
[2018-09-09] MEDS: HYDROCHLOROTHIAZIDE 25 MG TABLET PO SCH (08:13)
[2018-09-09] MEDS: CEPHALEXIN MONOHYDRATE 250 MG CAPSULE PO SCH ×2 (08:13→16:34)
[2018-09-09] MEDS: GABAPENTIN 300 MG CAPSULE PO SCH ×3 (08:14→17:44)
[2018-09-09] MEDS: CHOLECALCIFEROL (VIT D3) 1,000 UNITS TABLET PO SCH (08:14)
[2018-09-09] MEDS: RisperiDONE 3 MG TABLET PO SCH ×3 (08:14→16:33)
[2018-09-09] MEDS: DiphenhydrAMINE HCL 25 MG CAPSULE PO SCH ×3 (08:14→16:33)
[2018-09-09] MEDS: LORazepam 2 MG TABLET PO PRN ×2 (12:24→16:34)
[2018-09-09 16:16] VITALS: BP 140/68
[2018-09-09] MEDS: HALOPERIDOL 5 MG TABLET PO PRN (16:34)
[2018-09-09] MEDS: TraZODone HCL 100 MG TABLET PO SCH (20:26)
[2018-09-10 06:26] VITALS: BP 128/70
[2018-09-10 08:04] VITALS: BP 150/74
[2018-09-10] MEDS: CEPHALEXIN MONOHYDRATE 250 MG CAPSULE PO SCH (08:36)
[2018-09-10] MEDS: CHOLECALCIFEROL (VIT D3) 1,000 UNITS TABLET PO SCH (08:36)
[2018-09-10] MEDS: ATENOLOL 25 MG TABLET PO SCH (08:36)
[2018-09-10] MEDS: HYDROCHLOROTHIAZIDE 25 MG TABLET PO SCH (08:36)
[2018-09-10] MEDS: RisperiDONE 3 MG TABLET PO SCH ×2 (08:37→12:56)
[2018-09-10] MEDS: ESCITALOPRAM OXALATE 10 MG TABLET PO SCH (08:37)
[2018-09-10] MEDS: GABAPENTIN 300 MG CAPSULE PO SCH ×2 (08:37→12:55)
[2018-09-10] MEDS: DiphenhydrAMINE HCL 25 MG CAPSULE PO SCH ×2 (08:37→12:55)
[2018-09-10] MEDS: DIVALPROEX SODIUM 500 MG ER TABLET PO SCH (08:42)
== END 2018-09-10 16:42 | disposition short-term general hospital (02) | DRG 750 ==
LOC: EMS 00:55 → B3A 06:11
DX: F25.1 Schizoaffective disorder, depressive type (principal); F79 Unspecified intellectual disabilities; E55.9 Vitamin D deficiency, unspecified; G40.909 Epilepsy, unspecified, not intractable, without status epilepticus; I10 Essential (primary) hypertension; N39.0 Urinary tract infection, site not specified; F41.9 Anxiety disorder, unspecified; F32.9 Major depressive disorder, single episode, unspecified; K59.00 Constipation, unspecified; S61.519A Laceration without foreign body of unspecified wrist, initial encounter; X78.8XXA Intentional self-harm by other sharp object, initial encounter; Y93.89 Activity, other specified; Z87.891 Personal history of nicotine dependence; Z79.899 Other long term (current) drug therapy; Z91.5 Personal history of self-harm; Y92.89 Other specified places as the place of occurrence of the external cause; Y99.8 Other external cause status; Z28.21 Immunization not carried out because of patient refusal
CPT/HCPCS: 83036; 84443; 87081; 87086

== ENCOUNTER 2018-09-11 23:39 | Inpatient (IN) | payer MEDICAID, OTHER ==
[~2018-09-11] VITALS: Ht 170.2 cm; Wt 76.9 kg
[2018-09-12 02:32] LABS: BASOPHILS % (AUTO) 0.3 % (0.0-2.0); EOSINOPHILS % (AUTO) 0.7 % (1.0-6.0); HEMATOCRIT 34.3 % (36-46); HEMOGLOBIN 11.6 g/dL (12.0-16.0); LYMPHOCYTES # (AUTO) 2.1 K/uL (1.0-4.8); LYMPHOCYTES % (AUTO) 48.4 % (22.0-44.0); MEAN CORPUSCULAR HEMOGLOBIN 28.5 pg (26.0-34.0); MEAN CORPUSCULAR HGB CONC 33.8 G/dL (31.0-37.0); MEAN CORPUSCULAR VOLUME 84 fL (80-100); MONOCYTES # (AUTO) 0.6 K/uL (0.1-1.0); MONOCYTES % (AUTO) 13.6 % (2.0-9.0); NEUTROPHILS # (AUTO) 1.6 K/uL (1.8-7.7); PLATELET COUNT (AUTO) 204 K/uL (150-450); RED BLOOD CELL COUNT(AUTO) 4.07 MIL/uL (4.00-5.20); RED CELL DISTRIBUTION WIDTH 13.3 % (11.5-14.5)
[2018-09-12 02:40] LABS: ANION GAP 8 mmol/L (8-16); CALCIUM, TOTAL 9.2 mg/dL (8.8-10.5); CARBON DIOXIDE 30 mmol/L (22-29); CHLORIDE 102 mmol/L (98-107); CREATININE 0.59 mg/dL (0.60-1.30); GLOMERULAR FILTR. RATE CALC > 60 mL/min (>60); GLUCOSE,RANDOM 84 mg/dL (70-110); POTASSIUM 3.4 mmol/L (3.5-5.1); SODIUM SERUM 140 mmol/L (136-145); UREA NITROGEN, BLOOD 10 mg/dL (7-18)
[2018-09-12 02:53] LABS: ALANINE AMINOTRANSFERASE 39 U/L (12-78); ALBUMIN 2.7 g/dL (3.4-5.0); ALKALINE PHOSPHATASE 197 U/L (46-116); ASPARTATE AMINOTRANSFERASE 22 U/L (15-37); HCG,QUANTITATIVE 1 mIU/mL (0-6); TOTAL PROTEIN, SERUM 6.8 g/dL (6.4-8.2); VALPROIC ACID 52 mcg/mL (50-100)
[2018-09-12 02:55] LABS: AMPHET/METH SCREEN,URINE NEGATIVE (NEGATIVE); BARBITURATE SCREEN, URINE NEGATIVE (NEGATIVE); BENZODIAZEPINES SCREEN,URINE NEGATIVE (NEGATIVE); CANNABINOID SCREEN,URINE NEGATIVE (NEGATIVE); COCAINE SCREEN,URINE NEGATIVE (NEGATIVE); METHADONE SCREEN, URINE NEGATIVE (NEGATIVE); OPIATE SCREEN,URINE NEGATIVE (NEGATIVE)
[2018-09-12 02:58] LABS: PHENCYCLIDINE SCREEN,URINE NEGATIVE (NEGATIVE)
[2018-09-12 03:05] LABS: BILIRUBIN,TOTAL 0.4 mg/dL (0.1-1.0)
[2018-09-12] MEDS: LORazepam 2 MG TABLET PO PRN ×3 (05:09→21:10)
[2018-09-12 08:20] VITALS: BP 125/71
[2018-09-12] MEDS ORDERED: CloNIDine HCL 0.1 MG TABLET PO PRN (08:45)
[2018-09-12] MEDS ORDERED: MAGNESIUM HYDROXIDE SUSPENSION 30 ML UDCUP PO PRN (08:45)
[2018-09-12] MEDS ORDERED: LOPERAMIDE HCL 2 MG CAPSULE PO PRN (08:45)
[2018-09-12] MEDS ORDERED: PETROLATUM,WHITE 71 GM JELLY TP PRN (08:45)
[2018-09-12] MEDS ORDERED: MAG HYDROX/AL HYDROX/SIMETH ES 30 ML SUSPENSION UDCUP PO PRN (08:45)
[2018-09-12] MEDS ORDERED: NICOTINE 14 MG/24 HOUR PATCH TD PRN (08:45)
[2018-09-12] MEDS ORDERED: DOCUSATE SODIUM 100 MG CAPSULE PO PRN (08:45)
[2018-09-12] MEDS ORDERED: ONDANSETRON HCL 4 MG TABLET PO PRN (08:45)
[2018-09-12] MEDS ORDERED: IBUPROFEN 400 MG TABLET PO PRN (08:45)
[2018-09-12] MEDS ORDERED: ACETAMINOPHEN 325 MG TABLET PO PRN (08:45)
[2018-09-12] MEDS ORDERED: GuaiFENesin/D-METHORPHAN [SUGAR-FREE] 200-20MG/10 ML SYRUP UDCUP PO PRN (08:45)
[2018-09-12] MEDS ORDERED: ALBUTEROL SULFATE HFA 90 MCG/PUFF 8 GM INHALER IH PRN (08:45)
[2018-09-12] MEDS ORDERED: POTASSIUM CHLORIDE 10% 40 MEQ/30 ML LIQUID UDCUP PO ONE (09:00)
[2018-09-12] MEDS: ATENOLOL 25 MG TABLET PO SCH (09:00)
[2018-09-12] MEDS: CHOLECALCIFEROL (VIT D3) 1,000 UNITS TABLET PO SCH (09:42)
[2018-09-12] MEDS ORDERED: -PHARMACY VACCINE NOTE- MISC ONE (12:00)
[2018-09-12] MEDS: RisperiDONE 3 MG TABLET PO SCH ×3 (12:04→16:17)
[2018-09-12] MEDS: DIVALPROEX SODIUM 500 MG ER TABLET PO SCH ×2 (12:04→16:17)
[2018-09-12] MEDS: GABAPENTIN 300 MG CAPSULE PO SCH ×2 (12:04→16:17)
[2018-09-12] MEDS: ESCITALOPRAM OXALATE 10 MG TABLET PO SCH (12:04)
[2018-09-12] MEDS: DiphenhydrAMINE HCL 25 MG CAPSULE PO SCH ×3 (12:04→16:17)
[2018-09-12] MEDS: HALOPERIDOL 5 MG TABLET PO PRN (14:55)
[2018-09-12 16:28] VITALS: BP 134/60
[2018-09-12] MEDS: TraZODone HCL 100 MG TABLET PO SCH (20:08)
[2018-09-12 21:05] VITALS: BP 134/65
[2018-09-12] MEDS: ZOLPIDEM TARTRATE 10 MG TABLET PO PRN (21:32)
[2018-09-13 06:44] VITALS: BP 143/89
[2018-09-13 08:28] VITALS: BP 135/61
[2018-09-13 08:32] LABS: BASOPHILS % (AUTO) 0.2 % (0.0-2.0); EOSINOPHILS % (AUTO) 1.4 % (1.0-6.0); HEMATOCRIT 32.3 % (36-46); LYMPHOCYTES # (AUTO) 1.7 K/uL (1.0-4.8); LYMPHOCYTES % (AUTO) 48.6 % (22.0-44.0); MEAN CORPUSCULAR HEMOGLOBIN 28.9 pg (26.0-34.0); MEAN CORPUSCULAR HGB CONC 34.1 G/dL (31.0-37.0); MEAN CORPUSCULAR VOLUME 85 fL (80-100); MONOCYTES # (AUTO) 0.6 K/uL (0.1-1.0); MONOCYTES % (AUTO) 16.7 % (2.0-9.0); NEUTROPHILS # (AUTO) 1.2 K/uL (1.8-7.7); NEUTROPHILS % (AUTO) 33.1 % (40.0-70.0); PLATELET COUNT (AUTO) 210 K/uL (150-450); RED BLOOD CELL COUNT(AUTO) 3.81 MIL/uL (4.00-5.20); RED CELL DISTRIBUTION WIDTH 13.4 % (11.5-14.5)
[2018-09-13 09:05] LABS: HEMOGLOBIN A1C 4.8 % (4.5-6.2)
[2018-09-13 09:29] LABS: ALANINE AMINOTRANSFERASE 32 U/L (12-78); ALBUMIN 2.5 g/dL (3.4-5.0); ALKALINE PHOSPHATASE 185 U/L (46-116); ANION GAP 7 mmol/L (8-16); ASPARTATE AMINOTRANSFERASE 18 U/L (15-37); BILIRUBIN,TOTAL 0.4 mg/dL (0.1-1.0); CALCIUM, TOTAL 9.3 mg/dL (8.8-10.5); CARBON DIOXIDE 28 mmol/L (22-29); CHLORIDE 106 mmol/L (98-107); CHOL/HDL RATIO 2.1 (3.9-5.7); CHOLESTEROL 93 mg/dL (131-200); CREATININE 0.57 mg/dL (0.60-1.30); GLOMERULAR FILTR. RATE CALC > 60 mL/min (>60); GLUCOSE,RANDOM 77 mg/dL (70-110); HDL CHOLESTEROL 44 mg/dL (40-60); LDL CHOL (CALC.) 39 mg/dL (0-130); POTASSIUM 3.8 mmol/L (3.5-5.1); SODIUM SERUM 141 mmol/L (136-145); THYROID STIMULATING HORMONE < 0.01 uIU/mL (0.36-3.74); TOTAL PROTEIN, SERUM 6.4 g/dL (6.4-8.2); TRIGLYCERIDES 52 mg/dL (15-150); UREA NITROGEN, BLOOD 10 mg/dL (7-18)
[2018-09-13] MEDS: CHOLECALCIFEROL (VIT D3) 1,000 UNITS TABLET PO SCH (10:08)
[2018-09-13] MEDS: DIVALPROEX SODIUM 500 MG ER TABLET PO SCH ×2 (10:08→16:24)
[2018-09-13] MEDS: RisperiDONE 3 MG TABLET PO SCH ×3 (10:08→16:24)
[2018-09-13] MEDS: GABAPENTIN 300 MG CAPSULE PO SCH ×3 (10:08→16:24)
[2018-09-13] MEDS: DiphenhydrAMINE HCL 25 MG CAPSULE PO SCH ×3 (10:08→16:24)
[2018-09-13] MEDS: HYDROCHLOROTHIAZIDE 25 MG TABLET PO SCH (10:08)
[2018-09-13] MEDS: ESCITALOPRAM OXALATE 10 MG TABLET PO SCH (10:08)
[2018-09-13] MEDS: ATENOLOL 25 MG TABLET PO SCH (10:15)
[2018-09-13] MEDS: AmLODIPine BESYLATE 2.5 MG TABLET PO SCH (10:15)
[2018-09-13] MEDS: LORazepam 2 MG TABLET PO PRN ×2 (10:39→20:17)
[2018-09-13] MEDS: HALOPERIDOL 5 MG TABLET PO PRN (10:57)
[2018-09-13 16:01] VITALS: BP 130/68
[2018-09-13] MEDS: TraZODone HCL 100 MG TABLET PO SCH (21:03)
[2018-09-14 07:08] VITALS: BP 125/70
[2018-09-14 08:09] VITALS: BP 146/81
[2018-09-14] MEDS: ATENOLOL 25 MG TABLET PO SCH (09:34)
[2018-09-14] MEDS: DIVALPROEX SODIUM 500 MG ER TABLET PO SCH ×2 (09:34→17:09)
[2018-09-14] MEDS: AmLODIPine BESYLATE 2.5 MG TABLET PO SCH (09:34)
[2018-09-14] MEDS: HYDROCHLOROTHIAZIDE 25 MG TABLET PO SCH (09:34)
[2018-09-14] MEDS: DiphenhydrAMINE HCL 25 MG CAPSULE PO SCH ×3 (09:34→17:10)
[2018-09-14] MEDS: RisperiDONE 3 MG TABLET PO SCH ×3 (09:34→17:10)
[2018-09-14] MEDS: GABAPENTIN 300 MG CAPSULE PO SCH ×3 (09:35→17:10)
[2018-09-14] MEDS: ESCITALOPRAM OXALATE 10 MG TABLET PO SCH (09:35)
[2018-09-14] MEDS: LORazepam 2 MG TABLET PO PRN ×3 (09:37→20:12)
[2018-09-14] MEDS: CHOLECALCIFEROL (VIT D3) 1,000 UNITS TABLET PO SCH (09:52)
[2018-09-14 16:04] VITALS: BP 122/60
[2018-09-14] MEDS: HALOPERIDOL 5 MG TABLET PO PRN (18:50)
[2018-09-14] MEDS: TraZODone HCL 100 MG TABLET PO SCH (20:31)
[2018-09-15 06:28] VITALS: BP 126/83
[2018-09-15 08:13] VITALS: BP 145/58
[2018-09-15] MEDS: HYDROCHLOROTHIAZIDE 25 MG TABLET PO SCH (08:38)
[2018-09-15] MEDS: RisperiDONE 3 MG TABLET PO SCH ×2 (08:38→12:23)
[2018-09-15] MEDS: CHOLECALCIFEROL (VIT D3) 1,000 UNITS TABLET PO SCH (08:38)
[2018-09-15] MEDS: DiphenhydrAMINE HCL 25 MG CAPSULE PO SCH ×3 (08:38→16:36)
[2018-09-15] MEDS: ESCITALOPRAM OXALATE 10 MG TABLET PO SCH (08:38)
[2018-09-15] MEDS: AmLODIPine BESYLATE 2.5 MG TABLET PO SCH (08:38)
[2018-09-15] MEDS: ATENOLOL 25 MG TABLET PO SCH (08:38)
[2018-09-15] MEDS: DIVALPROEX SODIUM 500 MG ER TABLET PO SCH (08:38)
[2018-09-15] MEDS: GABAPENTIN 300 MG CAPSULE PO SCH ×3 (08:38→16:36)
[2018-09-15] MEDS ORDERED: PALIPERIDONE PALMITATE 234 MG/1.5 ML SYRINGE IM ONE (14:00)
[2018-09-15 15:48] VITALS: BP 132/62
[2018-09-15] MEDS: RisperiDONE CONC 3 MG/3 ML SOLUTION ORAL.SYG PO SCH (16:36)
[2018-09-15 16:51] VITALS: BP 142/62
[2018-09-15 17:30] VITALS: BP 133/72
[2018-09-15] MEDS: TraZODone HCL 100 MG TABLET PO SCH (20:16)
[2018-09-15] MEDS: VALPROIC ACID 250 MG/5 ML SYRUP UDCUP PO SCH (20:16)
[2018-09-16] MEDS: ZOLPIDEM TARTRATE 10 MG TABLET PO PRN ×2 (00:22→23:38)
[2018-09-16] MEDS: LORazepam 2 MG TABLET PO PRN ×3 (00:37→23:38)
[2018-09-16] MEDS ORDERED: LORazepam 2 MG/ML VIAL ONE (02:07)
[2018-09-16] MEDS ORDERED: DiphenhydrAMINE HCL 50 MG/ML VIAL ONE (02:07)
[2018-09-16] MEDS ORDERED: HALOPERIDOL LACTATE 5 MG/ML VIAL ONE (02:07)
[2018-09-16] MEDS ORDERED: HALOPERIDOL LACTATE 5 MG/ML VIAL IM ONE (02:15)
[2018-09-16] MEDS ORDERED: LORazepam 2 MG/ML VIAL IM ONE (02:15)
[2018-09-16] MEDS ORDERED: DiphenhydrAMINE HCL 50 MG/ML VIAL IM ONE (02:15)
[2018-09-16 07:22] VITALS: BP 131/82
[2018-09-16 08:00] VITALS: BP 148/72
[2018-09-16] MEDS: CHOLECALCIFEROL (VIT D3) 1,000 UNITS TABLET PO SCH (09:42)
[2018-09-16] MEDS: VALPROIC ACID 250 MG/5 ML SYRUP UDCUP PO SCH ×2 (09:42→20:36)
[2018-09-16] MEDS: GABAPENTIN 300 MG CAPSULE PO SCH ×3 (09:43→17:17)
[2018-09-16] MEDS: DiphenhydrAMINE HCL 25 MG CAPSULE PO SCH ×3 (09:43→17:17)
[2018-09-16] MEDS: AmLODIPine BESYLATE 2.5 MG TABLET PO SCH (09:43)
[2018-09-16] MEDS: ESCITALOPRAM OXALATE 10 MG TABLET PO SCH (09:43)
[2018-09-16] MEDS: ATENOLOL 25 MG TABLET PO SCH (09:43)
[2018-09-16] MEDS: HYDROCHLOROTHIAZIDE 25 MG TABLET PO SCH (09:43)
[2018-09-16] MEDS: RisperiDONE CONC 3 MG/3 ML SOLUTION ORAL.SYG PO SCH ×3 (09:53→17:17)
[2018-09-16 10:54] VITALS: BP 139/73
[2018-09-16 16:00] VITALS: BP 130/74
[2018-09-16] MEDS: TraZODone HCL 100 MG TABLET PO SCH (20:36)
[2018-09-16 23:40] VITALS: BP 138/66
[2018-09-17] MEDS ORDERED: ESCI10TA PO (08:40)
[2018-09-17] MEDS ORDERED: PALI156D IM (08:42)
[2018-09-17 09:30] VITALS: BP 140/84
[2018-09-17] MEDS: GABAPENTIN 300 MG CAPSULE PO SCH (09:35)
[2018-09-17] MEDS: ATENOLOL 25 MG TABLET PO SCH (09:36)
[2018-09-17] MEDS: DiphenhydrAMINE HCL 25 MG CAPSULE PO SCH (09:36)
[2018-09-17] MEDS: AmLODIPine BESYLATE 2.5 MG TABLET PO SCH (09:36)
[2018-09-17] MEDS: ESCITALOPRAM OXALATE 10 MG TABLET PO SCH (09:36)
[2018-09-17] MEDS: CHOLECALCIFEROL (VIT D3) 1,000 UNITS TABLET PO SCH (09:36)
[2018-09-17] MEDS: VALPROIC ACID 250 MG/5 ML SYRUP UDCUP PO SCH (09:36)
[2018-09-17] MEDS: HYDROCHLOROTHIAZIDE 25 MG TABLET PO SCH (09:36)
[2018-09-17] MEDS: RisperiDONE CONC 3 MG/3 ML SOLUTION ORAL.SYG PO SCH (09:36)
[2018-09-17] MEDS ORDERED: LORA2VIA8 IM (20:54)
[2018-09-17] MEDS ORDERED: HALO5I IM (20:54)
[2018-09-17] MEDS ORDERED: ONDA4 PO (20:54)
[2018-09-19] MEDS ORDERED: PALIPERIDONE PALMITATE 156 MG/ML SYRINGE IM ONE (09:00)
== END 2018-09-17 11:30 | DRG 750 ==
LOC: EMS 23:40 → B3A 09-12 03:00
DX: F25.1 Schizoaffective disorder, depressive type (principal); G40.909 Epilepsy, unspecified, not intractable, without status epilepticus; D64.9 Anemia, unspecified; I10 Essential (primary) hypertension; D72.819 Decreased white blood cell count, unspecified; E55.9 Vitamin D deficiency, unspecified; Z79.899 Other long term (current) drug therapy; Z87.891 Personal history of nicotine dependence
CPT/HCPCS: 83036; 84443; 87081; 90686; G0480; J1200; J1630; J2060

== ENCOUNTER 2018-09-17 20:25 | Inpatient (IN) | payer MEDICAID, OTHER ==
[~2018-09-17] VITALS: Ht 167.6 cm; Wt 86.2 kg
[~2018-09-17 20:25] MED LIST changes: +ESCI10TA PO; +PALI156D IM
[2018-09-17] MEDS ORDERED: LORA2VIA8 IM (20:54)
[2018-09-17] MEDS ORDERED: ONDA4 PO (20:54)
[2018-09-17] MEDS ORDERED: HALO5I IM (20:54)
[2018-09-17] MEDS ORDERED: IBUPROFEN 800 MG TABLET PO ONE (22:00)
[2018-09-17 22:28] LABS: BASOPHILS % (AUTO) 0.3 % (0.0-2.0); EOSINOPHILS % (AUTO) 0.8 % (1.0-6.0); HEMATOCRIT 34.5 % (36-46); HEMOGLOBIN 12.1 g/dL (12.0-16.0); LYMPHOCYTES # (AUTO) 2.3 K/uL (1.0-4.8); LYMPHOCYTES % (AUTO) 41.5 % (22.0-44.0); MEAN CORPUSCULAR HGB CONC 34.9 G/dL (31.0-37.0); MEAN CORPUSCULAR VOLUME 83 fL (80-100); MONOCYTES # (AUTO) 0.7 K/uL (0.1-1.0); MONOCYTES % (AUTO) 12.1 % (2.0-9.0); NEUTROPHILS # (AUTO) 2.5 K/uL (1.8-7.7); NEUTROPHILS % (AUTO) 45.3 % (40.0-70.0); PLATELET COUNT (AUTO) 243 K/uL (150-450); RED BLOOD CELL COUNT(AUTO) 4.16 MIL/uL (4.00-5.20); RED CELL DISTRIBUTION WIDTH 13.6 % (11.5-14.5)
[2018-09-17 22:46] LABS: ANION GAP 9 mmol/L (8-16); CALCIUM, TOTAL 9.2 mg/dL (8.8-10.5); CARBON DIOXIDE 30 mmol/L (22-29); CHLORIDE 101 mmol/L (98-107); CREATININE 0.64 mg/dL (0.60-1.30); GLOMERULAR FILTR. RATE CALC > 60 mL/min (>60); GLUCOSE,RANDOM 116 mg/dL (70-110); POTASSIUM 3.8 mmol/L (3.5-5.1); SODIUM SERUM 140 mmol/L (136-145); UREA NITROGEN, BLOOD 16 mg/dL (7-18)
[2018-09-17 22:57] LABS: ALANINE AMINOTRANSFERASE 30 U/L (12-78); ALBUMIN 2.6 g/dL (3.4-5.0); ALKALINE PHOSPHATASE 222 U/L (46-116); ASPARTATE AMINOTRANSFERASE 21 U/L (15-37); BILIRUBIN,TOTAL 0.3 mg/dL (0.1-1.0); HCG,QUANTITATIVE 1 mIU/mL (0-6); TOTAL PROTEIN, SERUM 6.8 g/dL (6.4-8.2); VALPROIC ACID 44 mcg/mL (50-100)
[2018-09-17 23:00] LABS: AMPHET/METH SCREEN,URINE NEGATIVE (NEGATIVE); BARBITURATE SCREEN, URINE NEGATIVE (NEGATIVE); BENZODIAZEPINES SCREEN,URINE NEGATIVE (NEGATIVE); CANNABINOID SCREEN,URINE NEGATIVE (NEGATIVE); COCAINE SCREEN,URINE NEGATIVE (NEGATIVE); METHADONE SCREEN, URINE NEGATIVE (NEGATIVE); OPIATE SCREEN,URINE NEGATIVE (NEGATIVE)
[2018-09-17 23:01] LABS: PHENCYCLIDINE SCREEN,URINE NEGATIVE (NEGATIVE)
[2018-09-17] MEDS ORDERED: LORazepam 2 MG TABLET PO ONE (23:15)
[2018-09-17] MEDS ORDERED: HALOPERIDOL 5 MG TABLET PO ONE (23:15)
[2018-09-17] MEDS ORDERED: DiphenhydrAMINE HCL 25 MG CAPSULE PO ONE (23:15)
[2018-09-18] MEDS: DiphenhydrAMINE HCL 25 MG CAPSULE PO SCH ×2 (13:33→16:13)
[2018-09-18] MEDS ORDERED: MAGNESIUM HYDROXIDE SUSPENSION 30 ML UDCUP PO PRN (14:00)
[2018-09-18] MEDS ORDERED: MAG HYDROX/AL HYDROX/SIMETH ES 30 ML SUSPENSION UDCUP PO PRN (14:00)
[2018-09-18] MEDS ORDERED: PETROLATUM,WHITE 28 GM JELLY TP PRN (14:00)
[2018-09-18] MEDS ORDERED: GuaiFENesin/D-METHORPHAN [SUGAR-FREE] 200-20MG/10 ML SYRUP UDCUP PO PRN (14:00)
[2018-09-18] MEDS ORDERED: ALBUTEROL SULFATE HFA 90 MCG/PUFF 8 GM INHALER IH PRN (14:00)
[2018-09-18] MEDS ORDERED: NICOTINE 14 MG/24 HOUR PATCH TD PRN (14:00)
[2018-09-18] MEDS ORDERED: CloNIDine HCL 0.1 MG TABLET PO PRN (14:00)
[2018-09-18] MEDS ORDERED: DOCUSATE SODIUM 100 MG CAPSULE PO PRN (14:00)
[2018-09-18] MEDS ORDERED: -PHARMACY VACCINE NOTE- MISC ONE (14:15)
[2018-09-18 14:17] VITALS: BP 146/75
[2018-09-18] MEDS: IBUPROFEN 400 MG TABLET PO PRN (14:17)
[2018-09-18] MEDS: RisperiDONE 3 MG TABLET PO SCH (16:13)
[2018-09-18] MEDS ORDERED: GABAPENTIN 300 MG CAPSULE PO SCH (17:00)
[2018-09-18] MEDS ORDERED: RisperiDONE 3 MG TABLET PO SCH (17:00)
[2018-09-18 17:30] VITALS: BP 137/83
[2018-09-18] MEDS: VALPROIC ACID 250 MG CAPSULE PO SCH (20:07)
[2018-09-18 20:12] VITALS: BP 149/55
[2018-09-18] MEDS: ACETAMINOPHEN 325 MG TABLET PO PRN (20:12)
[2018-09-18] MEDS ORDERED: VALPROIC ACID 250 MG/5 ML SYRUP UDCUP PO SCH (21:00)
[2018-09-18] MEDS ORDERED: TraZODone HCL 100 MG TABLET PO SCH (21:00)
[2018-09-18] MEDS: LORazepam 2 MG TABLET PO PRN (23:51)
[2018-09-18] MEDS: ZOLPIDEM TARTRATE 10 MG TABLET PO PRN (23:51)
[2018-09-19] MEDS: HALOPERIDOL 5 MG TABLET PO PRN ×2 (00:54→23:31)
[2018-09-19 08:00] VITALS: BP 149/90
[2018-09-19] MEDS: VALPROIC ACID 250 MG CAPSULE PO SCH ×2 (08:04→20:09)
[2018-09-19] MEDS: RisperiDONE 3 MG TABLET PO SCH ×3 (08:05→16:18)
[2018-09-19] MEDS: CHOLECALCIFEROL (VIT D3) 1,000 UNITS TABLET PO SCH (08:05)
[2018-09-19] MEDS: AmLODIPine BESYLATE 2.5 MG TABLET PO SCH (08:05)
[2018-09-19] MEDS: DiphenhydrAMINE HCL 25 MG CAPSULE PO SCH ×3 (08:05→16:18)
[2018-09-19] MEDS: HYDROCHLOROTHIAZIDE 25 MG TABLET PO SCH (08:05)
[2018-09-19] MEDS: ATENOLOL 25 MG TABLET PO SCH (08:05)
[2018-09-19 08:27] LABS: BASOPHILS % (AUTO) 0.3 % (0.0-2.0); EOSINOPHILS % (AUTO) 1.3 % (1.0-6.0); HEMATOCRIT 34.1 % (36-46); HEMOGLOBIN 11.8 g/dL (12.0-16.0); LYMPHOCYTES # (AUTO) 2.3 K/uL (1.0-4.8); MEAN CORPUSCULAR HEMOGLOBIN 28.7 pg (26.0-34.0); MEAN CORPUSCULAR HGB CONC 34.6 G/dL (31.0-37.0); MEAN CORPUSCULAR VOLUME 83 fL (80-100); MONOCYTES # (AUTO) 0.7 K/uL (0.1-1.0); MONOCYTES % (AUTO) 14.4 % (2.0-9.0); NEUTROPHILS # (AUTO) 1.6 K/uL (1.8-7.7); PLATELET COUNT (AUTO) 250 K/uL (150-450); RED BLOOD CELL COUNT(AUTO) 4.11 MIL/uL (4.00-5.20); RED CELL DISTRIBUTION WIDTH 13.3 % (11.5-14.5)
[2018-09-19 09:00] LABS: ALANINE AMINOTRANSFERASE 38 U/L (12-78); ALBUMIN 2.8 g/dL (3.4-5.0); ALKALINE PHOSPHATASE 217 U/L (46-116); ANION GAP 5 mmol/L (8-16); ASPARTATE AMINOTRANSFERASE 23 U/L (15-37); BILIRUBIN,TOTAL 0.4 mg/dL (0.1-1.0); CALCIUM, TOTAL 8.9 mg/dL (8.8-10.5); CARBON DIOXIDE 30 mmol/L (22-29); CHLORIDE 103 mmol/L (98-107); CREATININE 0.57 mg/dL (0.60-1.30); GLOMERULAR FILTR. RATE CALC > 60 mL/min (>60); GLUCOSE,RANDOM 96 mg/dL (70-110); POTASSIUM 3.8 mmol/L (3.5-5.1); SODIUM SERUM 138 mmol/L (136-145); TOTAL PROTEIN, SERUM 6.5 g/dL (6.4-8.2); UREA NITROGEN, BLOOD 14 mg/dL (7-18)
[2018-09-19] MEDS ORDERED: ESCITALOPRAM OXALATE 10 MG TABLET PO SCH (09:00)
[2018-09-19 09:01] LABS: THYROID STIMULATING HORMONE < 0.01 uIU/mL (0.36-3.74)
[2018-09-19 16:14] VITALS: BP 150/81
[2018-09-19] MEDS: ZOLPIDEM TARTRATE 10 MG TABLET PO PRN (20:40)
[2018-09-19] MEDS: LORazepam 2 MG TABLET PO PRN (23:31)
[2018-09-20 08:10] VITALS: BP 142/93
[2018-09-20] MEDS: HYDROCHLOROTHIAZIDE 25 MG TABLET PO SCH (08:16)
[2018-09-20] MEDS: RisperiDONE 3 MG TABLET PO SCH (08:16)
[2018-09-20] MEDS: DiphenhydrAMINE HCL 25 MG CAPSULE PO SCH (08:16)
[2018-09-20] MEDS: CHOLECALCIFEROL (VIT D3) 1,000 UNITS TABLET PO SCH (08:17)
[2018-09-20] MEDS: VALPROIC ACID 250 MG CAPSULE PO SCH (08:17)
[2018-09-20] MEDS: AmLODIPine BESYLATE 2.5 MG TABLET PO SCH (08:17)
[2018-09-20] MEDS: ATENOLOL 25 MG TABLET PO SCH (08:22)
[2018-09-20] MEDS ORDERED: PALIPERIDONE PALMITATE 156 MG/ML SYRINGE IM ONE (10:30)
[2018-09-20] MEDS: ESCITALOPRAM OXALATE 10 MG TABLET PO SCH (11:50)
[2018-09-20] MEDS: VALPROIC ACID 250 MG/5 ML SYRUP UDCUP PO SCH ×2 (11:51→20:08)
[2018-09-20] MEDS: GABAPENTIN 300 MG CAPSULE PO SCH ×2 (12:29→16:34)
[2018-09-20] MEDS: RisperiDONE CONC 3 MG/3 ML SOLUTION ORAL.SYG PO SCH ×2 (12:29→16:34)
[2018-09-20] MEDS: TraZODone HCL 100 MG TABLET PO SCH (20:08)
[2018-09-20] MEDS: ZOLPIDEM TARTRATE 10 MG TABLET PO PRN (20:39)
[2018-09-20] MEDS: LORazepam 2 MG TABLET PO PRN (21:23)
[2018-09-20] MEDS: HALOPERIDOL 5 MG TABLET PO PRN (21:23)
[2018-09-20 21:26] VITALS: BP 144/84
[2018-09-20] MEDS: ACETAMINOPHEN 325 MG TABLET PO PRN (21:26)
[2018-09-21 01:06] VITALS: BP 144/89
[2018-09-21] MEDS: HALOPERIDOL 5 MG TABLET PO PRN (03:12)
[2018-09-21] MEDS: LORazepam 2 MG TABLET PO PRN (03:12)
[2018-09-21] MEDS: CHOLECALCIFEROL (VIT D3) 1,000 UNITS TABLET PO SCH (09:04)
[2018-09-21] MEDS: AmLODIPine BESYLATE 2.5 MG TABLET PO SCH (09:04)
[2018-09-21] MEDS: HYDROCHLOROTHIAZIDE 25 MG TABLET PO SCH (09:04)
[2018-09-21] MEDS: ATENOLOL 25 MG TABLET PO SCH (09:05)
[2018-09-21] MEDS: VALPROIC ACID 250 MG/5 ML SYRUP UDCUP PO SCH ×2 (09:05→20:19)
[2018-09-21] MEDS: GABAPENTIN 300 MG CAPSULE PO SCH ×3 (09:05→16:31)
[2018-09-21] MEDS: ESCITALOPRAM OXALATE 10 MG TABLET PO SCH (09:05)
[2018-09-21] MEDS: RisperiDONE CONC 3 MG/3 ML SOLUTION ORAL.SYG PO SCH ×3 (09:06→16:31)
[2018-09-21 10:05] VITALS: BP 149/95
[2018-09-21] MEDS: ONDANSETRON HCL 4 MG TABLET PO PRN (13:49)
[2018-09-21] MEDS: TraZODone HCL 100 MG TABLET PO SCH (20:19)
[2018-09-21 22:13] VITALS: BP 136/91
[2018-09-22] VITALS: BP 154/88
[2018-09-22] MEDS: ZOLPIDEM TARTRATE 10 MG TABLET PO PRN
[2018-09-22] MEDS: LORazepam 2 MG TABLET PO PRN ×2 (00:01→09:05)
[2018-09-22] MEDS: ESCITALOPRAM OXALATE 10 MG TABLET PO SCH (08:54)
[2018-09-22] MEDS: AmLODIPine BESYLATE 2.5 MG TABLET PO SCH (08:54)
[2018-09-22] MEDS: HYDROCHLOROTHIAZIDE 25 MG TABLET PO SCH (08:54)
[2018-09-22] MEDS: RisperiDONE CONC 3 MG/3 ML SOLUTION ORAL.SYG PO SCH ×3 (08:55→16:55)
[2018-09-22] MEDS: GABAPENTIN 300 MG CAPSULE PO SCH ×3 (08:55→16:54)
[2018-09-22] MEDS: CHOLECALCIFEROL (VIT D3) 1,000 UNITS TABLET PO SCH (08:55)
[2018-09-22] MEDS: VALPROIC ACID 250 MG/5 ML SYRUP UDCUP PO SCH ×2 (08:55→20:17)
[2018-09-22] MEDS: ATENOLOL 25 MG TABLET PO SCH (08:55)
[2018-09-22 09:33] VITALS: BP 139/95
[2018-09-22 16:55] VITALS: BP 136/75
[2018-09-22] MEDS: TraZODone HCL 100 MG TABLET PO SCH (20:17)
[2018-09-23] VITALS: BP 157/99
[2018-09-23] MEDS: ZOLPIDEM TARTRATE 10 MG TABLET PO PRN (00:11)
[2018-09-23] MEDS: LORazepam 2 MG TABLET PO PRN (00:11)
[2018-09-23 08:21] VITALS: BP 136/90
[2018-09-23] MEDS: HYDROCHLOROTHIAZIDE 25 MG TABLET PO SCH (09:04)
[2018-09-23] MEDS: ESCITALOPRAM OXALATE 10 MG TABLET PO SCH (09:04)
[2018-09-23] MEDS: VALPROIC ACID 250 MG/5 ML SYRUP UDCUP PO SCH ×2 (09:04→20:07)
[2018-09-23] MEDS: AmLODIPine BESYLATE 2.5 MG TABLET PO SCH (09:04)
[2018-09-23] MEDS: ATENOLOL 25 MG TABLET PO SCH (09:05)
[2018-09-23] MEDS: CHOLECALCIFEROL (VIT D3) 1,000 UNITS TABLET PO SCH (09:05)
[2018-09-23] MEDS: RisperiDONE CONC 3 MG/3 ML SOLUTION ORAL.SYG PO SCH ×3 (09:05→16:01)
[2018-09-23] MEDS: GABAPENTIN 300 MG CAPSULE PO SCH ×3 (09:05→16:01)
[2018-09-23] MEDS: TraZODone HCL 100 MG TABLET PO SCH (20:02)
[2018-09-23] MEDS: LOPERAMIDE HCL 2 MG CAPSULE PO PRN (20:02)
[2018-09-23 21:14] VITALS: BP 134/92
[2018-09-24 00:10] VITALS: BP 151/90
[2018-09-24] MEDS: ACETAMINOPHEN 325 MG TABLET PO PRN (00:14)
[2018-09-24] MEDS: ZOLPIDEM TARTRATE 10 MG TABLET PO PRN (00:14)
[2018-09-24] MEDS: LORazepam 2 MG TABLET PO PRN (01:46)
[2018-09-24] MEDS: HALOPERIDOL 5 MG TABLET PO PRN (01:47)
[2018-09-24 08:00] VITALS: BP 142/73
[2018-09-24] MEDS: ESCITALOPRAM OXALATE 10 MG TABLET PO SCH (08:39)
[2018-09-24] MEDS: RisperiDONE CONC 3 MG/3 ML SOLUTION ORAL.SYG PO SCH ×3 (08:39→17:44)
[2018-09-24] MEDS: HYDROCHLOROTHIAZIDE 25 MG TABLET PO SCH (08:39)
[2018-09-24] MEDS: VALPROIC ACID 250 MG/5 ML SYRUP UDCUP PO SCH ×2 (08:39→20:37)
[2018-09-24] MEDS: ATENOLOL 25 MG TABLET PO SCH (08:39)
[2018-09-24] MEDS: GABAPENTIN 300 MG CAPSULE PO SCH ×3 (08:39→17:43)
[2018-09-24] MEDS: AmLODIPine BESYLATE 2.5 MG TABLET PO SCH (08:39)
[2018-09-24] MEDS: CHOLECALCIFEROL (VIT D3) 1,000 UNITS TABLET PO SCH (08:40)
[2018-09-24 20:07] VITALS: BP 145/88
[2018-09-24] MEDS: TraZODone HCL 100 MG TABLET PO SCH (20:37)
[2018-09-25] MEDS: ZOLPIDEM TARTRATE 10 MG TABLET PO PRN ×2 (00:35→20:54)
[2018-09-25 08:45] VITALS: BP 144/81
[2018-09-25] MEDS: AmLODIPine BESYLATE 2.5 MG TABLET PO SCH (09:38)
[2018-09-25] MEDS: GABAPENTIN 300 MG CAPSULE PO SCH ×3 (09:38→16:30)
[2018-09-25] MEDS: RisperiDONE CONC 3 MG/3 ML SOLUTION ORAL.SYG PO SCH ×3 (09:38→16:29)
[2018-09-25] MEDS: VALPROIC ACID 250 MG/5 ML SYRUP UDCUP PO SCH ×2 (09:38→20:16)
[2018-09-25] MEDS: HYDROCHLOROTHIAZIDE 25 MG TABLET PO SCH (09:38)
[2018-09-25] MEDS: CHOLECALCIFEROL (VIT D3) 1,000 UNITS TABLET PO SCH (09:38)
[2018-09-25] MEDS: ESCITALOPRAM OXALATE 10 MG TABLET PO SCH (09:38)
[2018-09-25] MEDS: ATENOLOL 25 MG TABLET PO SCH (09:39)
[2018-09-25 17:26] VITALS: BP 152/70
[2018-09-25] MEDS: TraZODone HCL 100 MG TABLET PO SCH (20:16)
[2018-09-25] MEDS: LORazepam 2 MG TABLET PO PRN (21:31)
[2018-09-25] MEDS ORDERED: HALOPERIDOL LACTATE 5 MG/ML VIAL IM ONE (22:45)
[2018-09-25] MEDS ORDERED: DiphenhydrAMINE HCL 50 MG/ML VIAL IM ONE (22:45)
[2018-09-25] MEDS ORDERED: LORazepam 2 MG/ML VIAL IM ONE (22:45)
[2018-09-25] MEDS: IBUPROFEN 400 MG TABLET PO PRN (23:58)
[2018-09-25] MEDS: HALOPERIDOL 5 MG TABLET PO PRN (23:58)
[2018-09-26] MEDS: ESCITALOPRAM OXALATE 10 MG TABLET PO SCH (10:20)
[2018-09-26] MEDS: GABAPENTIN 300 MG CAPSULE PO SCH ×3 (10:20→16:07)
[2018-09-26] MEDS: VALPROIC ACID 250 MG/5 ML SYRUP UDCUP PO SCH ×2 (10:20→20:30)
[2018-09-26] MEDS: HYDROCHLOROTHIAZIDE 25 MG TABLET PO SCH (10:20)
[2018-09-26] MEDS: AmLODIPine BESYLATE 2.5 MG TABLET PO SCH (10:20)
[2018-09-26] MEDS: CHOLECALCIFEROL (VIT D3) 1,000 UNITS TABLET PO SCH (10:20)
[2018-09-26] MEDS: ATENOLOL 25 MG TABLET PO SCH (10:21)
[2018-09-26] MEDS: RisperiDONE CONC 3 MG/3 ML SOLUTION ORAL.SYG PO SCH ×3 (10:21→16:05)
[2018-09-26 10:46] VITALS: BP 120/78
[2018-09-26 16:36] VITALS: BP 146/76
[2018-09-26] MEDS: TraZODone HCL 100 MG TABLET PO SCH (20:30)
[2018-09-26] MEDS ORDERED: HALOPERIDOL LACTATE 5 MG/ML VIAL IM ONE (21:45)
[2018-09-26] MEDS ORDERED: LORazepam 2 MG/ML VIAL IM ONE (21:45)
[2018-09-26] MEDS ORDERED: DiphenhydrAMINE HCL 50 MG/ML VIAL IM ONE (21:45)
[2018-09-27] MEDS: LORazepam 2 MG TABLET PO PRN ×3 (00:10→23:50)
[2018-09-27] MEDS: ZOLPIDEM TARTRATE 10 MG TABLET PO PRN ×2 (00:11→21:23)
[2018-09-27 08:00] VITALS: BP 146/77
[2018-09-27] MEDS: GABAPENTIN 300 MG CAPSULE PO SCH ×3 (08:53→16:32)
[2018-09-27] MEDS: ESCITALOPRAM OXALATE 10 MG TABLET PO SCH (08:53)
[2018-09-27] MEDS: CHOLECALCIFEROL (VIT D3) 1,000 UNITS TABLET PO SCH (08:53)
[2018-09-27] MEDS: AmLODIPine BESYLATE 2.5 MG TABLET PO SCH (08:53)
[2018-09-27] MEDS: HYDROCHLOROTHIAZIDE 25 MG TABLET PO SCH (08:53)
[2018-09-27] MEDS: VALPROIC ACID 250 MG/5 ML SYRUP UDCUP PO SCH ×2 (08:53→20:36)
[2018-09-27] MEDS: ATENOLOL 25 MG TABLET PO SCH (08:54)
[2018-09-27] MEDS: RisperiDONE CONC 3 MG/3 ML SOLUTION ORAL.SYG PO SCH ×3 (08:54→16:32)
[2018-09-27] MEDS: HALOPERIDOL 5 MG TABLET PO PRN ×2 (08:55→23:50)
[2018-09-27] MEDS: FERROUS SULFATE 325 MG EC TABLET PO SCH ×2 (12:46→16:32)
[2018-09-27 16:53] VITALS: BP 135/78
[2018-09-27] MEDS: TraZODone HCL 100 MG TABLET PO SCH (20:36)
[2018-09-28] MEDS: FERROUS SULFATE 325 MG EC TABLET PO SCH ×3 (06:39→16:23)
[2018-09-28 08:07] VITALS: BP 164/86
[2018-09-28] MEDS: AmLODIPine BESYLATE 2.5 MG TABLET PO SCH (08:16)
[2018-09-28] MEDS: LORazepam 2 MG TABLET PO PRN (08:16)
[2018-09-28] MEDS: HYDROCHLOROTHIAZIDE 25 MG TABLET PO SCH (08:16)
[2018-09-28] MEDS: HALOPERIDOL 5 MG TABLET PO PRN (08:16)
[2018-09-28] MEDS: GABAPENTIN 300 MG CAPSULE PO SCH ×3 (08:16→16:23)
[2018-09-28] MEDS: VALPROIC ACID 250 MG/5 ML SYRUP UDCUP PO SCH ×2 (08:16→20:30)
[2018-09-28] MEDS: CHOLECALCIFEROL (VIT D3) 1,000 UNITS TABLET PO SCH (08:16)
[2018-09-28] MEDS: ESCITALOPRAM OXALATE 10 MG TABLET PO SCH (08:16)
[2018-09-28] MEDS: ATENOLOL 25 MG TABLET PO SCH (08:18)
[2018-09-28] MEDS: RisperiDONE CONC 3 MG/3 ML SOLUTION ORAL.SYG PO SCH ×3 (08:18→16:23)
[2018-09-28 16:00] VITALS: BP 149/70
[2018-09-28] MEDS: TraZODone HCL 100 MG TABLET PO SCH (20:31)
[2018-09-29 06:12] VITALS: BP 140/96
[2018-09-29] MEDS: ACETAMINOPHEN 325 MG TABLET PO PRN (06:16)
[2018-09-29] MEDS: FERROUS SULFATE 325 MG EC TABLET PO SCH ×3 (06:43→16:23)
[2018-09-29 08:00] VITALS: BP 157/91
[2018-09-29] MEDS: RisperiDONE CONC 3 MG/3 ML SOLUTION ORAL.SYG PO SCH ×3 (10:20→16:24)
[2018-09-29] MEDS: ATENOLOL 25 MG TABLET PO SCH (10:20)
[2018-09-29] MEDS: ESCITALOPRAM OXALATE 10 MG TABLET PO SCH (10:26)
[2018-09-29] MEDS: CHOLECALCIFEROL (VIT D3) 1,000 UNITS TABLET PO SCH (10:26)
[2018-09-29] MEDS: HALOPERIDOL 5 MG TABLET PO PRN (10:26)
[2018-09-29] MEDS: GABAPENTIN 300 MG CAPSULE PO SCH ×3 (10:26→16:23)
[2018-09-29] MEDS: HYDROCHLOROTHIAZIDE 25 MG TABLET PO SCH (10:26)
[2018-09-29] MEDS: AmLODIPine BESYLATE 2.5 MG TABLET PO SCH (10:27)
[2018-09-29] MEDS: LORazepam 2 MG TABLET PO PRN (10:28)
[2018-09-29] MEDS: VALPROIC ACID 250 MG/5 ML SYRUP UDCUP PO SCH ×2 (10:28→21:03)
[2018-09-29 20:33] VITALS: BP 137/88
[2018-09-29] MEDS: TraZODone HCL 100 MG TABLET PO SCH (21:03)
[2018-09-30] MEDS: FERROUS SULFATE 325 MG EC TABLET PO SCH ×3 (06:38→17:42)
[2018-09-30 08:00] VITALS: BP 129/69
[2018-09-30] MEDS: ESCITALOPRAM OXALATE 10 MG TABLET PO SCH (08:07)
[2018-09-30] MEDS: ACETAMINOPHEN 325 MG TABLET PO PRN ×2 (08:07→23:33)
[2018-09-30] MEDS: GABAPENTIN 300 MG CAPSULE PO SCH ×3 (08:08→17:42)
[2018-09-30] MEDS: VALPROIC ACID 250 MG/5 ML SYRUP UDCUP PO SCH ×2 (08:08→20:55)
[2018-09-30] MEDS: CHOLECALCIFEROL (VIT D3) 1,000 UNITS TABLET PO SCH (08:08)
[2018-09-30] MEDS: AmLODIPine BESYLATE 2.5 MG TABLET PO SCH (08:08)
[2018-09-30] MEDS: HYDROCHLOROTHIAZIDE 25 MG TABLET PO SCH (08:08)
[2018-09-30] MEDS: RisperiDONE CONC 3 MG/3 ML SOLUTION ORAL.SYG PO SCH ×3 (08:09→17:42)
[2018-09-30] MEDS: ATENOLOL 50 MG TABLET PO SCH (10:06)
[2018-09-30 16:21] VITALS: BP 125/59
[2018-09-30] MEDS: TraZODone HCL 100 MG TABLET PO SCH (20:55)
[2018-09-30 23:33] VITALS: BP 140/80
[2018-09-30] MEDS: ZOLPIDEM TARTRATE 10 MG TABLET PO PRN (23:33)
[2018-10-01] MEDS: FERROUS SULFATE 325 MG EC TABLET PO SCH ×3 (06:53→16:32)
[2018-10-01] MEDS: HYDROCHLOROTHIAZIDE 25 MG TABLET PO SCH (08:07)
[2018-10-01] MEDS: HALOPERIDOL 5 MG TABLET PO PRN (08:07)
[2018-10-01] MEDS: AmLODIPine BESYLATE 2.5 MG TABLET PO SCH (08:07)
[2018-10-01] MEDS: LORazepam 2 MG TABLET PO PRN (08:07)
[2018-10-01] MEDS: ESCITALOPRAM OXALATE 10 MG TABLET PO SCH (08:07)
[2018-10-01] MEDS: GABAPENTIN 300 MG CAPSULE PO SCH ×3 (08:07→16:32)
[2018-10-01] MEDS: CHOLECALCIFEROL (VIT D3) 1,000 UNITS TABLET PO SCH (08:08)
[2018-10-01] MEDS: ATENOLOL 50 MG TABLET PO SCH (08:08)
[2018-10-01] MEDS: VALPROIC ACID 250 MG/5 ML SYRUP UDCUP PO SCH ×2 (08:09→20:15)
[2018-10-01] MEDS: RisperiDONE CONC 3 MG/3 ML SOLUTION ORAL.SYG PO SCH ×2 (08:09→12:56)
[2018-10-01 08:17] VITALS: BP 146/89
[2018-10-01] MEDS ORDERED: TUBERCULIN, PURIFIED PROTEIN DERIVATIVE 5 TU/0.1 ML SYRINGE ID ONE (13:15)
[2018-10-01] MEDS: TraZODone HCL 100 MG TABLET PO SCH (20:13)
[2018-10-02] MEDS: FERROUS SULFATE 325 MG EC TABLET PO SCH ×3 (07:04→16:48)
[2018-10-02] MEDS: VALPROIC ACID 250 MG/5 ML SYRUP UDCUP PO SCH ×2 (08:27→21:45)
[2018-10-02] MEDS: ESCITALOPRAM OXALATE 10 MG TABLET PO SCH (08:28)
[2018-10-02] MEDS: AmLODIPine BESYLATE 2.5 MG TABLET PO SCH (08:28)
[2018-10-02] MEDS: HYDROCHLOROTHIAZIDE 25 MG TABLET PO SCH (08:28)
[2018-10-02] MEDS: ATENOLOL 50 MG TABLET PO SCH (08:28)
[2018-10-02] MEDS: GABAPENTIN 300 MG CAPSULE PO SCH ×3 (08:28→16:48)
[2018-10-02] MEDS: CHOLECALCIFEROL (VIT D3) 1,000 UNITS TABLET PO SCH (08:28)
[2018-10-02 08:30] VITALS: BP 130/96
[2018-10-02 16:53] VITALS: BP 151/86
[2018-10-02] MEDS: TraZODone HCL 100 MG TABLET PO SCH (21:45)
[2018-10-03] MEDS: FERROUS SULFATE 325 MG EC TABLET PO SCH ×3 (06:38→17:50)
[2018-10-03] MEDS: HYDROCHLOROTHIAZIDE 25 MG TABLET PO SCH (07:26)
[2018-10-03] MEDS: ATENOLOL 50 MG TABLET PO SCH (07:26)
[2018-10-03] MEDS: GABAPENTIN 300 MG CAPSULE PO SCH ×3 (07:27→17:50)
[2018-10-03] MEDS: ESCITALOPRAM OXALATE 10 MG TABLET PO SCH (07:27)
[2018-10-03] MEDS: LORazepam 2 MG TABLET PO PRN (07:27)
[2018-10-03] MEDS: HALOPERIDOL 5 MG TABLET PO PRN (07:27)
[2018-10-03] MEDS: CHOLECALCIFEROL (VIT D3) 1,000 UNITS TABLET PO SCH (07:27)
[2018-10-03] MEDS: VALPROIC ACID 250 MG/5 ML SYRUP UDCUP PO SCH ×2 (07:30→21:26)
[2018-10-03] MEDS: AmLODIPine BESYLATE 2.5 MG TABLET PO SCH (07:39)
[2018-10-03 08:00] VITALS: BP 151/89
[2018-10-03] MEDS: IBUPROFEN 400 MG TABLET PO PRN (12:45)
[2018-10-03 17:30] VITALS: BP 145/88
[2018-10-03] MEDS: TraZODone HCL 100 MG TABLET PO SCH (21:26)
[2018-10-04] MEDS: ACETAMINOPHEN 325 MG TABLET PO PRN (03:34)
[2018-10-04 03:38] VITALS: BP 149/70
[2018-10-04] MEDS: FERROUS SULFATE 325 MG EC TABLET PO SCH ×3 (07:04→17:17)
[2018-10-04 08:00] VITALS: BP 162/87
[2018-10-04] MEDS: AmLODIPine BESYLATE 2.5 MG TABLET PO SCH (08:04)
[2018-10-04] MEDS: LORazepam 2 MG TABLET PO PRN (08:04)
[2018-10-04] MEDS: CHOLECALCIFEROL (VIT D3) 1,000 UNITS TABLET PO SCH (08:04)
[2018-10-04] MEDS: HALOPERIDOL 5 MG TABLET PO PRN (08:04)
[2018-10-04] MEDS: ONDANSETRON HCL 4 MG TABLET PO PRN (08:04)
[2018-10-04] MEDS: VALPROIC ACID 250 MG/5 ML SYRUP UDCUP PO SCH ×2 (08:05→21:22)
[2018-10-04] MEDS: HYDROCHLOROTHIAZIDE 25 MG TABLET PO SCH (08:05)
[2018-10-04] MEDS: ATENOLOL 50 MG TABLET PO SCH (08:05)
[2018-10-04] MEDS: ESCITALOPRAM OXALATE 10 MG TABLET PO SCH (08:05)
[2018-10-04] MEDS: GABAPENTIN 300 MG CAPSULE PO SCH ×3 (08:05→17:17)
[2018-10-04] MEDS: LOPERAMIDE HCL 2 MG CAPSULE PO PRN (15:08)
[2018-10-04 16:30] VITALS: BP 141/86
[2018-10-04] MEDS: TraZODone HCL 100 MG TABLET PO SCH (21:22)
[2018-10-05] MEDS: LORazepam 2 MG TABLET PO PRN ×2 (04:38→09:21)
[2018-10-05] MEDS: ACETAMINOPHEN 325 MG TABLET PO PRN (04:38)
[2018-10-05] MEDS: FERROUS SULFATE 325 MG EC TABLET PO SCH ×3 (07:01→16:33)
[2018-10-05 08:00] VITALS: BP 151/86
[2018-10-05] MEDS: VALPROIC ACID 250 MG/5 ML SYRUP UDCUP PO SCH ×2 (08:05→21:03)
[2018-10-05] MEDS: LOPERAMIDE HCL 2 MG CAPSULE PO PRN ×2 (08:06→12:08)
[2018-10-05] MEDS: GABAPENTIN 300 MG CAPSULE PO SCH ×3 (08:06→16:33)
[2018-10-05] MEDS: HALOPERIDOL 5 MG TABLET PO PRN (08:06)
[2018-10-05] MEDS: ATENOLOL 50 MG TABLET PO SCH (08:06)
[2018-10-05] MEDS: ESCITALOPRAM OXALATE 10 MG TABLET PO SCH (08:06)
[2018-10-05] MEDS: AmLODIPine BESYLATE 2.5 MG TABLET PO SCH (08:07)
[2018-10-05] MEDS: CHOLECALCIFEROL (VIT D3) 1,000 UNITS TABLET PO SCH (08:07)
[2018-10-05] MEDS: HYDROCHLOROTHIAZIDE 25 MG TABLET PO SCH (08:07)
[2018-10-05] MEDS: ONDANSETRON HCL 4 MG TABLET PO PRN (08:07)
[2018-10-05] MEDS: TraZODone HCL 100 MG TABLET PO SCH (21:04)
[2018-10-06] MEDS: ACETAMINOPHEN 325 MG TABLET PO PRN (06:08)
[2018-10-06] MEDS: FERROUS SULFATE 325 MG EC TABLET PO SCH ×3 (06:59→16:43)
[2018-10-06 08:00] VITALS: BP 149/91
[2018-10-06] MEDS: ATENOLOL 50 MG TABLET PO SCH (08:04)
[2018-10-06] MEDS: VALPROIC ACID 250 MG/5 ML SYRUP UDCUP PO SCH ×2 (08:04→21:10)
[2018-10-06] MEDS: CHOLECALCIFEROL (VIT D3) 1,000 UNITS TABLET PO SCH (08:05)
[2018-10-06] MEDS: HYDROCHLOROTHIAZIDE 25 MG TABLET PO SCH (08:05)
[2018-10-06] MEDS: AmLODIPine BESYLATE 2.5 MG TABLET PO SCH (08:05)
[2018-10-06] MEDS: GABAPENTIN 300 MG CAPSULE PO SCH ×3 (08:06→16:43)
[2018-10-06] MEDS: ESCITALOPRAM OXALATE 10 MG TABLET PO SCH (08:06)
[2018-10-06 19:23] VITALS: BP 140/78
[2018-10-06] MEDS: TraZODone HCL 100 MG TABLET PO SCH (21:10)
[2018-10-07] MEDS: FERROUS SULFATE 325 MG EC TABLET PO SCH ×3 (06:54→19:07)
[2018-10-07 08:00] VITALS: BP 162/94
[2018-10-07] MEDS: VALPROIC ACID 250 MG/5 ML SYRUP UDCUP PO SCH ×2 (08:02→21:44)
[2018-10-07] MEDS: ESCITALOPRAM OXALATE 10 MG TABLET PO SCH (08:03)
[2018-10-07] MEDS: LOPERAMIDE HCL 2 MG CAPSULE PO PRN ×2 (08:03→12:20)
[2018-10-07] MEDS: GABAPENTIN 300 MG CAPSULE PO SCH ×3 (08:03→19:07)
[2018-10-07] MEDS: HYDROCHLOROTHIAZIDE 25 MG TABLET PO SCH (08:03)
[2018-10-07] MEDS: LORazepam 2 MG TABLET PO PRN ×2 (08:03→12:19)
[2018-10-07] MEDS: CHOLECALCIFEROL (VIT D3) 1,000 UNITS TABLET PO SCH (08:03)
[2018-10-07] MEDS: HALOPERIDOL 5 MG TABLET PO PRN ×2 (08:03→12:19)
[2018-10-07] MEDS: ATENOLOL 50 MG TABLET PO SCH (08:03)
[2018-10-07] MEDS: AmLODIPine BESYLATE 2.5 MG TABLET PO SCH (08:04)
[2018-10-07 17:48] VITALS: BP 149/70
[2018-10-07] MEDS: TraZODone HCL 100 MG TABLET PO SCH (21:44)
[2018-10-08] MEDS: FERROUS SULFATE 325 MG EC TABLET PO SCH ×3 (06:44→16:57)
[2018-10-08] MEDS: LORazepam 2 MG TABLET PO PRN ×2 (07:47→11:54)
[2018-10-08] MEDS: HALOPERIDOL 5 MG TABLET PO PRN (07:47)
[2018-10-08 08:23] VITALS: BP 140/61
[2018-10-08] MEDS: CHOLECALCIFEROL (VIT D3) 1,000 UNITS TABLET PO SCH (08:36)
[2018-10-08] MEDS: GABAPENTIN 300 MG CAPSULE PO SCH ×3 (08:37→16:57)
[2018-10-08] MEDS: HYDROCHLOROTHIAZIDE 25 MG TABLET PO SCH (08:37)
[2018-10-08] MEDS: ATENOLOL 50 MG TABLET PO SCH (08:37)
[2018-10-08] MEDS: VALPROIC ACID 250 MG/5 ML SYRUP UDCUP PO SCH ×2 (08:37→20:21)
[2018-10-08] MEDS: ESCITALOPRAM OXALATE 10 MG TABLET PO SCH (08:37)
[2018-10-08] MEDS: AmLODIPine BESYLATE 2.5 MG TABLET PO SCH (08:37)
[2018-10-08] MEDS: LOPERAMIDE HCL 2 MG CAPSULE PO PRN (11:54)
[2018-10-08 16:38] VITALS: BP 142/89
[2018-10-08] MEDS: TraZODone HCL 100 MG TABLET PO SCH (20:21)
[2018-10-09] VITALS (7 sets, daily range): BP systolic 127–147; BP diastolic 85–94
[2018-10-09] MEDS: FERROUS SULFATE 325 MG EC TABLET PO SCH ×3 (07:04→18:18)
[2018-10-09] MEDS: LORazepam 2 MG TABLET PO PRN ×2 (08:02→18:18)
[2018-10-09] MEDS: CHOLECALCIFEROL (VIT D3) 1,000 UNITS TABLET PO SCH (08:15)
[2018-10-09] MEDS: ATENOLOL 50 MG TABLET PO SCH (08:17)
[2018-10-09] MEDS: VALPROIC ACID 250 MG/5 ML SYRUP UDCUP PO SCH ×2 (08:17→21:00)
[2018-10-09] MEDS: ESCITALOPRAM OXALATE 10 MG TABLET PO SCH (08:19)
[2018-10-09] MEDS: HYDROCHLOROTHIAZIDE 25 MG TABLET PO SCH (08:19)
[2018-10-09] MEDS: GABAPENTIN 300 MG CAPSULE PO SCH ×3 (08:19→18:18)
[2018-10-09] MEDS: AmLODIPine BESYLATE 2.5 MG TABLET PO SCH (08:20)
[2018-10-09] MEDS: IBUPROFEN 400 MG TABLET PO PRN (08:33)
[2018-10-09] MEDS: HALOPERIDOL 5 MG TABLET PO PRN (18:18)
[2018-10-09] MEDS: TraZODone HCL 100 MG TABLET PO SCH (20:48)
[2018-10-10] MEDS: LOPERAMIDE HCL 2 MG CAPSULE PO PRN (03:41)
[2018-10-10 04:15] VITALS: BP 143/62
[2018-10-10] MEDS: FERROUS SULFATE 325 MG EC TABLET PO SCH ×3 (06:19→17:20)
[2018-10-10 08:26] VITALS: BP 148/87
[2018-10-10] MEDS: ATENOLOL 50 MG TABLET PO SCH (08:26)
[2018-10-10] MEDS: VALPROIC ACID 250 MG/5 ML SYRUP UDCUP PO SCH ×2 (08:26→20:23)
[2018-10-10] MEDS: CHOLECALCIFEROL (VIT D3) 1,000 UNITS TABLET PO SCH (08:26)
[2018-10-10] MEDS: AmLODIPine BESYLATE 2.5 MG TABLET PO SCH (08:26)
[2018-10-10] MEDS: GABAPENTIN 300 MG CAPSULE PO SCH ×3 (08:26→17:20)
[2018-10-10] MEDS: HYDROCHLOROTHIAZIDE 25 MG TABLET PO SCH (08:26)
[2018-10-10] MEDS: ESCITALOPRAM OXALATE 10 MG TABLET PO SCH (08:26)
[2018-10-10] MEDS: LORazepam 2 MG TABLET PO PRN ×2 (08:37→16:10)
[2018-10-10] MEDS: ONDANSETRON HCL 4 MG TABLET PO PRN (09:11)
[2018-10-10 12:55] VITALS: BP 141/85
[2018-10-10] MEDS: HALOPERIDOL 5 MG TABLET PO PRN (16:10)
[2018-10-10 16:16] VITALS: BP 138/88
[2018-10-10] MEDS: ACETAMINOPHEN 325 MG TABLET PO PRN (19:18)
[2018-10-10] MEDS: TraZODone HCL 100 MG TABLET PO SCH (20:22)
[2018-10-11 06:49] VITALS: BP 137/72
[2018-10-11] MEDS: FERROUS SULFATE 325 MG EC TABLET PO SCH ×3 (06:51→17:38)
[2018-10-11 08:17] VITALS: BP 127/98
[2018-10-11] MEDS: VALPROIC ACID 250 MG/5 ML SYRUP UDCUP PO SCH ×2 (09:03→21:27)
[2018-10-11] MEDS: GABAPENTIN 300 MG CAPSULE PO SCH ×3 (09:03→17:37)
[2018-10-11] MEDS: ESCITALOPRAM OXALATE 10 MG TABLET PO SCH (09:03)
[2018-10-11] MEDS: ATENOLOL 50 MG TABLET PO SCH (09:03)
[2018-10-11] MEDS: CHOLECALCIFEROL (VIT D3) 1,000 UNITS TABLET PO SCH (09:03)
[2018-10-11] MEDS: AmLODIPine BESYLATE 2.5 MG TABLET PO SCH (09:03)
[2018-10-11] MEDS: HYDROCHLOROTHIAZIDE 25 MG TABLET PO SCH (09:03)
[2018-10-11] MEDS: LORazepam 2 MG TABLET PO PRN (11:07)
[2018-10-11 16:11] VITALS: BP 135/76
[2018-10-11] MEDS: IBUPROFEN 400 MG TABLET PO PRN (17:38)
[2018-10-11] MEDS: TraZODone HCL 100 MG TABLET PO SCH (21:27)
[2018-10-12 06:38] VITALS: BP 135/80
[2018-10-12] MEDS: FERROUS SULFATE 325 MG EC TABLET PO SCH ×3 (06:52→17:08)
[2018-10-12 08:15] VITALS: BP 148/83
[2018-10-12] MEDS: AmLODIPine BESYLATE 2.5 MG TABLET PO SCH (10:29)
[2018-10-12] MEDS: ESCITALOPRAM OXALATE 10 MG TABLET PO SCH (10:34)
[2018-10-12] MEDS: HYDROCHLOROTHIAZIDE 25 MG TABLET PO SCH (10:34)
[2018-10-12] MEDS: HALOPERIDOL 5 MG TABLET PO PRN ×2 (10:34→17:09)
[2018-10-12] MEDS: VALPROIC ACID 250 MG/5 ML SYRUP UDCUP PO SCH ×2 (10:34→21:35)
[2018-10-12] MEDS: GABAPENTIN 300 MG CAPSULE PO SCH ×3 (10:34→17:09)
[2018-10-12] MEDS: CHOLECALCIFEROL (VIT D3) 1,000 UNITS TABLET PO SCH (10:34)
[2018-10-12] MEDS: IBUPROFEN 400 MG TABLET PO PRN (10:35)
[2018-10-12] MEDS: ATENOLOL 50 MG TABLET PO SCH (10:54)
[2018-10-12 16:09] VITALS: BP 124/46
[2018-10-12] MEDS: LORazepam 2 MG TABLET PO PRN (17:09)
[2018-10-12] MEDS: TraZODone HCL 100 MG TABLET PO SCH (21:35)
[2018-10-13] MEDS: FERROUS SULFATE 325 MG EC TABLET PO SCH ×3 (07:03→17:30)
[2018-10-13 07:22] VITALS: BP 118/68
[2018-10-13 08:39] VITALS: BP 140/92
[2018-10-13] MEDS ORDERED: PALIPERIDONE PALMITATE 234 MG/1.5 ML SYRINGE IM SCH (09:00)
[2018-10-13] MEDS: VALPROIC ACID 250 MG/5 ML SYRUP UDCUP PO SCH ×2 (09:22→21:12)
[2018-10-13] MEDS: ESCITALOPRAM OXALATE 10 MG TABLET PO SCH (09:22)
[2018-10-13] MEDS: AmLODIPine BESYLATE 2.5 MG TABLET PO SCH (09:22)
[2018-10-13] MEDS: ATENOLOL 50 MG TABLET PO SCH (09:22)
[2018-10-13] MEDS: GABAPENTIN 300 MG CAPSULE PO SCH ×3 (09:22→17:30)
[2018-10-13] MEDS: HYDROCHLOROTHIAZIDE 25 MG TABLET PO SCH (09:22)
[2018-10-13] MEDS: CHOLECALCIFEROL (VIT D3) 1,000 UNITS TABLET PO SCH (09:22)
[2018-10-13] MEDS: LORazepam 2 MG TABLET PO PRN ×2 (09:48→16:57)
[2018-10-13] MEDS: HALOPERIDOL 5 MG TABLET PO PRN (16:57)
[2018-10-13 18:33] VITALS: BP 139/62
[2018-10-13] MEDS ORDERED: HALOPERIDOL LACTATE 5 MG/ML VIAL IM ONE (20:15)
[2018-10-13] MEDS ORDERED: LORazepam 2 MG/ML VIAL IM ONE (20:15)
[2018-10-13] MEDS ORDERED: DiphenhydrAMINE HCL 50 MG/ML VIAL IM ONE (20:15)
[2018-10-13] MEDS: TraZODone HCL 100 MG TABLET PO SCH (21:12)
[2018-10-14] MEDS: FERROUS SULFATE 325 MG EC TABLET PO SCH ×3 (06:53→17:00)
[2018-10-14] MEDS: AmLODIPine BESYLATE 2.5 MG TABLET PO SCH (08:04)
[2018-10-14] MEDS: VALPROIC ACID 250 MG/5 ML SYRUP UDCUP PO SCH ×2 (08:04→20:22)
[2018-10-14] MEDS: ESCITALOPRAM OXALATE 10 MG TABLET PO SCH (08:05)
[2018-10-14] MEDS: ATENOLOL 50 MG TABLET PO SCH (08:05)
[2018-10-14] MEDS: CHOLECALCIFEROL (VIT D3) 1,000 UNITS TABLET PO SCH (08:05)
[2018-10-14] MEDS: GABAPENTIN 300 MG CAPSULE PO SCH ×3 (08:05→17:00)
[2018-10-14] MEDS: HYDROCHLOROTHIAZIDE 25 MG TABLET PO SCH (08:05)
[2018-10-14 08:11] VITALS: BP 148/90
[2018-10-14] MEDS: LORazepam 2 MG TABLET PO PRN ×2 (08:51→16:06)
[2018-10-14] MEDS: HALOPERIDOL 5 MG TABLET PO PRN ×2 (10:05→16:05)
[2018-10-14 16:10] VITALS: BP 118/63
[2018-10-14] MEDS: TraZODone HCL 100 MG TABLET PO SCH (20:22)
[2018-10-15] MEDS: FERROUS SULFATE 325 MG EC TABLET PO SCH ×3 (06:13→16:56)
[2018-10-15 06:37] VITALS: BP 139/73
[2018-10-15] MEDS: AmLODIPine BESYLATE 2.5 MG TABLET PO SCH (08:15)
[2018-10-15] MEDS: ATENOLOL 50 MG TABLET PO SCH (08:15)
[2018-10-15] MEDS: CHOLECALCIFEROL (VIT D3) 1,000 UNITS TABLET PO SCH (08:16)
[2018-10-15] MEDS: VALPROIC ACID 250 MG/5 ML SYRUP UDCUP PO SCH ×2 (08:16→21:12)
[2018-10-15] MEDS: ESCITALOPRAM OXALATE 10 MG TABLET PO SCH (08:16)
[2018-10-15] MEDS: GABAPENTIN 300 MG CAPSULE PO SCH ×3 (08:16→16:13)
[2018-10-15] MEDS: HYDROCHLOROTHIAZIDE 25 MG TABLET PO SCH (08:16)
[2018-10-15 08:26] VITALS: BP 158/58
[2018-10-15] MEDS: LORazepam 2 MG TABLET PO PRN ×2 (08:55→16:56)
[2018-10-15] MEDS: HALOPERIDOL 5 MG TABLET PO PRN ×2 (09:46→18:14)
[2018-10-15 10:30] VITALS: BP 140/88
[2018-10-15 16:33] VITALS: BP 136/80
[2018-10-15] MEDS: TraZODone HCL 100 MG TABLET PO SCH (21:12)
[2018-10-16 05:06] VITALS: BP 137/88
[2018-10-16] MEDS: FERROUS SULFATE 325 MG EC TABLET PO SCH ×3 (07:15→17:08)
[2018-10-16 09:11] VITALS: BP 134/72
[2018-10-16] MEDS: GABAPENTIN 300 MG CAPSULE PO SCH ×3 (09:39→17:08)
[2018-10-16] MEDS: ESCITALOPRAM OXALATE 10 MG TABLET PO SCH (09:39)
[2018-10-16] MEDS: HYDROCHLOROTHIAZIDE 25 MG TABLET PO SCH (09:39)
[2018-10-16] MEDS: ATENOLOL 50 MG TABLET PO SCH (09:39)
[2018-10-16] MEDS: CHOLECALCIFEROL (VIT D3) 1,000 UNITS TABLET PO SCH (09:40)
[2018-10-16] MEDS: AmLODIPine BESYLATE 2.5 MG TABLET PO SCH (09:42)
[2018-10-16] MEDS: VALPROIC ACID 250 MG/5 ML SYRUP UDCUP PO SCH ×2 (09:42→21:06)
[2018-10-16 16:44] VITALS: BP 137/60
[2018-10-16] MEDS: LORazepam 2 MG TABLET PO PRN (17:08)
[2018-10-16] MEDS: HALOPERIDOL 5 MG TABLET PO PRN (17:08)
[2018-10-16] MEDS: IBUPROFEN 400 MG TABLET PO PRN (18:13)
[2018-10-16] MEDS: TraZODone HCL 100 MG TABLET PO SCH (21:06)
[2018-10-17 05:49] VITALS: BP 138/82
[2018-10-17] MEDS: FERROUS SULFATE 325 MG EC TABLET PO SCH ×3 (07:01→17:12)
[2018-10-17 08:14] VITALS: BP 152/78
[2018-10-17] MEDS: AmLODIPine BESYLATE 2.5 MG TABLET PO SCH (09:21)
[2018-10-17] MEDS: CHOLECALCIFEROL (VIT D3) 1,000 UNITS TABLET PO SCH (09:21)
[2018-10-17] MEDS: GABAPENTIN 300 MG CAPSULE PO SCH ×3 (09:21→17:12)
[2018-10-17] MEDS: ESCITALOPRAM OXALATE 10 MG TABLET PO SCH (09:21)
[2018-10-17] MEDS: VALPROIC ACID 250 MG/5 ML SYRUP UDCUP PO SCH ×2 (09:21→20:10)
[2018-10-17] MEDS: HYDROCHLOROTHIAZIDE 25 MG TABLET PO SCH (09:21)
[2018-10-17] MEDS: ATENOLOL 50 MG TABLET PO SCH (09:21)
[2018-10-17] MEDS: LORazepam 2 MG TABLET PO PRN (09:21)
[2018-10-17] MEDS: HALOPERIDOL 5 MG TABLET PO PRN (10:13)
[2018-10-17] MEDS: LOPERAMIDE HCL 2 MG CAPSULE PO PRN (15:09)
[2018-10-17 16:30] VITALS: BP 117/65
[2018-10-17] MEDS: TraZODone HCL 100 MG TABLET PO SCH (20:10)
[2018-10-18 03:09] VITALS: BP 147/66
[2018-10-18] MEDS: FERROUS SULFATE 325 MG EC TABLET PO SCH ×3 (06:47→17:27)
[2018-10-18 08:12] VITALS: BP 165/80
[2018-10-18] MEDS: LORazepam 2 MG TABLET PO PRN ×2 (08:43→16:35)
[2018-10-18] MEDS: HALOPERIDOL 5 MG TABLET PO PRN ×2 (08:43→16:35)
[2018-10-18] MEDS: CHOLECALCIFEROL (VIT D3) 1,000 UNITS TABLET PO SCH (08:43)
[2018-10-18] MEDS: HYDROCHLOROTHIAZIDE 25 MG TABLET PO SCH (08:43)
[2018-10-18] MEDS: AmLODIPine BESYLATE 2.5 MG TABLET PO SCH (08:43)
[2018-10-18] MEDS: ESCITALOPRAM OXALATE 10 MG TABLET PO SCH (08:43)
[2018-10-18] MEDS: ATENOLOL 50 MG TABLET PO SCH (08:43)
[2018-10-18] MEDS: ACETAMINOPHEN 325 MG TABLET PO PRN (08:43)
[2018-10-18] MEDS: GABAPENTIN 300 MG CAPSULE PO SCH ×3 (08:43→17:28)
[2018-10-18] MEDS: PALIPERIDONE PALMITATE 234 MG/1.5 ML SYRINGE IM SCH (08:44)
[2018-10-18] MEDS: VALPROIC ACID 250 MG/5 ML SYRUP UDCUP PO SCH ×2 (08:44→20:18)
[2018-10-18 16:35] VITALS: BP 135/60
[2018-10-18] MEDS: IBUPROFEN 400 MG TABLET PO PRN (16:35)
[2018-10-18 16:42] VITALS: BP 135/60
[2018-10-18] MEDS: TraZODone HCL 100 MG TABLET PO SCH (20:18)
[2018-10-19 05:22] VITALS: BP 124/66
[2018-10-19] MEDS: FERROUS SULFATE 325 MG EC TABLET PO SCH ×3 (07:05→17:04)
[2018-10-19 08:18] VITALS: BP 121/62
[2018-10-19] MEDS: ESCITALOPRAM OXALATE 10 MG TABLET PO SCH (08:56)
[2018-10-19] MEDS: CHOLECALCIFEROL (VIT D3) 1,000 UNITS TABLET PO SCH (08:56)
[2018-10-19] MEDS: GABAPENTIN 300 MG CAPSULE PO SCH ×3 (08:56→17:04)
[2018-10-19] MEDS: HYDROCHLOROTHIAZIDE 25 MG TABLET PO SCH (08:56)
[2018-10-19] MEDS: AmLODIPine BESYLATE 2.5 MG TABLET PO SCH (08:58)
[2018-10-19] MEDS: VALPROIC ACID 250 MG/5 ML SYRUP UDCUP PO SCH ×2 (08:58→20:50)
[2018-10-19] MEDS: ATENOLOL 50 MG TABLET PO SCH (09:02)
[2018-10-19] MEDS: LORazepam 2 MG TABLET PO PRN ×2 (09:34→16:30)
[2018-10-19] MEDS: HALOPERIDOL 5 MG TABLET PO PRN ×2 (09:34→16:30)
[2018-10-19] MEDS: ACETAMINOPHEN 325 MG TABLET PO PRN (16:28)
[2018-10-19 16:33] VITALS: BP 116/61
[2018-10-19] MEDS: TraZODone HCL 100 MG TABLET PO SCH (20:49)
[2018-10-20] MEDS: LOPERAMIDE HCL 2 MG CAPSULE PO PRN (00:13)
[2018-10-20 00:24] VITALS: BP 146/52
[2018-10-20] MEDS: FERROUS SULFATE 325 MG EC TABLET PO SCH ×3 (06:54→16:56)
[2018-10-20 08:13] VITALS: BP 136/59
[2018-10-20] MEDS: ESCITALOPRAM OXALATE 10 MG TABLET PO SCH (09:04)
[2018-10-20] MEDS: AmLODIPine BESYLATE 2.5 MG TABLET PO SCH (09:04)
[2018-10-20] MEDS: VALPROIC ACID 250 MG/5 ML SYRUP UDCUP PO SCH ×2 (09:04→21:00)
[2018-10-20] MEDS: CHOLECALCIFEROL (VIT D3) 1,000 UNITS TABLET PO SCH (09:04)
[2018-10-20] MEDS: GABAPENTIN 300 MG CAPSULE PO SCH ×3 (09:04→16:56)
[2018-10-20] MEDS: HYDROCHLOROTHIAZIDE 25 MG TABLET PO SCH (09:04)
[2018-10-20] MEDS: ATENOLOL 50 MG TABLET PO SCH (09:05)
[2018-10-20] MEDS: LORazepam 2 MG TABLET PO PRN ×2 (09:22→16:10)
[2018-10-20] MEDS: HALOPERIDOL 5 MG TABLET PO PRN ×2 (09:48→16:10)
[2018-10-20 16:15] VITALS: BP 135/68
[2018-10-20] MEDS: TraZODone HCL 100 MG TABLET PO SCH (20:59)
[2018-10-21] MEDS: FERROUS SULFATE 325 MG EC TABLET PO SCH ×3 (06:24→17:02)
[2018-10-21 06:32] VITALS: BP 138/69
[2018-10-21 08:32] VITALS: BP 129/64
[2018-10-21] MEDS: ATENOLOL 50 MG TABLET PO SCH (09:28)
[2018-10-21] MEDS: HYDROCHLOROTHIAZIDE 25 MG TABLET PO SCH (09:28)
[2018-10-21] MEDS: ESCITALOPRAM OXALATE 10 MG TABLET PO SCH (09:28)
[2018-10-21] MEDS: GABAPENTIN 300 MG CAPSULE PO SCH ×3 (09:29→17:02)
[2018-10-21] MEDS: HALOPERIDOL 5 MG TABLET PO PRN ×2 (09:29→17:04)
[2018-10-21] MEDS: AmLODIPine BESYLATE 2.5 MG TABLET PO SCH (09:29)
[2018-10-21] MEDS: VALPROIC ACID 250 MG/5 ML SYRUP UDCUP PO SCH ×2 (09:29→20:28)
[2018-10-21] MEDS: CHOLECALCIFEROL (VIT D3) 1,000 UNITS TABLET PO SCH (09:29)
[2018-10-21] MEDS: LORazepam 2 MG TABLET PO PRN ×2 (09:29→17:04)
[2018-10-21 16:00] VITALS: BP 136/65
[2018-10-21] MEDS: TraZODone HCL 100 MG TABLET PO SCH (20:28)
[2018-10-22] VITALS (8 sets, daily range): BP systolic 127–158; BP diastolic 65–90
[2018-10-22] MEDS: FERROUS SULFATE 325 MG EC TABLET PO SCH ×3 (07:00→16:23)
[2018-10-22] MEDS: CHOLECALCIFEROL (VIT D3) 1,000 UNITS TABLET PO SCH (08:21)
[2018-10-22] MEDS: GABAPENTIN 300 MG CAPSULE PO SCH ×3 (08:21→16:22)
[2018-10-22] MEDS: HYDROCHLOROTHIAZIDE 25 MG TABLET PO SCH (08:21)
[2018-10-22] MEDS: VALPROIC ACID 250 MG/5 ML SYRUP UDCUP PO SCH ×2 (08:21→20:32)
[2018-10-22] MEDS: ESCITALOPRAM OXALATE 10 MG TABLET PO SCH (08:21)
[2018-10-22] MEDS: ATENOLOL 50 MG TABLET PO SCH (08:22)
[2018-10-22] MEDS: AmLODIPine BESYLATE 2.5 MG TABLET PO SCH (08:22)
[2018-10-22] MEDS: BENZTROPINE MESYLATE 1 MG TABLET PO SCH ×2 (14:14→20:32)
[2018-10-22] MEDS: LORazepam 2 MG TABLET PO PRN (16:23)
[2018-10-22] MEDS: TraZODone HCL 100 MG TABLET PO SCH (20:32)
[2018-10-22] MEDS: IBUPROFEN 400 MG TABLET PO PRN (21:02)
[2018-10-22] MEDS ORDERED: BENZ1TAB10 PO (23:09)
[2018-10-23 03:50] VITALS: BP 140/86
[2018-10-23] MEDS: ACETAMINOPHEN 325 MG TABLET PO PRN (05:03)
[2018-10-23] MEDS: IBUPROFEN 400 MG TABLET PO PRN (06:34)
[2018-10-23] MEDS: FERROUS SULFATE 325 MG EC TABLET PO SCH ×3 (06:44→16:42)
[2018-10-23 08:13] VITALS: BP 150/82
[2018-10-23] MEDS: CHOLECALCIFEROL (VIT D3) 1,000 UNITS TABLET PO SCH (08:47)
[2018-10-23] MEDS: GABAPENTIN 300 MG CAPSULE PO SCH ×3 (08:47→16:42)
[2018-10-23] MEDS: HYDROCHLOROTHIAZIDE 25 MG TABLET PO SCH (08:47)
[2018-10-23] MEDS: AmLODIPine BESYLATE 2.5 MG TABLET PO SCH (08:48)
[2018-10-23] MEDS: BENZTROPINE MESYLATE 1 MG TABLET PO SCH ×2 (08:48→20:50)
[2018-10-23] MEDS: ATENOLOL 50 MG TABLET PO SCH (08:48)
[2018-10-23] MEDS: ESCITALOPRAM OXALATE 10 MG TABLET PO SCH (08:48)
[2018-10-23] MEDS: VALPROIC ACID 250 MG/5 ML SYRUP UDCUP PO SCH ×2 (08:48→20:50)
[2018-10-23] MEDS: BENZOCAINE 10% 7 GM GEL TP PRN ×2 (10:19→16:30)
[2018-10-23] MEDS: LORazepam 2 MG TABLET PO PRN (16:07)
[2018-10-23 16:08] VITALS: BP 134/81
[2018-10-23] MEDS: TraZODone HCL 100 MG TABLET PO SCH (20:50)
[2018-10-24 02:26] VITALS: BP 139/54
[2018-10-24] MEDS: LORazepam 2 MG TABLET PO PRN ×2 (05:33→21:28)
[2018-10-24] MEDS: BENZOCAINE 10% 7 GM GEL TP PRN ×2 (05:56→13:25)
[2018-10-24] MEDS: FERROUS SULFATE 325 MG EC TABLET PO SCH ×3 (07:05→18:21)
[2018-10-24 09:00] VITALS: BP 144/80
[2018-10-24] MEDS: CHOLECALCIFEROL (VIT D3) 1,000 UNITS TABLET PO SCH (09:45)
[2018-10-24] MEDS: GABAPENTIN 300 MG CAPSULE PO SCH ×3 (09:45→18:21)
[2018-10-24] MEDS: VALPROIC ACID 250 MG/5 ML SYRUP UDCUP PO SCH ×2 (09:45→21:29)
[2018-10-24] MEDS: BENZTROPINE MESYLATE 1 MG TABLET PO SCH ×2 (09:45→21:28)
[2018-10-24] MEDS: HYDROCHLOROTHIAZIDE 25 MG TABLET PO SCH (09:45)
[2018-10-24] MEDS: ESCITALOPRAM OXALATE 10 MG TABLET PO SCH (09:46)
[2018-10-24] MEDS: AmLODIPine BESYLATE 2.5 MG TABLET PO SCH (09:46)
[2018-10-24] MEDS: ATENOLOL 50 MG TABLET PO SCH (09:46)
[2018-10-24] MEDS: HYDROCORTISONE 1% 30 GM CREAM TP PRN (13:18)
[2018-10-24 16:06] VITALS: BP 140/65
[2018-10-24] MEDS: ZOLPIDEM TARTRATE 10 MG TABLET PO PRN (21:10)
[2018-10-24] MEDS: LOPERAMIDE HCL 2 MG CAPSULE PO PRN (21:10)
[2018-10-24] MEDS: TraZODone HCL 100 MG TABLET PO SCH (21:29)
[2018-10-25 05:18] VITALS: BP 144/81
[2018-10-25] MEDS: FERROUS SULFATE 325 MG EC TABLET PO SCH ×3 (06:50→16:50)
[2018-10-25 08:09] VITALS: BP 139/83
[2018-10-25] MEDS: CHOLECALCIFEROL (VIT D3) 1,000 UNITS TABLET PO SCH (08:40)
[2018-10-25] MEDS: ESCITALOPRAM OXALATE 10 MG TABLET PO SCH (08:40)
[2018-10-25] MEDS: ATENOLOL 50 MG TABLET PO SCH (08:40)
[2018-10-25] MEDS: HYDROCHLOROTHIAZIDE 25 MG TABLET PO SCH (08:40)
[2018-10-25] MEDS: VALPROIC ACID 250 MG/5 ML SYRUP UDCUP PO SCH ×2 (08:40→20:09)
[2018-10-25] MEDS: BENZTROPINE MESYLATE 1 MG TABLET PO SCH ×2 (08:40→20:09)
[2018-10-25] MEDS: GABAPENTIN 300 MG CAPSULE PO SCH ×3 (08:40→16:50)
[2018-10-25] MEDS: AmLODIPine BESYLATE 2.5 MG TABLET PO SCH (08:41)
[2018-10-25] MEDS: LORazepam 2 MG TABLET PO PRN ×2 (08:57→15:57)
[2018-10-25] MEDS: HALOPERIDOL 5 MG TABLET PO PRN ×2 (09:25→15:57)
[2018-10-25 16:00] VITALS: BP 135/62
[2018-10-25] MEDS: TraZODone HCL 100 MG TABLET PO SCH (20:09)
[2018-10-26 04:45] VITALS: BP 147/54
[2018-10-26] MEDS: FERROUS SULFATE 325 MG EC TABLET PO SCH ×3 (06:05→16:52)
[2018-10-26] MEDS: LORazepam 2 MG TABLET PO PRN (07:58)
[2018-10-26] MEDS: HALOPERIDOL 5 MG TABLET PO PRN (08:01)
[2018-10-26] MEDS: HYDROCHLOROTHIAZIDE 25 MG TABLET PO SCH (08:02)
[2018-10-26] MEDS: AmLODIPine BESYLATE 2.5 MG TABLET PO SCH (08:02)
[2018-10-26] MEDS: BENZTROPINE MESYLATE 1 MG TABLET PO SCH ×2 (08:02→21:31)
[2018-10-26] MEDS: GABAPENTIN 300 MG CAPSULE PO SCH ×3 (08:02→16:52)
[2018-10-26] MEDS: CHOLECALCIFEROL (VIT D3) 1,000 UNITS TABLET PO SCH (08:02)
[2018-10-26] MEDS: ESCITALOPRAM OXALATE 10 MG TABLET PO SCH (08:02)
[2018-10-26] MEDS: VALPROIC ACID 250 MG/5 ML SYRUP UDCUP PO SCH ×2 (08:03→21:31)
[2018-10-26] MEDS: LOPERAMIDE HCL 2 MG CAPSULE PO PRN (08:21)
[2018-10-26 08:28] VITALS: BP 152/97
[2018-10-26] MEDS: ATENOLOL 50 MG TABLET PO SCH (09:56)
[2018-10-26 16:00] VITALS: BP 124/78
[2018-10-26] MEDS: TraZODone HCL 100 MG TABLET PO SCH (21:31)
[2018-10-27] VITALS (9 sets, daily range): BP systolic 110–154; BP diastolic 60–85
[2018-10-27] MEDS: ACETAMINOPHEN 325 MG TABLET PO PRN (02:50)
[2018-10-27] MEDS: LORazepam 2 MG TABLET PO PRN ×3 (04:21→22:04)
[2018-10-27] MEDS: BENZOCAINE 10% 7 GM GEL TP PRN (04:46)
[2018-10-27] MEDS: FERROUS SULFATE 325 MG EC TABLET PO SCH ×3 (06:55→16:59)
[2018-10-27] MEDS: VALPROIC ACID 250 MG/5 ML SYRUP UDCUP PO SCH ×2 (09:45→21:23)
[2018-10-27] MEDS: HYDROCHLOROTHIAZIDE 25 MG TABLET PO SCH (09:46)
[2018-10-27] MEDS: HALOPERIDOL 5 MG TABLET PO PRN ×2 (09:46→22:04)
[2018-10-27] MEDS: CHOLECALCIFEROL (VIT D3) 1,000 UNITS TABLET PO SCH (09:46)
[2018-10-27] MEDS: AmLODIPine BESYLATE 2.5 MG TABLET PO SCH (09:46)
[2018-10-27] MEDS: ESCITALOPRAM OXALATE 10 MG TABLET PO SCH (09:46)
[2018-10-27] MEDS: GABAPENTIN 300 MG CAPSULE PO SCH ×3 (09:46→16:59)
[2018-10-27] MEDS: ATENOLOL 50 MG TABLET PO SCH (09:46)
[2018-10-27] MEDS: BENZTROPINE MESYLATE 1 MG TABLET PO SCH ×2 (09:46→21:23)
[2018-10-27] MEDS: LOPERAMIDE HCL 2 MG CAPSULE PO PRN (10:36)
[2018-10-27] MEDS: TraZODone HCL 100 MG TABLET PO SCH (21:22)
[2018-10-27] MEDS: ZOLPIDEM TARTRATE 10 MG TABLET PO PRN (22:53)
[2018-10-28 00:32] VITALS: BP 125/70
[2018-10-28 00:35] VITALS: BP 125/70
[2018-10-28] MEDS: FERROUS SULFATE 325 MG EC TABLET PO SCH ×3 (06:07→17:05)
[2018-10-28 08:12] VITALS: BP 136/81
[2018-10-28] MEDS: GABAPENTIN 300 MG CAPSULE PO SCH ×3 (08:28→17:04)
[2018-10-28] MEDS: BENZTROPINE MESYLATE 1 MG TABLET PO SCH ×2 (08:28→20:35)
[2018-10-28] MEDS: VALPROIC ACID 250 MG/5 ML SYRUP UDCUP PO SCH ×2 (08:28→20:35)
[2018-10-28] MEDS: ESCITALOPRAM OXALATE 10 MG TABLET PO SCH (08:28)
[2018-10-28] MEDS: CHOLECALCIFEROL (VIT D3) 1,000 UNITS TABLET PO SCH (08:28)
[2018-10-28] MEDS: AmLODIPine BESYLATE 2.5 MG TABLET PO SCH (08:29)
[2018-10-28] MEDS: HYDROCHLOROTHIAZIDE 25 MG TABLET PO SCH (08:29)
[2018-10-28] MEDS: ATENOLOL 50 MG TABLET PO SCH (08:29)
[2018-10-28] MEDS: HALOPERIDOL 5 MG TABLET PO PRN ×2 (09:05→16:05)
[2018-10-28] MEDS: LORazepam 2 MG TABLET PO PRN ×2 (09:05→16:05)
[2018-10-28] MEDS: BENZOCAINE 10% 7 GM GEL TP PRN (09:33)
[2018-10-28] MEDS: HYDROCORTISONE 1% 30 GM CREAM TP PRN (09:35)
[2018-10-28] MEDS: IBUPROFEN 400 MG TABLET PO PRN (09:41)
[2018-10-28 16:23] VITALS: BP 114/60
[2018-10-28] MEDS: TraZODone HCL 100 MG TABLET PO SCH (20:35)
[2018-10-29 06:22] VITALS: BP 124/69
[2018-10-29] MEDS: FERROUS SULFATE 325 MG EC TABLET PO SCH ×3 (06:55→17:18)
[2018-10-29 09:40] VITALS: BP 153/76
[2018-10-29] MEDS: VALPROIC ACID 250 MG/5 ML SYRUP UDCUP PO SCH ×2 (09:43→20:48)
[2018-10-29] MEDS: BENZTROPINE MESYLATE 1 MG TABLET PO SCH ×2 (09:44→20:49)
[2018-10-29] MEDS: ESCITALOPRAM OXALATE 10 MG TABLET PO SCH (09:44)
[2018-10-29] MEDS: ATENOLOL 50 MG TABLET PO SCH (09:44)
[2018-10-29] MEDS: CHOLECALCIFEROL (VIT D3) 1,000 UNITS TABLET PO SCH (09:44)
[2018-10-29] MEDS: AmLODIPine BESYLATE 2.5 MG TABLET PO SCH (09:44)
[2018-10-29] MEDS: HYDROCHLOROTHIAZIDE 25 MG TABLET PO SCH (09:44)
[2018-10-29] MEDS: GABAPENTIN 300 MG CAPSULE PO SCH ×3 (09:44→17:18)
[2018-10-29 12:30] VITALS: BP 140/78
[2018-10-29] MEDS: ACETAMINOPHEN 325 MG TABLET PO PRN (12:30)
[2018-10-29] MEDS: TraMADol HCL 50 MG TABLET PO PRN (13:21)
[2018-10-29 13:35] VITALS: BP 134/72
[2018-10-29 16:05] VITALS: BP 125/66
[2018-10-29] MEDS: LORazepam 2 MG TABLET PO PRN (17:18)
[2018-10-29] MEDS: HALOPERIDOL 5 MG TABLET PO PRN (17:18)
[2018-10-29] MEDS: AMOX TR/POT CLAV 500 MG/125 MG TABLET PO SCH ×2 (17:18→23:49)
[2018-10-29] MEDS: TraZODone HCL 100 MG TABLET PO SCH (20:49)
[2018-10-29] MEDS: ZOLPIDEM TARTRATE 10 MG TABLET PO PRN (20:49)
[2018-10-30 02:13] VITALS: BP 137/61
[2018-10-30] MEDS: FERROUS SULFATE 325 MG EC TABLET PO SCH ×3 (06:48→16:54)
[2018-10-30 08:10] VITALS: BP 148/66
[2018-10-30] MEDS: ATENOLOL 50 MG TABLET PO SCH (08:18)
[2018-10-30] MEDS: VALPROIC ACID 250 MG/5 ML SYRUP UDCUP PO SCH ×2 (08:18→21:17)
[2018-10-30] MEDS: BENZTROPINE MESYLATE 1 MG TABLET PO SCH ×2 (08:19→21:17)
[2018-10-30] MEDS: AMOX TR/POT CLAV 500 MG/125 MG TABLET PO SCH ×3 (08:19→23:49)
[2018-10-30] MEDS: AmLODIPine BESYLATE 2.5 MG TABLET PO SCH (08:19)
[2018-10-30] MEDS: GABAPENTIN 300 MG CAPSULE PO SCH ×3 (08:19→16:54)
[2018-10-30] MEDS: HYDROCHLOROTHIAZIDE 25 MG TABLET PO SCH (08:19)
[2018-10-30] MEDS: CHOLECALCIFEROL (VIT D3) 1,000 UNITS TABLET PO SCH (08:19)
[2018-10-30] MEDS: ESCITALOPRAM OXALATE 10 MG TABLET PO SCH (08:19)
[2018-10-30 08:20] VITALS: BP 140/72
[2018-10-30] MEDS: TraMADol HCL 50 MG TABLET PO PRN (08:20)
[2018-10-30] MEDS ORDERED: HALOPERIDOL LACTATE 5 MG/ML VIAL ONE (09:44)
[2018-10-30] MEDS ORDERED: DiphenhydrAMINE HCL 50 MG/ML VIAL ONE (09:44)
[2018-10-30] MEDS ORDERED: HALOPERIDOL LACTATE 5 MG/ML VIAL IM ONE (09:45)
[2018-10-30] MEDS ORDERED: DiphenhydrAMINE HCL 50 MG/ML VIAL IM ONE (09:45)
[2018-10-30 10:20] VITALS: BP 125/54
[2018-10-30 16:17] VITALS: BP 130/87
[2018-10-30] MEDS: LORazepam 2 MG TABLET PO PRN (16:54)
[2018-10-30] MEDS: HALOPERIDOL 5 MG TABLET PO PRN (16:54)
[2018-10-30] MEDS: ZOLPIDEM TARTRATE 10 MG TABLET PO PRN (21:17)
[2018-10-30] MEDS: TraZODone HCL 100 MG TABLET PO SCH (21:18)
[2018-10-31 06:19] VITALS: BP 133/81
[2018-10-31] MEDS: FERROUS SULFATE 325 MG EC TABLET PO SCH ×3 (06:45→16:41)
[2018-10-31 08:14] VITALS: BP 138/59
[2018-10-31] MEDS: AMOX TR/POT CLAV 500 MG/125 MG TABLET PO SCH ×3 (09:56→23:54)
[2018-10-31] MEDS: CHOLECALCIFEROL (VIT D3) 1,000 UNITS TABLET PO SCH (09:56)
[2018-10-31] MEDS: BENZTROPINE MESYLATE 1 MG TABLET PO SCH ×2 (09:56→20:14)
[2018-10-31] MEDS: HYDROCHLOROTHIAZIDE 25 MG TABLET PO SCH (09:56)
[2018-10-31] MEDS: AmLODIPine BESYLATE 2.5 MG TABLET PO SCH (09:56)
[2018-10-31] MEDS: ESCITALOPRAM OXALATE 10 MG TABLET PO SCH (09:56)
[2018-10-31] MEDS: GABAPENTIN 300 MG CAPSULE PO SCH ×3 (09:56→18:02)
[2018-10-31] MEDS: ATENOLOL 50 MG TABLET PO SCH (09:57)
[2018-10-31] MEDS: VALPROIC ACID 250 MG/5 ML SYRUP UDCUP PO SCH ×2 (09:57→20:14)
[2018-10-31 12:54] VITALS: BP 137/99
[2018-10-31] MEDS: ACETAMINOPHEN 325 MG TABLET PO PRN (12:59)
[2018-10-31 13:54] VITALS: BP 140/77
[2018-10-31 16:28] VITALS: BP 117/89
[2018-10-31] MEDS: LORazepam 2 MG TABLET PO PRN (16:39)
[2018-10-31] MEDS: TraZODone HCL 100 MG TABLET PO SCH (20:14)
[2018-11-01] MEDS: FERROUS SULFATE 325 MG EC TABLET PO SCH ×3 (06:38→16:27)
[2018-11-01 07:17] VITALS: BP 135/89
[2018-11-01 08:36] VITALS: BP 141/68
[2018-11-01] MEDS: CHOLECALCIFEROL (VIT D3) 1,000 UNITS TABLET PO SCH (08:42)
[2018-11-01] MEDS: VALPROIC ACID 250 MG/5 ML SYRUP UDCUP PO SCH ×2 (08:42→20:52)
[2018-11-01] MEDS: HYDROCHLOROTHIAZIDE 25 MG TABLET PO SCH (08:43)
[2018-11-01] MEDS: GABAPENTIN 300 MG CAPSULE PO SCH ×3 (08:43→16:26)
[2018-11-01] MEDS: BENZTROPINE MESYLATE 1 MG TABLET PO SCH ×2 (08:43→20:52)
[2018-11-01] MEDS: ESCITALOPRAM OXALATE 10 MG TABLET PO SCH (08:43)
[2018-11-01] MEDS: AmLODIPine BESYLATE 2.5 MG TABLET PO SCH (08:43)
[2018-11-01] MEDS: ATENOLOL 50 MG TABLET PO SCH (08:43)
[2018-11-01] MEDS: AMOX TR/POT CLAV 500 MG/125 MG TABLET PO SCH ×2 (08:43→17:00)
[2018-11-01 08:50] VITALS: BP 134/72
[2018-11-01] MEDS: TraMADol HCL 50 MG TABLET PO PRN (08:50)
[2018-11-01] MEDS: HALOPERIDOL 5 MG TABLET PO PRN ×2 (09:42→16:27)
[2018-11-01] MEDS: LORazepam 2 MG TABLET PO PRN ×2 (09:42→16:27)
[2018-11-01] MEDS: ACETAMINOPHEN 325 MG TABLET PO PRN (12:39)
[2018-11-01 16:00] VITALS: BP 132/63
[2018-11-01] MEDS: TraZODone HCL 100 MG TABLET PO SCH (20:52)
[2018-11-02] MEDS: AMOX TR/POT CLAV 500 MG/125 MG TABLET PO SCH ×3 (00:15→16:14)
[2018-11-02 06:28] VITALS: BP 150/84
[2018-11-02] MEDS: FERROUS SULFATE 325 MG EC TABLET PO SCH ×3 (06:45→17:04)
[2018-11-02 08:18] VITALS: BP 135/72
[2018-11-02] MEDS: GABAPENTIN 300 MG CAPSULE PO SCH ×3 (08:33→17:04)
[2018-11-02] MEDS: CHOLECALCIFEROL (VIT D3) 1,000 UNITS TABLET PO SCH (08:33)
[2018-11-02] MEDS: BENZTROPINE MESYLATE 1 MG TABLET PO SCH ×2 (08:33→20:37)
[2018-11-02] MEDS: AmLODIPine BESYLATE 2.5 MG TABLET PO SCH (08:33)
[2018-11-02] MEDS: ESCITALOPRAM OXALATE 10 MG TABLET PO SCH (08:33)
[2018-11-02] MEDS: HYDROCHLOROTHIAZIDE 25 MG TABLET PO SCH (08:34)
[2018-11-02] MEDS: VALPROIC ACID 250 MG/5 ML SYRUP UDCUP PO SCH ×2 (08:34→20:37)
[2018-11-02] MEDS: ATENOLOL 50 MG TABLET PO SCH (08:34)
[2018-11-02] MEDS: HALOPERIDOL 5 MG TABLET PO PRN ×2 (09:30→16:15)
[2018-11-02] MEDS: LORazepam 2 MG TABLET PO PRN ×2 (09:30→16:15)
[2018-11-02] MEDS: ACETAMINOPHEN 325 MG TABLET PO PRN (16:15)
[2018-11-02 16:16] VITALS: BP 137/61
[2018-11-02] MEDS: TraZODone HCL 100 MG TABLET PO SCH (20:38)
[2018-11-03] MEDS: AMOX TR/POT CLAV 500 MG/125 MG TABLET PO SCH ×3 (00:35→16:00)
[2018-11-03 04:58] VITALS: BP 130/78
[2018-11-03] MEDS: FERROUS SULFATE 325 MG EC TABLET PO SCH ×3 (06:06→16:45)
[2018-11-03 08:46] VITALS: BP 128/78
[2018-11-03] MEDS: ESCITALOPRAM OXALATE 10 MG TABLET PO SCH (09:22)
[2018-11-03] MEDS: BENZTROPINE MESYLATE 1 MG TABLET PO SCH ×2 (09:22→21:20)
[2018-11-03] MEDS: CHOLECALCIFEROL (VIT D3) 1,000 UNITS TABLET PO SCH (09:22)
[2018-11-03] MEDS: ATENOLOL 50 MG TABLET PO SCH (09:22)
[2018-11-03] MEDS: HYDROCHLOROTHIAZIDE 25 MG TABLET PO SCH (09:22)
[2018-11-03] MEDS: GABAPENTIN 300 MG CAPSULE PO SCH ×3 (09:22→16:02)
[2018-11-03] MEDS: VALPROIC ACID 250 MG/5 ML SYRUP UDCUP PO SCH ×2 (09:23→21:20)
[2018-11-03] MEDS: AmLODIPine BESYLATE 2.5 MG TABLET PO SCH (09:23)
[2018-11-03] MEDS: LORazepam 2 MG TABLET PO PRN (10:18)
[2018-11-03] MEDS: HALOPERIDOL 5 MG TABLET PO PRN (10:19)
[2018-11-03 16:22] VITALS: BP 127/71
[2018-11-03] MEDS: TraZODone HCL 100 MG TABLET PO SCH (21:20)
[2018-11-04] MEDS: AMOX TR/POT CLAV 500 MG/125 MG TABLET PO SCH ×4 (00:30→16:38)
[2018-11-04 04:54] VITALS: BP 146/84
[2018-11-04] MEDS: FERROUS SULFATE 325 MG EC TABLET PO SCH ×3 (06:33→16:38)
[2018-11-04 08:07] VITALS: BP 133/67
[2018-11-04] MEDS: HYDROCHLOROTHIAZIDE 25 MG TABLET PO SCH (08:33)
[2018-11-04] MEDS: GABAPENTIN 300 MG CAPSULE PO SCH ×3 (08:33→16:38)
[2018-11-04] MEDS: ESCITALOPRAM OXALATE 10 MG TABLET PO SCH (08:33)
[2018-11-04] MEDS: VALPROIC ACID 250 MG/5 ML SYRUP UDCUP PO SCH ×2 (08:33→20:49)
[2018-11-04] MEDS: AmLODIPine BESYLATE 2.5 MG TABLET PO SCH (08:33)
[2018-11-04] MEDS: BENZTROPINE MESYLATE 1 MG TABLET PO SCH ×2 (08:34→20:49)
[2018-11-04] MEDS: CHOLECALCIFEROL (VIT D3) 1,000 UNITS TABLET PO SCH (08:34)
[2018-11-04] MEDS: ATENOLOL 50 MG TABLET PO SCH (08:34)
[2018-11-04] MEDS: HALOPERIDOL 5 MG TABLET PO PRN ×2 (09:27→16:38)
[2018-11-04] MEDS: LORazepam 2 MG TABLET PO PRN ×2 (09:27→16:38)
[2018-11-04 16:18] VITALS: BP 116/73
[2018-11-04] MEDS: TraZODone HCL 100 MG TABLET PO SCH (20:49)
[2018-11-04] MEDS: ZOLPIDEM TARTRATE 10 MG TABLET PO PRN (20:49)
[2018-11-05] MEDS: AMOX TR/POT CLAV 500 MG/125 MG TABLET PO SCH ×2 (00:01→09:32)
[2018-11-05 03:06] VITALS: BP 146/79
[2018-11-05] MEDS: FERROUS SULFATE 325 MG EC TABLET PO SCH ×3 (07:06→16:16)
[2018-11-05 08:24] VITALS: BP 128/55
[2018-11-05] MEDS: ESCITALOPRAM OXALATE 10 MG TABLET PO SCH (09:32)
[2018-11-05] MEDS: AmLODIPine BESYLATE 2.5 MG TABLET PO SCH (09:32)
[2018-11-05] MEDS: HYDROCHLOROTHIAZIDE 25 MG TABLET PO SCH (09:32)
[2018-11-05] MEDS: GABAPENTIN 300 MG CAPSULE PO SCH ×3 (09:32→16:16)
[2018-11-05] MEDS: BENZTROPINE MESYLATE 1 MG TABLET PO SCH ×2 (09:32→20:06)
[2018-11-05] MEDS: VALPROIC ACID 250 MG/5 ML SYRUP UDCUP PO SCH ×2 (09:45→20:07)
[2018-11-05] MEDS: ATENOLOL 50 MG TABLET PO SCH (09:45)
[2018-11-05] MEDS: CHOLECALCIFEROL (VIT D3) 1,000 UNITS TABLET PO SCH (09:46)
[2018-11-05 16:07] VITALS: BP 145/85
[2018-11-05] MEDS: HALOPERIDOL 5 MG TABLET PO PRN (16:15)
[2018-11-05] MEDS: LORazepam 2 MG TABLET PO PRN (16:15)
[2018-11-05] MEDS: IBUPROFEN 400 MG TABLET PO PRN (16:23)
[2018-11-05] MEDS: TraZODone HCL 100 MG TABLET PO SCH (20:32)
[2018-11-06 03:56] VITALS: BP 126/69
[2018-11-06] MEDS: FERROUS SULFATE 325 MG EC TABLET PO SCH ×3 (06:43→16:47)
[2018-11-06 08:20] VITALS: BP 127/59
[2018-11-06] MEDS: ATENOLOL 50 MG TABLET PO SCH (08:44)
[2018-11-06] MEDS: CHOLECALCIFEROL (VIT D3) 1,000 UNITS TABLET PO SCH (08:44)
[2018-11-06] MEDS: BENZTROPINE MESYLATE 1 MG TABLET PO SCH ×2 (08:44→20:04)
[2018-11-06] MEDS: AmLODIPine BESYLATE 2.5 MG TABLET PO SCH (08:44)
[2018-11-06] MEDS: ESCITALOPRAM OXALATE 10 MG TABLET PO SCH (08:44)
[2018-11-06] MEDS: VALPROIC ACID 250 MG/5 ML SYRUP UDCUP PO SCH ×2 (08:44→20:05)
[2018-11-06] MEDS: GABAPENTIN 300 MG CAPSULE PO SCH ×3 (08:44→16:47)
[2018-11-06] MEDS: HYDROCHLOROTHIAZIDE 25 MG TABLET PO SCH (08:44)
[2018-11-06] MEDS: LORazepam 2 MG TABLET PO PRN (09:48)
[2018-11-06] MEDS: HALOPERIDOL 5 MG TABLET PO PRN (09:48)
[2018-11-06 16:10] VITALS: BP 128/70
[2018-11-06] MEDS: TraZODone HCL 100 MG TABLET PO SCH (20:04)
[2018-11-06] MEDS: ACETAMINOPHEN 325 MG TABLET PO PRN (20:19)
[2018-11-06] MEDS: TraMADol HCL 50 MG TABLET PO PRN (20:24)
[2018-11-07 05:43] VITALS: BP 136/69
[2018-11-07] MEDS: FERROUS SULFATE 325 MG EC TABLET PO SCH ×3 (06:06→16:40)
[2018-11-07 08:17] VITALS: BP 141/75
[2018-11-07] MEDS: GABAPENTIN 300 MG CAPSULE PO SCH ×3 (09:16→16:39)
[2018-11-07] MEDS: CHOLECALCIFEROL (VIT D3) 1,000 UNITS TABLET PO SCH (09:16)
[2018-11-07] MEDS: ATENOLOL 50 MG TABLET PO SCH (09:16)
[2018-11-07] MEDS: HYDROCHLOROTHIAZIDE 25 MG TABLET PO SCH (09:16)
[2018-11-07] MEDS: ESCITALOPRAM OXALATE 10 MG TABLET PO SCH (09:16)
[2018-11-07] MEDS: BENZTROPINE MESYLATE 1 MG TABLET PO SCH ×2 (09:16→20:18)
[2018-11-07] MEDS: AmLODIPine BESYLATE 2.5 MG TABLET PO SCH (09:17)
[2018-11-07] MEDS: VALPROIC ACID 250 MG/5 ML SYRUP UDCUP PO SCH ×2 (09:17→20:18)
[2018-11-07] MEDS: LORazepam 2 MG TABLET PO PRN (09:49)
[2018-11-07] MEDS: HALOPERIDOL 5 MG TABLET PO PRN (09:49)
[2018-11-07 16:00] VITALS: BP 132/75
[2018-11-07] MEDS: TraZODone HCL 100 MG TABLET PO SCH (20:18)
[2018-11-08 03:37] VITALS: BP 134/74
[2018-11-08] MEDS: FERROUS SULFATE 325 MG EC TABLET PO SCH ×3 (06:32→16:39)
[2018-11-08 08:23] VITALS: BP 137/62
[2018-11-08] MEDS: BENZTROPINE MESYLATE 1 MG TABLET PO SCH ×2 (09:14→20:06)
[2018-11-08] MEDS: HYDROCHLOROTHIAZIDE 25 MG TABLET PO SCH (09:14)
[2018-11-08] MEDS: AmLODIPine BESYLATE 2.5 MG TABLET PO SCH (09:15)
[2018-11-08] MEDS: ESCITALOPRAM OXALATE 10 MG TABLET PO SCH (09:15)
[2018-11-08] MEDS: CHOLECALCIFEROL (VIT D3) 1,000 UNITS TABLET PO SCH (09:15)
[2018-11-08] MEDS: ATENOLOL 50 MG TABLET PO SCH (09:15)
[2018-11-08] MEDS: VALPROIC ACID 250 MG/5 ML SYRUP UDCUP PO SCH ×2 (09:15→20:06)
[2018-11-08] MEDS: GABAPENTIN 300 MG CAPSULE PO SCH ×3 (09:15→16:39)
[2018-11-08] MEDS: LORazepam 2 MG TABLET PO PRN ×2 (10:20→16:39)
[2018-11-08 16:07] VITALS: BP 116/71
[2018-11-08] MEDS: HALOPERIDOL 5 MG TABLET PO PRN (16:39)
[2018-11-08] MEDS: ZOLPIDEM TARTRATE 10 MG TABLET PO PRN (20:06)
[2018-11-08] MEDS: TraZODone HCL 100 MG TABLET PO SCH (20:06)
[2018-11-09 06:12] VITALS: BP 155/94
[2018-11-09] MEDS: FERROUS SULFATE 325 MG EC TABLET PO SCH ×3 (06:45→16:58)
[2018-11-09 08:24] VITALS: BP 127/68
[2018-11-09] MEDS: BENZTROPINE MESYLATE 1 MG TABLET PO SCH ×2 (08:57→20:16)
[2018-11-09] MEDS: HYDROCHLOROTHIAZIDE 25 MG TABLET PO SCH (08:57)
[2018-11-09] MEDS: ATENOLOL 50 MG TABLET PO SCH (08:58)
[2018-11-09] MEDS: ESCITALOPRAM OXALATE 10 MG TABLET PO SCH (08:58)
[2018-11-09] MEDS: AmLODIPine BESYLATE 2.5 MG TABLET PO SCH (08:59)
[2018-11-09] MEDS: CHOLECALCIFEROL (VIT D3) 1,000 UNITS TABLET PO SCH (08:59)
[2018-11-09] MEDS: VALPROIC ACID 250 MG/5 ML SYRUP UDCUP PO SCH ×2 (08:59→20:16)
[2018-11-09] MEDS: GABAPENTIN 300 MG CAPSULE PO SCH ×3 (09:00→16:57)
[2018-11-09] MEDS ORDERED: LORazepam 2 MG/ML VIAL ONE (15:35)
[2018-11-09] MEDS ORDERED: HALOPERIDOL LACTATE 5 MG/ML VIAL ONE (15:35)
[2018-11-09] MEDS ORDERED: DiphenhydrAMINE HCL 50 MG/ML VIAL ONE (15:35)
[2018-11-09] MEDS ORDERED: DiphenhydrAMINE HCL 50 MG/ML VIAL IM ONE (15:45)
[2018-11-09] MEDS ORDERED: LORazepam 2 MG/ML VIAL IM ONE (15:45)
[2018-11-09] MEDS ORDERED: HALOPERIDOL LACTATE 5 MG/ML VIAL IM ONE (15:45)
[2018-11-09 16:47] VITALS: BP 126/60
[2018-11-09] MEDS: ZOLPIDEM TARTRATE 10 MG TABLET PO PRN (20:15)
[2018-11-09] MEDS: TraZODone HCL 100 MG TABLET PO SCH (20:16)
[2018-11-10 06:15] VITALS: BP 131/63
[2018-11-10] MEDS: FERROUS SULFATE 325 MG EC TABLET PO SCH ×3 (06:43→16:57)
[2018-11-10 08:12] VITALS: BP 114/61
[2018-11-10] MEDS: GABAPENTIN 300 MG CAPSULE PO SCH ×3 (09:12→16:57)
[2018-11-10] MEDS: CHOLECALCIFEROL (VIT D3) 1,000 UNITS TABLET PO SCH (09:12)
[2018-11-10] MEDS: HYDROCHLOROTHIAZIDE 25 MG TABLET PO SCH (09:12)
[2018-11-10] MEDS: ATENOLOL 50 MG TABLET PO SCH (09:12)
[2018-11-10] MEDS: BENZTROPINE MESYLATE 1 MG TABLET PO SCH ×2 (09:12→20:25)
[2018-11-10] MEDS: ESCITALOPRAM OXALATE 10 MG TABLET PO SCH (09:12)
[2018-11-10] MEDS: AmLODIPine BESYLATE 2.5 MG TABLET PO SCH (09:13)
[2018-11-10] MEDS: VALPROIC ACID 250 MG/5 ML SYRUP UDCUP PO SCH ×2 (09:13→20:26)
[2018-11-10] MEDS: LORazepam 2 MG TABLET PO PRN ×2 (10:16→16:05)
[2018-11-10] MEDS: HALOPERIDOL 5 MG TABLET PO PRN ×2 (10:16→16:05)
[2018-11-10] MEDS ORDERED: FLUCONAZOLE 150 MG TABLET PO ONE (14:45)
[2018-11-10 16:07] VITALS: BP 115/60
[2018-11-10] MEDS: TraZODone HCL 100 MG TABLET PO SCH (20:25)
[2018-11-11 06:21] VITALS: BP 144/86
[2018-11-11] MEDS: FERROUS SULFATE 325 MG EC TABLET PO SCH ×3 (06:52→17:05)
[2018-11-11 08:18] VITALS: BP 130/69
[2018-11-11 08:29] LABS: BILIRUBIN,URINE NEGATIVE (NEGATIVE); GLUCOSE, URINE (UA) NEGATIVE (NEGATIVE); KETONES,URINE NEGATIVE (NEGATIVE); LEUKOCYTE ESTERASE ,URINE SMALL (NEGATIVE); NITRATE,URINE NEGATIVE (NEGATIVE); PROTEIN,URINE NEGATIVE (NEGATIVE); UROBILINOGEN,URINE 0.2 mg/dL (<=1.0)
[2018-11-11 09:00] LABS: APPEARANCE,URINE HAZY (CLEAR); BACTERIA,URINE None Seen /HPF (None Seen); OCCULT BLOOD,URINE SMALL (NEGATIVE); SQUAMOUS EPITHELIAL CELL,UR Moderate /LPF (None Seen)
[2018-11-11] MEDS: AmLODIPine BESYLATE 2.5 MG TABLET PO SCH (09:43)
[2018-11-11] MEDS: BENZTROPINE MESYLATE 1 MG TABLET PO SCH ×2 (09:43→20:09)
[2018-11-11] MEDS: CHOLECALCIFEROL (VIT D3) 1,000 UNITS TABLET PO SCH (09:43)
[2018-11-11] MEDS: GABAPENTIN 300 MG CAPSULE PO SCH ×3 (09:43→17:05)
[2018-11-11] MEDS: HYDROCHLOROTHIAZIDE 25 MG TABLET PO SCH (09:44)
[2018-11-11] MEDS: ATENOLOL 50 MG TABLET PO SCH (09:44)
[2018-11-11] MEDS: ESCITALOPRAM OXALATE 10 MG TABLET PO SCH (09:44)
[2018-11-11] MEDS: VALPROIC ACID 250 MG/5 ML SYRUP UDCUP PO SCH ×2 (09:44→20:09)
[2018-11-11] MEDS: HALOPERIDOL 5 MG TABLET PO PRN ×2 (10:19→16:07)
[2018-11-11] MEDS: LORazepam 2 MG TABLET PO PRN ×2 (10:19→16:07)
[2018-11-11 16:20] VITALS: BP 130/81
[2018-11-11] MEDS: TraZODone HCL 100 MG TABLET PO SCH (20:09)
[2018-11-12 06:13] VITALS: BP 143/81
[2018-11-12] MEDS: FERROUS SULFATE 325 MG EC TABLET PO SCH ×3 (06:28→16:18)
[2018-11-12 08:09] VITALS: BP 132/81
[2018-11-12] MEDS: VALPROIC ACID 250 MG/5 ML SYRUP UDCUP PO SCH ×2 (09:24→20:17)
[2018-11-12] MEDS: AmLODIPine BESYLATE 2.5 MG TABLET PO SCH (09:24)
[2018-11-12] MEDS: ESCITALOPRAM OXALATE 10 MG TABLET PO SCH (09:24)
[2018-11-12] MEDS: ATENOLOL 50 MG TABLET PO SCH (09:24)
[2018-11-12] MEDS: BENZTROPINE MESYLATE 1 MG TABLET PO SCH ×2 (09:25→20:16)
[2018-11-12] MEDS: HYDROCHLOROTHIAZIDE 25 MG TABLET PO SCH (09:25)
[2018-11-12] MEDS: GABAPENTIN 300 MG CAPSULE PO SCH ×3 (09:25→16:18)
[2018-11-12] MEDS: CHOLECALCIFEROL (VIT D3) 1,000 UNITS TABLET PO SCH (09:25)
[2018-11-12] MEDS: LORazepam 2 MG TABLET PO PRN (10:21)
[2018-11-12] MEDS: HALOPERIDOL 5 MG TABLET PO PRN (10:21)
[2018-11-12 16:10] VITALS: BP 123/72
[2018-11-12] MEDS: TraZODone HCL 100 MG TABLET PO SCH (20:16)
[2018-11-13 02:05] VITALS: BP 136/67
[2018-11-13 08:15] VITALS: BP 118/60
[2018-11-13] MEDS: CHOLECALCIFEROL (VIT D3) 1,000 UNITS TABLET PO SCH (09:09)
[2018-11-13] MEDS: BENZTROPINE MESYLATE 1 MG TABLET PO SCH ×2 (09:09→20:41)
[2018-11-13] MEDS: ESCITALOPRAM OXALATE 10 MG TABLET PO SCH (09:10)
[2018-11-13] MEDS: HYDROCHLOROTHIAZIDE 25 MG TABLET PO SCH (09:10)
[2018-11-13] MEDS: GABAPENTIN 300 MG CAPSULE PO SCH ×3 (09:11→17:04)
[2018-11-13] MEDS: VALPROIC ACID 250 MG/5 ML SYRUP UDCUP PO SCH ×2 (09:13→20:41)
[2018-11-13] MEDS: AmLODIPine BESYLATE 2.5 MG TABLET PO SCH (09:54)
[2018-11-13] MEDS: ATENOLOL 50 MG TABLET PO SCH (09:54)
[2018-11-13 12:30] VITALS: BP 140/55
[2018-11-13] MEDS: ACETAMINOPHEN 325 MG TABLET PO PRN (12:45)
[2018-11-13] MEDS: HALOPERIDOL 5 MG TABLET PO PRN (13:35)
[2018-11-13] MEDS: LORazepam 2 MG TABLET PO PRN (13:36)
[2018-11-13] MEDS ORDERED: DiphenhydrAMINE HCL 50 MG/ML VIAL ONE (14:08)
[2018-11-13] MEDS ORDERED: HALOPERIDOL LACTATE 5 MG/ML VIAL ONE (14:08)
[2018-11-13] MEDS ORDERED: LORazepam 2 MG/ML VIAL ONE (14:08)
[2018-11-13] MEDS ORDERED: HALOPERIDOL LACTATE 5 MG/ML VIAL IM ONE (14:15)
[2018-11-13] MEDS ORDERED: LORazepam 2 MG/ML VIAL IM ONE (14:15)
[2018-11-13] MEDS ORDERED: DiphenhydrAMINE HCL 50 MG/ML VIAL IM ONE (14:15)
[2018-11-13] MEDS: FERROUS SULFATE 325 MG EC TABLET PO SCH ×3 (14:35→17:04)
[2018-11-13 16:16] VITALS: BP 134/66
[2018-11-13] MEDS: TraZODone HCL 100 MG TABLET PO SCH (20:41)
[2018-11-14 06:20] VITALS: BP 127/62
[2018-11-14] MEDS: FERROUS SULFATE 325 MG EC TABLET PO SCH ×3 (06:37→16:16)
[2018-11-14 06:53] LABS: BASOPHILS % (AUTO) 0.2 % (0.0-2.0); EOSINOPHILS % (AUTO) 1.2 % (1.0-6.0); HEMATOCRIT 38.1 % (36-46); HEMOGLOBIN 12.6 g/dL (12.0-16.0); LYMPHOCYTES # (AUTO) 2.1 K/uL (1.0-4.8); LYMPHOCYTES % (AUTO) 47.1 % (22.0-44.0); MEAN CORPUSCULAR HGB CONC 33.2 G/dL (31.0-37.0); MEAN CORPUSCULAR VOLUME 84 fL (80-100); MONOCYTES # (AUTO) 0.8 K/uL (0.1-1.0); MONOCYTES % (AUTO) 17.7 % (2.0-9.0); NEUTROPHILS # (AUTO) 1.5 K/uL (1.8-7.7); NEUTROPHILS % (AUTO) 33.8 % (40.0-70.0); PLATELET COUNT (AUTO) 207 K/uL (150-450); RED BLOOD CELL COUNT(AUTO) 4.51 MIL/uL (4.00-5.20); RED CELL DISTRIBUTION WIDTH 13.8 % (11.5-14.5)
[2018-11-14 07:17] LABS: ANION GAP 7 mmol/L (8-16); CALCIUM, TOTAL 9.3 mg/dL (8.8-10.5); CARBON DIOXIDE 30 mmol/L (22-29); CHLORIDE 107 mmol/L (98-107); CREATININE 0.49 mg/dL (0.60-1.30); GLOMERULAR FILTR. RATE CALC > 60 mL/min (>60); GLUCOSE,RANDOM 85 mg/dL (70-110); POTASSIUM 4.2 mmol/L (3.5-5.1); SODIUM SERUM 144 mmol/L (136-145); UREA NITROGEN, BLOOD 17 mg/dL (7-18)
[2018-11-14] MEDS: VALPROIC ACID 250 MG/5 ML SYRUP UDCUP PO SCH ×2 (08:49→20:36)
[2018-11-14] MEDS: ESCITALOPRAM OXALATE 10 MG TABLET PO SCH (08:50)
[2018-11-14] MEDS: GABAPENTIN 300 MG CAPSULE PO SCH ×3 (08:50→16:16)
[2018-11-14] MEDS: BENZTROPINE MESYLATE 1 MG TABLET PO SCH ×2 (08:50→20:37)
[2018-11-14] MEDS: AmLODIPine BESYLATE 2.5 MG TABLET PO SCH (08:50)
[2018-11-14] MEDS: ATENOLOL 50 MG TABLET PO SCH (08:50)
[2018-11-14] MEDS: HYDROCHLOROTHIAZIDE 25 MG TABLET PO SCH (08:50)
[2018-11-14] MEDS: CHOLECALCIFEROL (VIT D3) 1,000 UNITS TABLET PO SCH (08:50)
[2018-11-14 08:53] VITALS: BP 162/70
[2018-11-14 09:50] VITALS: BP 143/55
[2018-11-14 12:58] VITALS: BP 127/48
[2018-11-14] MEDS: ACETAMINOPHEN 325 MG TABLET PO PRN (12:58)
[2018-11-14] MEDS: IBUPROFEN 400 MG TABLET PO PRN (12:58)
[2018-11-14] MEDS: LORazepam 2 MG TABLET PO PRN ×2 (13:52→18:00)
[2018-11-14] MEDS: HALOPERIDOL 5 MG TABLET PO PRN ×2 (13:52→18:00)
[2018-11-14 16:06] VITALS: BP 130/68
[2018-11-14] MEDS: TraZODone HCL 100 MG TABLET PO SCH (20:37)
[2018-11-15] MEDS: FERROUS SULFATE 325 MG EC TABLET PO SCH ×3 (06:43→16:14)
[2018-11-15 07:02] VITALS: BP 136/66
[2018-11-15 08:21] VITALS: BP 126/79
[2018-11-15] MEDS: GABAPENTIN 300 MG CAPSULE PO SCH ×3 (08:54→16:15)
[2018-11-15] MEDS: ESCITALOPRAM OXALATE 10 MG TABLET PO SCH (08:54)
[2018-11-15] MEDS: VALPROIC ACID 250 MG/5 ML SYRUP UDCUP PO SCH ×2 (08:54→20:08)
[2018-11-15] MEDS: CHOLECALCIFEROL (VIT D3) 1,000 UNITS TABLET PO SCH (08:54)
[2018-11-15] MEDS: PALIPERIDONE PALMITATE 234 MG/1.5 ML SYRINGE IM SCH (08:54)
[2018-11-15] MEDS: AmLODIPine BESYLATE 2.5 MG TABLET PO SCH (08:54)
[2018-11-15] MEDS: BENZTROPINE MESYLATE 1 MG TABLET PO SCH ×2 (08:54→20:08)
[2018-11-15] MEDS: HYDROCHLOROTHIAZIDE 25 MG TABLET PO SCH (08:55)
[2018-11-15] MEDS: ATENOLOL 50 MG TABLET PO SCH (09:38)
[2018-11-15 16:09] VITALS: BP 142/55
[2018-11-15] MEDS ORDERED: DiphenhydrAMINE HCL 50 MG/ML VIAL IM ONE (17:15)
[2018-11-15] MEDS ORDERED: HALOPERIDOL LACTATE 5 MG/ML VIAL IM ONE (17:15)
[2018-11-15] MEDS ORDERED: LORazepam 2 MG/ML VIAL IM ONE (17:15)
[2018-11-15] MEDS: TraZODone HCL 100 MG TABLET PO SCH (20:08)
[2018-11-15] MEDS: ZOLPIDEM TARTRATE 10 MG TABLET PO PRN (20:55)
[2018-11-16 06:34] VITALS: BP 136/88
[2018-11-16] MEDS: FERROUS SULFATE 325 MG EC TABLET PO SCH ×3 (06:38→16:54)
[2018-11-16 07:53] LABS: BILIRUBIN,URINE NEGATIVE (NEGATIVE); GLUCOSE, URINE (UA) NEGATIVE (NEGATIVE); KETONES,URINE NEGATIVE (NEGATIVE); LEUKOCYTE ESTERASE ,URINE SMALL (NEGATIVE); NITRATE,URINE NEGATIVE (NEGATIVE); OCCULT BLOOD,URINE MODERATE (NEGATIVE); PH,URINE 6.5 (5.0-8.0); PROTEIN,URINE NEGATIVE (NEGATIVE); UROBILINOGEN,URINE 0.2 mg/dL (<=1.0)
[2018-11-16 07:55] LABS: APPEARANCE,URINE HAZY (CLEAR); BACTERIA,URINE None Seen /HPF (None Seen); SQUAMOUS EPITHELIAL CELL,UR Moderate /LPF (None Seen); WBC,URINE 0-2 /HPF (0-5)
[2018-11-16 08:31] VITALS: BP 150/81
[2018-11-16] MEDS: ATENOLOL 50 MG TABLET PO SCH (08:36)
[2018-11-16] MEDS: CHOLECALCIFEROL (VIT D3) 1,000 UNITS TABLET PO SCH (08:37)
[2018-11-16] MEDS: BENZTROPINE MESYLATE 1 MG TABLET PO SCH ×2 (08:37→20:42)
[2018-11-16] MEDS: ESCITALOPRAM OXALATE 10 MG TABLET PO SCH (08:37)
[2018-11-16] MEDS: HYDROCHLOROTHIAZIDE 25 MG TABLET PO SCH (08:37)
[2018-11-16] MEDS: GABAPENTIN 300 MG CAPSULE PO SCH ×3 (08:38→16:54)
[2018-11-16] MEDS: AmLODIPine BESYLATE 2.5 MG TABLET PO SCH (08:38)
[2018-11-16] MEDS: VALPROIC ACID 250 MG/5 ML SYRUP UDCUP PO SCH ×2 (08:39→20:42)
[2018-11-16 16:10] VITALS: BP 133/82
[2018-11-16] MEDS: LORazepam 2 MG TABLET PO PRN (16:54)
[2018-11-16] MEDS: HALOPERIDOL 5 MG TABLET PO PRN (16:54)
[2018-11-16] MEDS: ZOLPIDEM TARTRATE 10 MG TABLET PO PRN (20:42)
[2018-11-16] MEDS: TraZODone HCL 100 MG TABLET PO SCH (20:42)
[2018-11-17 03:49] VITALS: BP 132/60
[2018-11-17] MEDS: FERROUS SULFATE 325 MG EC TABLET PO SCH ×3 (06:05→17:21)
[2018-11-17 08:24] VITALS: BP 131/59
[2018-11-17] MEDS: AmLODIPine BESYLATE 2.5 MG TABLET PO SCH (08:25)
[2018-11-17] MEDS: HYDROCHLOROTHIAZIDE 25 MG TABLET PO SCH (08:26)
[2018-11-17] MEDS: CHOLECALCIFEROL (VIT D3) 1,000 UNITS TABLET PO SCH (08:26)
[2018-11-17] MEDS: BENZTROPINE MESYLATE 1 MG TABLET PO SCH ×2 (08:26→20:59)
[2018-11-17] MEDS: GABAPENTIN 300 MG CAPSULE PO SCH ×3 (08:27→17:21)
[2018-11-17] MEDS: ESCITALOPRAM OXALATE 10 MG TABLET PO SCH (08:27)
[2018-11-17] MEDS: VALPROIC ACID 250 MG/5 ML SYRUP UDCUP PO SCH ×2 (08:28→20:59)
[2018-11-17] MEDS: ATENOLOL 50 MG TABLET PO SCH (08:28)
[2018-11-17 17:03] VITALS: BP 122/78
[2018-11-17] MEDS: LORazepam 2 MG TABLET PO PRN (19:36)
[2018-11-17] MEDS: HALOPERIDOL 5 MG TABLET PO PRN (19:36)
[2018-11-17] MEDS: TraZODone HCL 100 MG TABLET PO SCH (20:59)
[2018-11-18 01:00] VITALS: BP 127/67
[2018-11-18] MEDS: FERROUS SULFATE 325 MG EC TABLET PO SCH ×3 (06:49→17:04)
[2018-11-18 08:28] VITALS: BP 127/65
[2018-11-18] MEDS: BENZTROPINE MESYLATE 1 MG TABLET PO SCH ×2 (08:34→20:28)
[2018-11-18] MEDS: CHOLECALCIFEROL (VIT D3) 1,000 UNITS TABLET PO SCH (08:34)
[2018-11-18] MEDS: ATENOLOL 50 MG TABLET PO SCH (08:34)
[2018-11-18] MEDS: AmLODIPine BESYLATE 2.5 MG TABLET PO SCH (08:34)
[2018-11-18] MEDS: HYDROCHLOROTHIAZIDE 25 MG TABLET PO SCH (08:35)
[2018-11-18] MEDS: ESCITALOPRAM OXALATE 10 MG TABLET PO SCH (08:35)
[2018-11-18] MEDS: GABAPENTIN 300 MG CAPSULE PO SCH ×3 (08:35→17:04)
[2018-11-18] MEDS: VALPROIC ACID 250 MG/5 ML SYRUP UDCUP PO SCH ×2 (08:35→20:28)
[2018-11-18 16:11] VITALS: BP 139/75
[2018-11-18] MEDS: LORazepam 2 MG TABLET PO PRN (17:05)
[2018-11-18] MEDS: TraZODone HCL 100 MG TABLET PO SCH (20:28)
[2018-11-19 03:05] VITALS: BP 136/76
[2018-11-19] MEDS: FERROUS SULFATE 325 MG EC TABLET PO SCH ×3 (06:18→17:16)
[2018-11-19 08:17] VITALS: BP 136/81
[2018-11-19] MEDS: ESCITALOPRAM OXALATE 10 MG TABLET PO SCH (08:17)
[2018-11-19] MEDS: BENZTROPINE MESYLATE 1 MG TABLET PO SCH ×2 (08:17→20:17)
[2018-11-19] MEDS: CHOLECALCIFEROL (VIT D3) 1,000 UNITS TABLET PO SCH (08:17)
[2018-11-19] MEDS: HYDROCHLOROTHIAZIDE 25 MG TABLET PO SCH (08:17)
[2018-11-19] MEDS: AmLODIPine BESYLATE 2.5 MG TABLET PO SCH (08:17)
[2018-11-19] MEDS: VALPROIC ACID 250 MG/5 ML SYRUP UDCUP PO SCH ×2 (08:17→20:17)
[2018-11-19] MEDS: GABAPENTIN 300 MG CAPSULE PO SCH ×3 (08:17→17:16)
[2018-11-19] MEDS: LORazepam 2 MG TABLET PO PRN ×2 (08:17→16:04)
[2018-11-19] MEDS: ATENOLOL 50 MG TABLET PO SCH (08:17)
[2018-11-19] MEDS: HALOPERIDOL 5 MG TABLET PO PRN (16:04)
[2018-11-19 16:15] VITALS: BP 123/61
[2018-11-19] MEDS: TraZODone HCL 100 MG TABLET PO SCH (20:17)
[2018-11-20 05:56] VITALS: BP 138/78
[2018-11-20] MEDS: FERROUS SULFATE 325 MG EC TABLET PO SCH ×3 (06:48→17:04)
[2018-11-20 08:12] VITALS: BP 120/72
[2018-11-20] MEDS: CHOLECALCIFEROL (VIT D3) 1,000 UNITS TABLET PO SCH (08:25)
[2018-11-20] MEDS: ATENOLOL 50 MG TABLET PO SCH (08:25)
[2018-11-20] MEDS: ESCITALOPRAM OXALATE 10 MG TABLET PO SCH (08:25)
[2018-11-20] MEDS: AmLODIPine BESYLATE 2.5 MG TABLET PO SCH (08:25)
[2018-11-20] MEDS: GABAPENTIN 300 MG CAPSULE PO SCH ×3 (08:25→17:04)
[2018-11-20] MEDS: HYDROCHLOROTHIAZIDE 25 MG TABLET PO SCH (08:26)
[2018-11-20] MEDS: VALPROIC ACID 250 MG/5 ML SYRUP UDCUP PO SCH ×2 (08:26→20:21)
[2018-11-20] MEDS: BENZTROPINE MESYLATE 1 MG TABLET PO SCH ×2 (08:26→20:21)
[2018-11-20] MEDS: HALOPERIDOL 5 MG TABLET PO PRN ×2 (09:19→15:36)
[2018-11-20] MEDS: LORazepam 2 MG TABLET PO PRN ×2 (09:19→15:36)
[2018-11-20 15:33] VITALS: BP 134/58
[2018-11-20] MEDS: TraZODone HCL 100 MG TABLET PO SCH (20:21)
[2018-11-21 01:09] VITALS: BP 122/83
[2018-11-21] MEDS: FERROUS SULFATE 325 MG EC TABLET PO SCH ×3 (06:39→16:11)
[2018-11-21 08:14] VITALS: BP 123/72
[2018-11-21] MEDS: VALPROIC ACID 250 MG/5 ML SYRUP UDCUP PO SCH ×2 (08:29→20:52)
[2018-11-21] MEDS: CHOLECALCIFEROL (VIT D3) 1,000 UNITS TABLET PO SCH (08:29)
[2018-11-21] MEDS: HYDROCHLOROTHIAZIDE 25 MG TABLET PO SCH (08:29)
[2018-11-21] MEDS: ESCITALOPRAM OXALATE 10 MG TABLET PO SCH (08:29)
[2018-11-21] MEDS: GABAPENTIN 300 MG CAPSULE PO SCH ×3 (08:29→16:11)
[2018-11-21] MEDS: AmLODIPine BESYLATE 2.5 MG TABLET PO SCH (08:29)
[2018-11-21] MEDS: BENZTROPINE MESYLATE 1 MG TABLET PO SCH ×2 (08:30→20:52)
[2018-11-21] MEDS: ATENOLOL 50 MG TABLET PO SCH (08:30)
[2018-11-21] MEDS: LORazepam 2 MG TABLET PO PRN (10:32)
[2018-11-21] MEDS: HALOPERIDOL 5 MG TABLET PO PRN (10:32)
[2018-11-21] MEDS: ACETAMINOPHEN 325 MG TABLET PO PRN (16:50)
[2018-11-21 16:53] VITALS: BP 146/71
[2018-11-21] MEDS: TraZODone HCL 100 MG TABLET PO SCH (20:52)
[2018-11-22] MEDS: FERROUS SULFATE 325 MG EC TABLET PO SCH ×3 (06:51→16:11)
[2018-11-22] MEDS: VALPROIC ACID 250 MG/5 ML SYRUP UDCUP PO SCH ×2 (08:11→20:20)
[2018-11-22] MEDS: HYDROCHLOROTHIAZIDE 25 MG TABLET PO SCH (08:12)
[2018-11-22] MEDS: BENZTROPINE MESYLATE 1 MG TABLET PO SCH ×2 (08:12→20:21)
[2018-11-22] MEDS: ESCITALOPRAM OXALATE 10 MG TABLET PO SCH (08:12)
[2018-11-22] MEDS: GABAPENTIN 300 MG CAPSULE PO SCH ×3 (08:12→16:11)
[2018-11-22] MEDS: AmLODIPine BESYLATE 2.5 MG TABLET PO SCH (08:12)
[2018-11-22] MEDS: CHOLECALCIFEROL (VIT D3) 1,000 UNITS TABLET PO SCH (08:12)
[2018-11-22] MEDS: ATENOLOL 50 MG TABLET PO SCH (08:13)
[2018-11-22 08:18] VITALS: BP 147/63
[2018-11-22] MEDS: LORazepam 2 MG TABLET PO PRN (09:10)
[2018-11-22] MEDS: HALOPERIDOL 5 MG TABLET PO PRN (09:10)
[2018-11-22 16:20] VITALS: BP 127/61
[2018-11-22] MEDS: TraZODone HCL 100 MG TABLET PO SCH (20:21)
[2018-11-23 00:25] VITALS: BP 134/64
[2018-11-23] MEDS: FERROUS SULFATE 325 MG EC TABLET PO SCH ×3 (06:01→16:25)
[2018-11-23 08:09] VITALS: BP 140/63
[2018-11-23] MEDS: VALPROIC ACID 250 MG/5 ML SYRUP UDCUP PO SCH ×2 (09:10→20:10)
[2018-11-23] MEDS: GABAPENTIN 300 MG CAPSULE PO SCH ×3 (09:10→16:26)
[2018-11-23] MEDS: ATENOLOL 50 MG TABLET PO SCH (09:11)
[2018-11-23] MEDS: AmLODIPine BESYLATE 2.5 MG TABLET PO SCH (09:11)
[2018-11-23] MEDS: CHOLECALCIFEROL (VIT D3) 1,000 UNITS TABLET PO SCH (09:11)
[2018-11-23] MEDS: BENZTROPINE MESYLATE 1 MG TABLET PO SCH ×2 (09:11→20:12)
[2018-11-23] MEDS: ESCITALOPRAM OXALATE 10 MG TABLET PO SCH (09:11)
[2018-11-23] MEDS: HYDROCHLOROTHIAZIDE 25 MG TABLET PO SCH (09:11)
[2018-11-23 11:00] VITALS: BP 119/57
[2018-11-23] MEDS: ACETAMINOPHEN 325 MG TABLET PO PRN (11:05)
[2018-11-23 12:30] VITALS: BP 126/62
[2018-11-23] MEDS: IBUPROFEN 400 MG TABLET PO PRN (12:40)
[2018-11-23] MEDS: HALOPERIDOL 5 MG TABLET PO PRN (16:26)
[2018-11-23] MEDS: LORazepam 2 MG TABLET PO PRN (16:26)
[2018-11-23 16:32] VITALS: BP 139/61
[2018-11-23] MEDS: TraZODone HCL 100 MG TABLET PO SCH (20:10)
[2018-11-24 06:22] VITALS: BP 142/68
[2018-11-24] MEDS: FERROUS SULFATE 325 MG EC TABLET PO SCH ×3 (06:40→16:09)
[2018-11-24 08:40] VITALS: BP 137/63
[2018-11-24] MEDS: HYDROCHLOROTHIAZIDE 25 MG TABLET PO SCH (09:02)
[2018-11-24] MEDS: BENZTROPINE MESYLATE 1 MG TABLET PO SCH ×2 (09:02→20:41)
[2018-11-24] MEDS: GABAPENTIN 300 MG CAPSULE PO SCH ×3 (09:03→16:09)
[2018-11-24] MEDS: LORazepam 2 MG TABLET PO PRN ×2 (09:03→16:09)
[2018-11-24] MEDS: CHOLECALCIFEROL (VIT D3) 1,000 UNITS TABLET PO SCH (09:03)
[2018-11-24] MEDS: ESCITALOPRAM OXALATE 10 MG TABLET PO SCH (09:03)
[2018-11-24] MEDS: HALOPERIDOL 5 MG TABLET PO PRN ×2 (09:03→16:08)
[2018-11-24] MEDS: VALPROIC ACID 250 MG/5 ML SYRUP UDCUP PO SCH ×2 (09:04→20:42)
[2018-11-24] MEDS: ATENOLOL 50 MG TABLET PO SCH (09:27)
[2018-11-24] MEDS: AmLODIPine BESYLATE 2.5 MG TABLET PO SCH (09:28)
[2018-11-24 16:19] VITALS: BP 131/89
[2018-11-24] MEDS: TraZODone HCL 100 MG TABLET PO SCH (20:41)
[2018-11-25 06:37] VITALS: BP 137/85
[2018-11-25] MEDS: FERROUS SULFATE 325 MG EC TABLET PO SCH ×3 (06:45→17:09)
[2018-11-25 08:20] VITALS: BP 141/74
[2018-11-25] MEDS: ATENOLOL 50 MG TABLET PO SCH (09:32)
[2018-11-25] MEDS: ESCITALOPRAM OXALATE 10 MG TABLET PO SCH (09:32)
[2018-11-25] MEDS: VALPROIC ACID 250 MG/5 ML SYRUP UDCUP PO SCH ×2 (09:32→20:28)
[2018-11-25] MEDS: AmLODIPine BESYLATE 2.5 MG TABLET PO SCH (09:32)
[2018-11-25] MEDS: CHOLECALCIFEROL (VIT D3) 1,000 UNITS TABLET PO SCH (09:32)
[2018-11-25] MEDS: GABAPENTIN 300 MG CAPSULE PO SCH ×3 (09:32→17:09)
[2018-11-25] MEDS: HYDROCHLOROTHIAZIDE 25 MG TABLET PO SCH (09:32)
[2018-11-25] MEDS: BENZTROPINE MESYLATE 1 MG TABLET PO SCH ×2 (09:32→20:28)
[2018-11-25] MEDS: HALOPERIDOL 5 MG TABLET PO PRN ×2 (10:36→16:28)
[2018-11-25] MEDS: LORazepam 2 MG TABLET PO PRN ×2 (10:36→16:28)
[2018-11-25 16:24] VITALS: BP 126/71
[2018-11-25] MEDS: TraZODone HCL 100 MG TABLET PO SCH (20:28)
[2018-11-26 00:10] VITALS: BP 135/74
[2018-11-26] MEDS: FERROUS SULFATE 325 MG EC TABLET PO SCH ×3 (06:29→16:11)
[2018-11-26 08:17] VITALS: BP 148/77
[2018-11-26] MEDS: ESCITALOPRAM OXALATE 10 MG TABLET PO SCH (08:56)
[2018-11-26] MEDS: CHOLECALCIFEROL (VIT D3) 1,000 UNITS TABLET PO SCH (08:56)
[2018-11-26] MEDS: BENZTROPINE MESYLATE 1 MG TABLET PO SCH ×2 (08:56→20:57)
[2018-11-26] MEDS: ATENOLOL 50 MG TABLET PO SCH (08:56)
[2018-11-26] MEDS: GABAPENTIN 300 MG CAPSULE PO SCH ×3 (08:56→16:11)
[2018-11-26] MEDS: HYDROCHLOROTHIAZIDE 25 MG TABLET PO SCH (08:56)
[2018-11-26] MEDS: AmLODIPine BESYLATE 2.5 MG TABLET PO SCH (08:57)
[2018-11-26] MEDS: VALPROIC ACID 250 MG/5 ML SYRUP UDCUP PO SCH ×2 (08:57→20:57)
[2018-11-26] MEDS: HALOPERIDOL 5 MG TABLET PO PRN (10:02)
[2018-11-26] MEDS: LORazepam 2 MG TABLET PO PRN (10:02)
[2018-11-26 16:12] VITALS: BP 124/83
[2018-11-26] MEDS: ACETAMINOPHEN 325 MG TABLET PO PRN (16:12)
[2018-11-26 16:16] VITALS: BP 128/68
[2018-11-26] MEDS: TraZODone HCL 100 MG TABLET PO SCH (20:57)
[2018-11-27 04:35] VITALS: BP 145/87
[2018-11-27] MEDS: FERROUS SULFATE 325 MG EC TABLET PO SCH ×3 (06:51→16:06)
[2018-11-27 08:14] VITALS: BP 145/42
[2018-11-27] MEDS: ESCITALOPRAM OXALATE 10 MG TABLET PO SCH (08:53)
[2018-11-27] MEDS: CHOLECALCIFEROL (VIT D3) 1,000 UNITS TABLET PO SCH (08:53)
[2018-11-27] MEDS: AmLODIPine BESYLATE 2.5 MG TABLET PO SCH (08:53)
[2018-11-27] MEDS: HYDROCHLOROTHIAZIDE 25 MG TABLET PO SCH (08:53)
[2018-11-27] MEDS: BENZTROPINE MESYLATE 1 MG TABLET PO SCH ×2 (08:53→20:35)
[2018-11-27] MEDS: GABAPENTIN 300 MG CAPSULE PO SCH ×3 (08:54→16:06)
[2018-11-27] MEDS: LORazepam 2 MG TABLET PO PRN ×2 (08:54→16:06)
[2018-11-27] MEDS: VALPROIC ACID 250 MG/5 ML SYRUP UDCUP PO SCH ×2 (08:54→20:35)
[2018-11-27] MEDS: ATENOLOL 50 MG TABLET PO SCH (10:14)
[2018-11-27 16:27] VITALS: BP 120/60
[2018-11-27] MEDS: TraZODone HCL 100 MG TABLET PO SCH (20:35)
[2018-11-28 05:29] VITALS: BP 138/90
[2018-11-28] MEDS: FERROUS SULFATE 325 MG EC TABLET PO SCH ×3 (06:41→16:58)
[2018-11-28 08:12] VITALS: BP 144/75
[2018-11-28] MEDS: ESCITALOPRAM OXALATE 10 MG TABLET PO SCH (09:08)
[2018-11-28] MEDS: AmLODIPine BESYLATE 2.5 MG TABLET PO SCH (09:08)
[2018-11-28] MEDS: GABAPENTIN 300 MG CAPSULE PO SCH ×3 (09:08→16:58)
[2018-11-28] MEDS: HYDROCHLOROTHIAZIDE 25 MG TABLET PO SCH (09:08)
[2018-11-28] MEDS: CHOLECALCIFEROL (VIT D3) 1,000 UNITS TABLET PO SCH (09:08)
[2018-11-28] MEDS: BENZTROPINE MESYLATE 1 MG TABLET PO SCH ×2 (09:08→20:11)
[2018-11-28] MEDS: ATENOLOL 50 MG TABLET PO SCH (09:08)
[2018-11-28] MEDS: VALPROIC ACID 250 MG/5 ML SYRUP UDCUP PO SCH ×2 (09:09→20:11)
[2018-11-28] MEDS: LORazepam 2 MG TABLET PO PRN (10:39)
[2018-11-28] MEDS: HALOPERIDOL 5 MG TABLET PO PRN (10:40)
[2018-11-28 15:44] VITALS: BP 125/73
[2018-11-28] MEDS: ACETAMINOPHEN 325 MG TABLET PO PRN (15:46)
[2018-11-28 16:11] VITALS: BP 125/73
[2018-11-28] MEDS: TraZODone HCL 100 MG TABLET PO SCH (20:11)
[2018-11-29 06:08] VITALS: BP 139/83
[2018-11-29] MEDS: FERROUS SULFATE 325 MG EC TABLET PO SCH ×3 (06:43→16:39)
[2018-11-29 08:16] VITALS: BP 130/60
[2018-11-29] MEDS: AmLODIPine BESYLATE 2.5 MG TABLET PO SCH (08:48)
[2018-11-29] MEDS: ESCITALOPRAM OXALATE 10 MG TABLET PO SCH (08:49)
[2018-11-29] MEDS: BENZTROPINE MESYLATE 1 MG TABLET PO SCH ×2 (08:49→20:41)
[2018-11-29] MEDS: GABAPENTIN 300 MG CAPSULE PO SCH ×3 (08:49→16:39)
[2018-11-29] MEDS: CHOLECALCIFEROL (VIT D3) 1,000 UNITS TABLET PO SCH (08:49)
[2018-11-29] MEDS: HYDROCHLOROTHIAZIDE 25 MG TABLET PO SCH (08:49)
[2018-11-29] MEDS: VALPROIC ACID 250 MG/5 ML SYRUP UDCUP PO SCH ×2 (08:54→20:41)
[2018-11-29] MEDS: ATENOLOL 50 MG TABLET PO SCH (08:58)
[2018-11-29 11:46] VITALS: BP 125/71
[2018-11-29] MEDS: IBUPROFEN 400 MG TABLET PO PRN (11:46)
[2018-11-29 16:12] VITALS: BP 138/75
[2018-11-29] MEDS: HALOPERIDOL 5 MG TABLET PO PRN (16:38)
[2018-11-29] MEDS: LORazepam 2 MG TABLET PO PRN (16:38)
[2018-11-29] MEDS: ACETAMINOPHEN 325 MG TABLET PO PRN (17:10)
[2018-11-29] MEDS: TraZODone HCL 100 MG TABLET PO SCH (20:41)
[2018-11-29] MEDS: TraMADol HCL 50 MG TABLET PO PRN (20:41)
[2018-11-30] MEDS: FERROUS SULFATE 325 MG EC TABLET PO SCH ×3 (06:47→16:01)
[2018-11-30 08:23] VITALS: BP 149/80
[2018-11-30] MEDS: AmLODIPine BESYLATE 2.5 MG TABLET PO SCH ×2 (09:00→12:15)
[2018-11-30] MEDS: ESCITALOPRAM OXALATE 10 MG TABLET PO SCH (09:08)
[2018-11-30] MEDS: BENZTROPINE MESYLATE 1 MG TABLET PO SCH ×2 (09:08→20:05)
[2018-11-30] MEDS: HYDROCHLOROTHIAZIDE 25 MG TABLET PO SCH (09:08)
[2018-11-30] MEDS: ATENOLOL 50 MG TABLET PO SCH (09:08)
[2018-11-30] MEDS: CHOLECALCIFEROL (VIT D3) 1,000 UNITS TABLET PO SCH (09:08)
[2018-11-30] MEDS: GABAPENTIN 300 MG CAPSULE PO SCH ×3 (09:08→16:01)
[2018-11-30] MEDS: VALPROIC ACID 250 MG/5 ML SYRUP UDCUP PO SCH ×2 (09:08→20:05)
[2018-11-30] MEDS: LORazepam 2 MG TABLET PO PRN ×2 (09:38→19:48)
[2018-11-30 10:30] VITALS: BP 134/78
[2018-11-30 16:17] VITALS: BP 118/83
[2018-11-30] MEDS: HALOPERIDOL 5 MG TABLET PO PRN (19:48)
[2018-11-30] MEDS: TraZODone HCL 100 MG TABLET PO SCH (20:05)
[2018-12-01 04:15] VITALS: BP 137/77
[2018-12-01] MEDS: FERROUS SULFATE 325 MG EC TABLET PO SCH ×3 (06:24→17:40)
[2018-12-01 08:17] VITALS: BP 135/60
[2018-12-01] MEDS: AmLODIPine BESYLATE 2.5 MG TABLET PO SCH ×2 (09:00→11:59)
[2018-12-01] MEDS: CHOLECALCIFEROL (VIT D3) 1,000 UNITS TABLET PO SCH (09:24)
[2018-12-01] MEDS: VALPROIC ACID 250 MG/5 ML SYRUP UDCUP PO SCH ×2 (09:25→20:29)
[2018-12-01] MEDS: BENZTROPINE MESYLATE 1 MG TABLET PO SCH ×2 (09:25→20:28)
[2018-12-01] MEDS: HYDROCHLOROTHIAZIDE 25 MG TABLET PO SCH (09:25)
[2018-12-01] MEDS: ESCITALOPRAM OXALATE 10 MG TABLET PO SCH (09:25)
[2018-12-01] MEDS: GABAPENTIN 300 MG CAPSULE PO SCH ×3 (09:25→17:40)
[2018-12-01] MEDS: ATENOLOL 50 MG TABLET PO SCH (09:25)
[2018-12-01] MEDS: LORazepam 2 MG TABLET PO PRN ×2 (10:00→16:55)
[2018-12-01 16:13] VITALS: BP 120/70
[2018-12-01] MEDS: HALOPERIDOL 5 MG TABLET PO PRN (16:55)
[2018-12-01] MEDS: TraZODone HCL 100 MG TABLET PO SCH (20:28)
[2018-12-02 06:21] VITALS: BP 146/80
[2018-12-02] MEDS: FERROUS SULFATE 325 MG EC TABLET PO SCH ×3 (06:52→16:18)
[2018-12-02] MEDS: GABAPENTIN 300 MG CAPSULE PO SCH ×3 (08:07→16:18)
[2018-12-02] MEDS: ESCITALOPRAM OXALATE 10 MG TABLET PO SCH (08:07)
[2018-12-02] MEDS: ATENOLOL 50 MG TABLET PO SCH (08:07)
[2018-12-02] MEDS: VALPROIC ACID 250 MG/5 ML SYRUP UDCUP PO SCH ×2 (08:07→20:24)
[2018-12-02] MEDS: BENZTROPINE MESYLATE 1 MG TABLET PO SCH ×2 (08:07→20:24)
[2018-12-02] MEDS: HYDROCHLOROTHIAZIDE 25 MG TABLET PO SCH (08:08)
[2018-12-02] MEDS: CHOLECALCIFEROL (VIT D3) 1,000 UNITS TABLET PO SCH (08:08)
[2018-12-02 08:11] VITALS: BP 132/77
[2018-12-02] MEDS: LORazepam 2 MG TABLET PO PRN ×2 (09:07→16:18)
[2018-12-02] MEDS: AmLODIPine BESYLATE 2.5 MG TABLET PO SCH (11:45)
[2018-12-02 16:34] VITALS: BP 122/61
[2018-12-02] MEDS: TraZODone HCL 100 MG TABLET PO SCH (20:24)
[2018-12-03 05:18] VITALS: BP 149/90
[2018-12-03] MEDS: ACETAMINOPHEN 325 MG TABLET PO PRN ×2 (05:22→19:30)
[2018-12-03 06:22] VITALS: BP 138/76
[2018-12-03] MEDS: FERROUS SULFATE 325 MG EC TABLET PO SCH ×3 (07:08→16:20)
[2018-12-03 08:11] VITALS: BP 148/90
[2018-12-03] MEDS: GABAPENTIN 300 MG CAPSULE PO SCH ×3 (09:15→16:20)
[2018-12-03] MEDS: VALPROIC ACID 250 MG/5 ML SYRUP UDCUP PO SCH ×2 (09:15→20:07)
[2018-12-03] MEDS: ESCITALOPRAM OXALATE 10 MG TABLET PO SCH (09:15)
[2018-12-03] MEDS: BENZTROPINE MESYLATE 1 MG TABLET PO SCH ×2 (09:15→20:07)
[2018-12-03] MEDS: CHOLECALCIFEROL (VIT D3) 1,000 UNITS TABLET PO SCH (09:16)
[2018-12-03] MEDS: HYDROCHLOROTHIAZIDE 25 MG TABLET PO SCH (09:16)
[2018-12-03] MEDS: AmLODIPine BESYLATE 2.5 MG TABLET PO SCH (09:16)
[2018-12-03] MEDS: ATENOLOL 50 MG TABLET PO SCH (09:45)
[2018-12-03] MEDS: LOPERAMIDE HCL 2 MG CAPSULE PO PRN (13:09)
[2018-12-03] MEDS: LORazepam 2 MG TABLET PO PRN (13:57)
[2018-12-03] MEDS: HALOPERIDOL 5 MG TABLET PO PRN (13:57)
[2018-12-03 16:09] VITALS: BP 115/63
[2018-12-03] MEDS: TraZODone HCL 100 MG TABLET PO SCH (20:07)
[2018-12-04 02:33] VITALS: BP 137/72
[2018-12-04] MEDS: FERROUS SULFATE 325 MG EC TABLET PO SCH ×3 (06:47→16:39)
[2018-12-04 08:16] VITALS: BP 116/65
[2018-12-04] MEDS: VALPROIC ACID 250 MG/5 ML SYRUP UDCUP PO SCH ×2 (08:51→20:27)
[2018-12-04] MEDS: ESCITALOPRAM OXALATE 10 MG TABLET PO SCH (08:57)
[2018-12-04] MEDS: GABAPENTIN 300 MG CAPSULE PO SCH ×3 (08:57→16:39)
[2018-12-04] MEDS: CHOLECALCIFEROL (VIT D3) 1,000 UNITS TABLET PO SCH (08:57)
[2018-12-04] MEDS: HYDROCHLOROTHIAZIDE 25 MG TABLET PO SCH (08:57)
[2018-12-04] MEDS: BENZTROPINE MESYLATE 1 MG TABLET PO SCH ×2 (08:57→20:27)
[2018-12-04] MEDS: AmLODIPine BESYLATE 2.5 MG TABLET PO SCH (08:57)
[2018-12-04] MEDS: ATENOLOL 50 MG TABLET PO SCH (08:57)
[2018-12-04] MEDS: LORazepam 2 MG TABLET PO PRN ×2 (09:22→14:40)
[2018-12-04] MEDS: HALOPERIDOL 5 MG TABLET PO PRN ×2 (09:22→14:40)
[2018-12-04] MEDS: ACETAMINOPHEN 325 MG TABLET PO PRN (09:30)
[2018-12-04 16:13] VITALS: BP 136/78
[2018-12-04] MEDS: TraZODone HCL 100 MG TABLET PO SCH (20:27)
[2018-12-05 03:26] VITALS: BP 138/82
[2018-12-05] MEDS: ACETAMINOPHEN 325 MG TABLET PO PRN ×3 (03:27→17:57)
[2018-12-05] MEDS: FERROUS SULFATE 325 MG EC TABLET PO SCH ×3 (06:26→16:36)
[2018-12-05 08:05] VITALS: BP 155/92
[2018-12-05] MEDS: AmLODIPine BESYLATE 2.5 MG TABLET PO SCH (08:16)
[2018-12-05] MEDS: VALPROIC ACID 250 MG/5 ML SYRUP UDCUP PO SCH ×2 (08:16→20:34)
[2018-12-05] MEDS: CHOLECALCIFEROL (VIT D3) 1,000 UNITS TABLET PO SCH (08:16)
[2018-12-05] MEDS: ESCITALOPRAM OXALATE 10 MG TABLET PO SCH (08:17)
[2018-12-05] MEDS: GABAPENTIN 300 MG CAPSULE PO SCH ×3 (08:17→16:36)
[2018-12-05] MEDS: ATENOLOL 50 MG TABLET PO SCH (08:17)
[2018-12-05] MEDS: BENZTROPINE MESYLATE 1 MG TABLET PO SCH ×2 (08:17→20:33)
[2018-12-05] MEDS: HYDROCHLOROTHIAZIDE 25 MG TABLET PO SCH (08:17)
[2018-12-05] MEDS: LORazepam 2 MG TABLET PO PRN ×2 (08:34→14:03)
[2018-12-05] MEDS: HALOPERIDOL 5 MG TABLET PO PRN (08:34)
[2018-12-05 09:00] VITALS: BP 140/88
[2018-12-05 16:13] VITALS: BP 124/64
[2018-12-05 17:57] VITALS: BP 135/76
[2018-12-05] MEDS: TraZODone HCL 100 MG TABLET PO SCH (20:33)
[2018-12-06 06:18] VITALS: BP 129/79
[2018-12-06] MEDS: FERROUS SULFATE 325 MG EC TABLET PO SCH ×3 (06:38→17:29)
[2018-12-06 08:21] VITALS: BP 130/52
[2018-12-06] MEDS: ATENOLOL 50 MG TABLET PO SCH (08:27)
[2018-12-06] MEDS: ESCITALOPRAM OXALATE 10 MG TABLET PO SCH (08:27)
[2018-12-06] MEDS: BENZTROPINE MESYLATE 1 MG TABLET PO SCH ×2 (08:27→20:48)
[2018-12-06] MEDS: CHOLECALCIFEROL (VIT D3) 1,000 UNITS TABLET PO SCH (08:27)
[2018-12-06] MEDS: AmLODIPine BESYLATE 2.5 MG TABLET PO SCH (08:27)
[2018-12-06] MEDS: VALPROIC ACID 250 MG/5 ML SYRUP UDCUP PO SCH ×2 (08:28→20:48)
[2018-12-06] MEDS: GABAPENTIN 300 MG CAPSULE PO SCH ×3 (08:28→17:30)
[2018-12-06] MEDS: HYDROCHLOROTHIAZIDE 25 MG TABLET PO SCH (08:28)
[2018-12-06] MEDS: LORazepam 2 MG TABLET PO PRN ×2 (09:26→16:33)
[2018-12-06] MEDS: HALOPERIDOL 5 MG TABLET PO PRN ×2 (09:27→16:33)
[2018-12-06 16:16] VITALS: BP 135/71
[2018-12-06] MEDS: ACETAMINOPHEN 325 MG TABLET PO PRN (17:19)
[2018-12-06] MEDS: TraZODone HCL 100 MG TABLET PO SCH (20:48)
[2018-12-07 06:20] VITALS: BP 118/68
[2018-12-07] MEDS: FERROUS SULFATE 325 MG EC TABLET PO SCH ×3 (06:38→17:03)
[2018-12-07] MEDS: CHOLECALCIFEROL (VIT D3) 1,000 UNITS TABLET PO SCH (08:13)
[2018-12-07] MEDS: ATENOLOL 50 MG TABLET PO SCH (08:13)
[2018-12-07] MEDS: ESCITALOPRAM OXALATE 10 MG TABLET PO SCH (08:13)
[2018-12-07] MEDS: HYDROCHLOROTHIAZIDE 25 MG TABLET PO SCH (08:14)
[2018-12-07] MEDS: AmLODIPine BESYLATE 2.5 MG TABLET PO SCH (08:14)
[2018-12-07] MEDS: BENZTROPINE MESYLATE 1 MG TABLET PO SCH ×2 (08:14→20:58)
[2018-12-07] MEDS: VALPROIC ACID 250 MG/5 ML SYRUP UDCUP PO SCH ×2 (08:14→20:58)
[2018-12-07] MEDS: GABAPENTIN 300 MG CAPSULE PO SCH ×3 (08:14→17:03)
[2018-12-07 08:53] VITALS: BP 140/78
[2018-12-07] MEDS: HALOPERIDOL 5 MG TABLET PO PRN ×2 (10:11→17:03)
[2018-12-07] MEDS: LORazepam 2 MG TABLET PO PRN ×2 (10:11→17:04)
[2018-12-07 12:00] VITALS: BP 122/66
[2018-12-07] MEDS: ACETAMINOPHEN 325 MG TABLET PO PRN (12:05)
[2018-12-07 16:00] VITALS: BP 125/62
[2018-12-07] MEDS: TraZODone HCL 100 MG TABLET PO SCH (20:58)
[2018-12-08] MEDS: FERROUS SULFATE 325 MG EC TABLET PO SCH ×3 (06:43→16:50)
[2018-12-08 06:52] VITALS: BP 146/92
[2018-12-08 08:33] VITALS: BP 136/66
[2018-12-08] MEDS: VALPROIC ACID 250 MG/5 ML SYRUP UDCUP PO SCH ×2 (08:35→20:11)
[2018-12-08] MEDS: ATENOLOL 50 MG TABLET PO SCH (08:35)
[2018-12-08] MEDS: BENZTROPINE MESYLATE 1 MG TABLET PO SCH ×2 (08:36→20:11)
[2018-12-08] MEDS: GABAPENTIN 300 MG CAPSULE PO SCH ×3 (08:36→16:19)
[2018-12-08] MEDS: HYDROCHLOROTHIAZIDE 25 MG TABLET PO SCH (08:36)
[2018-12-08] MEDS: AmLODIPine BESYLATE 2.5 MG TABLET PO SCH (08:36)
[2018-12-08] MEDS: CHOLECALCIFEROL (VIT D3) 1,000 UNITS TABLET PO SCH (08:36)
[2018-12-08] MEDS: ESCITALOPRAM OXALATE 10 MG TABLET PO SCH (08:36)
[2018-12-08] MEDS: LORazepam 2 MG TABLET PO PRN ×2 (09:40→16:20)
[2018-12-08] MEDS: HALOPERIDOL 5 MG TABLET PO PRN ×2 (09:45→16:20)
[2018-12-08 11:15] VITALS: BP 128/64
[2018-12-08] MEDS: ACETAMINOPHEN 325 MG TABLET PO PRN (11:19)
[2018-12-08 16:06] VITALS: BP 119/62
[2018-12-08] MEDS: TraZODone HCL 100 MG TABLET PO SCH (20:11)
[2018-12-09 05:18] VITALS: BP 112/65
[2018-12-09] MEDS: FERROUS SULFATE 325 MG EC TABLET PO SCH ×3 (06:29→17:04)
[2018-12-09] MEDS: LORazepam 2 MG TABLET PO PRN ×2 (07:59→14:04)
[2018-12-09] MEDS: HALOPERIDOL 5 MG TABLET PO PRN ×2 (07:59→14:04)
[2018-12-09] MEDS: CHOLECALCIFEROL (VIT D3) 1,000 UNITS TABLET PO SCH (08:00)
[2018-12-09] MEDS: VALPROIC ACID 250 MG/5 ML SYRUP UDCUP PO SCH ×2 (08:00→20:18)
[2018-12-09] MEDS: AmLODIPine BESYLATE 2.5 MG TABLET PO SCH (08:01)
[2018-12-09] MEDS: ATENOLOL 50 MG TABLET PO SCH (08:01)
[2018-12-09] MEDS: BENZTROPINE MESYLATE 1 MG TABLET PO SCH ×2 (08:01→20:19)
[2018-12-09] MEDS: GABAPENTIN 300 MG CAPSULE PO SCH ×3 (08:01→17:04)
[2018-12-09] MEDS: ESCITALOPRAM OXALATE 10 MG TABLET PO SCH (08:01)
[2018-12-09] MEDS: HYDROCHLOROTHIAZIDE 25 MG TABLET PO SCH (08:01)
[2018-12-09 08:14] VITALS: BP 147/82
[2018-12-09] MEDS: NICOTINE POLACRILEX 2 MG LOZENGE PO PRN ×2 (09:21→15:55)
[2018-12-09] MEDS: TraZODone HCL 100 MG TABLET PO SCH (20:34)
[2018-12-10 06:37] VITALS: BP 147/80
[2018-12-10] MEDS: FERROUS SULFATE 325 MG EC TABLET PO SCH ×3 (06:48→17:03)
[2018-12-10] MEDS: VALPROIC ACID 250 MG/5 ML SYRUP UDCUP PO SCH ×2 (08:39→20:15)
[2018-12-10] MEDS: CHOLECALCIFEROL (VIT D3) 1,000 UNITS TABLET PO SCH (08:39)
[2018-12-10] MEDS: GABAPENTIN 300 MG CAPSULE PO SCH ×3 (08:42→17:03)
[2018-12-10] MEDS: AmLODIPine BESYLATE 2.5 MG TABLET PO SCH (08:43)
[2018-12-10] MEDS: ATENOLOL 50 MG TABLET PO SCH (08:43)
[2018-12-10] MEDS: HYDROCHLOROTHIAZIDE 25 MG TABLET PO SCH (08:43)
[2018-12-10] MEDS: BENZTROPINE MESYLATE 1 MG TABLET PO SCH ×2 (08:43→20:15)
[2018-12-10] MEDS: ESCITALOPRAM OXALATE 10 MG TABLET PO SCH (08:43)
[2018-12-10 09:19] VITALS: BP 131/56
[2018-12-10] MEDS: HALOPERIDOL 5 MG TABLET PO PRN (09:43)
[2018-12-10] MEDS: LORazepam 2 MG TABLET PO PRN (09:43)
[2018-12-10] MEDS: NICOTINE POLACRILEX 2 MG LOZENGE PO PRN ×3 (09:45→21:00)
[2018-12-10 16:24] VITALS: BP 139/71
[2018-12-10] MEDS: TraZODone HCL 100 MG TABLET PO SCH (20:15)
[2018-12-11 06:28] VITALS: BP 162/86
[2018-12-11] MEDS: FERROUS SULFATE 325 MG EC TABLET PO SCH ×3 (06:57→16:29)
[2018-12-11 07:31] LABS: APPEARANCE,URINE CLEAR (CLEAR); BILIRUBIN,URINE NEGATIVE (NEGATIVE); GLUCOSE, URINE (UA) NEGATIVE (NEGATIVE); KETONES,URINE NEGATIVE (NEGATIVE); LEUKOCYTE ESTERASE ,URINE NEGATIVE (NEGATIVE); NITRATE,URINE NEGATIVE (NEGATIVE); OCCULT BLOOD,URINE SMALL (NEGATIVE); PROTEIN,URINE NEGATIVE (NEGATIVE)
[2018-12-11 07:57] LABS: BACTERIA,URINE Rare /HPF (None Seen); SQUAMOUS EPITHELIAL CELL,UR Rare /LPF (None Seen); WBC,URINE 0-2 /HPF (0-5)
[2018-12-11 08:19] VITALS: BP 136/65
[2018-12-11] MEDS: VALPROIC ACID 250 MG/5 ML SYRUP UDCUP PO SCH ×2 (08:34→20:47)
[2018-12-11] MEDS: BENZTROPINE MESYLATE 1 MG TABLET PO SCH ×2 (08:35→20:46)
[2018-12-11] MEDS: AmLODIPine BESYLATE 2.5 MG TABLET PO SCH (08:35)
[2018-12-11] MEDS: CHOLECALCIFEROL (VIT D3) 1,000 UNITS TABLET PO SCH (08:35)
[2018-12-11] MEDS: HYDROCHLOROTHIAZIDE 25 MG TABLET PO SCH (08:35)
[2018-12-11] MEDS: HALOPERIDOL 5 MG TABLET PO PRN ×2 (08:35→16:29)
[2018-12-11] MEDS: ESCITALOPRAM OXALATE 10 MG TABLET PO SCH (08:35)
[2018-12-11] MEDS: GABAPENTIN 300 MG CAPSULE PO SCH ×3 (08:35→16:22)
[2018-12-11] MEDS: LORazepam 2 MG TABLET PO PRN ×2 (08:35→16:29)
[2018-12-11] MEDS: ATENOLOL 50 MG TABLET PO SCH (10:09)
[2018-12-11 16:16] VITALS: BP 124/90
[2018-12-11] MEDS: NICOTINE POLACRILEX 2 MG LOZENGE PO PRN (16:21)
[2018-12-11] MEDS: TraZODone HCL 100 MG TABLET PO SCH (20:47)
[2018-12-12] MEDS: FERROUS SULFATE 325 MG EC TABLET PO SCH ×3 (06:37→16:45)
[2018-12-12 08:49] VITALS: BP 138/79
[2018-12-12] MEDS: VALPROIC ACID 250 MG/5 ML SYRUP UDCUP PO SCH ×2 (09:14→21:35)
[2018-12-12] MEDS: HYDROCHLOROTHIAZIDE 25 MG TABLET PO SCH (09:15)
[2018-12-12] MEDS: AmLODIPine BESYLATE 2.5 MG TABLET PO SCH (09:15)
[2018-12-12] MEDS: CHOLECALCIFEROL (VIT D3) 1,000 UNITS TABLET PO SCH (09:15)
[2018-12-12] MEDS: ESCITALOPRAM OXALATE 10 MG TABLET PO SCH (09:15)
[2018-12-12] MEDS: GABAPENTIN 300 MG CAPSULE PO SCH ×3 (09:15→16:44)
[2018-12-12] MEDS: BENZTROPINE MESYLATE 1 MG TABLET PO SCH ×2 (09:16→21:34)
[2018-12-12] MEDS: ATENOLOL 50 MG TABLET PO SCH (09:16)
[2018-12-12] MEDS: NICOTINE POLACRILEX 2 MG LOZENGE PO PRN (09:45)
[2018-12-12] MEDS: HALOPERIDOL 5 MG TABLET PO PRN ×2 (09:45→16:44)
[2018-12-12] MEDS: LORazepam 2 MG TABLET PO PRN ×2 (09:45→16:44)
[2018-12-12] MEDS: LOPERAMIDE HCL 2 MG CAPSULE PO PRN (12:31)
[2018-12-12 16:29] VITALS: BP 131/67
[2018-12-12] MEDS: TraZODone HCL 100 MG TABLET PO SCH (21:34)
[2018-12-13 06:06] VITALS: BP 121/60
[2018-12-13] MEDS: FERROUS SULFATE 325 MG EC TABLET PO SCH ×3 (06:40→16:19)
[2018-12-13 08:32] VITALS: BP 158/83
[2018-12-13] MEDS: VALPROIC ACID 250 MG/5 ML SYRUP UDCUP PO SCH ×2 (09:30→20:08)
[2018-12-13] MEDS: HYDROCHLOROTHIAZIDE 25 MG TABLET PO SCH (09:31)
[2018-12-13] MEDS: ESCITALOPRAM OXALATE 10 MG TABLET PO SCH (09:31)
[2018-12-13] MEDS: GABAPENTIN 300 MG CAPSULE PO SCH ×3 (09:31→16:19)
[2018-12-13] MEDS: CHOLECALCIFEROL (VIT D3) 1,000 UNITS TABLET PO SCH (09:31)
[2018-12-13] MEDS: BENZTROPINE MESYLATE 1 MG TABLET PO SCH ×2 (09:32→20:09)
[2018-12-13] MEDS: AmLODIPine BESYLATE 2.5 MG TABLET PO SCH (09:32)
[2018-12-13] MEDS: ATENOLOL 50 MG TABLET PO SCH (09:33)
[2018-12-13] MEDS: LORazepam 2 MG TABLET PO PRN ×2 (09:39→17:53)
[2018-12-13] MEDS: HALOPERIDOL 5 MG TABLET PO PRN (09:39)
[2018-12-13] MEDS: PALIPERIDONE PALMITATE 234 MG/1.5 ML SYRINGE IM SCH (12:40)
[2018-12-13 16:08] VITALS: BP 135/68
[2018-12-13] MEDS: NICOTINE POLACRILEX 2 MG LOZENGE PO PRN (16:37)
[2018-12-13] MEDS: TraZODone HCL 100 MG TABLET PO SCH (20:08)
[2018-12-14 04:55] VITALS: BP 118/72
[2018-12-14] MEDS: FERROUS SULFATE 325 MG EC TABLET PO SCH ×3 (06:26→16:31)
[2018-12-14] MEDS: BENZTROPINE MESYLATE 1 MG TABLET PO SCH ×2 (08:30→20:38)
[2018-12-14] MEDS: ESCITALOPRAM OXALATE 10 MG TABLET PO SCH (08:30)
[2018-12-14] MEDS: HYDROCHLOROTHIAZIDE 25 MG TABLET PO SCH (08:30)
[2018-12-14] MEDS: GABAPENTIN 300 MG CAPSULE PO SCH ×3 (08:30→16:31)
[2018-12-14] MEDS: AmLODIPine BESYLATE 2.5 MG TABLET PO SCH (08:30)
[2018-12-14] MEDS: ATENOLOL 50 MG TABLET PO SCH (08:30)
[2018-12-14] MEDS: CHOLECALCIFEROL (VIT D3) 1,000 UNITS TABLET PO SCH (08:30)
[2018-12-14] MEDS: VALPROIC ACID 250 MG/5 ML SYRUP UDCUP PO SCH ×2 (08:31→20:38)
[2018-12-14 08:33] VITALS: BP 136/60
[2018-12-14] MEDS: HALOPERIDOL 5 MG TABLET PO PRN ×2 (10:05→16:31)
[2018-12-14] MEDS: LORazepam 2 MG TABLET PO PRN ×2 (10:05→16:31)
[2018-12-14] MEDS: NICOTINE POLACRILEX 2 MG LOZENGE PO PRN (15:06)
[2018-12-14 16:02] VITALS: BP 105/57
[2018-12-14] MEDS: TraZODone HCL 100 MG TABLET PO SCH (20:38)
[2018-12-15 02:46] VITALS: BP 115/64
[2018-12-15] MEDS: FERROUS SULFATE 325 MG EC TABLET PO SCH ×3 (06:43→16:39)
[2018-12-15 08:12] VITALS: BP 134/69
[2018-12-15] MEDS: CHOLECALCIFEROL (VIT D3) 1,000 UNITS TABLET PO SCH (08:30)
[2018-12-15] MEDS: BENZTROPINE MESYLATE 1 MG TABLET PO SCH ×2 (08:30→20:40)
[2018-12-15] MEDS: ATENOLOL 50 MG TABLET PO SCH (08:30)
[2018-12-15] MEDS: GABAPENTIN 300 MG CAPSULE PO SCH ×3 (08:30→16:39)
[2018-12-15] MEDS: AmLODIPine BESYLATE 2.5 MG TABLET PO SCH (08:30)
[2018-12-15] MEDS: HYDROCHLOROTHIAZIDE 25 MG TABLET PO SCH (08:30)
[2018-12-15] MEDS: ESCITALOPRAM OXALATE 10 MG TABLET PO SCH (08:30)
[2018-12-15] MEDS: VALPROIC ACID 250 MG/5 ML SYRUP UDCUP PO SCH ×2 (08:31→20:40)
[2018-12-15] MEDS: LORazepam 2 MG TABLET PO PRN ×2 (08:50→16:39)
[2018-12-15] MEDS: HALOPERIDOL 5 MG TABLET PO PRN ×2 (08:50→16:39)
[2018-12-15 16:19] VITALS: BP 131/62
[2018-12-15] MEDS: TraZODone HCL 100 MG TABLET PO SCH (20:40)
[2018-12-16 05:53] VITALS: BP 128/80
[2018-12-16] MEDS: FERROUS SULFATE 325 MG EC TABLET PO SCH ×3 (06:43→16:44)
[2018-12-16 08:24] VITALS: BP 134/59
[2018-12-16] MEDS: VALPROIC ACID 250 MG/5 ML SYRUP UDCUP PO SCH ×2 (09:29→20:37)
[2018-12-16] MEDS: AmLODIPine BESYLATE 2.5 MG TABLET PO SCH (09:29)
[2018-12-16] MEDS: GABAPENTIN 300 MG CAPSULE PO SCH ×3 (09:29→16:44)
[2018-12-16] MEDS: BENZTROPINE MESYLATE 1 MG TABLET PO SCH ×2 (09:29→20:37)
[2018-12-16] MEDS: CHOLECALCIFEROL (VIT D3) 1,000 UNITS TABLET PO SCH (09:29)
[2018-12-16] MEDS: ESCITALOPRAM OXALATE 10 MG TABLET PO SCH (09:29)
[2018-12-16] MEDS: ATENOLOL 50 MG TABLET PO SCH (09:29)
[2018-12-16] MEDS: HYDROCHLOROTHIAZIDE 25 MG TABLET PO SCH (09:29)
[2018-12-16] MEDS: LORazepam 2 MG TABLET PO PRN ×2 (09:55→16:44)
[2018-12-16] MEDS: HALOPERIDOL 5 MG TABLET PO PRN ×2 (09:55→16:44)
[2018-12-16 16:56] VITALS: BP 122/64
[2018-12-16] MEDS: TraZODone HCL 100 MG TABLET PO SCH (20:38)
[2018-12-17 05:43] VITALS: BP 142/73
[2018-12-17] MEDS: FERROUS SULFATE 325 MG EC TABLET PO SCH ×3 (06:42→18:05)
[2018-12-17 08:14] VITALS: BP 162/87
[2018-12-17] MEDS: GABAPENTIN 300 MG CAPSULE PO SCH ×3 (09:06→18:05)
[2018-12-17] MEDS: CHOLECALCIFEROL (VIT D3) 1,000 UNITS TABLET PO SCH (09:06)
[2018-12-17] MEDS: BENZTROPINE MESYLATE 1 MG TABLET PO SCH ×2 (09:07→20:15)
[2018-12-17] MEDS: ESCITALOPRAM OXALATE 10 MG TABLET PO SCH (09:07)
[2018-12-17] MEDS: HYDROCHLOROTHIAZIDE 25 MG TABLET PO SCH (09:07)
[2018-12-17] MEDS: ATENOLOL 50 MG TABLET PO SCH (09:07)
[2018-12-17] MEDS: AmLODIPine BESYLATE 2.5 MG TABLET PO SCH (09:07)
[2018-12-17] MEDS: VALPROIC ACID 250 MG/5 ML SYRUP UDCUP PO SCH ×2 (09:14→20:29)
[2018-12-17] MEDS: ACETAMINOPHEN 325 MG TABLET PO PRN ×2 (09:48→18:06)
[2018-12-17] MEDS: LORazepam 2 MG TABLET PO PRN (12:39)
[2018-12-17 16:10] VITALS: BP 124/82
[2018-12-17 18:00] VITALS: BP 168/106
[2018-12-17 19:03] VITALS: BP 149/79
[2018-12-17] MEDS: TraZODone HCL 100 MG TABLET PO SCH (20:14)
[2018-12-18 02:07] VITALS: BP 140/75
[2018-12-18] MEDS: ACETAMINOPHEN 325 MG TABLET PO PRN (02:25)
[2018-12-18] MEDS: FERROUS SULFATE 325 MG EC TABLET PO SCH ×3 (06:44→16:52)
[2018-12-18 08:14] VITALS: BP 137/63
[2018-12-18 08:18] LABS: ANION GAP 5 mmol/L (8-16); CALCIUM, TOTAL 8.8 mg/dL (8.8-10.5); CARBON DIOXIDE 31 mmol/L (22-29); CHLORIDE 106 mmol/L (98-107); CREATININE 0.51 mg/dL (0.60-1.30); GLOMERULAR FILTR. RATE CALC > 60 mL/min (>60); GLUCOSE,RANDOM 81 mg/dL (70-110); POTASSIUM 3.8 mmol/L (3.5-5.1); SODIUM SERUM 142 mmol/L (136-145); UREA NITROGEN, BLOOD 9 mg/dL (7-18)
[2018-12-18] MEDS: AmLODIPine BESYLATE 2.5 MG TABLET PO SCH (08:23)
[2018-12-18] MEDS: ESCITALOPRAM OXALATE 10 MG TABLET PO SCH (08:23)
[2018-12-18] MEDS: BENZTROPINE MESYLATE 1 MG TABLET PO SCH ×2 (08:23→21:04)
[2018-12-18] MEDS: GABAPENTIN 300 MG CAPSULE PO SCH ×3 (08:23→16:52)
[2018-12-18] MEDS: HYDROCHLOROTHIAZIDE 25 MG TABLET PO SCH (08:23)
[2018-12-18] MEDS: CHOLECALCIFEROL (VIT D3) 1,000 UNITS TABLET PO SCH (08:23)
[2018-12-18] MEDS: ATENOLOL 50 MG TABLET PO SCH (08:24)
[2018-12-18 08:26] LABS: BASOPHILS % (AUTO) 0.3 % (0.0-2.0); EOSINOPHILS % (AUTO) 1.8 % (1.0-6.0); HEMATOCRIT 34.8 % (36-46); HEMOGLOBIN 11.7 g/dL (12.0-16.0); LYMPHOCYTES # (AUTO) 1.9 K/uL (1.0-4.8); LYMPHOCYTES % (AUTO) 43.2 % (22.0-44.0); MEAN CORPUSCULAR HGB CONC 33.5 G/dL (31.0-37.0); MEAN CORPUSCULAR VOLUME 84 fL (80-100); MONOCYTES # (AUTO) 0.7 K/uL (0.1-1.0); MONOCYTES % (AUTO) 17.3 % (2.0-9.0); NEUTROPHILS # (AUTO) 1.6 K/uL (1.8-7.7); NEUTROPHILS % (AUTO) 37.4 % (40.0-70.0); PLATELET COUNT (AUTO) 192 K/uL (150-450); RED BLOOD CELL COUNT(AUTO) 4.17 MIL/uL (4.00-5.20); RED CELL DISTRIBUTION WIDTH 14.1 % (11.5-14.5)
[2018-12-18] MEDS: VALPROIC ACID 250 MG/5 ML SYRUP UDCUP PO SCH ×2 (10:58→21:04)
[2018-12-18] MEDS: NICOTINE POLACRILEX 2 MG LOZENGE PO PRN (13:35)
[2018-12-18] MEDS: LORazepam 2 MG TABLET PO PRN (15:08)
[2018-12-18] MEDS: HALOPERIDOL 5 MG TABLET PO PRN (15:08)
[2018-12-18] MEDS: TraZODone HCL 100 MG TABLET PO SCH (21:04)
[2018-12-18 21:17] VITALS: BP 149/86
[2018-12-19 05:46] VITALS: BP 138/88
[2018-12-19] MEDS: FERROUS SULFATE 325 MG EC TABLET PO SCH ×3 (06:55→16:40)
[2018-12-19] MEDS: ESCITALOPRAM OXALATE 10 MG TABLET PO SCH (08:28)
[2018-12-19] MEDS: ATENOLOL 50 MG TABLET PO SCH (08:28)
[2018-12-19] MEDS: VALPROIC ACID 250 MG/5 ML SYRUP UDCUP PO SCH ×2 (08:28→20:17)
[2018-12-19] MEDS: BENZTROPINE MESYLATE 1 MG TABLET PO SCH ×2 (08:28→20:17)
[2018-12-19] MEDS: CHOLECALCIFEROL (VIT D3) 1,000 UNITS TABLET PO SCH (08:28)
[2018-12-19] MEDS: GABAPENTIN 300 MG CAPSULE PO SCH ×3 (08:29→16:39)
[2018-12-19] MEDS: HYDROCHLOROTHIAZIDE 25 MG TABLET PO SCH (08:29)
[2018-12-19] MEDS: AmLODIPine BESYLATE 2.5 MG TABLET PO SCH (08:29)
[2018-12-19 08:37] VITALS: BP 139/68
[2018-12-19] MEDS: HALOPERIDOL 5 MG TABLET PO PRN ×2 (09:20→16:01)
[2018-12-19] MEDS: LORazepam 2 MG TABLET PO PRN ×2 (09:20→16:01)
[2018-12-19 16:23] VITALS: BP 138/64
[2018-12-19] MEDS: TraZODone HCL 100 MG TABLET PO SCH (20:17)
[2018-12-20 01:41] VITALS: BP 136/72
[2018-12-20] MEDS: FERROUS SULFATE 325 MG EC TABLET PO SCH ×3 (06:41→16:37)
[2018-12-20 08:19] VITALS: BP 146/79
[2018-12-20] MEDS: VALPROIC ACID 250 MG/5 ML SYRUP UDCUP PO SCH ×2 (08:25→20:36)
[2018-12-20] MEDS: CHOLECALCIFEROL (VIT D3) 1,000 UNITS TABLET PO SCH (08:26)
[2018-12-20] MEDS: ATENOLOL 50 MG TABLET PO SCH (08:26)
[2018-12-20] MEDS: BENZTROPINE MESYLATE 1 MG TABLET PO SCH ×2 (08:26→20:37)
[2018-12-20] MEDS: ESCITALOPRAM OXALATE 10 MG TABLET PO SCH (08:26)
[2018-12-20] MEDS: HYDROCHLOROTHIAZIDE 25 MG TABLET PO SCH (08:26)
[2018-12-20] MEDS: AmLODIPine BESYLATE 2.5 MG TABLET PO SCH (08:27)
[2018-12-20] MEDS: GABAPENTIN 300 MG CAPSULE PO SCH ×3 (08:27→16:37)
[2018-12-20] MEDS: HALOPERIDOL 5 MG TABLET PO PRN ×2 (09:20→16:38)
[2018-12-20] MEDS: LORazepam 2 MG TABLET PO PRN ×2 (09:20→16:38)
[2018-12-20 17:24] VITALS: BP 150/44
[2018-12-20] MEDS: TraZODone HCL 100 MG TABLET PO SCH (20:37)
[2018-12-21] MEDS: FERROUS SULFATE 325 MG EC TABLET PO SCH ×3 (06:14→17:19)
[2018-12-21 06:22] VITALS: BP 136/65
[2018-12-21 08:15] VITALS: BP 132/59
[2018-12-21] MEDS: GABAPENTIN 300 MG CAPSULE PO SCH ×3 (09:03→17:19)
[2018-12-21] MEDS: ESCITALOPRAM OXALATE 10 MG TABLET PO SCH (09:03)
[2018-12-21] MEDS: CHOLECALCIFEROL (VIT D3) 1,000 UNITS TABLET PO SCH (09:03)
[2018-12-21] MEDS: HYDROCHLOROTHIAZIDE 25 MG TABLET PO SCH (09:03)
[2018-12-21] MEDS: LORazepam 2 MG TABLET PO PRN ×2 (09:03→13:15)
[2018-12-21] MEDS: AmLODIPine BESYLATE 2.5 MG TABLET PO SCH (09:03)
[2018-12-21] MEDS: BENZTROPINE MESYLATE 1 MG TABLET PO SCH ×2 (09:03→20:37)
[2018-12-21] MEDS: ATENOLOL 50 MG TABLET PO SCH (09:03)
[2018-12-21] MEDS: VALPROIC ACID 250 MG/5 ML SYRUP UDCUP PO SCH ×2 (09:04→20:37)
[2018-12-21] MEDS: HALOPERIDOL 5 MG TABLET PO PRN (13:15)
[2018-12-21 16:15] VITALS: BP 131/72
[2018-12-21] MEDS: TraZODone HCL 100 MG TABLET PO SCH (20:37)
[2018-12-22 06:34] VITALS: BP 126/70
[2018-12-22] MEDS: FERROUS SULFATE 325 MG EC TABLET PO SCH ×3 (06:37→16:59)
[2018-12-22] MEDS: ESCITALOPRAM OXALATE 10 MG TABLET PO SCH (08:10)
[2018-12-22] MEDS: CHOLECALCIFEROL (VIT D3) 1,000 UNITS TABLET PO SCH (08:10)
[2018-12-22] MEDS: HYDROCHLOROTHIAZIDE 25 MG TABLET PO SCH (08:10)
[2018-12-22] MEDS: ATENOLOL 50 MG TABLET PO SCH (08:10)
[2018-12-22] MEDS: GABAPENTIN 300 MG CAPSULE PO SCH ×3 (08:10→16:06)
[2018-12-22] MEDS: BENZTROPINE MESYLATE 1 MG TABLET PO SCH ×2 (08:10→20:02)
[2018-12-22] MEDS: AmLODIPine BESYLATE 2.5 MG TABLET PO SCH (08:10)
[2018-12-22] MEDS: VALPROIC ACID 250 MG/5 ML SYRUP UDCUP PO SCH ×2 (08:10→20:02)
[2018-12-22 09:00] VITALS: BP 135/63
[2018-12-22] MEDS: LORazepam 2 MG TABLET PO PRN ×2 (09:14→15:48)
[2018-12-22] MEDS: HALOPERIDOL 5 MG TABLET PO PRN ×2 (09:14→16:06)
[2018-12-22 16:36] VITALS: BP 128/66
[2018-12-22] MEDS: TraZODone HCL 100 MG TABLET PO SCH (20:02)
[2018-12-23 02:59] VITALS: BP 137/86
[2018-12-23] MEDS: FERROUS SULFATE 325 MG EC TABLET PO SCH ×3 (06:47→16:05)
[2018-12-23] MEDS: ESCITALOPRAM OXALATE 10 MG TABLET PO SCH (08:10)
[2018-12-23] MEDS: VALPROIC ACID 250 MG/5 ML SYRUP UDCUP PO SCH ×2 (08:10→20:04)
[2018-12-23] MEDS: CHOLECALCIFEROL (VIT D3) 1,000 UNITS TABLET PO SCH (08:10)
[2018-12-23] MEDS: GABAPENTIN 300 MG CAPSULE PO SCH ×3 (08:10→16:06)
[2018-12-23] MEDS: AmLODIPine BESYLATE 2.5 MG TABLET PO SCH (08:10)
[2018-12-23] MEDS: BENZTROPINE MESYLATE 1 MG TABLET PO SCH ×2 (08:11→20:04)
[2018-12-23] MEDS: HYDROCHLOROTHIAZIDE 25 MG TABLET PO SCH (08:11)
[2018-12-23 08:37] VITALS: BP 155/84
[2018-12-23] MEDS: ATENOLOL 50 MG TABLET PO SCH (08:46)
[2018-12-23] MEDS: LORazepam 2 MG TABLET PO PRN ×2 (08:56→16:04)
[2018-12-23] MEDS: HALOPERIDOL 5 MG TABLET PO PRN ×2 (08:57→16:04)
[2018-12-23 16:00] VITALS: BP 114/62
[2018-12-23] MEDS: TraZODone HCL 100 MG TABLET PO SCH (20:04)
[2018-12-24 05:59] VITALS: BP 139/82
[2018-12-24] MEDS: FERROUS SULFATE 325 MG EC TABLET PO SCH ×3 (06:32→17:10)
[2018-12-24 08:22] VITALS: BP 131/62
[2018-12-24] MEDS: VALPROIC ACID 250 MG/5 ML SYRUP UDCUP PO SCH ×2 (08:26→20:05)
[2018-12-24] MEDS: ATENOLOL 50 MG TABLET PO SCH (08:27)
[2018-12-24] MEDS: ESCITALOPRAM OXALATE 10 MG TABLET PO SCH (08:27)
[2018-12-24] MEDS: GABAPENTIN 300 MG CAPSULE PO SCH ×3 (08:27→17:10)
[2018-12-24] MEDS: HYDROCHLOROTHIAZIDE 25 MG TABLET PO SCH (08:27)
[2018-12-24] MEDS: BENZTROPINE MESYLATE 1 MG TABLET PO SCH ×2 (08:27→20:05)
[2018-12-24] MEDS: AmLODIPine BESYLATE 2.5 MG TABLET PO SCH (08:28)
[2018-12-24] MEDS: CHOLECALCIFEROL (VIT D3) 1,000 UNITS TABLET PO SCH (08:28)
[2018-12-24] MEDS: LORazepam 2 MG TABLET PO PRN ×2 (10:07→16:05)
[2018-12-24] MEDS: HALOPERIDOL 5 MG TABLET PO PRN ×2 (10:07→16:05)
[2018-12-24 16:09] VITALS: BP 145/57
[2018-12-24 17:05] VITALS: BP 132/64
[2018-12-24] MEDS: TraZODone HCL 100 MG TABLET PO SCH (20:05)
[2018-12-25 02:29] VITALS: BP 128/66
[2018-12-25] MEDS: FERROUS SULFATE 325 MG EC TABLET PO SCH ×3 (06:34→16:54)
[2018-12-25 08:15] VITALS: BP 148/60
[2018-12-25] MEDS: ATENOLOL 50 MG TABLET PO SCH (08:22)
[2018-12-25] MEDS: LORazepam 2 MG TABLET PO PRN ×2 (08:22→16:54)
[2018-12-25] MEDS: CHOLECALCIFEROL (VIT D3) 1,000 UNITS TABLET PO SCH (08:22)
[2018-12-25] MEDS: HALOPERIDOL 5 MG TABLET PO PRN ×2 (08:22→16:55)
[2018-12-25] MEDS: ESCITALOPRAM OXALATE 10 MG TABLET PO SCH (08:23)
[2018-12-25] MEDS: BENZTROPINE MESYLATE 1 MG TABLET PO SCH ×2 (08:23→20:54)
[2018-12-25] MEDS: GABAPENTIN 300 MG CAPSULE PO SCH ×3 (08:23→16:54)
[2018-12-25] MEDS: AmLODIPine BESYLATE 2.5 MG TABLET PO SCH (08:23)
[2018-12-25] MEDS: HYDROCHLOROTHIAZIDE 25 MG TABLET PO SCH (08:23)
[2018-12-25] MEDS: VALPROIC ACID 250 MG/5 ML SYRUP UDCUP PO SCH ×2 (08:23→20:54)
[2018-12-25 16:53] VITALS: BP 125/77
[2018-12-25] MEDS: ACETAMINOPHEN 325 MG TABLET PO PRN (16:53)
[2018-12-25] MEDS: TraZODone HCL 100 MG TABLET PO SCH (20:54)
[2018-12-26 05:55] VITALS: BP 127/70
[2018-12-26] MEDS: FERROUS SULFATE 325 MG EC TABLET PO SCH ×3 (06:42→16:26)
[2018-12-26 08:03] VITALS: BP 143/78
[2018-12-26] MEDS: HYDROCHLOROTHIAZIDE 25 MG TABLET PO SCH (08:18)
[2018-12-26] MEDS: VALPROIC ACID 250 MG/5 ML SYRUP UDCUP PO SCH ×2 (08:18→21:19)
[2018-12-26] MEDS: ATENOLOL 50 MG TABLET PO SCH (08:18)
[2018-12-26] MEDS: GABAPENTIN 300 MG CAPSULE PO SCH ×3 (08:18→16:27)
[2018-12-26] MEDS: ESCITALOPRAM OXALATE 10 MG TABLET PO SCH (08:18)
[2018-12-26] MEDS: CHOLECALCIFEROL (VIT D3) 1,000 UNITS TABLET PO SCH (08:18)
[2018-12-26] MEDS: BENZTROPINE MESYLATE 1 MG TABLET PO SCH ×2 (08:18→21:18)
[2018-12-26] MEDS: AmLODIPine BESYLATE 2.5 MG TABLET PO SCH (08:18)
[2018-12-26] MEDS: LORazepam 2 MG TABLET PO PRN ×2 (09:17→16:28)
[2018-12-26] MEDS: HALOPERIDOL 5 MG TABLET PO PRN (09:18)
[2018-12-26 16:17] VITALS: BP 129/78
[2018-12-26] MEDS: TraZODone HCL 100 MG TABLET PO SCH (21:18)
[2018-12-27 02:31] VITALS: BP 135/79
[2018-12-27] MEDS: FERROUS SULFATE 325 MG EC TABLET PO SCH ×3 (06:35→16:08)
[2018-12-27 08:06] VITALS: BP 129/70
[2018-12-27] MEDS: CHOLECALCIFEROL (VIT D3) 1,000 UNITS TABLET PO SCH (09:17)
[2018-12-27] MEDS: GABAPENTIN 300 MG CAPSULE PO SCH ×3 (09:17→16:08)
[2018-12-27] MEDS: VALPROIC ACID 250 MG/5 ML SYRUP UDCUP PO SCH ×2 (09:17→20:25)
[2018-12-27] MEDS: LORazepam 2 MG TABLET PO PRN ×2 (09:18→16:08)
[2018-12-27] MEDS: BENZTROPINE MESYLATE 1 MG TABLET PO SCH ×2 (09:18→20:24)
[2018-12-27] MEDS: HALOPERIDOL 5 MG TABLET PO PRN ×2 (09:18→16:08)
[2018-12-27] MEDS: AmLODIPine BESYLATE 2.5 MG TABLET PO SCH (09:18)
[2018-12-27] MEDS: HYDROCHLOROTHIAZIDE 25 MG TABLET PO SCH (09:18)
[2018-12-27] MEDS: ATENOLOL 50 MG TABLET PO SCH (09:18)
[2018-12-27] MEDS: ESCITALOPRAM OXALATE 10 MG TABLET PO SCH (09:18)
[2018-12-27 16:03] VITALS: BP 134/60
[2018-12-27 16:57] VITALS: BP 138/65
[2018-12-27] MEDS: IBUPROFEN 400 MG TABLET PO PRN (16:57)
[2018-12-27] MEDS: TraZODone HCL 100 MG TABLET PO SCH (20:24)
[2018-12-28 05:42] VITALS: BP 128/63
[2018-12-28] MEDS: FERROUS SULFATE 325 MG EC TABLET PO SCH ×3 (06:34→16:01)
[2018-12-28 08:03] VITALS: BP 142/75
[2018-12-28] MEDS: AmLODIPine BESYLATE 2.5 MG TABLET PO SCH (08:29)
[2018-12-28] MEDS: BENZTROPINE MESYLATE 1 MG TABLET PO SCH ×2 (08:29→20:36)
[2018-12-28] MEDS: HYDROCHLOROTHIAZIDE 25 MG TABLET PO SCH (08:29)
[2018-12-28] MEDS: GABAPENTIN 300 MG CAPSULE PO SCH ×3 (08:29→16:01)
[2018-12-28] MEDS: CHOLECALCIFEROL (VIT D3) 1,000 UNITS TABLET PO SCH (08:29)
[2018-12-28] MEDS: VALPROIC ACID 250 MG/5 ML SYRUP UDCUP PO SCH ×2 (08:29→20:36)
[2018-12-28] MEDS: ESCITALOPRAM OXALATE 10 MG TABLET PO SCH (08:29)
[2018-12-28] MEDS: ATENOLOL 50 MG TABLET PO SCH (08:30)
[2018-12-28] MEDS: LORazepam 2 MG TABLET PO PRN ×2 (09:18→15:57)
[2018-12-28] MEDS: HALOPERIDOL 5 MG TABLET PO PRN ×2 (09:18→15:56)
[2018-12-28] MEDS: ACETAMINOPHEN 325 MG TABLET PO PRN (15:57)
[2018-12-28 16:01] VITALS: BP 113/83
[2018-12-28 19:37] VITALS: BP 115/86
[2018-12-28] MEDS: IBUPROFEN 400 MG TABLET PO PRN (19:37)
[2018-12-28] MEDS: TraZODone HCL 100 MG TABLET PO SCH (20:36)
[2018-12-29 04:26] VITALS: BP 123/75
[2018-12-29] MEDS: FERROUS SULFATE 325 MG EC TABLET PO SCH ×3 (06:11→17:11)
[2018-12-29 08:03] VITALS: BP 140/67
[2018-12-29] MEDS: VALPROIC ACID 250 MG/5 ML SYRUP UDCUP PO SCH ×2 (09:17→20:09)
[2018-12-29] MEDS: AmLODIPine BESYLATE 2.5 MG TABLET PO SCH (09:18)
[2018-12-29] MEDS: GABAPENTIN 300 MG CAPSULE PO SCH ×3 (09:18→17:11)
[2018-12-29] MEDS: HYDROCHLOROTHIAZIDE 25 MG TABLET PO SCH (09:18)
[2018-12-29] MEDS: ESCITALOPRAM OXALATE 10 MG TABLET PO SCH (09:18)
[2018-12-29] MEDS: BENZTROPINE MESYLATE 1 MG TABLET PO SCH ×2 (09:18→20:07)
[2018-12-29] MEDS: CHOLECALCIFEROL (VIT D3) 1,000 UNITS TABLET PO SCH (09:18)
[2018-12-29] MEDS: ATENOLOL 50 MG TABLET PO SCH (09:18)
[2018-12-29] MEDS: HALOPERIDOL 5 MG TABLET PO PRN ×2 (10:09→16:14)
[2018-12-29] MEDS: LORazepam 2 MG TABLET PO PRN ×2 (10:09→16:14)
[2018-12-29 16:05] VITALS: BP 127/64
[2018-12-29] MEDS: TraZODone HCL 100 MG TABLET PO SCH (20:09)
[2018-12-30 04:51] VITALS: BP 130/61
[2018-12-30] MEDS: FERROUS SULFATE 325 MG EC TABLET PO SCH ×3 (06:31→16:32)
[2018-12-30 08:07] VITALS: BP 130/42
[2018-12-30] MEDS: VALPROIC ACID 250 MG/5 ML SYRUP UDCUP PO SCH ×2 (08:21→20:53)
[2018-12-30] MEDS: GABAPENTIN 300 MG CAPSULE PO SCH ×3 (08:21→16:32)
[2018-12-30] MEDS: CHOLECALCIFEROL (VIT D3) 1,000 UNITS TABLET PO SCH (08:21)
[2018-12-30] MEDS: AmLODIPine BESYLATE 2.5 MG TABLET PO SCH (08:21)
[2018-12-30] MEDS: ATENOLOL 50 MG TABLET PO SCH (08:21)
[2018-12-30] MEDS: BENZTROPINE MESYLATE 1 MG TABLET PO SCH ×2 (08:22→20:53)
[2018-12-30] MEDS: HYDROCHLOROTHIAZIDE 25 MG TABLET PO SCH (08:22)
[2018-12-30] MEDS: ESCITALOPRAM OXALATE 10 MG TABLET PO SCH (08:22)
[2018-12-30] MEDS ORDERED: PETROLATUM,WHITE 28 GM JELLY TP PRN (10:00)
[2018-12-30] MEDS: LORazepam 2 MG TABLET PO PRN ×2 (12:06→16:32)
[2018-12-30] MEDS: HALOPERIDOL 5 MG TABLET PO PRN ×2 (12:06→16:32)
[2018-12-30 16:13] VITALS: BP 117/77
[2018-12-30] MEDS: TraZODone HCL 100 MG TABLET PO SCH (20:53)
[2018-12-31 05:56] VITALS: BP 135/65
[2018-12-31] MEDS: FERROUS SULFATE 325 MG EC TABLET PO SCH ×3 (06:48→17:02)
[2018-12-31 08:07] VITALS: BP 137/55
[2018-12-31] MEDS: HYDROCHLOROTHIAZIDE 25 MG TABLET PO SCH (08:31)
[2018-12-31] MEDS: AmLODIPine BESYLATE 2.5 MG TABLET PO SCH (08:31)
[2018-12-31] MEDS: ATENOLOL 50 MG TABLET PO SCH (08:31)
[2018-12-31] MEDS: GABAPENTIN 300 MG CAPSULE PO SCH ×3 (08:31→17:02)
[2018-12-31] MEDS: CHOLECALCIFEROL (VIT D3) 1,000 UNITS TABLET PO SCH (08:31)
[2018-12-31] MEDS: ESCITALOPRAM OXALATE 10 MG TABLET PO SCH (08:31)
[2018-12-31] MEDS: VALPROIC ACID 250 MG/5 ML SYRUP UDCUP PO SCH ×2 (08:32→20:08)
[2018-12-31] MEDS: BENZTROPINE MESYLATE 1 MG TABLET PO SCH ×2 (08:32→20:07)
[2018-12-31 16:03] VITALS: BP 132/71
[2018-12-31] MEDS: LORazepam 2 MG TABLET PO PRN (16:13)
[2018-12-31] MEDS: HALOPERIDOL 5 MG TABLET PO PRN (16:13)
[2018-12-31] MEDS: TraZODone HCL 100 MG TABLET PO SCH (20:08)
[2019-01-01 05:49] VITALS: BP 106/63
[2019-01-01] MEDS: FERROUS SULFATE 325 MG EC TABLET PO SCH ×3 (07:07→16:06)
[2019-01-01] MEDS: ESCITALOPRAM OXALATE 10 MG TABLET PO SCH (08:13)
[2019-01-01] MEDS: HYDROCHLOROTHIAZIDE 25 MG TABLET PO SCH (08:13)
[2019-01-01] MEDS: CHOLECALCIFEROL (VIT D3) 1,000 UNITS TABLET PO SCH (08:13)
[2019-01-01] MEDS: GABAPENTIN 300 MG CAPSULE PO SCH ×3 (08:13→16:06)
[2019-01-01] MEDS: ATENOLOL 50 MG TABLET PO SCH (08:13)
[2019-01-01] MEDS: BENZTROPINE MESYLATE 1 MG TABLET PO SCH ×2 (08:13→20:28)
[2019-01-01] MEDS: VALPROIC ACID 250 MG/5 ML SYRUP UDCUP PO SCH ×2 (08:13→20:29)
[2019-01-01] MEDS: AmLODIPine BESYLATE 2.5 MG TABLET PO SCH (08:13)
[2019-01-01 08:25] VITALS: BP 139/76
[2019-01-01] MEDS: LORazepam 2 MG TABLET PO PRN ×2 (09:05→16:19)
[2019-01-01] MEDS: HALOPERIDOL 5 MG TABLET PO PRN ×2 (09:05→16:19)
[2019-01-01 15:43] VITALS: BP 137/76
[2019-01-01 16:19] VITALS: BP 130/80
[2019-01-01] MEDS: ACETAMINOPHEN 325 MG TABLET PO PRN (16:19)
[2019-01-01 16:21] VITALS: BP 137/76
[2019-01-01] MEDS: TraZODone HCL 100 MG TABLET PO SCH (20:29)
[2019-01-02 06:50] VITALS: BP 129/71
[2019-01-02] MEDS: FERROUS SULFATE 325 MG EC TABLET PO SCH ×3 (06:53→17:07)
[2019-01-02 08:02] VITALS: BP 121/68
[2019-01-02] MEDS: ESCITALOPRAM OXALATE 10 MG TABLET PO SCH (08:20)
[2019-01-02] MEDS: GABAPENTIN 300 MG CAPSULE PO SCH ×3 (08:20→17:07)
[2019-01-02] MEDS: ATENOLOL 50 MG TABLET PO SCH (08:20)
[2019-01-02] MEDS: VALPROIC ACID 250 MG/5 ML SYRUP UDCUP PO SCH ×2 (08:20→20:09)
[2019-01-02] MEDS: CHOLECALCIFEROL (VIT D3) 1,000 UNITS TABLET PO SCH (08:20)
[2019-01-02] MEDS: BENZTROPINE MESYLATE 1 MG TABLET PO SCH ×2 (08:20→20:09)
[2019-01-02] MEDS: AmLODIPine BESYLATE 2.5 MG TABLET PO SCH (08:21)
[2019-01-02] MEDS: HYDROCHLOROTHIAZIDE 25 MG TABLET PO SCH (08:21)
[2019-01-02] MEDS: HALOPERIDOL 5 MG TABLET PO PRN ×2 (08:41→16:11)
[2019-01-02] MEDS: LORazepam 2 MG TABLET PO PRN ×2 (08:41→16:11)
[2019-01-02 16:01] VITALS: BP 143/79
[2019-01-02] MEDS: TraZODone HCL 100 MG TABLET PO SCH (20:09)
[2019-01-03 04:34] VITALS: BP 137/74
[2019-01-03] MEDS: FERROUS SULFATE 325 MG EC TABLET PO SCH ×3 (06:50→16:19)
[2019-01-03 08:13] VITALS: BP 124/75
[2019-01-03] MEDS: HYDROCHLOROTHIAZIDE 25 MG TABLET PO SCH (08:19)
[2019-01-03] MEDS: ATENOLOL 50 MG TABLET PO SCH (08:19)
[2019-01-03] MEDS: GABAPENTIN 300 MG CAPSULE PO SCH ×3 (08:19→16:20)
[2019-01-03] MEDS: AmLODIPine BESYLATE 2.5 MG TABLET PO SCH (08:19)
[2019-01-03] MEDS: ESCITALOPRAM OXALATE 10 MG TABLET PO SCH (08:19)
[2019-01-03] MEDS: BENZTROPINE MESYLATE 1 MG TABLET PO SCH ×2 (08:19→20:03)
[2019-01-03] MEDS: VALPROIC ACID 250 MG/5 ML SYRUP UDCUP PO SCH ×2 (08:19→20:04)
[2019-01-03] MEDS: CHOLECALCIFEROL (VIT D3) 1,000 UNITS TABLET PO SCH (08:20)
[2019-01-03] MEDS: LORazepam 2 MG TABLET PO PRN ×3 (09:28→20:56)
[2019-01-03] MEDS: HALOPERIDOL 5 MG TABLET PO PRN ×3 (09:28→20:56)
[2019-01-03 16:17] VITALS: BP 112/62
[2019-01-03 17:21] VITALS: BP 138/64
[2019-01-03] MEDS: ACETAMINOPHEN 325 MG TABLET PO PRN (17:23)
[2019-01-03] MEDS: TraZODone HCL 100 MG TABLET PO SCH (20:03)
[2019-01-04 05:54] VITALS: BP 139/79
[2019-01-04] MEDS: FERROUS SULFATE 325 MG EC TABLET PO SCH ×3 (06:21→16:02)
[2019-01-04 08:31] VITALS: BP 130/42
[2019-01-04] MEDS: BENZTROPINE MESYLATE 1 MG TABLET PO SCH ×2 (09:23→20:59)
[2019-01-04] MEDS: GABAPENTIN 300 MG CAPSULE PO SCH ×3 (09:23→16:03)
[2019-01-04] MEDS: HYDROCHLOROTHIAZIDE 25 MG TABLET PO SCH (09:23)
[2019-01-04] MEDS: VALPROIC ACID 250 MG/5 ML SYRUP UDCUP PO SCH ×2 (09:23→21:03)
[2019-01-04] MEDS: ATENOLOL 50 MG TABLET PO SCH (09:24)
[2019-01-04] MEDS: ESCITALOPRAM OXALATE 10 MG TABLET PO SCH (09:24)
[2019-01-04] MEDS: CHOLECALCIFEROL (VIT D3) 1,000 UNITS TABLET PO SCH (09:24)
[2019-01-04] MEDS: AmLODIPine BESYLATE 2.5 MG TABLET PO SCH (09:24)
[2019-01-04] MEDS: HALOPERIDOL 5 MG TABLET PO PRN (13:16)
[2019-01-04] MEDS: LORazepam 2 MG TABLET PO PRN (13:17)
[2019-01-04 16:19] VITALS: BP 108/68
[2019-01-04] MEDS: TraZODone HCL 100 MG TABLET PO SCH (21:00)
[2019-01-05 00:14] VITALS: BP 152/75
[2019-01-05] MEDS: ZOLPIDEM TARTRATE 10 MG TABLET PO PRN (00:20)
[2019-01-05] MEDS: ACETAMINOPHEN 325 MG TABLET PO PRN ×2 (00:21→11:18)
[2019-01-05] MEDS: FERROUS SULFATE 325 MG EC TABLET PO SCH ×3 (06:56→16:50)
[2019-01-05 08:11] VITALS: BP 158/49
[2019-01-05] MEDS: BENZTROPINE MESYLATE 1 MG TABLET PO SCH ×2 (09:25→20:26)
[2019-01-05] MEDS: ESCITALOPRAM OXALATE 10 MG TABLET PO SCH (09:25)
[2019-01-05] MEDS: GABAPENTIN 300 MG CAPSULE PO SCH ×3 (09:25→16:50)
[2019-01-05] MEDS: AmLODIPine BESYLATE 2.5 MG TABLET PO SCH (09:25)
[2019-01-05] MEDS: VALPROIC ACID 250 MG/5 ML SYRUP UDCUP PO SCH ×2 (09:25→20:26)
[2019-01-05] MEDS: HYDROCHLOROTHIAZIDE 25 MG TABLET PO SCH (09:25)
[2019-01-05] MEDS: CHOLECALCIFEROL (VIT D3) 1,000 UNITS TABLET PO SCH (09:25)
[2019-01-05] MEDS: ATENOLOL 50 MG TABLET PO SCH (09:25)
[2019-01-05 11:15] VITALS: BP 124/76
[2019-01-05 13:52] VITALS: BP 139/82
[2019-01-05] MEDS: IBUPROFEN 400 MG TABLET PO PRN (13:56)
[2019-01-05] MEDS: LORazepam 2 MG TABLET PO PRN (14:41)
[2019-01-05] MEDS: HALOPERIDOL 5 MG TABLET PO PRN (14:41)
[2019-01-05 16:00] VITALS: BP 123/84
[2019-01-05] MEDS: TraZODone HCL 100 MG TABLET PO SCH (20:26)
[2019-01-06 06:15] VITALS: BP 122/60
[2019-01-06] MEDS: FERROUS SULFATE 325 MG EC TABLET PO SCH ×3 (06:29→16:32)
[2019-01-06] MEDS: CHOLECALCIFEROL (VIT D3) 1,000 UNITS TABLET PO SCH (07:53)
[2019-01-06] MEDS: HALOPERIDOL 5 MG TABLET PO PRN ×3 (07:53→16:55)
[2019-01-06] MEDS: GABAPENTIN 300 MG CAPSULE PO SCH ×3 (07:54→16:32)
[2019-01-06] MEDS: LORazepam 2 MG TABLET PO PRN ×3 (07:54→16:55)
[2019-01-06] MEDS: ESCITALOPRAM OXALATE 10 MG TABLET PO SCH (07:54)
[2019-01-06] MEDS: ATENOLOL 50 MG TABLET PO SCH (07:54)
[2019-01-06] MEDS: BENZTROPINE MESYLATE 1 MG TABLET PO SCH ×2 (07:54→20:38)
[2019-01-06] MEDS: HYDROCHLOROTHIAZIDE 25 MG TABLET PO SCH (07:54)
[2019-01-06] MEDS: VALPROIC ACID 250 MG/5 ML SYRUP UDCUP PO SCH ×2 (07:55→20:38)
[2019-01-06] MEDS: AmLODIPine BESYLATE 2.5 MG TABLET PO SCH (07:57)
[2019-01-06 08:07] VITALS: BP 143/80
[2019-01-06 16:07] VITALS: BP 142/64
[2019-01-06] MEDS: ACETAMINOPHEN 325 MG TABLET PO PRN (16:33)
[2019-01-06] MEDS: TraZODone HCL 100 MG TABLET PO SCH (20:38)
[2019-01-07 00:30] VITALS: BP 112/60
[2019-01-07] MEDS: FERROUS SULFATE 325 MG EC TABLET PO SCH ×3 (06:40→17:10)
[2019-01-07] MEDS: HYDROCHLOROTHIAZIDE 25 MG TABLET PO SCH (08:04)
[2019-01-07] MEDS: CHOLECALCIFEROL (VIT D3) 1,000 UNITS TABLET PO SCH (08:04)
[2019-01-07] MEDS: AmLODIPine BESYLATE 2.5 MG TABLET PO SCH (08:04)
[2019-01-07] MEDS: GABAPENTIN 300 MG CAPSULE PO SCH ×3 (08:04→17:09)
[2019-01-07] MEDS: ATENOLOL 50 MG TABLET PO SCH (08:04)
[2019-01-07] MEDS: ESCITALOPRAM OXALATE 10 MG TABLET PO SCH (08:04)
[2019-01-07] MEDS: BENZTROPINE MESYLATE 1 MG TABLET PO SCH ×2 (08:05→20:41)
[2019-01-07] MEDS: VALPROIC ACID 250 MG/5 ML SYRUP UDCUP PO SCH ×2 (08:05→20:41)
[2019-01-07 08:14] VITALS: BP 156/63
[2019-01-07] MEDS: LORazepam 2 MG TABLET PO PRN (12:04)
[2019-01-07 12:28] VITALS: BP 107/72
[2019-01-07 16:33] VITALS: BP 119/73
[2019-01-07] MEDS: TraZODone HCL 100 MG TABLET PO SCH (20:48)
[2019-01-08 00:38] VITALS: BP 122/66
[2019-01-08] MEDS: IBUPROFEN 400 MG TABLET PO PRN (00:42)
[2019-01-08] MEDS: ZOLPIDEM TARTRATE 10 MG TABLET PO PRN (00:46)
[2019-01-08] MEDS: FERROUS SULFATE 325 MG EC TABLET PO SCH ×3 (06:55→16:02)
[2019-01-08 08:01] VITALS: BP 133/60
[2019-01-08] MEDS: BENZTROPINE MESYLATE 1 MG TABLET PO SCH ×2 (08:16→20:10)
[2019-01-08] MEDS: GABAPENTIN 300 MG CAPSULE PO SCH ×3 (08:16→16:02)
[2019-01-08] MEDS: HYDROCHLOROTHIAZIDE 25 MG TABLET PO SCH (08:16)
[2019-01-08] MEDS: ESCITALOPRAM OXALATE 10 MG TABLET PO SCH (08:16)
[2019-01-08] MEDS: ATENOLOL 50 MG TABLET PO SCH (08:16)
[2019-01-08] MEDS: CHOLECALCIFEROL (VIT D3) 1,000 UNITS TABLET PO SCH (08:16)
[2019-01-08] MEDS: VALPROIC ACID 250 MG/5 ML SYRUP UDCUP PO SCH ×2 (08:17→20:10)
[2019-01-08] MEDS: AmLODIPine BESYLATE 2.5 MG TABLET PO SCH (08:18)
[2019-01-08] MEDS: LORazepam 2 MG TABLET PO PRN ×2 (09:40→17:51)
[2019-01-08 16:01] VITALS: BP 123/81
[2019-01-08] MEDS: HALOPERIDOL 5 MG TABLET PO PRN (17:51)
[2019-01-08] MEDS: TraZODone HCL 100 MG TABLET PO SCH (20:10)
[2019-01-09 05:54] VITALS: BP 128/68
[2019-01-09] MEDS: FERROUS SULFATE 325 MG EC TABLET PO SCH ×3 (06:42→16:09)
[2019-01-09] MEDS: CHOLECALCIFEROL (VIT D3) 1,000 UNITS TABLET PO SCH (07:56)
[2019-01-09] MEDS: HYDROCHLOROTHIAZIDE 25 MG TABLET PO SCH (07:57)
[2019-01-09] MEDS: ATENOLOL 50 MG TABLET PO SCH (07:57)
[2019-01-09] MEDS: BENZTROPINE MESYLATE 1 MG TABLET PO SCH ×2 (07:57→20:05)
[2019-01-09] MEDS: VALPROIC ACID 250 MG/5 ML SYRUP UDCUP PO SCH ×2 (07:57→20:05)
[2019-01-09] MEDS: GABAPENTIN 300 MG CAPSULE PO SCH ×3 (07:57→16:09)
[2019-01-09] MEDS: AmLODIPine BESYLATE 2.5 MG TABLET PO SCH (07:57)
[2019-01-09] MEDS: ESCITALOPRAM OXALATE 10 MG TABLET PO SCH (07:57)
[2019-01-09 08:08] VITALS: BP 124/63
[2019-01-09] MEDS: HALOPERIDOL 5 MG TABLET PO PRN (10:17)
[2019-01-09] MEDS: LORazepam 2 MG TABLET PO PRN ×3 (10:17→21:45)
[2019-01-09 14:55] VITALS: BP 125/70
[2019-01-09] MEDS: ACETAMINOPHEN 325 MG TABLET PO PRN (14:55)
[2019-01-09 16:03] VITALS: BP 118/63
[2019-01-09 17:29] VITALS: BP 121/84
[2019-01-09] MEDS: IBUPROFEN 400 MG TABLET PO PRN (17:29)
[2019-01-09] MEDS: TraZODone HCL 100 MG TABLET PO SCH (20:05)
[2019-01-09 21:44] VITALS: BP 121/64
[2019-01-10] MEDS: FERROUS SULFATE 325 MG EC TABLET PO SCH ×3 (06:03→16:18)
[2019-01-10 06:59] VITALS: BP 124/62
[2019-01-10 08:06] VITALS: BP 140/60
[2019-01-10] MEDS: CHOLECALCIFEROL (VIT D3) 1,000 UNITS TABLET PO SCH (08:51)
[2019-01-10] MEDS: VALPROIC ACID 250 MG/5 ML SYRUP UDCUP PO SCH ×2 (08:52→20:22)
[2019-01-10] MEDS: ESCITALOPRAM OXALATE 10 MG TABLET PO SCH (08:52)
[2019-01-10] MEDS: BENZTROPINE MESYLATE 1 MG TABLET PO SCH ×2 (08:52→20:21)
[2019-01-10] MEDS: ATENOLOL 50 MG TABLET PO SCH (08:52)
[2019-01-10] MEDS: AmLODIPine BESYLATE 2.5 MG TABLET PO SCH (08:52)
[2019-01-10] MEDS: GABAPENTIN 300 MG CAPSULE PO SCH ×3 (08:52→16:18)
[2019-01-10] MEDS: HYDROCHLOROTHIAZIDE 25 MG TABLET PO SCH (08:52)
[2019-01-10] MEDS: PALIPERIDONE PALMITATE 234 MG/1.5 ML SYRINGE IM SCH (08:54)
[2019-01-10] MEDS: LORazepam 2 MG TABLET PO PRN (12:08)
[2019-01-10] MEDS: HALOPERIDOL 5 MG TABLET PO PRN (12:08)
[2019-01-10 16:03] VITALS: BP 123/81
[2019-01-10 16:45] VITALS: BP 129/86
[2019-01-10] MEDS: IBUPROFEN 400 MG TABLET PO PRN (16:45)
[2019-01-10] MEDS: TraZODone HCL 100 MG TABLET PO SCH (20:21)
[2019-01-11 00:28] VITALS: BP 121/64
[2019-01-11] MEDS: FERROUS SULFATE 325 MG EC TABLET PO SCH ×3 (07:15→16:35)
[2019-01-11] MEDS: HALOPERIDOL 5 MG TABLET PO PRN ×2 (08:02→13:09)
[2019-01-11] MEDS: LORazepam 2 MG TABLET PO PRN ×2 (08:02→13:09)
[2019-01-11] MEDS: CHOLECALCIFEROL (VIT D3) 1,000 UNITS TABLET PO SCH (08:02)
[2019-01-11] MEDS: ESCITALOPRAM OXALATE 10 MG TABLET PO SCH (08:03)
[2019-01-11] MEDS: BENZTROPINE MESYLATE 1 MG TABLET PO SCH ×2 (08:03→20:28)
[2019-01-11] MEDS: HYDROCHLOROTHIAZIDE 25 MG TABLET PO SCH (08:03)
[2019-01-11] MEDS: GABAPENTIN 300 MG CAPSULE PO SCH ×3 (08:03→16:36)
[2019-01-11] MEDS: ATENOLOL 50 MG TABLET PO SCH (08:04)
[2019-01-11] MEDS: VALPROIC ACID 250 MG/5 ML SYRUP UDCUP PO SCH ×2 (08:06→20:29)
[2019-01-11 08:08] VITALS: BP 127/74
[2019-01-11] MEDS: AmLODIPine BESYLATE 2.5 MG TABLET PO SCH (09:56)
[2019-01-11 16:02] VITALS: BP 120/60
[2019-01-11] MEDS: TraZODone HCL 100 MG TABLET PO SCH (20:28)
[2019-01-12 00:08] VITALS: BP 139/70
[2019-01-12] MEDS: FERROUS SULFATE 325 MG EC TABLET PO SCH ×3 (06:10→16:34)
[2019-01-12 08:14] VITALS: BP 132/64
[2019-01-12] MEDS: BENZTROPINE MESYLATE 1 MG TABLET PO SCH ×2 (09:01→20:42)
[2019-01-12] MEDS: ESCITALOPRAM OXALATE 10 MG TABLET PO SCH (09:01)
[2019-01-12] MEDS: GABAPENTIN 300 MG CAPSULE PO SCH ×3 (09:01→16:34)
[2019-01-12] MEDS: CHOLECALCIFEROL (VIT D3) 1,000 UNITS TABLET PO SCH (09:01)
[2019-01-12] MEDS: HYDROCHLOROTHIAZIDE 25 MG TABLET PO SCH (09:01)
[2019-01-12] MEDS: ATENOLOL 50 MG TABLET PO SCH (09:01)
[2019-01-12] MEDS: VALPROIC ACID 250 MG/5 ML SYRUP UDCUP PO SCH ×2 (09:02→20:42)
[2019-01-12] MEDS: AmLODIPine BESYLATE 2.5 MG TABLET PO SCH (09:30)
[2019-01-12] MEDS: LORazepam 2 MG TABLET PO PRN ×2 (09:49→18:44)
[2019-01-12] MEDS: HALOPERIDOL 5 MG TABLET PO PRN ×2 (09:49→18:44)
[2019-01-12] MEDS: ACETAMINOPHEN 325 MG TABLET PO PRN (15:56)
[2019-01-12 16:01] VITALS: BP 121/80
[2019-01-12 16:03] VITALS: BP 121/80
[2019-01-12] MEDS: TraZODone HCL 100 MG TABLET PO SCH (20:42)
[2019-01-13 00:07] VITALS: BP 128/79
[2019-01-13] MEDS: FERROUS SULFATE 325 MG EC TABLET PO SCH ×3 (06:58→16:33)
[2019-01-13 08:06] VITALS: BP 125/75
[2019-01-13] MEDS: ATENOLOL 50 MG TABLET PO SCH (08:26)
[2019-01-13] MEDS: HYDROCHLOROTHIAZIDE 25 MG TABLET PO SCH (08:26)
[2019-01-13] MEDS: AmLODIPine BESYLATE 2.5 MG TABLET PO SCH (08:26)
[2019-01-13] MEDS: BENZTROPINE MESYLATE 1 MG TABLET PO SCH ×2 (08:26→20:38)
[2019-01-13] MEDS: HALOPERIDOL 5 MG TABLET PO PRN (08:27)
[2019-01-13] MEDS: CHOLECALCIFEROL (VIT D3) 1,000 UNITS TABLET PO SCH (08:27)
[2019-01-13] MEDS: GABAPENTIN 300 MG CAPSULE PO SCH ×3 (08:27→16:33)
[2019-01-13] MEDS: LORazepam 2 MG TABLET PO PRN ×2 (08:27→16:33)
[2019-01-13] MEDS: VALPROIC ACID 250 MG/5 ML SYRUP UDCUP PO SCH ×2 (08:30→20:38)
[2019-01-13] MEDS: ESCITALOPRAM OXALATE 10 MG TABLET PO SCH (08:30)
[2019-01-13 16:09] VITALS: BP 115/69
[2019-01-13] MEDS: ACETAMINOPHEN 325 MG TABLET PO PRN (16:13)
[2019-01-13] MEDS: TraZODone HCL 100 MG TABLET PO SCH (20:38)
[2019-01-14 00:02] VITALS: BP 140/60
[2019-01-14] MEDS: FERROUS SULFATE 325 MG EC TABLET PO SCH ×3 (06:44→16:38)
[2019-01-14 08:13] VITALS: BP 154/74
[2019-01-14] MEDS: ATENOLOL 50 MG TABLET PO SCH (08:36)
[2019-01-14] MEDS: VALPROIC ACID 250 MG/5 ML SYRUP UDCUP PO SCH ×2 (08:36→20:32)
[2019-01-14] MEDS: GABAPENTIN 300 MG CAPSULE PO SCH ×3 (08:36→16:38)
[2019-01-14] MEDS: AmLODIPine BESYLATE 2.5 MG TABLET PO SCH (08:37)
[2019-01-14] MEDS: CHOLECALCIFEROL (VIT D3) 1,000 UNITS TABLET PO SCH (08:37)
[2019-01-14] MEDS: HYDROCHLOROTHIAZIDE 25 MG TABLET PO SCH (08:37)
[2019-01-14] MEDS: ESCITALOPRAM OXALATE 10 MG TABLET PO SCH (08:37)
[2019-01-14] MEDS: BENZTROPINE MESYLATE 1 MG TABLET PO SCH ×2 (08:37→20:32)
[2019-01-14] MEDS: LORazepam 2 MG TABLET PO PRN ×2 (09:34→18:21)
[2019-01-14 16:08] VITALS: BP 113/80
[2019-01-14] MEDS: HALOPERIDOL 5 MG TABLET PO PRN (18:21)
[2019-01-14] MEDS: TraZODone HCL 100 MG TABLET PO SCH (20:32)
[2019-01-14] MEDS: ACETAMINOPHEN 325 MG TABLET PO PRN (20:41)
[2019-01-15 02:37] VITALS: BP 115/85
[2019-01-15] MEDS: FERROUS SULFATE 325 MG EC TABLET PO SCH ×3 (06:52→16:39)
[2019-01-15] MEDS: HYDROCHLOROTHIAZIDE 25 MG TABLET PO SCH (08:02)
[2019-01-15] MEDS: GABAPENTIN 300 MG CAPSULE PO SCH ×3 (08:02→16:39)
[2019-01-15] MEDS: AmLODIPine BESYLATE 2.5 MG TABLET PO SCH (08:02)
[2019-01-15] MEDS: BENZTROPINE MESYLATE 1 MG TABLET PO SCH ×2 (08:02→20:45)
[2019-01-15] MEDS: ESCITALOPRAM OXALATE 10 MG TABLET PO SCH (08:02)
[2019-01-15] MEDS: CHOLECALCIFEROL (VIT D3) 1,000 UNITS TABLET PO SCH (08:02)
[2019-01-15] MEDS: VALPROIC ACID 250 MG/5 ML SYRUP UDCUP PO SCH ×2 (08:02→20:44)
[2019-01-15] MEDS: ATENOLOL 50 MG TABLET PO SCH (08:03)
[2019-01-15 08:13] VITALS: BP 139/83
[2019-01-15] MEDS: HALOPERIDOL 5 MG TABLET PO PRN ×3 (09:09→17:20)
[2019-01-15] MEDS: LORazepam 2 MG TABLET PO PRN ×3 (09:09→17:20)
[2019-01-15 16:24] VITALS: BP 125/67
[2019-01-15] MEDS: TraZODone HCL 100 MG TABLET PO SCH (20:45)
[2019-01-16 06:33] VITALS: BP 148/73
[2019-01-16] MEDS: FERROUS SULFATE 325 MG EC TABLET PO SCH ×3 (07:04→16:53)
[2019-01-16 08:12] VITALS: BP 139/76
[2019-01-16] MEDS: CHOLECALCIFEROL (VIT D3) 1,000 UNITS TABLET PO SCH (09:12)
[2019-01-16] MEDS: ESCITALOPRAM OXALATE 10 MG TABLET PO SCH (09:12)
[2019-01-16] MEDS: GABAPENTIN 300 MG CAPSULE PO SCH ×3 (09:12→16:53)
[2019-01-16] MEDS: BENZTROPINE MESYLATE 1 MG TABLET PO SCH ×2 (09:13→20:49)
[2019-01-16] MEDS: ATENOLOL 50 MG TABLET PO SCH (09:13)
[2019-01-16] MEDS: VALPROIC ACID 250 MG/5 ML SYRUP UDCUP PO SCH ×2 (09:13→20:49)
[2019-01-16] MEDS: AmLODIPine BESYLATE 2.5 MG TABLET PO SCH (09:13)
[2019-01-16] MEDS: HYDROCHLOROTHIAZIDE 25 MG TABLET PO SCH (09:13)
[2019-01-16 13:54] VITALS: BP 123/73
[2019-01-16] MEDS: ACETAMINOPHEN 325 MG TABLET PO PRN (13:57)
[2019-01-16] MEDS: LORazepam 2 MG TABLET PO PRN (14:09)
[2019-01-16 16:06] VITALS: BP_SYST 122
[2019-01-16] MEDS: TraZODone HCL 100 MG TABLET PO SCH (20:49)
[2019-01-17 05:57] VITALS: BP 132/88
[2019-01-17] MEDS: FERROUS SULFATE 325 MG EC TABLET PO SCH ×3 (06:58→16:46)
[2019-01-17 08:14] VITALS: BP 118/82
[2019-01-17] MEDS: BENZTROPINE MESYLATE 1 MG TABLET PO SCH ×2 (08:28→21:03)
[2019-01-17] MEDS: GABAPENTIN 300 MG CAPSULE PO SCH ×3 (08:28→16:46)
[2019-01-17] MEDS: CHOLECALCIFEROL (VIT D3) 1,000 UNITS TABLET PO SCH (08:28)
[2019-01-17] MEDS: ATENOLOL 50 MG TABLET PO SCH (08:28)
[2019-01-17] MEDS: HYDROCHLOROTHIAZIDE 25 MG TABLET PO SCH (08:28)
[2019-01-17] MEDS: VALPROIC ACID 250 MG/5 ML SYRUP UDCUP PO SCH ×2 (08:28→21:03)
[2019-01-17] MEDS: ESCITALOPRAM OXALATE 10 MG TABLET PO SCH (08:28)
[2019-01-17] MEDS: AmLODIPine BESYLATE 2.5 MG TABLET PO SCH (08:31)
[2019-01-17 13:49] VITALS: BP 126/86
[2019-01-17 14:20] VITALS: BP 124/68
[2019-01-17 16:00] VITALS: BP 140/66
[2019-01-17] MEDS: LORazepam 2 MG TABLET PO PRN (16:53)
[2019-01-17 20:07] VITALS: BP 139/76
[2019-01-17] MEDS: TraZODone HCL 100 MG TABLET PO SCH (21:03)
[2019-01-18 00:32] VITALS: BP 126/80
[2019-01-18 01:23] VITALS: BP 126/82
[2019-01-18] MEDS: FERROUS SULFATE 325 MG EC TABLET PO SCH ×3 (06:53→16:52)
[2019-01-18 08:10] VITALS: BP 148/51
[2019-01-18] MEDS: LORazepam 2 MG TABLET PO PRN ×2 (08:13→16:52)
[2019-01-18] MEDS: CHOLECALCIFEROL (VIT D3) 1,000 UNITS TABLET PO SCH (08:14)
[2019-01-18] MEDS: HALOPERIDOL 5 MG TABLET PO PRN ×2 (08:14→16:52)
[2019-01-18] MEDS: GABAPENTIN 300 MG CAPSULE PO SCH ×3 (08:14→16:52)
[2019-01-18] MEDS: ESCITALOPRAM OXALATE 10 MG TABLET PO SCH (08:14)
[2019-01-18] MEDS: HYDROCHLOROTHIAZIDE 25 MG TABLET PO SCH (08:14)
[2019-01-18] MEDS: BENZTROPINE MESYLATE 1 MG TABLET PO SCH ×2 (08:14→21:14)
[2019-01-18] MEDS: ATENOLOL 50 MG TABLET PO SCH (08:14)
[2019-01-18] MEDS: VALPROIC ACID 250 MG/5 ML SYRUP UDCUP PO SCH ×2 (08:15→21:13)
[2019-01-18] MEDS: AmLODIPine BESYLATE 2.5 MG TABLET PO SCH (08:33)
[2019-01-18 16:05] VITALS: BP 119/88
[2019-01-18] MEDS: TraZODone HCL 100 MG TABLET PO SCH (21:14)
[2019-01-19 06:10] VITALS: BP 110/68
[2019-01-19] MEDS: FERROUS SULFATE 325 MG EC TABLET PO SCH ×3 (06:44→16:18)
[2019-01-19] MEDS: BENZTROPINE MESYLATE 1 MG TABLET PO SCH ×2 (08:13→20:41)
[2019-01-19] MEDS: AmLODIPine BESYLATE 2.5 MG TABLET PO SCH (08:14)
[2019-01-19] MEDS: GABAPENTIN 300 MG CAPSULE PO SCH ×3 (08:14→16:18)
[2019-01-19] MEDS: HALOPERIDOL 5 MG TABLET PO PRN ×2 (08:14→16:18)
[2019-01-19] MEDS: ESCITALOPRAM OXALATE 10 MG TABLET PO SCH (08:14)
[2019-01-19] MEDS: ATENOLOL 50 MG TABLET PO SCH (08:14)
[2019-01-19] MEDS: CHOLECALCIFEROL (VIT D3) 1,000 UNITS TABLET PO SCH (08:14)
[2019-01-19] MEDS: LORazepam 2 MG TABLET PO PRN ×2 (08:14→16:18)
[2019-01-19] MEDS: HYDROCHLOROTHIAZIDE 25 MG TABLET PO SCH (08:14)
[2019-01-19 08:15] VITALS: BP 126/76
[2019-01-19] MEDS: VALPROIC ACID 250 MG/5 ML SYRUP UDCUP PO SCH ×2 (08:15→20:41)
[2019-01-19 16:06] VITALS: BP 123/73
[2019-01-19] MEDS: TraZODone HCL 100 MG TABLET PO SCH (20:41)
[2019-01-20 05:31] VITALS: BP 121/74
[2019-01-20] MEDS: FERROUS SULFATE 325 MG EC TABLET PO SCH ×3 (06:31→17:11)
[2019-01-20 08:20] VITALS: BP 135/88
[2019-01-20] MEDS: CHOLECALCIFEROL (VIT D3) 1,000 UNITS TABLET PO SCH (08:21)
[2019-01-20] MEDS: GABAPENTIN 300 MG CAPSULE PO SCH ×3 (08:21→17:11)
[2019-01-20] MEDS: HALOPERIDOL 5 MG TABLET PO PRN ×2 (08:21→16:27)
[2019-01-20] MEDS: BENZTROPINE MESYLATE 1 MG TABLET PO SCH ×2 (08:21→20:58)
[2019-01-20] MEDS: LORazepam 2 MG TABLET PO PRN ×2 (08:21→16:27)
[2019-01-20] MEDS: ATENOLOL 50 MG TABLET PO SCH (08:21)
[2019-01-20] MEDS: HYDROCHLOROTHIAZIDE 25 MG TABLET PO SCH (08:21)
[2019-01-20] MEDS: ESCITALOPRAM OXALATE 10 MG TABLET PO SCH (08:21)
[2019-01-20] MEDS: VALPROIC ACID 250 MG/5 ML SYRUP UDCUP PO SCH ×2 (08:22→20:59)
[2019-01-20] MEDS: AmLODIPine BESYLATE 2.5 MG TABLET PO SCH (09:55)
[2019-01-20 16:02] VITALS: BP 126/73
[2019-01-20] MEDS: TraZODone HCL 100 MG TABLET PO SCH (20:58)
[2019-01-21 00:02] VITALS: BP 132/79
[2019-01-21] MEDS: FERROUS SULFATE 325 MG EC TABLET PO SCH ×3 (07:08→15:59)
[2019-01-21 07:59] VITALS: BP 129/67
[2019-01-21 08:01] VITALS: BP 129/67
[2019-01-21] MEDS: HALOPERIDOL 5 MG TABLET PO PRN ×2 (08:01→17:34)
[2019-01-21] MEDS: GABAPENTIN 300 MG CAPSULE PO SCH ×3 (08:02→15:55)
[2019-01-21] MEDS: ATENOLOL 50 MG TABLET PO SCH (08:02)
[2019-01-21] MEDS: CHOLECALCIFEROL (VIT D3) 1,000 UNITS TABLET PO SCH (08:02)
[2019-01-21] MEDS: BENZTROPINE MESYLATE 1 MG TABLET PO SCH ×2 (08:02→20:05)
[2019-01-21] MEDS: LORazepam 2 MG TABLET PO PRN ×2 (08:02→17:34)
[2019-01-21] MEDS: ESCITALOPRAM OXALATE 10 MG TABLET PO SCH (08:02)
[2019-01-21] MEDS: HYDROCHLOROTHIAZIDE 25 MG TABLET PO SCH (08:02)
[2019-01-21] MEDS: AmLODIPine BESYLATE 2.5 MG TABLET PO SCH (08:03)
[2019-01-21] MEDS: VALPROIC ACID 250 MG/5 ML SYRUP UDCUP PO SCH ×2 (08:03→20:05)
[2019-01-21] MEDS: NICOTINE POLACRILEX 2 MG LOZENGE PO PRN (15:59)
[2019-01-21 16:01] VITALS: BP 127/71
[2019-01-21] MEDS: TraZODone HCL 100 MG TABLET PO SCH (20:05)
[2019-01-22 05:41] VITALS: BP 122/67
[2019-01-22] MEDS: FERROUS SULFATE 325 MG EC TABLET PO SCH ×3 (06:51→16:03)
[2019-01-22 08:07] VITALS: BP 132/65
[2019-01-22] MEDS: AmLODIPine BESYLATE 2.5 MG TABLET PO SCH (08:55)
[2019-01-22] MEDS: VALPROIC ACID 250 MG/5 ML SYRUP UDCUP PO SCH ×2 (08:55→20:45)
[2019-01-22] MEDS: ESCITALOPRAM OXALATE 10 MG TABLET PO SCH (08:55)
[2019-01-22] MEDS: BENZTROPINE MESYLATE 1 MG TABLET PO SCH ×2 (08:55→20:46)
[2019-01-22] MEDS: HYDROCHLOROTHIAZIDE 25 MG TABLET PO SCH (08:55)
[2019-01-22] MEDS: GABAPENTIN 300 MG CAPSULE PO SCH ×3 (08:55→16:03)
[2019-01-22] MEDS: ATENOLOL 50 MG TABLET PO SCH (08:56)
[2019-01-22] MEDS: CHOLECALCIFEROL (VIT D3) 1,000 UNITS TABLET PO SCH (08:56)
[2019-01-22 09:19] VITALS: BP 143/90
[2019-01-22] MEDS: ACETAMINOPHEN 325 MG TABLET PO PRN (09:19)
[2019-01-22] MEDS: LORazepam 2 MG TABLET PO PRN ×2 (09:19→14:04)
[2019-01-22 16:05] VITALS: BP 126/70
[2019-01-22 16:30] VITALS: BP 124/72
[2019-01-22] MEDS: IBUPROFEN 400 MG TABLET PO PRN (16:30)
[2019-01-22] MEDS: TraZODone HCL 100 MG TABLET PO SCH (20:46)
[2019-01-23 03:30] VITALS: BP 118/74
[2019-01-23] MEDS: FERROUS SULFATE 325 MG EC TABLET PO SCH ×3 (06:44→16:24)
[2019-01-23] MEDS: CHOLECALCIFEROL (VIT D3) 1,000 UNITS TABLET PO SCH (08:10)
[2019-01-23] MEDS: HYDROCHLOROTHIAZIDE 25 MG TABLET PO SCH (08:11)
[2019-01-23] MEDS: ESCITALOPRAM OXALATE 10 MG TABLET PO SCH (08:11)
[2019-01-23] MEDS: AmLODIPine BESYLATE 2.5 MG TABLET PO SCH (08:11)
[2019-01-23] MEDS: ATENOLOL 50 MG TABLET PO SCH (08:11)
[2019-01-23] MEDS: BENZTROPINE MESYLATE 1 MG TABLET PO SCH ×2 (08:12→20:05)
[2019-01-23] MEDS: GABAPENTIN 300 MG CAPSULE PO SCH ×3 (08:12→16:24)
[2019-01-23] MEDS: VALPROIC ACID 250 MG/5 ML SYRUP UDCUP PO SCH ×2 (08:12→20:05)
[2019-01-23] MEDS: LORazepam 2 MG TABLET PO PRN ×2 (08:17→16:24)
[2019-01-23 08:34] VITALS: BP 135/72
[2019-01-23 16:01] VITALS: BP 136/68
[2019-01-23] MEDS: TraZODone HCL 100 MG TABLET PO SCH (20:04)
[2019-01-23] MEDS: ZOLPIDEM TARTRATE 10 MG TABLET PO PRN (20:05)
[2019-01-24 00:15] VITALS: BP 130/79
[2019-01-24] MEDS: FERROUS SULFATE 325 MG EC TABLET PO SCH ×3 (06:47→16:33)
[2019-01-24 08:15] VITALS: BP 140/98
[2019-01-24] MEDS: BENZTROPINE MESYLATE 1 MG TABLET PO SCH ×2 (08:37→20:39)
[2019-01-24] MEDS: HYDROCHLOROTHIAZIDE 25 MG TABLET PO SCH (08:38)
[2019-01-24] MEDS: GABAPENTIN 300 MG CAPSULE PO SCH ×3 (08:38→16:33)
[2019-01-24] MEDS: AmLODIPine BESYLATE 2.5 MG TABLET PO SCH (08:38)
[2019-01-24] MEDS: ESCITALOPRAM OXALATE 10 MG TABLET PO SCH (08:38)
[2019-01-24] MEDS: CHOLECALCIFEROL (VIT D3) 1,000 UNITS TABLET PO SCH (08:38)
[2019-01-24] MEDS: VALPROIC ACID 250 MG/5 ML SYRUP UDCUP PO SCH ×2 (08:38→20:38)
[2019-01-24] MEDS: ATENOLOL 50 MG TABLET PO SCH (08:39)
[2019-01-24] MEDS: ACETAMINOPHEN 325 MG TABLET PO PRN (08:46)
[2019-01-24] MEDS: LORazepam 2 MG TABLET PO PRN ×2 (08:46→16:34)
[2019-01-24] MEDS: HALOPERIDOL 5 MG TABLET PO PRN ×2 (08:46→16:34)
[2019-01-24 16:10] VITALS: BP 141/72
[2019-01-24] MEDS: TraZODone HCL 100 MG TABLET PO SCH (20:39)
[2019-01-25 06:21] VITALS: BP 138/74
[2019-01-25] MEDS: FERROUS SULFATE 325 MG EC TABLET PO SCH ×3 (06:32→16:06)
[2019-01-25 08:13] VITALS: BP_SYST 120; BP_SYST 129; BP_DIAS 64; BP_DIAS 76
[2019-01-25] MEDS: VALPROIC ACID 250 MG/5 ML SYRUP UDCUP PO SCH ×2 (08:17→20:03)
[2019-01-25] MEDS: AmLODIPine BESYLATE 2.5 MG TABLET PO SCH (08:17)
[2019-01-25] MEDS: GABAPENTIN 300 MG CAPSULE PO SCH ×3 (08:17→16:07)
[2019-01-25] MEDS: ESCITALOPRAM OXALATE 10 MG TABLET PO SCH (08:17)
[2019-01-25] MEDS: CHOLECALCIFEROL (VIT D3) 1,000 UNITS TABLET PO SCH (08:17)
[2019-01-25] MEDS: BENZTROPINE MESYLATE 1 MG TABLET PO SCH ×2 (08:17→20:02)
[2019-01-25] MEDS: HYDROCHLOROTHIAZIDE 25 MG TABLET PO SCH (08:17)
[2019-01-25] MEDS: ATENOLOL 50 MG TABLET PO SCH (08:17)
[2019-01-25] MEDS: ACETAMINOPHEN 325 MG TABLET PO PRN (08:35)
[2019-01-25] MEDS: HALOPERIDOL 5 MG TABLET PO PRN ×2 (09:15→16:07)
[2019-01-25] MEDS: LORazepam 2 MG TABLET PO PRN ×2 (09:15→16:07)
[2019-01-25 16:07] VITALS: BP 140/77
[2019-01-25] MEDS: IBUPROFEN 400 MG TABLET PO PRN (16:07)
[2019-01-25] MEDS: TraZODone HCL 100 MG TABLET PO SCH (20:02)
[2019-01-26] MEDS: FERROUS SULFATE 325 MG EC TABLET PO SCH ×3 (06:37→16:24)
[2019-01-26 08:11] VITALS: BP 160/82
[2019-01-26] MEDS: ESCITALOPRAM OXALATE 10 MG TABLET PO SCH (08:15)
[2019-01-26] MEDS: VALPROIC ACID 250 MG/5 ML SYRUP UDCUP PO SCH ×2 (08:15→20:49)
[2019-01-26] MEDS: BENZTROPINE MESYLATE 1 MG TABLET PO SCH ×2 (08:15→20:49)
[2019-01-26] MEDS: ATENOLOL 50 MG TABLET PO SCH (08:15)
[2019-01-26] MEDS: CHOLECALCIFEROL (VIT D3) 1,000 UNITS TABLET PO SCH (08:15)
[2019-01-26] MEDS: AmLODIPine BESYLATE 2.5 MG TABLET PO SCH (08:15)
[2019-01-26] MEDS: GABAPENTIN 300 MG CAPSULE PO SCH ×3 (08:16→16:24)
[2019-01-26] MEDS: HYDROCHLOROTHIAZIDE 25 MG TABLET PO SCH (08:16)
[2019-01-26] MEDS: LORazepam 2 MG TABLET PO PRN ×2 (08:56→16:24)
[2019-01-26 14:19] VITALS: BP 132/78
[2019-01-26 16:02] VITALS: BP 143/83
[2019-01-26] MEDS: HALOPERIDOL 5 MG TABLET PO PRN (16:24)
[2019-01-26] MEDS: TraZODone HCL 100 MG TABLET PO SCH (20:49)
[2019-01-27 05:10] VITALS: BP 138/78
[2019-01-27] MEDS: FERROUS SULFATE 325 MG EC TABLET PO SCH ×3 (06:45→16:05)
[2019-01-27] MEDS: VALPROIC ACID 250 MG/5 ML SYRUP UDCUP PO SCH ×2 (08:03→20:31)
[2019-01-27] MEDS: CHOLECALCIFEROL (VIT D3) 1,000 UNITS TABLET PO SCH (08:03)
[2019-01-27] MEDS: ESCITALOPRAM OXALATE 10 MG TABLET PO SCH (08:04)
[2019-01-27] MEDS: ATENOLOL 50 MG TABLET PO SCH (08:04)
[2019-01-27] MEDS: AmLODIPine BESYLATE 2.5 MG TABLET PO SCH (08:04)
[2019-01-27] MEDS: GABAPENTIN 300 MG CAPSULE PO SCH ×3 (08:04→16:05)
[2019-01-27 08:07] VITALS: BP 138/66
[2019-01-27] MEDS: BENZTROPINE MESYLATE 1 MG TABLET PO SCH ×2 (08:08→20:31)
[2019-01-27] MEDS: HYDROCHLOROTHIAZIDE 25 MG TABLET PO SCH (08:09)
[2019-01-27] MEDS: LORazepam 2 MG TABLET PO PRN ×2 (08:54→16:05)
[2019-01-27] MEDS: ACETAMINOPHEN 325 MG TABLET PO PRN (08:54)
[2019-01-27] MEDS ORDERED: FERR-89 PO (11:48)
[2019-01-27] MEDS ORDERED: HYDR25TA PO (11:48)
[2019-01-27] MEDS: IBUPROFEN 400 MG TABLET PO PRN (13:30)
[2019-01-27] MEDS: HALOPERIDOL 5 MG TABLET PO PRN (16:05)
[2019-01-27 16:50] VITALS: BP 132/75
[2019-01-27] MEDS: TraZODone HCL 100 MG TABLET PO SCH (20:31)
[2019-01-28 05:35] VITALS: BP 118/72
[2019-01-28] MEDS: FERROUS SULFATE 325 MG EC TABLET PO SCH ×3 (06:35→16:55)
[2019-01-28] MEDS: HYDROCHLOROTHIAZIDE 25 MG TABLET PO SCH (08:02)
[2019-01-28] MEDS: ESCITALOPRAM OXALATE 10 MG TABLET PO SCH (08:02)
[2019-01-28] MEDS: CHOLECALCIFEROL (VIT D3) 1,000 UNITS TABLET PO SCH (08:02)
[2019-01-28] MEDS: BENZTROPINE MESYLATE 1 MG TABLET PO SCH ×2 (08:02→20:07)
[2019-01-28] MEDS: AmLODIPine BESYLATE 2.5 MG TABLET PO SCH (08:02)
[2019-01-28] MEDS: ATENOLOL 50 MG TABLET PO SCH (08:03)
[2019-01-28] MEDS: HALOPERIDOL 5 MG TABLET PO PRN ×3 (08:03→16:08)
[2019-01-28] MEDS: LORazepam 2 MG TABLET PO PRN ×3 (08:03→16:08)
[2019-01-28] MEDS: GABAPENTIN 300 MG CAPSULE PO SCH ×3 (08:03→16:55)
[2019-01-28] MEDS: VALPROIC ACID 250 MG/5 ML SYRUP UDCUP PO SCH ×2 (08:04→20:09)
[2019-01-28 08:07] VITALS: BP 127/80
[2019-01-28 16:08] VITALS: BP 119/64
[2019-01-28] MEDS: TraZODone HCL 100 MG TABLET PO SCH (20:07)
[2019-01-29] MEDS: FERROUS SULFATE 325 MG EC TABLET PO SCH ×3 (06:29→16:45)
[2019-01-29 06:53] VITALS: BP 120/78
[2019-01-29 08:07] VITALS: BP 133/60
[2019-01-29] MEDS: AmLODIPine BESYLATE 2.5 MG TABLET PO SCH (08:16)
[2019-01-29] MEDS: VALPROIC ACID 250 MG/5 ML SYRUP UDCUP PO SCH ×2 (08:16→20:10)
[2019-01-29] MEDS: CHOLECALCIFEROL (VIT D3) 1,000 UNITS TABLET PO SCH (08:16)
[2019-01-29] MEDS: ATENOLOL 50 MG TABLET PO SCH (08:16)
[2019-01-29] MEDS: GABAPENTIN 300 MG CAPSULE PO SCH ×3 (08:16→16:45)
[2019-01-29] MEDS: ESCITALOPRAM OXALATE 10 MG TABLET PO SCH (08:16)
[2019-01-29] MEDS: HYDROCHLOROTHIAZIDE 25 MG TABLET PO SCH (08:16)
[2019-01-29] MEDS: BENZTROPINE MESYLATE 1 MG TABLET PO SCH ×2 (08:16→20:10)
[2019-01-29] MEDS: LORazepam 2 MG TABLET PO PRN ×2 (08:49→16:45)
[2019-01-29 16:07] VITALS: BP 118/81
[2019-01-29] MEDS: TraZODone HCL 100 MG TABLET PO SCH (20:10)
[2019-01-30 00:35] VITALS: BP 124/78
[2019-01-30] MEDS: IBUPROFEN 400 MG TABLET PO PRN (00:37)
[2019-01-30] MEDS: FERROUS SULFATE 325 MG EC TABLET PO SCH ×3 (06:37→16:55)
[2019-01-30 08:07] VITALS: BP 149/96
[2019-01-30] MEDS: AmLODIPine BESYLATE 2.5 MG TABLET PO SCH (08:14)
[2019-01-30] MEDS: GABAPENTIN 300 MG CAPSULE PO SCH ×3 (08:14→16:55)
[2019-01-30] MEDS: VALPROIC ACID 250 MG/5 ML SYRUP UDCUP PO SCH ×2 (08:14→20:32)
[2019-01-30] MEDS: ESCITALOPRAM OXALATE 10 MG TABLET PO SCH (08:14)
[2019-01-30] MEDS: HYDROCHLOROTHIAZIDE 25 MG TABLET PO SCH (08:14)
[2019-01-30] MEDS: CHOLECALCIFEROL (VIT D3) 1,000 UNITS TABLET PO SCH (08:14)
[2019-01-30] MEDS: ATENOLOL 50 MG TABLET PO SCH (08:14)
[2019-01-30] MEDS: BENZTROPINE MESYLATE 1 MG TABLET PO SCH ×2 (08:15→20:32)
[2019-01-30] MEDS: LORazepam 2 MG TABLET PO PRN ×2 (08:54→16:14)
[2019-01-30] MEDS: HALOPERIDOL 5 MG TABLET PO PRN ×2 (08:54→16:14)
[2019-01-30 13:17] VITALS: BP 124/91
[2019-01-30 16:01] VITALS: BP 140/76
[2019-01-30] MEDS: TraZODone HCL 100 MG TABLET PO SCH (20:32)
[2019-01-31 02:06] VITALS: BP 126/79
[2019-01-31] MEDS: FERROUS SULFATE 325 MG EC TABLET PO SCH (06:39)
[2019-01-31] MEDS ORDERED: PALI234D IM ×2 (08:05→08:40)
[2019-01-31] MEDS ORDERED: ESCI10TA PO (08:05)
[2019-01-31] MEDS: VALPROIC ACID 250 MG/5 ML SYRUP UDCUP PO SCH (08:27)
[2019-01-31] MEDS: GABAPENTIN 300 MG CAPSULE PO SCH (08:28)
[2019-01-31] MEDS: CHOLECALCIFEROL (VIT D3) 1,000 UNITS TABLET PO SCH (08:28)
[2019-01-31] MEDS: AmLODIPine BESYLATE 2.5 MG TABLET PO SCH (08:28)
[2019-01-31] MEDS: ATENOLOL 50 MG TABLET PO SCH (08:28)
[2019-01-31] MEDS: BENZTROPINE MESYLATE 1 MG TABLET PO SCH (08:28)
[2019-01-31] MEDS: ESCITALOPRAM OXALATE 10 MG TABLET PO SCH (08:28)
[2019-01-31] MEDS: HYDROCHLOROTHIAZIDE 25 MG TABLET PO SCH (08:28)
[2019-01-31] MEDS ORDERED: ESCI10TA54 PO (08:40)
[2019-01-31] MEDS ORDERED: BENZ1TAB10 PO (08:40)
[2019-01-31] MEDS ORDERED: TRAZ-220 PO (08:40)
[2019-01-31] MEDS ORDERED: GABA-531 PO (08:40)
[2019-01-31] MEDS ORDERED: VALP250S23 PO (08:40)
== END 2019-01-31 09:30 | disposition short-term general hospital (02) | DRG 750 ==
LOC: EMS 20:27 → 3EC 09-18 12:48 → B3A 10-08 23:00 → B2X 01-04 09:19 → B3A 01-21 17:24
DX: F25.1 Schizoaffective disorder, depressive type (principal); F79 Unspecified intellectual disabilities; D64.9 Anemia, unspecified; Z91.19 Patient's noncompliance with other medical treatment and regimen; E56.9 Vitamin deficiency, unspecified; F41.9 Anxiety disorder, unspecified; R45.87 Impulsiveness; I10 Essential (primary) hypertension; K59.00 Constipation, unspecified; F17.200 Nicotine dependence, unspecified, uncomplicated; R19.7 Diarrhea, unspecified; Z79.899 Other long term (current) drug therapy
CPT/HCPCS: 74019; 84443; 87081; G0480; J1200; J1630; J2060; Q0162

== ENCOUNTER 2018-10-09 10:32 | Emergency (ER) | payer MEDICAID, OTHER ==
[~2018-10-09] VITALS: Ht 165.1 cm; Wt 70.5 kg
[~2018-10-09 10:32] MED LIST changes: -CEPH250 PO; -ESCI10TA PO; +HALO5I IM; -HALO5TAB2 PO; -LORA2TAB2 PO; +LORA2VIA8 IM; +ONDA4 PO
[2018-10-09 12:26] VITALS: BP 112/69
== END 2018-10-09 12:27 | disposition other institution (70) ==
LOC: EMS 10:32
DX: S30.0XXA Contusion of lower back and pelvis, initial encounter (principal); I10 Essential (primary) hypertension; F20.9 Schizophrenia, unspecified; F17.210 Nicotine dependence, cigarettes, uncomplicated; Z79.899 Other long term (current) drug therapy; W18.39XA Other fall on same level, initial encounter; Y93.89 Activity, other specified; Y92.89 Other specified places as the place of occurrence of the external cause; Y99.8 Other external cause status

== ENCOUNTER 2018-10-22 22:31 | Emergency (ER) | payer OTHER ==
[~2018-10-22] VITALS: Ht 167.6 cm; Wt 68.2 kg
[2018-10-22] MEDS ORDERED: BENZ1TAB10 PO (23:09)
[2018-10-23] MEDS ORDERED: TraMADol HCL 50 MG TABLET PO ONE (03:00)
[2018-10-23 03:11] VITALS: BP 134/89
== END 2018-10-23 03:32 | disposition home or self-care (01) ==
LOC: EMS 22:45
DX: S00.93XA Contusion of unspecified part of head, initial encounter (principal); F20.9 Schizophrenia, unspecified; M25.511 Pain in right shoulder; M25.512 Pain in left shoulder; M79.652 Pain in left thigh; M79.651 Pain in right thigh; M54.2 Cervicalgia; I10 Essential (primary) hypertension; F17.210 Nicotine dependence, cigarettes, uncomplicated; W01.0XXA Fall on same level from slipping, tripping and stumbling without subsequent striking against object, initial encounter; Y93.89 Activity, other specified; Y92.89 Other specified places as the place of occurrence of the external cause; Y99.8 Other external cause status
CPT/HCPCS: 70450; 72125

== ENCOUNTER 2018-12-17 21:11 | Emergency (ER) | payer OTHER ==
[~2018-12-17] VITALS: Ht 149.9 cm; Wt 50.0 kg
[~2018-12-17 21:11] MED LIST changes: +BENZ1TAB10 PO
[2018-12-17] MEDS ORDERED: ACETAMINOPHEN 325 MG TABLET PO ONE (22:15)
[2018-12-18 00:45] VITALS: BP 129/68
== END 2018-12-18 01:56 | disposition home or self-care (01) ==
LOC: EMS 21:13
DX: S00.03XA Contusion of scalp, initial encounter (principal); M54.2 Cervicalgia; I10 Essential (primary) hypertension; F20.9 Schizophrenia, unspecified; F17.210 Nicotine dependence, cigarettes, uncomplicated; Z79.899 Other long term (current) drug therapy; Y04.0XXA Assault by unarmed brawl or fight, initial encounter; Y93.89 Activity, other specified; Y92.89 Other specified places as the place of occurrence of the external cause; Y99.8 Other external cause status
CPT/HCPCS: 70450; 72125